=== PATIENT | female | born 1960 | race Two or more races ===

== ENCOUNTER 2023-09-13 10:52 | Outpatient (OUT) | payer MEDICAID, SELFPAY ==
--- NOTE | 2023-09-13 11:06 | FL_ITS ---
The [address] [address] Patient Name: ELIAS CONTEH MRN: [id number] date: 1960 Sex: F Assigned Patient Location: DC Current Patient Location: DC Accession/Order Number: [id number] Exam Date: 09/13/2023 11:05 Report Date: 09/13/2023 12:00 At the request of: JOSÉ YOUNGBLOOD Procedure: FL modified barium swallow EXAMINATION: FL modified barium swallow HISTORY: Dysphasia COMPARISON: No relevant comparison available. TECHNIQUE: A swallowing evaluation was performed with fluoroscopy in the usual manner. Standard level fluoroscopic mode of operation utilized. FINDINGS: ORAL PHASE: Marked delay PHARYNGEAL PHASE: Marked delay . Filling of the vallecula with spillage. ASPIRATION: Small amount of penetration with honey consistency STRUCTURE: Normal. No visible obstruction, stricture, or dilatation. OTHER: Negative. FL/FL modified barium swallow IMPRESSION: Marked delay in swallowing Penetration with honey consistency Electronically authenticated by: KAYY CORTEZ Date: 09/13/2023 12:00
== END 2023-09-13 10:53 | disposition home or self-care (01) ==
LOC: FL 10:57
PROVIDERS: PCP Family Medicine; Visit Provider Family Medicine
DX: R47.02 Dysphasia (principal)
CPT/HCPCS: 74230; 92611

== ENCOUNTER 2023-09-21 12:45 | Emergency (ER) | payer MEDICAID, SELFPAY ==
[2023-09-21 12:51] VITALS: BP 138/86; PULSE 89; RESP 16; TEMP 36.6; O2SAT 94; BMI 17.9
--- NOTE | 2023-09-21 13:40 | XR_ITS ---
The [address] [address] Patient Name: ELIAS CONTEH MRN: [id number] date: 1960 Sex: F Assigned Patient Location: ER Current Patient Location: Accession/Order Number: [id number] Exam Date: 09/21/2023 13:52 Report Date: 09/21/2023 14:09 At the request of: ELENA SCOTT Procedure: XR chest 1V EXAMINATION: XR chest 1V HISTORY: NG placement COMPARISON: No relevant comparison available. TECHNIQUE: AP portable FINDINGS: LUNGS: No significant pulmonary parenchymal abnormalities. VASCULATURE: No increased pulmonary vasculature. PLEURA: No pneumothorax, effusion, or pleural thickening. CARDIAC: No cardiomegaly or cardiac silhouette abnormality. MEDIASTINUM: No visible mass or adenopathy. Aortic atherosclerosis BONES: No fracture or visible bone lesion. Remote bilateral clavicle internal fixation OTHER: Enteric tube tip extends off the field of view. The last side holes in the distal esophagus XR/XR chest 1V IMPRESSION: Last sidehole in the distal esophagus, advancement 5 cm recommended Electronically authenticated by: KAYY CORTEZ Date: 09/21/2023 14:09
--- NOTE | 2023-09-21 13:41 | ED.GENADUL1 ---
HPI - General Adult General Chief complaint: Recheck/Abnormal Lab/Rx Stated complaint: OTHER Time Seen by Provider: 09/21/23 12:57 Mode of arrival: Wheelchair History of Present Illness HPI narrative: 63-year-old female presents to the emergency department for NG tube placement. She had failed a swallow study following a stroke and the plan is to place a feeding tube eventually. She was sent here for the NG tube placement to temporarily provide a means of her receiving medications and nutrition. She does not seem to have any physical complaints at this point and she is accompanied by caregiver. Related Data Allergies Allergy/AdvReac Type Severity Reaction Status Date / Time Sulfa (Sulfonamide Allergy Unknown Verified 09/21/23 13:03 Antibiotics) Review of Systems ROS Narrative A ten point review of systems is negative except as noted above. Exam Narrative Exam Narrative: Nurses note and vital signs reviewed and patient is not hypoxic. General: The patient appears well and in no apparent distress. Patient is resting comfortably on cart. Skin: Warm, dry, no pallor noted. There is no rash noted. Head: Normocephalic, atraumatic Eye: Normal conjunctiva, no drainage Ears, Nose, Mouth, and Throat: oral mucosa is moist. Nares patent. Cardiovascular: Regular Rate and Rhythm Respiratory: Patient is in no distress, no accessory muscle use, lungs are clear to auscultation, no wheezing, rales or rhonchi Back: non-tender GI: Soft and nontender Musculoskeletal: No joint swelling Neurological: A&O, speech is slurred from her stroke Psychiatric: Cooperative Constitutional Vital Signs, click to edit/add: Last Vital Signs Temp 98 F 09/21/23 12:51 Pulse 89 09/21/23 12:51 Resp 16 09/21/23 12:51 BP 138/86 09/21/23 12:51 Pulse Ox 94 L 09/21/23 12:51 O2 Del Method Room Air 09/21/23 12:51 Course Vital Signs Vital signs: Vital Signs Temperature 98 F 09/21/23 12:51 Pulse Rate 89 09/21/23 12:51 Respiratory Rate 16 09/21/23 12:51 Blood Pressure 138/86 09/21/23 12:51 Pulse Oximetry 94 L 09/21/23 12:51 Oxygen Delivery Method Room Air 09/21/23 12:51 Temperature 98 F 09/21/23 12:51 Pulse Rate 89 09/21/23 12:51 Respiratory Rate 16 09/21/23 12:51 Blood Pressure 138/86 09/21/23 12:51 Pulse Oximetry 94 L 09/21/23 12:51 Oxygen Delivery Method Room Air 09/21/23 12:51 Medical Decision Making MDM Narrative Medical decision making narrative: NG tube placed by nursing staff. X-ray on my interpretation shows appropriate placement and the patient is released back to [facility]. Imaging Data Chest x-ray: My impression: Appropriate placement of NG tube Discharge Plan Discharge Stand Alone Forms: Portal Instructions Chief Complaint: Recheck/Abnormal Lab/Rx Clinical Impression: Encounter for nasogastric (NG) tube placement Patient Disposition: Home, Self-Care Time of Disposition Decision: 13:51 Condition: Good Mode of Transportation: Private Vehicle Print Language: Divehi Instructions: Tube Feeding (DC), Nasogastric Tube (DC) Referrals: JOSÉ YOUNGBLOOD [Primary Care Provider] - 1 week
== END 2023-09-21 14:03 | disposition home or self-care (01) ==
PROVIDERS: Emergency Provider Emergency Medicine; PCP Family Medicine
DX: Z46.59 Encounter for fitting and adjustment of other gastrointestinal appliance and device (principal); Z86.73 Personal history of transient ischemic attack (TIA), and cerebral infarction without residual deficits
CPT/HCPCS: 71045; 99284

== ENCOUNTER 2023-09-24 13:02 | Emergency (ER) | payer MEDICAID, SELFPAY ==
[2023-09-24 13:03] VITALS: BP 130/82; PULSE 99; RESP 18; O2SAT 97; BMI 18.0
[2023-09-24 13:17] VITALS: TEMP 36.6
--- OUTSIDE RECORDS SUMMARY | 2023-09-24 13:18 | XMS_ITS | CCD ---
Author Organization [facility] Care Team Providers Care Technical Sales Consultant Name Role Phone Unavailable Primary Care Provider UnavailMARBELLA Méndez Consulting Unavailable ZAC ORTIZ Admitting Unavailable ZAC ORTIZ Attending Unavailable ELLIOT BYRD Consulting Unavailable DIMAS PEACOCK Consulting Unavailable KAY NOVAK Consulting Unavailable STEVE ESTRELLA Consulting Unavailable DI TIPTON Consulting Unavailable IMER BUTTS Consulting Unavailable JUSTIN VIEIRA Consulting Unavailable JOSÉ YOUNGBLOOD Primary Care Unavailable JOSÉ YOUNGBLOOD Primary Care Unavailable GIORGI LAMAR Attending Unavailable Medications Current Medications Medication Drug Class(es) Dates Sig (Normalized) Sig (Original) amLODIPine 10 mg oral tablet (5 sources) Dihydropyridine Calcium Channel Rikki Start: 04-19-2022 Start: 03-19-2022 End: 04-19-2022 ergocalciferol 1.25 mg oral capsule (1 source) Provitamin D2 Compound Start: 03-17-2022 metFORMIN hydrochloride 1000 mg oral tablet (4 sources) Biguanide Start: 04-12-2022 Start: 04-07-2022 End: 04-12-2022 take 500 mg by mouth twice daily at mealtime 500 mg, Oral, 2 TIMES DAILY WITH MEALS, First dose on Tue04/07/22 at 1700, Until Discontinued Start: 04-07-2022 End: 04-12-2022 take 1000 mg by mouth twice daily at mealtime 1,000 mg, Oral, 2 TIMES DAILY WITH MEALS, First dose (after last modification) on Tue04/12/22 at 0800, Until Discontinued sertraline 50 mg oral tablet (3 sources) Serotonin Reuptake Inhibitor Start: 04-21-2022 Start: 04-20-2022 take 1 dose by mouth once 25 m g, Oral, ONCE, 1 dose, On Tue04/20/22 at 1315 divalproex sodium 125 mg delayed release oral capsule (3 sources) Mood Stabilizer, Anti-epileptic Agent Start: 04-07-2022 End: 04-12-2022 Start: 03-30-2022 take 1 dose by mouth three times daily 250 mg, Oral, EVERY 8 HOURS SCHEDULED (3 times per day), First dose on Tue03/30/22 at 2200, Until Discontinued Hold if sedated Completed/Discontinued Medications Medication Drug Class(es) Dates Sig (Normalized) Sig (Original) acetaminophen 500 mg oral tablet (2 sources) Start: 03-28-2022 take 1000 mg by mouth every eight hours as needed 1,000 mg, Oral, EVERY 8 HOURS PRN, Starting on Tue03/28/22 at 0636, Until Discontinued, Pain Moderate (4-6) Start: 03-17-2022 End: 03-24-2022 take 1000 mg by mouth every eight hours 1,000 mg, Oral, Every 8 hours, 21 doses, First dose on Tue03/17/22 at 0315, Last dose on Tue03/23/22 at 1915 Maximum dose of acetaminophen is 4000 mg from all sources in 24 hours. albuterol 0.833 mg/ml / ipratropium bromide 0.167 mg/ml inhalation solution (2 sources) Anticholinergic, beta2-Adrenergic Agonist Start: 04-07-2022 End: 04-12-2022 Start: 03-20-2022 End: 03-22-2022 1 ampule, Inhalation, EVERY 4 HOURS WHILE AWAKE, First dose on Tue03/20/22 at 1200, Until Discontinued Initiate RT Bronchodilator Protocol: No amoxicillin 875 mg / clavulanate 125 mg oral tablet (2 sources) Penicillin-class Antibacterial Start: 03-17-2022 End: 03-24-2022 take 1 tablet by mouth every twelve hours 1 tablet, Oral, EVERY 12 HOURS SCHEDULED (2 times per day), 10 doses, First dose (after last modification) on Tue03/19/22 at 2100, Last dose on Tue03/24/22 at 0900 Antimicrobial Indications: Surgical Site Infection ceFAZolin (ANCEF) 2000 mg in sterile water 20 mL IV syringe (1 source) Start: 03-18-2022 End: 03-18-2022 2,000 mg, IntraVENous, EVERY 8 HOURS, First dose on Anuradha 03/18/22 at 1400, For 2 doses Administer over 5 mins. chlorhexidine gluconate 1.2 mg/ml mouthwash (1 source) Start: 03-16-2022 End: 03-17-2022 take 15 mL by mouth twice daily 15 mL, Mouth/Throat, 2 TIMES DAILY, First dose on Tue03/16/22 at 2300, Until Discontinued For mechanical ventilation care. cloNIDine hydrochloride 0.1 mg oral tablet (4 sources) Central alpha-2 Adrenergic Agonist Start: 04-19-2022 End: 04-21-2022 take 0.1 mg by mouth once daily 0.1 mg, Oral, DAILY, 3 doses, First dose (after last modification) on Tue04/19/22 at 0900, Last dose on Tue04/21/22 at 0900 Start: 04-07-2022 End: 04-19-2022 take 0.1 mg by mouth twice daily 0.1 mg, Oral, 2 TIMES DAILY, First dose (after last modification) on Tue04/07/22 at 2100, Until Discontinued Start: 03-22-2022 End: 04-12-2022 100 ml dexmedetomidine 0.004 mg/ml injection (2 sources) Central alpha-2 Adrenergic Agonist Start: 03-17-2022 End: 03-22-2022 take 1.5-23.2 mL intravenously every hour 0.1-1.5 mcg/kg/hr 61.8 kg (1.545-23.175 mL/hr, rounded to 1.5-23.2 mL/hr), IntraVENous, CONTINUOUS, Starting on 03/20/22 at 1345, Until Tue03/22/22 at 0905 Titrate Infusion? Yes Initial Infusion Dose: 0.2 mcg/kg/hr Goal of Therapy: RASS of -1 to 0 Contact Provider if: New onset HR less than 50 bpm, New onset SBP less than 90 mmHg, Patient is receiving maximum dose and is not achieving the goal of therapy If Titrate Infusion? is No : Disregard instructions below. If Titrate infusion? is Yes : Titrate in increments of 0.2 mcg/kg/hr no more frequently than every 30 minutes to goal of therapy. If after titration rate change patient exhibits adverse hemodynamic response, next titration rate change may be adjusted by one-half of the previous rate change. If patient fails sedation interruption, resume dexmedetomidine infusion at 50% of previous rate. diazePAM 2 mg oral tablet (2 sources) Benzodiazepine Start: 03-22-2022 End: 03-24-2022 2 mg, Oral, EVERY 6 HOURS, 7 doses, First dose (after last modification) on Tue03/22/22 at 1930, Last dose on Tue03/24/22 at 0730 Start: 03-19-2022 End: 03-22-2022 take 5 mg by mouth every six hours 5 mg, Oral, EVERY 6 HOURS, First dose on Tue03/19/22 at 1330, Until Discontinued docusate sodium 50 mg / sennosides, residential 8.6 mg oral tablet (1 source) Start: 04-20-2022 take 2 tablets by mouth once daily 2 tablet, Oral, DAILY, First dose (after last modification) on Tue04/20/22 at 0900, Until Discontinued Drug or medicament (substance) (2 sources) Start: 03-19-2022 End: 03-20-2022 take 0.5-4 mL intravenously every hour 25-200 mcg/hr (0.5-4 mL/hr), IntraVENous, CONTINUOUS, Starting on Tue03/19/22 at 1715, Until 03/20/22 at 0900 Titrate Infusion? Yes Initial Infusion Dose: 50 mcg/hr Goal of Therapy is: RASS of -1 to 1 Contact Provider if: Patient is receiving the maximum dose and is not achieving the goal of therapy If Titrate Infusion? is No : Disregard instructions below. If Titrate infusion? is Yes : Titrate in increments of 25 mcg/hr no more frequently than every 30 minutes to goal of therapy. If after titration dose change patient exhibits adverse hemodynamic response, next titration dose change may be adjusted by one-half of the previous dose change. If patient fails sedation interruption, resume infusion at 50% of previous dose. Start: 03-16-2022 End: 03-18-2022 take 0.5-4 mL intravenously every hour 25-200 mcg/hr (0.5-4 mL/hr), IntraVENous, CONTINUOUS, Starting on Tue03/16/22 at 2300, Until Tue03/18/22 at 1826 Titrate Infusion? Yes Initial Infusion Dose: 50 mcg/hr Goal of Therapy is: RASS of -1 to 1 Contact Provider if: Patient is receiving the maximum dose and is not achieving the goal of therapy If Titrate Infusion? is No : Disregard instructions below. If Titrate infusion? is Yes : Titrate in increments of 25 mcg/hr no more frequently than every 30 minutes to goal of therapy. If after titration dose change patient exhibits adverse hemodynamic response, next titration dose change may be adjusted by one-half of the previous dose change. If patient fails sedation interruption, resume infusion at 50% of previous dose. 0.3 ml enoxaparin sodium 100 mg/ml prefilled syringe (2 sources) Low Molecular Weight Heparin Start: 03-21-2022 End: 04-12-2022 20 ml etomidate 2 mg/ml injection (1 source) General Anesthetic Start: 03-19-2022 End: 03-19-2022 30 mg, IntraVENous, ONCE, 1 dose, On Tue03/19/22 at 1815 Start: 03-19-2022 End: 03-19-2022 30 mg, IntraVENous, ONCE, 1 dose, On Tue03/19/22 at 1815 famotidine 20 mg oral tablet (2 sources) Histamine-2 Receptor Antagonist Start: 03-19-2022 End: 03-22-2022 take 20 mg by mouth twice daily 20 mg, Oral, 2 TIMES DAILY, First dose on Tue03/19/22 at 2100, Until Discontinued Start: 03-17-2022 End: 03-19-2022 take 20 mg by mouth twice daily 20 mg, Oral, 2 TIMES DAILY, First dose on Tue03/17/22 at 2100, Until Discontinued Traumatic SCI on >250mg dose equivalent of hydrocortisone famotidine (PEPCID) 20 mg in sodium chloride (PF) 10 mL injection (1 source) Start: 03-16-2022 End: 03-17-2022 take 20 mg intravenously twice daily 20 mg, IntraVENous, 2 TIMES DAILY, First dose on Tue03/16/22 at 2300, Until Discontinued IV Push over minimum of 2 minutes - Dilute with 10 mL NS 2 ml fentaNYL 0.05 mg/ml injection (6 sources) Opioid Agonist Start: 03-19-2022 End: 03-19-2022 take 1 dose by mouth once 50 mcg, IntraVENous, ONCE, 1 dose, On Tue03/19/22 at 1730 If oral and IV narcotics ordered, use oral first and only use IV if oral is ineffective or cannot take oral. D o Not give oral and IV within 1 hour of each other unless specifically ordered. Start: 03-19-2022 End: 03-19-2022 1 dose, Starting on 03/19 at 1623, Until 03/20/22 at 0429 TURNER GUERIN: cabinet override TURNER GUERIN: eloiseinet override Start: 03-18-2022 End: 03-19-2022 take 1 dose by mouth once 50 mcg, IntraVENous, ONCE, 1 dose, On Tue03/19/22 at 1645 If oral and IV narcotics ordered, use oral first and only use IV if oral is ineffective or cannot take oral. Do Not give oral and IV within 1 hour of each other unless specifically ordered. folic acid 1 mg oral tablet (2 sources) Start: 03-19-2022 End: 04-12-2022 gabapentin 300 mg oral capsule (1 source) Anti-epileptic Agent Start: 03-17-2022 End: 03-24-2022 take 300 mg by mouth every eight hours 300 mg, Oral, Every 8 hours, 21 doses, First dose on Tue03/17/22 at 0315, Last dose on Tue03/23/22 at 1915 250 ml glucose 50 mg/ml / sodium chloride 9 mg/ml injection (1 source) Start: 03-19-2022 End: 03-22-2022 IntraVENous, at 0-90 mL/hr, CONTINUOUS, Starting on Tue03/19/22 at 0745 Cap all fluids at 90cc/hr, including TF 1 ml haloperidol 5 mg/ml injection (12 sources) Typical Antipsychotic Start: 04-03-2022 End: 04-04-2022 inject 5 mg by intramuscular injection every six hours as needed 5 mg, IntraMUSCular, EVERY 6 HOURS PRN, Starting on 04/03/22 at 1745, Until 04/04/22 at 0654, Agitation IM route of administration preferred. Because of the risk of TdP and QT prolongation, ECG monitoring is recommended if haloperidol is given IV. Start: 03-31-2022 End: 04-01-2022 inject 1 dose by intramuscular injection once 5 mg, IntraMUSCular, ONCE, 1 dose, On Anuradha 04/01/22 at 0330 IM route of administration preferred. Because of the risk of TdP and QT prolongation, ECG monitoring is recommended if haloperidol is given IV. Start: 03-24-2022 End: 03-28-2022 inject 1 dose by intramuscular injection once 5 mg, IntraMUSCular, ONCE, 1 dose, On 03/28/22 at 1600 IM route of administration preferred. Because of the risk of TdP and QT prolongation, ECG monitoring is recommended if haloperidol is given IV. Start: 03-17-2022 End: 03-22-2022 take 5 mg intravenously every six hours as needed 5 mg, IntraVENous, EVERY 6 HOURS PRN, Starting on Tue03/17/22 at 1107, Until 03/22/22 at 1323, Agitation IM route of administration preferred. Because of the risk of TdP and QT prolongation, ECG monitoring is recommended if haloperidol is given IV. 1 ml hydrALAZINE hydrochloride 20 mg/ml injection (1 source) Arteriolar Vasodilator Start: 03-29-2022 End: 03-29-2022 10 mg, IntraVENous, EVERY 15 MIN PRN, 2 doses, Starting on 03/29/22 at 1629, Until 03/29/22 at 1745, High Blood Pressure, for SBP greater than 180 mmHg for 2 consecutive measurements taken from different sites Inform provider if SBP is still greater than 180 mmHg 10 minutes after second antihypertensive dose is administered. PACU only ibuprofen 20 mg/ml oral suspension (2 sources) Nonsteroidal Anti-inflammatory Drug Start: 03-19-2022 End: 03-26-2022 400 mg, Oral, EVERY 4 HOURS, 42 doses, First dose on Tue03/19/22 at 1200, Last dose on Tue03/26/22 at 0800 Start: 03-17-2022 End: 03-19-2022 take 400 mg by mouth every four hours 400 mg, Oral, EVERY 4 HOURS, First dose on Tue03/17/22 at 1200, Until Discontinued Do not crush or chew. insulin lispro 100 unt/ml injectable solution (5 sources) Insulin Analog Start: 04-12-2022 End: 04-12-2022 0-16 Units, SubCUTAneous, 4 TIMES DAILY BEFORE MEALS & NIGHTLY, First dose on Tue04/12/22 at 1100, Until Discontinued High Dose Corrective Algorithm Glucose: Dose: 70-179 No Insulin 180-249 4 Units 250-299 8 Units 300-349 12 Units Over 349 16 Units and notify physician Start: 04-07-2022 End: 04-07-2022 Start: 04-07-2022 End: 04-12-2022 0-4 Units, SubCUTAneous, 3 T IMES DAILY WITH MEALS, First dose on Tue04/07/22 at 1245, Until Discontinued Corrective Low Dose Algorithm Glucose: Dose: 70-199 No Insulin 200-249 1 Unit 250-299 2 Units 300-349 3 Units Over 349 4 Units and notify physician Start: 03-22-2022 End: 04-07-2022 0-16 Units, SubCUTAneous, 4 TIMES DAILY BEFORE MEALS & NIGHTLY, First dose (after last modification) on Tue03/22/22 at 1700, Until Discontinued High Dose Corrective Algorithm Glucose: Dose: 70-179 No Insulin 180-249 4 Units 250-299 8 Units 300-349 12 Units Over 349 16 Units and notify physician Start: 03-19-2022 End: 03-22-2022 0-16 Units, SubCUTAneous, EV RAMON 4 HOURS, First dose on Tue03/19/22 at 1445, Until Discontinued High Dose Corrective Algorithm Glucose: Dose: 70-179 No Insulin 180-249 4 Units 250-299 8 Units 300-349 12 Units Over 349 16 Units and notify physician labetalol hydrochloride 5 mg/ml injectable solution (1 source) beta-Adrenergic Rikki Start: 03-17-2022 End: 03-16-2022 10 mg, IntraVENous, ONCE, 1 dose, On Tue03/17/22 at 0000 Start: 03-17-2022 End: 03-16-2022 10 mg, IntraVENous, ONCE, 1 dose, On Tue03/17/22 at 0000 1 ml LORazepam 2 mg/ml injection (2 sources) Benzodiazepine Start: 03-19-2022 End: 03-19-2022 1 mg, IntraVENous, ONCE, 1 dose, On Tue03/19/22 at 0600 Start: 03-18-2022 End: 03-18-2022 1 mg, IntraVENous, ONCE, 1 d ose, On Tue03/18/22 at 2200 50 ml magnesium sulfate 40 mg/ml injection (2 sources) Start: 03-22-2022 End: 03-22-2022 2,000 mg, IntraVENous, at 25 mL/hr, Administer over 2 Hours, ONCE, On Tue03/22/22 at 1400, For 1 dose Recommended infusion rate not to exceed 1,000 mg (milligrams) per hour. Start: 03-19-2022 End: 03-19-2022 2,000 mg, IntraVENous, at 25 mL/hr, Administer over 2 Hours, ONCE, On Tue03/19/22 at 1130, For 1 dose Recommended infusion rate of 1 gram/hour. methocarbamol 750 mg oral tablet (1 source) Muscle Relaxant Start: 03-17-2022 End: 03-19-2022 take 750 mg by mouth every six hours 750 mg, Oral, EVERY 6 HOURS, First dose on Tue03/17/22 at 0315, Until Discontinued 2 ml metoclopramide 5 mg/ml prefilled syringe (1 source) Dopamine-2 Receptor Antagonist Start: 03-19-2022 End: 03-22-2022 10 mg, IntraVENous, EVERY 6 HOURS, 12 doses, First dose on Tue03/19/22 at 1230, Last dose on Tue03/22/22 at 0630 5 ml metoprolol tartrate 1 mg/ml injection (2 sources) beta-Adrenergic Rikki Start: 03-22-2022 End: 03-22-2022 1 dose, Starting on Tue03/22/22 at 1033, Until Tue03/22/22 at 1036 MISA WELCH: gracia dela cruzide MISA WELCH: gracia override Start: 03-22-2022 End: 03-22-2022 5 mg, IntraVENous, EVERY 6 H OURS PRN, Starting on Tue03/22/22 at 1021, Until Tue03/22/22 at 1323, Tachycardia, if pain and agitation controlled give hr >110 OLANZapine 10 mg disintegrating oral tablet (7 sources) Atypical Antipsychotic Start: 04-20-2022 take 10 mg by mouth twice daily 10 mg, Oral, 2 times daily, First dose (after last modification) on Tue04/20/22 at 2100, Until Discontinued Start: 04-07-2022 End: 04-20-2022 take 7.5 mg by mouth twice daily 7.5 mg, Oral, 2 times daily, First dose (after last modification) on Tue04/07/22 at 2100, Until Discontinued Start: 03-28-2022 End: 04-07-2022 take 5 mg by mouth twice daily 5 mg, Oral, 2 times isabella ly, First dose (after last modification) on Tue03/28/22 at 2100, Until Discontinued Start: 03-25-2022 End: 03-28-2022 take 2.5 mg by mouth twice daily 2.5 mg, Oral, 2 times daily, First dose on Tue03/25/22 at 1245, Until Discontinued oxyCODONE hydrochloride 5 mg oral tablet (1 source) Opioid Agonist Start: 03-17-2022 End: 03-25-2022 take 5 mg by mouth every six hours as needed for pain 5 mg, Oral, EVERY 6 HOURS PRN, Starting on Tue03/17/22 at 0258, Until Tue03/25/22 at 0954, Pain Severe (7-10) polyethylene glycol 3350 22980 mg powder for oral solution (2 sources) Osmotic Laxative Start: 03-17-2022 End: 04-22-2022 potassium bicarbonate 20 meq effervescent oral tablet (3 sources) Start: 03-22-2022 End: 03-22-2022 40 mEq, Oral, 2 TIMES DAILY, 2 doses, First dose (after last modification) on Tue03/22/22 at 1000, Last dose on Tue03/22/22 at 2100 Do not chew or crush. Disso lve flavored tablets completely in 3 to 4 ounces of cold water; unflavored tablets may be dissolved in 3 to 4 ounces of cold juice. Patie nt to sip slowly over a 5 to 10 minute period. May further dilute if GI adverse effects occur. Start: 03-19-2022 End: 03-19-2022 40 mEq, Oral, DAILY, First d ose on Tue03/19/22 at 1130, Until Discontinued Do not chew or crush. Dissolve flavored tablets completely in 3 to 4 ounces of cold water; unflavored tablets may be dissolved in 3 to 4 ounces of cold juice. Patient to sip slowly over a 5 to 10 minute period. May further dilute if GI adverse effects occur. Start: 03-19-2022 End: 03-19-2022 40 mEq, Oral, ONCE, 1 dose, On Tue03/19/22 at 0815 Do not chew or crush. Dissolve flavored tablets completely in 3 to 4 ounces of cold water; unflavored tablets may be dissolved in 3 to 4 ounces of cold juice. Patient to sip slowly over a 5 to 10 minute period. May further dilute if GI adverse effects occur. microencapsulated potassium chloride 20 meq extended release oral tablet (2 sources) Start: 04-05-2022 End: 04-05-2022 40 mEq, Oral, ONCE, 1 dose, On Tue04/05/22 at 0715 Do not crush, chew, or suck on tablet. Tablet may also be broken in half and each half swallowed separately. Start: 03-20-2022 End: 03-20-2022 For doses greater than 10 mE q, change frequency to every one hour for x number of doses. 10 mEq, IntraVENous, ONCE, 1 dose, On 03/20/22 at 0930, at 100 mL/hr 100 ml propofol 10 mg/ml injection (2 sources) General Anesthetic Start: 03-19-2022 End: 03-20-2022 5-50 mcg/kg/min 59.4 kg (1.782-17.82 mL/hr, rounded to 1.8-17.8 mL/hr), IntraVENous, CONTINUOUS, Starting on Tue03/19/22 at 2045, Until 03/20/22 at 0900 Titrate Infusion? Yes Initial Infusion Dose: 20 mcg/kg/min Goal of Therapy: RASS of -1 to 0 Contact Provider if: New onset HR less than 50 bpm, New onset SBP less than 90 mmHg, Patient is receiving maximum dose and is not achieving the goal of therapy, Triglycerides greater than 500 mg/dL If Titrate Infusion? is No : Disregard instructions below. If Titrate infusion? is Yes : Titrate in increments of 5 mcg/kg/min no more frequently than every 5 minutes to goal of therapy. If after titration rate change patient exhibits adverse hemodynamic response, next titration rate change may be adjusted by one-half of the previous rate change. If patient fails sedation interruption, resume propofol infusion at 50% of previous rate. Do not administer through the same I.V. catheter with blood or plasma. Tubing and any unused portions of propofol vials should be discarded after 12 hours. Start: 03-16-2022 End: 03-17-2022 5-50 mcg/kg/min 60 kg (1.8-1 8 mL/hr), IntraVENous, CONTINUOUS, Starting on Tue03/16/22 at 2300, Until Tue03/17/22 at 1108 Titrate Infusion? Yes Initial Infusion Dose: 10 mcg/kg/min Goal of Therapy: Other Other Goal: RASS -1 to -2 Contact Provider if: Patient is receiving maximum dose and is not achieving the goal of therapy If RASS 1 point below goal - decrease dose by 5 mcg/kg/min no faster than every 5 min. If RASS 2 points below goal- decrease dose by 10 mcg/kg/min no faster than every 5 min. If RASS at goal, continue current dose . If RASS 1 point above goal - increase dose by 5 mcg/kg/min no faster than every 5 min. If RASS 2 or more points above goal - increase dose by 10 mcg/kg/min no faster than every 5 min. If after titration rate change patient exhibits adverse hemodynamic response, next titration dose change may be adjusted by one-half of the previous dose change. If patient fails sedation interruption, resume propofol titration at 50% of previous dose. Do not administer through the same I.V. catheter with blood or plasma. Tubing and any unused portions of propofol vials should be discarded after 12 hours. QUEtiapine 25 mg oral tablet (3 sources) Atypical Antipsychotic Start: 03-26-2022 End: 03-27-2022 take 1 dose by mouth once 50 mg, Oral, ONCE, 1 dose, On Tue03/26/22 at 2330 Start: 03-25-2022 End: 03-25-2022 take 1 dose by mouth once 50 mg, Oral, ONCE, 1 dose, O n Anuradha 03/25/22 at 0030 Start: 03-19-2022 End: 03-23-2022 50 mg, Oral, 2 TIMES DAILY, 10 doses, First dose on Tue03/19/22 at 1230, Last dose on Tue03/23/22 at 2100 50 ml sodium chloride 9 mg/m l injection (5 sources) Start: 03-19-2022 End: 03-20-2022 1,000 mL (16.8 mL/kg), IntraVENous, at 1,935.5 mL/hr, Administer over 31 Minutes, ONCE, On Tue03/19/22 at 2200, For 1 dose Start: 03-16-2022 End: 03-19-2022 IntraVENous, at 0-100 mL/hr, CONTINUOUS, Starting on Tue03/17/22 at 1115 Titrate to total intake of 100 ml hr Start: 03-16-2022 End: 03-18-2022 take 1 dose intravenously twice daily 5-40 mL, IntraVENous, EVERY 12 HOURS SCHEDULED (2 times per day), First dose on Tue03/16/22 at 2300, Until Discontinued For Line Patency: Peripheral IV = 5 mL; Midline or Central Line = 10 mL/lumen. If following IV push medication, administer flush at same rate as the IV push. Flush volume is determined by type of infusion therapy being given. For non-viscous solutions use: Peripheral IV = 5 mL Midline or Central Line = 10 mL/lumen For viscous solutions (i.e. blood components, parenteral nutrition, contrast media, or after obtaining blood sample) use: Peripheral IV = 10 mL Midline or Central Line = 20 mL/lumen Start: 03-16-2022 take 5-40 mL intrave nously once as needed 5-40 mL, IntraVENous, PRN, Starting on Tue03/16/22 at 2236, Until Discontinued, Line Care, After every IV line use For Line Patency: Peripheral IV = 5 mL; Midline or Central Line = 10 mL/lumen. If following IV push medication, administer flush at same rate as the IV push. Flush volume is determined by type of infusion therapy being given. For non-viscous solutions use: Peripheral IV = 5 mL Midline or Central Line = 10 mL/lumen For viscous solutions (i.e. blood components, parenteral nutrition, contrast media, or after obtaining blood sample) use: Peripheral IV = 10 mL Midline or Central Line = 20 mL/lumen succinylcholine chloride 20 mg/ml injectable solution (1 source) Depolarizing Neuromuscular Rikki Start: 03-19-2022 End: 03-19-2022 150 mg, IntraVENous, ONCE, 1 dose, On Tue03/19/22 at 1630 Start: 03-19-2022 End: 03-19-2022 150 mg, IntraVENous, ONCE, 1 dose, On Tue03/19/22 at 1630 (5 sources) Start: 03-20-2022 End: 03-20-2022 30 mmol, IntraVENous, at 62. 5 mL/hr, Administer over 240 Minutes, ONCE, On 03/20/22 at 0730, For 1 dose Start: 03-19-2022 End: 03-20-2022 0.04 Units/min (12 mL/hr), IntraVENous, CONTINUOUS, Starting on Tue03/19/22 at 2215, Until Tue03/20/22 at 0900 Titrate Infusion? No Infusion Dose: Other Other (units/min): .04 If Titrate Infusion? is No : Disregard instructions below. If Titrate infusion? is Yes : Increase dose by 0.01 units/min no faster than every 10 minutes to goal. Decrease dose by 0.01 units/min no faster than every 30 minutes while maintaining goal parameter. Start: 03-19-2022 End: 03-22-2022 take 500 mg intravenously every eight hours 500 mg, IntraVENous, at 200 mL/hr, Administer over 30 Minutes, Every 8 hours, First dose on Tue03/19/22 at 1330, For 72 hours Protect from light. Start: 03-19-2022 End: 03-19-2022 3,000 mg, IntraVENous, EVERY 6 HOURS, 28 doses, First dose on Tue03/19/22 at 0530, Last dose on Tue03/25/22 at 2330 Antimicrobial Indications: Other Other Abx Indication: sinus precautions, patient NPO Start: 03-17-2022 End: 03-17-2022 3,000 mg, IntraVENous, at 33 .3 mL/hr, Administer over 3 Hours, ONCE, On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 accurate in patients with extremes of muscle mass, extra-renal metabolism of creatine, excessive creatine ingestion, or following therapy that affects renal tubular secretion. Performed By: #### C DP #### [address] [address] Geosciences Associate Professor: Dominik Muñiz MD Glucose [Mass/Vol] 132 mg/dL High 70-99 [facility] Comment on above: Performed By: #### C DP #### [address] [id number] Geosc[employer] Associate Professor: Dominik Muñiz MD Potassium [Moles/Vol] 3.9 mmol/L Normal 3.7-5.3 [facility] Comment on above: Performed By: #### C DP #### [facility] [address] [place], [place] [id number] Geosciences Associate Professor: Dominik Muñiz MD Sodium [Moles/Vol] 138 mmol/L Normal 135-144 [facility] Comment on above: Performed By: #### C DP #### [facility] [address] [place], [place] [id number] Geosciences Associate Professor: Dominik Muñiz MD Urea nitrogen [Mass/Vol] 19 mg/dL Normal 8-23 [facility] Comment on above: Performed By: #### C DP #### [facility] [address] [place] [address] Geosciences Associate Professor: Dominik Muñiz MD POC Glucose Fingerstickon Glucose [Mass/Vol] 158 mg/dL High 65 - 105 mg/dL [facility] Interpretation and review of laboratory results Abnormal [facility] Glucose [Mass/Vol] 153 mg/dL High 65 - 105 mg/dL [facility] Interpretation and review of laboratory results Abnormal [facility] POC Glucose Fingerstickon Glucose [Mass/Vol] 168 mg/dL High 65 - 105 mg/dL [facility] Interpretation and review of laboratory results Abnormal [facility] Glucose [Mass/Vol] 155 mg/dL High 65 - 105 mg/dL [facility] Interpretation and review of laboratory results Abnormal [facility] Glucose [Mass/Vol] 195 mg/dL High 65 - 105 mg/dL [facility] Interpretation and review of laboratory results Abnormal [facility] Glucose [Mass/Vol] 165 mg/dL High 65 - 105 mg/dL [facility] Interpretation and review of laboratory results Abnormal [facility] Glucose Fingerstickon Glucose [Mass/Vol] 218 mg/dL High 65 - 105 mg/dL [facility] Interpretation and review of laboratory results Abnormal [facility] Glucose [Mass/Vol] 188 mg/dL High 65 - 105 mg/dL [facility] Interpretation and review of laboratory results Abnormal [facility] Glucose [Mass/Vol] 267 mg/dL High 65 - 105 mg/dL [facility] Interpretation and review of laboratory results Abnormal [facility] Glucose [Mass/Vol] 135 mg/dL High 65 - 105 mg/dL [facility] Interpretation and review of laboratory results Abnormal [facility] Glucose [Mass/Vol] 151 mg/dL High 65 - 105 mg/dL [facility] Interpretation and review of laboratory results Abnormal [facility] Glucose Fingerstickon Glucose [Mass/Vol] 285 mg/dL High 65 - 105 mg/dL [facility] Interpretation and review of laboratory results Abnormal [facility] Glucose [Mass/Vol] 248 mg/dL High 65 - 105 mg/dL [facility] Interpretation and review of laboratory results Abnormal [facility] Glucose [Mass/Vol] 232 mg/dL High 65 - 105 mg/dL [facility] Interpretation and review of laboratory results Abnormal [facility] Glucose [Mass/Vol] 177 mg/dL High 65 - 105 mg/dL [facility] Interpretation and review of laboratory results Abnormal [facility] Glucose [Mass/Vol] 151 mg/dL High 65 - 105 mg/dL [facility] Interpretation and review of laboratory results Abnormal [facility] Glucose Fingerstickon Glucose [Mass/Vol] 277 mg/dL High 65 - 105 mg/dL [facility] Interpretation and review of laboratory results Abnormal [facility] Glucose [Mass/Vol] 193 mg/dL High 65 - 105 mg/dL [facility] Interpretation and review of laboratory results Abnormal [facility] Glucose [Mass/Vol] 230 mg/dL High 65 - 105 mg/dL [facility] Interpretation and review of laboratory results Abnormal [facility] Glucose [Mass/Vol] 153 mg/dL High 65 - 105 mg/dL [facility] Interpretation and review of laboratory results Abnormal [facility] Basic Metab w/rfx MGon 04-09 Anion gap [Moles/Vol] 12 mmol/L Normal 9-17 [facility] Comment on above: Performed By: #### C DP #### [place] [address] Geosciences Associate Professor: Dominik Muñiz MD Calcium [Mass/Vol] 9.4 mg/dL Normal 8.6-10.4 [facility] Comment on above: Performed By: #### C DP #### [place] [address] Geosciences Associate Professor: Dominik Muñiz MD Chloride [Moles/Vol] 102 mmol/L Normal 98-107 [facility] Comment on above: Performed By: #### C DP #### [address] [id number] Geosciences Associate Professor: Dominik Muñiz MD CO2 [Moles/Vol] 25 mmol/L Normal 20-31 [facility] Comment on above: Performed By: #### C DP #### [place] [address] Geosciences Associate Professor: Dominik Muñiz MD Creatinine [Mass/Vol] 0.51 mg/dL Normal 0.50-0.90 [facility] Comment on above: Performed By: #### C DP #### [facility] [address] [place] [id number] Geosciences Associate Professor: Dominik Muñiz MD GFR/1.73 sq M.predicted among non-blacks MDRD (S/P/Bld) [Vol rate/Area] mL/min/{1.73_m2} Normal >60 [facility] Comment on above: Result Comment: Effective Apr 05, 2022 These results are not intended for use in patients <18 years of age. eGFR results are calculated without a race factor using the 2020 CKD-EPI equation. Careful clinical correlation is recommended, particularly when comparing to results calculated using previous equations. The CKD-EPI equation is less accurate in patients with extremes of muscle mass, extra-renal metabolism of creatine, excessive creatine ingestion, or following therapy that affects renal tubular secretion. Performed By: #### C DP #### [address] [address] Geosciences Associate Professor: Dominik Muñiz MD Glucose [Mass/Vol] 194 mg/dL High 70-99 [facility] Comment on above: Performed By: #### C DP #### [address] [address] [employer]osciences Associate Professor: Dominik Muñiz MD Potassium [Moles/Vol] 4.0 mmol/L Normal 3.7-5.3 [facility] Comment on above: Performed By: #### C DP #### [address] [address] Geosciences Associate Professor: Dominik Muñiz MD Sodium [Moles/Vol] 139 mmol/L Normal 135-144 [facility] Comment on above: Performed By: #### C DP #### [facility] [address] [place] [id number] Geosciences Associate Professor: Dominik Muñiz MD Urea nitrogen [Mass/Vol] 18 mg/dL Normal 8-23 [facility] Comment on above: Performed By: #### C DP #### [address] [address] Geosciences Associate Professor: Dominik Muñiz MD Basic Metabolic Panel w/ Ref jessica to MGon 04-09-2022 Anion gap [Moles/Vol] 12 mmol/L 9 - 17 mmol/L [facility] Calcium [Mass/Vol] 9.4 mg/dL 8.6 - 10. 4 mg/dL [facility] Chloride [Moles/Vol] 102 mmol/L 98 - 10 7 mmol/L [facility] CO2 [Moles/Vol] 25 mmol/L 20 - 31 mmol/L [facility] Creatinine [Mass/Vol] 0.51 mg/dL 0.50 - 0.90 mg/dL [facility] GFR/1.73 sq M.predicted MDRD (S/P/Bld) [Vol rate/Area] - PINF [facility] Glucose [Mass/Vol] 194 mg/dL High 70 - 99 mg/dL [facility] Interpretation and review of laboratory results Abnormal [facility] Potassium [Moles/Vol] 4.0 mmol/L 3.7 - 5.3 mmol/L [facility] Sodium [Moles/Vol] 139 mmol/L 135 - 144 mmol/L [facility] Urea nitrogen (BldV) [Mass/Vol] 18 mg/dL 8 - 23 mg/dL [facility] CBC with Auto Differentialon 04-09-2022 Absolute Eos # 0.07 [facility] Absolute Immature Granulocyte [facility] Absolute Lymph # 2.09 [facility] Absolute [place]k # 0.72 [facility] Basophils (Bld) [#/Vol] 0.03 10*3/uL [facility] Basophils/100 WBC (Bld) 0 % 0 - 2 % [facility] Eosinophils/100 WBC (Bld) 1 % 1 - 4 % [facility] Hematocrit (Bld) [Volume fraction] 38.6 % 36.3 - 47.1 % [facility] Hemoglobin (Bld) [Mass/Vol] 12.9 g/dL 11.9 - 15.1 g/dL [facility] Immature granulocytes/100 WBC (Bld) 0 % 0 [facility] Interpretation and review of laboratory results Abnormal [facility] Lymphocytes/100 WBC (Bld) 24 % 24 - 43 % [facility] MCH (RBC) [Entitic mass] 32.3 pg 25.2 - 33.5 pg [facility] MCHC (RBC) [Mass/Vol] 33.4 g/dL 28.4 - 34.8 g/dL [facility] MCV (RBC) [Entitic vol] 96.7 fL 82.6 - 102.9 fL [facility] Monocytes/100 WBC (Bld) 8 % 3 - 12 % [facility] NRBC Automated 0.0 0.0 per 100 WBC [facility] Platelet distribution width (Bld) [Ratio] 12.1 % 11.8 - 14.4 % [facility] Platelet mean volume (Bld) [Entitic vol] 12.5 fL 8.1 - 13.5 fL [facility] Platelets (Bld) [#/Vol] 160 10*3/uL [facility] RBC (Bld) [#/Vol] 3.99 10*6/uL 3.95 - 5.1 1 m/uL [facility] Seg Neutrophils 67 % High 36 - 65 % [facility] Segs Absolute 5.89 [facility] WBC (Bld) [#/Vol] 8.8 10*3/uL [facility] CBC with Diffon 04-09-2022 Abs. Basophil 0.03 k/uL Normal 0.00-0.20 [facility] Comment on above: Performed By: #### C DP #### [facility] [address] [place] [address] Geosciences Associate Professor: Dominik Muñiz MD Abs.Imm.Granulocyte <0.03 Normal 0.00-0.30 [facility] Comment on above: Performed By: #### C DP #### [facility] [address] [place] [address] Geosciences Associate Professor: Dominik Muñiz MD Abs.Neutrophil (Seg) 5.89 k/uL Normal 1.50-8.10 [facility] Comment on above: Performed By: #### C DP #### [address] [address] Geosciences Associate Professor: Dominik Muñiz MD Basophils/100 WBC (Bld) 0 % Normal 0-2 [facility] Comment on above: Performed By: #### C DP #### [place] [address] Geosciences Associate Professor: Dominik Muñiz MD Eosinophils (Bld) [#/Vol] 0.07 10*3/uL Normal 0.00-0.44 [facility] Comment on above: Performed By: #### C DP #### [place] [address] Geosciences Associate Professor: Dominik Muñiz MD Eosinophils/100 WBC (Bld) 1 % Normal 1-4 [facility] Comment on above: Performed By: #### C DP #### [place] [address] [employer]osciences Associate Professor: Dominik Muñiz MD Erythrocyte distribution width (RBC) [Ratio] 12.1 % Normal 11.8-14.4 [facility] Comment on above: Performed By: #### C DP #### [place] [address] Geosciences Associate Professor: Dominik Muñiz MD Hematocrit (Bld) [Volume fraction] 38.6 % Normal 36.3-47.1 [facility] Comment on above: Performed By: #### C DP #### [place] [address] Geosciences Associate Professor: Dominik Muñiz MD Hemoglobin (Bld) [Mass/Vol] 12.9 g/dL Normal 11.9-15.1 [facility] Comment on above: Performed By: #### C DP #### [address] [address] Geosciences Associate Professor: Dominik Muñiz MD Immature granulocytes/100 WBC (Bld) 0 % Normal 0 [facility] Comment on above: Performed By: #### C DP #### [address] [address] Geosciences Associate Professor: Dominik Muñiz MD Lymphocytes (Bld) [#/Vol] 2.09 10*3/uL Normal 1.10-3.70 [facility] Comment on above: Performed By: #### C DP #### [address] [address] Geosciences Associate Professor: Dominik Muñiz MD Lymphocytes/100 WBC (Bld) 24 % Normal 24-43 [facility] Comment on above: Performed By: #### C DP #### [address] [address] Geosciences Associate Professor: Dominik Muñiz MD MCH (RBC) [Entitic mass] 32.3 pg Normal 25.2-33.5 [facility] Comment on above: Performed By: #### C DP #### [address] [address] Geosciences Associate Professor: Dominik Muñiz MD MCHC (RBC) [Mass/Vol] 33.4 g/dL Normal 28.4-34.8 [facility] Comment on above: Performed By: #### C DP #### [address] [address] Geosciences Associate Professor: Dominik Muñiz MD MCV (RBC) [Entitic vol] 96.7 fL Normal 82.6-102.9 [facility] Comment on above: Performed By: #### C DP #### [address] [address] Geosciences Associate Professor: Dominik Muñiz MD Monocytes (Bld) [#/Vol] 0.72 10*3/uL Normal 0.10-1.20 [facility] Comment on above: Performed By: #### C DP #### [address] [address] Geosciences Associate Professor: Dominik Muñiz MD Monocytes/100 WBC (Bld) 8 % Normal 3-12 [facility] Comment on above: Performed By: #### C DP #### [address] [address] Geosciences Associate Professor: Dominik Muñiz MD Neutrophil (Seg) 67 % High 36-65 [facility] Comment on above: Performed By: #### C DP #### [address] [address] Geosciences Associate Professor: Dominik Muñiz MD NRBC Automated 0.0 per 100 WBC Normal 0.0 [facility] Comment on above: Performed By: #### C DP #### [address] [address] Geosciences Associate Professor: Dominik Muñiz MD Platelet mean volume (Bld) [Entitic vol] 12.5 fL Normal 8.1-13.5 [facility] Comment on above: Performed By: #### C DP #### [address] [address] Geosciences Associate Professor: Dominik Muñiz MD Platelets (Bld) [#/Vol] 160 10*3/uL Normal 138-453 [facility] Comment on above: Performed By: #### C DP #### [address] [address] Geosciences Associate Professor: Dominik Muñiz MD RBC (Bld) [#/Vol] 3.99 10*6/uL Normal 3.95-5.11 [facility] Comment on above: Performed By: #### C DP #### [facility] [address] [place] [address] Geosciences Associate Professor: Dominik Muñiz MD WBC (Bld) [#/Vol] 8.8 10*3/uL Normal 3.5-11.3 [facility] Comment on above: Performed By: #### C DP #### [facility] [address] [place] [address] Geosciences Associate Professor: Dominik Muñiz MD POC Glucose Fingerstickon Glucose [Mass/Vol] 248 mg/dL High 65 - 105 mg/dL [facility] Interpretation and review of laboratory results Abnormal [facility] Glucose [Mass/Vol] 357 mg/dL High 65 - 105 mg/dL [facility] Interpretation and review of laboratory results Abnormal [facility] Glucose [Mass/Vol] 186 mg/dL High 65 - 105 mg/dL [facility] Interpretation and review of laboratory results Abnormal [facility] Glucose [Mass/Vol] 213 mg/dL High 65 - 105 mg/dL [facility] Interpretation and review of laboratory results Abnormal [facility] Hemoglobin A1Con 04-08-2022 Glucose [Mass/Vol] 148 mg/dL Normal [facility] Comment on above: Result Comment: The ADA and AACC recommend providing the estimated average glucose result to permit better patient understanding of their HBA1c result. Performed By: #### M G, LIVP, BMPX, VD25, NAMRATA, IOCAL, CDP #### [facility] [address] [place] [address] Geosciences Associate Professor: Dominik Muñiz MD HbA1c (Bld) [Mass fraction] 6.8 % High 4.0-6.0 [facility] Comment on above: Performed By: #### M G, LIVP, BMPX, VD25, NAMRATA, IOCAL, CDP #### [email or web address] [place] [address] Geosciences Associate Professor: Dominik Muñiz MD Glucose [Mass/Vol] 148 mg/dL [facility] HbA1c (Bld) [Mass fraction] 6.8 % High 4.0 - 6.0 % [facility] Interpretation and review of laboratory results Abnormal [facility] POC Glucose Fingerstickon Glucose [Mass/Vol] 192 mg/dL High 65 - 105 mg/dL [facility] Interpretation and review of laboratory results Abnormal [facility] Glucose [Mass/Vol] 241 mg/dL High 65 - 105 mg/dL [facility] Interpretation and review of laboratory results Abnormal [facility] Glucose [Mass/Vol] 205 mg/dL High 65 - 105 mg/dL [facility] Interpretation and review of laboratory results Abnormal [facility] Glucose [Mass/Vol] 160 mg/dL High 65 - 105 mg/dL [facility] Interpretation and review of laboratory results Abnormal [facility] Glucose [Mass/Vol] 166 mg/dL High 65 - 105 mg/dL [facility] Interpretation and review of laboratory results Abnormal [facility] Basic Metab w/rfx MGon 04-07 Anion gap [Moles/Vol] 9 mmol/L Normal 9-17 [facility] Comment on above: Performed By: #### M G, LIVP, BMPX, VD25, NAMRATA, IOCAL, CDP #### [email or web address] [address] [place] [phone] Geosciences Associate Professor: Dominik uMñiz MD Calcium [Mass/Vol] 8.7 mg/dL Normal 8.6-10.4 [facility] Comment on above: Performed By: #### M G, LIVP, BMPX, VD25, NAMRATA, IOCAL, CDP #### [facility] [address] [place] [id number] Geosciences Associate Professor: Dominik Muñiz MD Chloride [Moles/Vol] 102 mmol/L Normal 98-107 [facility] Comment on above: Performed By: #### M G, LIVP, BMPX, VD25, NAMRATA, IOCAL, CDP #### [address] [phone] Geosciences Associate Professor: Dominik Muñiz MD CO2 [Moles/Vol] 27 mmol/L Normal 20-31 [facility] Comment on above: Performed By: #### M G, LIVP, BMPX, VD25, NAMRATA, IOCAL, CDP #### [address] [address] Geosciences Associate Professor: Dominik Muñiz MD Creatinine [Mass/Vol] 0.49 mg/dL Low 0.50-0.90 [facility] Comment on above: Performed By: #### M G, LIVP, BMPX, VD25, NAMRATA, IOCAL, CDP #### [place] [address] Geosciences Associate Professor: Dominik Muñiz MD GFR/1.73 sq M.predicted among non-blacks MDRD (S/P/Bld) [Vol rate/Area] mL/min/{1.73_m2} Normal >60 [facility] Comment on above: Result Comment: Effective Apr 05, 2022 These results are not intended for use in patients <18 years of age. eGFR results are calculated without a race factor using the 2020 CKD-EPI equation. Careful clinical correlation is recommended, particularly when comparing to results calculated using previous equations. The CKD-EPI equation is less accurate in patients with extremes of muscle mass, extra-renal metabolism of creatine, excessive creatine ingestion, or following therapy that affects renal tubular secretion. Performed By: #### M G, LIVP, BMPX, VD25, NAMRATA, IOCAL, CDP #### [address] [id number] Geosciences Associate Professor: Dominik Muñiz MD Glucose [Mass/Vol] 166 mg/dL High 70-99 [facility] Comment on above: Performed By: #### M G, LIVP, BMPX, VD25, NAMRATA, IOCAL, CDP #### [facility] [address] [place], [place] [phone] Geosciences Associate Professor: Dominik Muñiz MD Potassium [Moles/Vol] 4.1 mmol/L Normal 3.7-5.3 [facility] Comment on above: Performed By: #### M G, LIVP, BMPX, VD25, NAMRATA, IOCAL, CDP #### [facility] [address] [place], [place] [id number] Geosciences Associate Professor: Dominik Muñiz MD Sodium [Moles/Vol] 138 mmol/L Normal 135-144 [facility] Comment on above: Performed By: #### M G, LIVP, BMPX, VD25, NAMRATA, IOCAL, CDP #### [email or web address] [address] [place] [phone] Geosciences Associate Professor: Dominik Muñiz MD Urea nitrogen [Mass/Vol] 17 mg/dL Normal 8-23 [facility] Comment on above: Performed By: #### M G, LIVP, BMPX, VD25, NAMRATA, IOCAL, CDP #### [email or web address] [address] [place] [id number] Geosciences Associate Professor: Dominik Muñiz MD Basic Metabolic Panel w/ Ref jessica to MGon 04-07-2022 Anion gap [Moles/Vol] 9 mmol/L 9 - 17 mmol/L [facility] Calcium [Mass/Vol] 8.7 mg/dL 8.6 - 10. 4 mg/dL [facility] Chloride [Moles/Vol] 102 mmol/L 98 - 10 7 mmol/L [employer] [facility] CO2 [Moles/Vol] 27 mmol/L 20 - 31 mmol/L [facility] Creatinine [Mass/Vol] 0.49 mg/dL Low 0.50 - 0.90 mg/dL [employer] [facility] GFR/1.73 sq M.predicted MDRD (S/P/Bld) [Vol rate/Area] - PINF [facility] Glucose [Mass/Vol] 166 mg/dL High 70 - 99 mg/dL [facility] Interpretation and review of laboratory results Abnormal [facility] Potassium [Moles/Vol] 4.1 mmol/L 3.7 - 5.3 mmol/L [facility] Sodium [Moles/Vol] 138 mmol/L 135 - 144 mmol/L [facility] Urea nitrogen (BldV) [Mass/Vol] 17 mg/dL 8 - 23 mg/dL [facility] CBC with Auto Differentialon 04-07-2022 Absolute Eos # 0.05 [facility] [facility] Absolute Immature Granulocyte [facility] Absolute Lymph # 2.01 [facility] SECO URS [facility] Absolute Polk # 0.52 [facility] Basophils (Bld) [#/Vol] 0.03 10*3/uL [facility] Basophils/100 WBC (Bld) 0 % 0 - 2 % [facility] Eosinophils/100 WBC (Bld) 1 % 1 - 4 % [facility] Hematocrit (Bld) [Volume fraction] 32.2 % Low 36.3 - 47.1 % [facility] Hemoglobin (Bld) [Mass/Vol] 10.9 g/dL Low 11.9 - 15.1 g/dL [facility] Immature granulocytes/100 WBC (Bld) 0 % 0 [facility] Interpretation and review of laboratory results Abnormal [facility] Lymphocytes/100 WBC (Bld) 28 % 24 - 43 % [facility] MCH (RBC) [Entitic mass] 32.6 pg 25.2 - 33.5 pg [facility] MCHC (RBC) [Mass/Vol] 33.9 g/dL 28.4 - 34.8 g/dL [facility] MCV (RBC) [Entitic vol] 96.4 fL 82.6 - 102.9 fL [facility] Monocytes/100 WBC (Bld) 7 % 3 - 12 % [facility] NRBC Automated 0.0 0.0 per 100 WBC [facility] Platelet distribution width (Bld) [Ratio] 12.3 % 11.8 - 14.4 % [facility] Platelet mean volume (Bld) [Entitic vol] 12.8 fL 8.1 - 13.5 fL [facility] Platelets (Bld) [#/Vol] 187 10*3/uL [facility] RBC (Bld) [#/Vol] 3.34 10*6/uL Low 3.95 - 5.1 1 m/uL [facility] Seg Neutrophils 64 % 36 - 65 % [facility] SECOU RS [facility] Segs Absolute 4.66 [facility] WBC (Bld) [#/Vol] 7.3 10*3/uL [facility] CBC with Diffon 04-07-2022 Abs. Basophil 0.03 k/uL Normal 0.00-0.20 [facility] Comment on above: Performed By: #### M G, LIVP, BMPX, VD25, NAMRATA, IOCAL, CDP #### [facility] [address] [place] [address] [employer] Associate Professor: Dominik Muñiz MD Abs.Imm.Granulocyte <0.03 Normal 0.00-0.30 [facility] Comment on above: Performed By: #### M G, LIVP, BMPX, VD25, NAMRATA, IOCAL, CDP #### [facility] [address] [place] [address] Geosc[employer] Associate Professor: Dominik Muñiz MD Abs.Neutrophil (Seg) 4.66 k/uL Normal 1.50-8.10 [facility] Comment on above: Performed By: #### M G, LIVP, BMPX, VD25, NAMRATA, IOCAL, CDP #### [facility] [address] [place] [address] [employer] Associate Professor: Dominik Muñiz MD Basophils/100 WBC (Bld) 0 % Normal 0-2 [facility] Comment on above: Performed By: #### M G, LIVP, BMPX, VD25, NAMRATA, IOCAL, CDP #### [facility] [address] [employer] Associate Professor: Dominik Muñiz MD Eosinophils (Bld) [#/Vol] 0.05 10*3/uL Normal 0.00-0.44 [facility] Comment on above: Performed By: #### M G, LIVP, BMPX, VD25, NAMRATA, IOCAL, CDP #### [address] [address] [employer] Associate Professor: Dominik Muñiz MD Eosinophils/100 WBC (Bld) 1 % Normal 1-4 [facility] Comment on above: Performed By: #### M G, LIVP, BMPX, VD25, NAMRATA, IOCAL, CDP #### [place] [address] [employer]osc[employer] Associate Professor: Dominik Muñiz MD Erythrocyte distribution width (RBC) [Ratio] 12.3 % Normal 11.8-14.4 [facility] Comment on above: Performed By: #### M G, LIVP, BMPX, VD25, NAMRATA, IOCAL, CDP #### [address] [address] [employer] Associate Professor: Dominik Muñiz MD Hematocrit (Bld) [Volume fraction] 32.2 % Low 36.3-47.1 [facility] Comment on above: Performed By: #### M G, LIVP, BMPX, VD25, NAMRATA, IOCAL, CDP #### [address] [address] [employer]osc[employer] Associate Professor: Dominik Muñiz MD Hemoglobin (Bld) [Mass/Vol] 10.9 g/dL Low 11.9-15.1 [facility] Comment on above: Performed By: #### M G, LIVP, BMPX, VD25, NAMRATA, IOCAL, CDP #### [address] [address] [employer] Associate Professor: Dominik Muñiz MD Immature granulocytes/100 WBC (Bld) 0 % Normal 0 [facility] Comment on above: Performed By: #### M G, LIVP, BMPX, VD25, NAMRATA, IOCAL, CDP #### [address] [address] [employer] Associate Professor: Dominik Muñiz MD Lymphocytes (Bld) [#/Vol] 2.01 10*3/uL Normal 1.10-3.70 [facility] Comment on above: Performed By: #### M G, LIVP, BMPX, VD25, NAMRATA, IOCAL, CDP #### [address] [address] [employer]osc[employer] Associate Professor: Dominik Muñiz MD Lymphocytes/100 WBC (Bld) 28 % Normal 24-43 [facility] Comment on above: Performed By: #### M G, LIVP, BMPX, VD25, NAMRATA, IOCAL, CDP #### [place] [address] [employer]osc[employer] Associate Professor: Dominik Muñiz MD MCH (RBC) [Entitic mass] 32.6 pg Normal 25.2-33.5 [facility] Comment on above: Performed By: #### M G, LIVP, BMPX, VD25, NAMRATA, IOCAL, CDP #### [address] [address] [employer]osc[employer] Associate Professor: Dominik Muñiz MD MCHC (RBC) [Mass/Vol] 33.9 g/dL Normal 28.4-34.8 [facility] Comment on above: Performed By: #### M G, LIVP, BMPX, VD25, NAMRATA, IOCAL, CDP #### [facility] [address] [place] [address] [employer]osc[employer] Associate Professor: Dominik Muñiz MD MCV (RBC) [Entitic vol] 96.4 fL Normal 82.6-102.9 [facility] Comment on above: Performed By: #### M G, LIVP, BMPX, VD25, NAMRATA, IOCAL, CDP #### [address] [address] [employer] Associate Professor: Dominik Muñiz MD Monocytes (Bld) [#/Vol] 0.52 10*3/uL Normal 0.10-1.20 [facility] Comment on above: Performed By: #### M G, LIVP, BMPX, VD25, NAMRATA, IOCAL, CDP #### [address] [address] [employer]osc[employer] Associate Professor: Dominik Muñiz MD Monocytes/100 WBC (Bld) 7 % Normal 3-12 [facility] Comment on above: Performed By: #### M G, LIVP, BMPX, VD25, NAMRATA, IOCAL, CDP #### [address] [address] [employer]osc[employer] Associate Professor: Dominik Muñiz MD Neutrophil (Seg) 64 % Normal 36-65 [facility] Comment on above: Performed By: #### M G, LIVP, BMPX, VD25, NAMRATA, IOCAL, CDP #### [address] [address] [employer]osc[employer] Associate Professor: Dominik Muñiz MD NRBC Automated 0.0 per 100 WBC Normal 0.0 [facility] Comment on above: Performed By: #### M G, LIVP, BMPX, VD25, NAMRATA, IOCAL, CDP #### [address] [address] [employer]osc[employer] Associate Professor: Dominik Muñiz MD Platelet mean volume (Bld) [Entitic vol] 12.8 fL Normal 8.1-13.5 [facility] Comment on above: Performed By: #### M G, LIVP, BMPX, VD25, NAMRATA, IOCAL, CDP #### [address] [address] [employer]osc[employer] Associate Professor: Dominik Muñiz MD Platelets (Bld) [#/Vol] 187 10*3/uL Normal 138-453 [facility] Comment on above: Performed By: #### M G, LIVP, BMPX, VD25, NAMRATA, IOCAL, CDP #### [facility] [address] [place], [place] [id number] Geosciences Associate Professor: Dominik Muñiz MD RBC (Bld) [#/Vol] 3.34 10*6/uL Low 3.95-5.11 [facility] Comment on above: Performed By: #### M G, LIVP, BMPX, VD25, NAMRATA, IOCAL, CDP #### [facility] [address] [place], [place] [id number] Geosciences Associate Professor: Dominik Muñiz MD WBC (Bld) [#/Vol] 7.3 10*3/uL Normal 3.5-11.3 [facility] Comment on above: Performed By: #### M G, LIVP, BMPX, VD25, NAMRATA, IOCAL, CDP #### [facility] [address] [place], [place] [id number] [employer] Associate Professor: Dominik Muñiz MD POC Glucose Fingerstickon Glucose [Mass/Vol] 256 mg/dL High 65 - 105 mg/dL [facility] Interpretation and review of laboratory results Abnormal [facility] Glucose [Mass/Vol] 204 mg/dL High 65 - 105 mg/dL [facility] Interpretation and review of laboratory results Abnormal [facility] Glucose [Mass/Vol] 175 mg/dL High 65 - 105 mg/dL [facility] Interpretation and review of laboratory results Abnormal [facility] Glucose [Mass/Vol] 160 mg/dL High 65 - 105 mg/dL [facility] Interpretation and review of laboratory results Abnormal [facility] Glucose [Mass/Vol] 167 mg/dL High 65 - 105 mg/dL [facility] Interpretation and review of laboratory results Abnormal [facility] Glucose [Mass/Vol] 141 mg/dL High 65 - 105 mg/dL [facility] Interpretation and review of laboratory results Abnormal [facility] Glucose [Mass/Vol] 190 mg/dL High 65 - 105 mg/dL [facility] Interpretation and review of laboratory results Abnormal [facility] Glucose [Mass/Vol] 69 mg/dL 65 - 105 mg/dL [facility] Glucose Fingerstickon Glucose [Mass/Vol] 311 mg/dL High 65 - 105 mg/dL [facility] Interpretation and review of laboratory results Abnormal [facility] Glucose [Mass/Vol] 135 mg/dL High 65 - 105 mg/dL [facility] Interpretation and review of laboratory results Abnormal [facility] Glucose [Mass/Vol] 201 mg/dL High 65 - 105 mg/dL [facility] Interpretation and review of laboratory results Abnormal [facility] Glucose [Mass/Vol] 177 mg/dL High 65 - 105 mg/dL [facility] Interpretation and review of laboratory results Abnormal [facility] Basic Metab w/rfx MGon 04-05 (cont.) Normal [facility] Comment on above: Result Comment: Aver age GFR for 60-69 years old: 85 mL/min/1.73sq m Chronic Kidney Disease: <60 mL/min/1.73sq m Kidney failure: <15 mL/min/1.73sq m eGFR calculated using average adult body mass. Additional eGFR calculator available at: http://[email or web address].ModCloth/multiple_crcl_2012.htm Performed By: #### M G, LIVP, BMPX, VD25, NAMRATA, IOCAL, CDP #### [facility] [address] [place] [address] Geosciences Associate Professor: Dominik Muñiz MD Anion gap [Moles/Vol] 12 mmol/L Normal 9-17 [facility] Comment on above: Performed By: #### M G, LIVP, BMPX, VD25, NAMRATA, IOCAL, CDP #### [facility] [address] [place] [address] [employer]osc[employer] Associate Professor: Dominik Muñiz MD Calcium [Mass/Vol] 8.5 mg/dL Low 8.6-10.4 [facility] Comment on above: Performed By: #### M G, LIVP, BMPX, VD25, NAMRATA, IOCAL, CDP #### [facility] [address] [place] [address] [employer]osc[employer] Associate Professor: Dominik Muñiz MD Chloride [Moles/Vol] 104 mmol/L Normal 98-107 [facility] Comment on above: Performed By: #### M G, LIVP, BMPX, VD25, NAMRATA, IOCAL, CDP #### [facility] [address] [place] [address] Geosc[employer] Associate Professor: Dominik Muñiz MD CO2 [Moles/Vol] 25 mmol/L Normal 20-31 [facility] Comment on above: Performed By: #### M G, LIVP, BMPX, VD25, NAMRATA, IOCAL, CDP #### [facility] [address] [place] [address] [employer]osc[employer] Associate Professor: Dominik Muñiz MD Creatinine [Mass/Vol] 0.45 mg/dL Low 0.50-0.90 [facility] Comment on above: Performed By: #### M G, LIVP, BMPX, VD25, NAMRATA, IOCAL, CDP #### [facility] [address] [place] [address] [employer]osc[employer] Associate Professor: Dominik Muñiz MD GFR, Amer >60 Normal >60 [facility] Comment on above: Performed By: #### M G, LIVP, BMPX, VD25, NAMRATA, IOCAL, CDP #### [address] [address] [employer]osc[employer] Associate Professor: Dominik Muñiz MD GFR,non Amer >60 Normal >60 [facility] Comment on above: Performed By: #### M G, LIVP, BMPX, VD25, NAMRATA, IOCAL, CDP #### [address] [address] [employer]osc[employer] Associate Professor: Dominik Muñiz MD Glucose [Mass/Vol] 93 mg/dL Normal 70-99 [facility] Comment on above: Performed By: #### M G, LIVP, BMPX, VD25, NAMRATA, IOCAL, CDP #### [address] [address] [employer] Associate Professor: Dominik Muñiz MD Potassium [Moles/Vol] 3.6 mmol/L Low 3.7-5.3 [facility] Comment on above: Performed By: #### M G, LIVP, BMPX, VD25, NAMRATA, IOCAL, CDP #### [address] [address] [employer] Associate Professor: Dominik Muñiz MD Sodium [Moles/Vol] 141 mmol/L Normal 135-144 [facility] Comment on above: Performed By: #### M G, LIVP, BMPX, VD25, NAMRATA, IOCAL, CDP #### [address] [address] [employer]osc[employer] Associate Professor: Dominik Muñiz MD Urea nitrogen [Mass/Vol] 16 mg/dL Normal 8-23 [facility] Comment on above: Performed By: #### M G, LIVP, BMPX, VD25, NAMRATA, IOCAL, CDP #### [address] [address] [employer]osc[employer] Associate Professor: Dominik Muñiz MD Basic Metabolic Panel w/ Ref jessica to MGon 04-05-2022 Anion gap [Moles/Vol] 12 mmol/L 9 - 17 mmol/L [facility] Calcium [Mass/Vol] 8.5 mg/dL Low 8.6 - 10. 4 mg/dL [facility] Chloride [Moles/Vol] 104 mmol/L 98 - 10 7 mmol/L [facility] CO2 [Moles/Vol] 25 mmol/L 20 - 31 mmol/L [facility] Creatinine [Mass/Vol] 0.45 mg/dL Low 0.50 - 0.90 mg/dL [facility] GFR >60 60 - PI NF mL/min [facility] GFR Non- >60 60 - PINF mL/min [facility] GFR/1.73 sq M.predicted MDRD (S/P/Bld) [Vol rate/Area] [facility] Glucose [Mass/Vol] 93 mg/dL 70 - 99 mg/dL [facility] Interpretation and review of laboratory results Abnormal [facility] Potassium [Moles/Vol] 3.6 mmol/L Low 3.7 - 5.3 mmol/L [facility] Sodium [Moles/Vol] 141 mmol/L 135 - 144 mmol/L [facility] Urea nitrogen (BldV) [Mass/Vol] 16 mg/dL 8 - 23 mg/dL [facility] CBC with Auto Differentialon 04-05-2022 Absolute Eos # 0.05 [facility] Absolute Immature Granulocyte 0.03 [facility] Absolute Lymph # 2.33 [facility] SECO URS [facility] Absolute Polk # 0.52 [facility] Basophils Absolute [facility] Interpretation and review of laboratory results Abnormal [facility] NRBC Automated 0.0 0.0 per 100 WBC [facility] Platelet distribution width (Bld) [Ratio] 12.3 % 11.8 - 14.4 % [facility] Seg Neutrophils 62 % 36 - 65 % [facility] Segs Absolute 4.80 [facility] CBC with Diffon 04-05-2022 Abs. Basophil <0.03 Normal 0.00-0.20 [facility] Comment on above: Performed By: #### M G, LIVP, BMPX, VD25, NAMRATA, IOCAL, CDP #### [address] [address] Geosc[employer] Associate Professor: Dominik Muñiz MD Abs.Imm.Granulocyte 0.03 k/uL Normal 0.00-0.30 [facility] Comment on above: Performed By: #### M G, LIVP, BMPX, VD25, NAMRATA, IOCAL, CDP #### [address] [address] [employer]osc[employer] Associate Professor: Dominik Muñiz MD Abs.Neutrophil (Seg) 4.80 k/uL Normal 1.50-8.10 [facility] Comment on above: Performed By: #### M G, LIVP, BMPX, VD25, NAMRATA, IOCAL, CDP #### [place] [address] Geosciences Associate Professor: Dominik Muñiz MD Eosinophils (Bld) [#/Vol] 0.05 10*3/uL Normal 0.00-0.44 [facility] Comment on above: Performed By: #### M G, LIVP, BMPX, VD25, NAMRATA, IOCAL, CDP #### [address] [address] Geosc[employer] Associate Professor: Dominik Muñiz MD Erythrocyte distribution width (RBC) [Ratio] 12.3 % Normal 11.8-14.4 [facility] Comment on above: Performed By: #### M G, LIVP, BMPX, VD25, NAMRATA, IOCAL, CDP #### [facility] [address] [place] [address] Geosciences Associate Professor: Dominik Muñiz MD Lymphocytes (Bld) [#/Vol] 2.33 10*3/uL Normal 1.10-3.70 [facility] Comment on above: Performed By: #### M G, LIVP, BMPX, VD25, NAMRATA, IOCAL, CDP #### [facility] [address] [place] [address] Geosc[employer] Associate Professor: Dominik Muñiz MD Monocytes (Bld) [#/Vol] 0.52 10*3/uL Normal 0.10-1.20 [facility] Comment on above: Performed By: #### M G, LIVP, BMPX, VD25, NAMRATA, IOCAL, CDP #### [facility] [address] [place] [address] Geosciences Associate Professor: Dominik Muñiz MD Neutrophil (Seg) 62 % Normal 36-65 [facility] Comment on above: Performed By: #### M G, LIVP, BMPX, VD25, NAMRATA, IOCAL, CDP #### [facility] [address] [place] [address] Geosc[employer] Associate Professor: Dominik Muñiz MD NRBC Automated 0.0 per 100 WBC Normal 0.0 [facility] Comment on above: Performed By: #### M G, LIVP, BMPX, VD25, NAMRATA, IOCAL, CDP #### [facility] [address] [place] [address] Geosc[employer] Associate Professor: Dominik Muñiz MD Basophils/100 WBC (Bld) 0 % Normal 0-2 [facility] Comment on above: Performed By: #### M G, LIVP, BMPX, VD25, NAMRATA, IOCAL, CDP #### [facility] [address] [place] [address] Geosc[employer] Associate Professor: Dominik Muñiz MD Eosinophils/100 WBC (Bld) 1 % Normal 1-4 [facility] Comment on above: Performed By: #### M G, LIVP, BMPX, VD25, NAMRATA, IOCAL, CDP #### [facility] [address] [place] [address] Geosc[employer] Associate Professor: Dominik Muñiz MD Hematocrit (Bld) [Volume fraction] 31.9 % Low 36.3-47.1 [facility] Comment on above: Performed By: #### M G, LIVP, BMPX, VD25, NAMRATA, IOCAL, CDP #### [facility] [address] [place] [address] Geosc[employer] Associate Professor: Dominik Muñiz MD Hemoglobin (Bld) [Mass/Vol] 10.8 g/dL Low 11.9-15.1 [facility] Comment on above: Performed By: #### M G, LIVP, BMPX, VD25, NAMRATA, IOCAL, CDP #### [facility] [address] [place] [address] Geosc[employer] Associate Professor: Dominik Muñiz MD Immature granulocytes/100 WBC (Bld) 0 % Normal 0 [facility] Comment on above: Performed By: #### M G, LIVP, BMPX, VD25, NAMRATA, IOCAL, CDP #### [facility] [address] [place] [address] Geosciences Associate Professor: Dominik Muñiz MD Lymphocytes/100 WBC (Bld) 30 % Normal 24-43 [facility] Comment on above: Performed By: #### M G, LIVP, BMPX, VD25, NAMRATA, IOCAL, CDP #### [facility] [address] [place] [address] Geosc[employer] Associate Professor: Dominik Muñiz MD MCH (RBC) [Entitic mass] 32.1 pg Normal 25.2-33.5 [facility] Comment on above: Performed By: #### M G, LIVP, BMPX, VD25, NAMRATA, IOCAL, CDP #### [facility] [address] [place] [address] Geosc[employer] Associate Professor: Dominik Muñiz MD MCHC (RBC) [Mass/Vol] 33.9 g/dL Normal 28.4-34.8 [facility] Comment on above: Performed By: #### M G, LIVP, BMPX, VD25, NAMRATA, IOCAL, CDP #### [facility] [address] [place] [address] Geosc[employer] Associate Professor: Dominik Muñiz MD MCV (RBC) [Entitic vol] 94.9 fL Normal 82.6-102.9 [facility] Comment on above: Performed By: #### M G, LIVP, BMPX, VD25, NAMRATA, IOCAL, CDP #### [facility] [address] [place] [address] Geosc[employer] Associate Professor: Dominik Muñiz MD Monocytes/100 WBC (Bld) 7 % Normal 3-12 [facility] Comment on above: Performed By: #### M G, LIVP, BMPX, VD25, NAMRATA, IOCAL, CDP #### [facility] [address] [place] [address] Geosciences Associate Professor: Dominik Muñiz MD Platelet mean volume (Bld) [Entitic vol] 11.5 fL Normal 8.1-13.5 [facility] Comment on above: Performed By: #### M G, LIVP, BMPX, VD25, NAMRATA, IOCAL, CDP #### [facility] [address] [place] [address] Geosciences Associate Professor: Dominik Muñiz MD Platelets (Bld) [#/Vol] 220 10*3/uL Normal 138-453 [facility] Comment on above: Performed By: #### M G, LIVP, BMPX, VD25, NAMRATA, IOCAL, CDP #### [facility] [address] [place] [address] Geosciences Associate Professor: Dominik Muñiz MD RBC (Bld) [#/Vol] 3.36 10*6/uL Low 3.95-5.11 [facility] Comment on above: Performed By: #### M G, LIVP, BMPX, VD25, NAMRATA, IOCAL, CDP #### [facility] [address] [place] [address] Geosciences Associate Professor: Dominik Muñiz MD WBC (Bld) [#/Vol] 7.8 10*3/uL Normal 3.5-11.3 [facility] [employer] Comment on above: Performed By: #### M G, LIVP, BMPX, VD25, NAMRATA, IOCAL, CDP #### [email or web address] [address] [place] [address] Geosciences Associate Professor: Dominik Muñiz MD EKG 12 LeadOrdered By: Oziel Nunze on 04-05-2022 Atrial Rate 100 BPM [facility] [employer] Work Phone: P [place] 69 degrees [facility] Work Phone: P-R Interval 122 ms [facility] [employer] Work Phone: Q-T Interval 354 ms [employer] [facility] Work Phone: QRS Duration 86 ms [facility] Work Phone: QTc Calculation (Bazett) 456 ms [employer] Work Phone: R [place] 59 degrees [facility] Work Phone: T [place] 78 degrees [employer] Work Phone: Ventricular Rate 100 BPM [facility] [employer] Work Phone: [employer] [facility] Work Phone: EKG 12 Leadon 04-05-[address] M[address] [facility] Work Phone: POC Glucose Fingerstickon Glucose [Mass/Vol] 315 mg/dL High 65 - 105 mg/dL [facility] Interpretation and review of laboratory results Abnormal [facility] Glucose [Mass/Vol] 123 mg/dL High 65 - 105 mg/dL [facility] Interpretation and review of laboratory results Abnormal [facility] [employer] Glucose [Mass/Vol] 149 mg/dL High 65 - 105 mg/dL [facility] Interpretation and review of laboratory results Abnormal [facility] [employer] Glucose [Mass/Vol] 339 mg/dL High 65 - 105 mg/dL [facility] Interpretation and review of laboratory results Abnormal [facility] Glucose Fingerstickon Glucose [Mass/Vol] 271 mg/dL High 65 - 105 mg/dL [facility] Interpretation and review of laboratory results Abnormal [facility] Glucose [Mass/Vol] 149 mg/dL High 65 - 105 mg/dL [facility] Interpretation and review of laboratory results Abnormal [facility] Glucose [Mass/Vol] 136 mg/dL High 65 - 105 mg/dL [facility] Interpretation and review of laboratory results Abnormal [facility] Glucose [Mass/Vol] 193 mg/dL High 65 - 105 mg/dL [facility] Interpretation and review of laboratory results Abnormal [facility] Glucose Fingerstickon Glucose [Mass/Vol] 247 mg/dL High 65 - 105 mg/dL [facility] Interpretation and review of laboratory results Abnormal [facility] Glucose [Mass/Vol] 167 mg/dL High 65 - 105 mg/dL [facility] Interpretation and review of laboratory results Abnormal [facility] Glucose [Mass/Vol] 134 mg/dL High 65 - 105 mg/dL [facility] Interpretation and review of laboratory results Abnormal [facility] Glucose [Mass/Vol] 180 mg/dL High 65 - 105 mg/dL [facility] Interpretation and review of laboratory results Abnormal [facility] Glucose [Mass/Vol] 117 mg/dL High 65 - 105 mg/dL [facility] Interpretation and review of laboratory results Abnormal [facility] Glucose [Mass/Vol] 131 mg/dL High 65 - 105 mg/dL [facility] Interpretation and review of laboratory results Abnormal [facility] POC Glucose Fingerstickon Glucose [Mass/Vol] 129 mg/dL High 65 - 105 mg/dL [facility] Interpretation and review of laboratory results Abnormal [facility] Glucose [Mass/Vol] 177 mg/dL High 65 - 105 mg/dL [facility] Interpretation and review of laboratory results Abnormal [facility] Glucose [Mass/Vol] 171 mg/dL High 65 - 105 mg/dL [facility] Interpretation and review of laboratory results Abnormal [facility] Glucose [Mass/Vol] 127 mg/dL High 65 - 105 mg/dL [facility] Interpretation and review of laboratory results Abnormal [facility] XR SHOULDER LEFT (MIN 2 VIEW S)on 04-02-2022 XR SHOULDER LEFT (MIN 2 VIEWS) EXAMINATION: 3 XRAY VIEWS OF THE LEFT SHOULDER 04/02/2022 7:30 am COMPARISON: Left clavicle radiographs 04/01/2022, left shoulder radiographs 03/17/2022; chest/abdomen/pelvis CT 03/16/2022 HISTORY: ORDERING SYSTEM PROVIDED HISTORY: Fracture TECHNOLOGIST PROVIDED HISTORY: Fracture FINDINGS: Bones: Longitudinally-oriente d thin lucency extending through the humeral head and proximal metaphysis. No periostitis or osseous destruction identified. Plate and screw fixation of the mid clavicle with intact hardware in appropriate alignment but without clear visualization of the known fracture. Joints: Glenohumeral and acromioclavicular joint spaces maintained. No glenohumeral dislocation. Subacromial interval maintained.. Soft tissues: Clear visualized left lung.. IMPRESSION: 1. Longitudinally oriented lucency extending through the proximal humerus which is not as conspicuous as the previous shoulder radiographs and may represent a nondisplaced fracture. There appears to be a corresponding lucency in a similar region on prior chest CT. 2. Intact hardware traversing a minimally to nondisplaced left midclavicular fracture. Interpreted by: Raimundo Blake MD Signed by: Raimundo Blake MD 04/02/22 Final result Normal [facility] MHPN RIS CONSOLIDATED MHPN RIS CONSOLIDATED [facility] Work Phone: Radiology Study observation (narrative) [facility] Work Phone: XR SHOULDER LEFT (MIN 2 VIEW S)Ordered By: Raimundo Blake on 04-02-2022 [facility] 2d2c Work Phone: CBCon 04-01-2022 Erythrocyte distribution width (RBC) [Ratio] 12.1 % Normal 11.8-14.4 [facility] Comment on above: Performed By: #### C BC #### [address] [address] [employer]osc[employer] Associate Professor: Dominik Muñiz MD Hematocrit (Bld) [Volume fraction] 36.0 % Low 36.3-47.1 [facility] Comment on above: Performed By: #### C BC #### [address] [address] [employer]osc[employer] Associate Professor: Dominik Muñiz MD Hemoglobin (Bld) [Mass/Vol] 12.5 g/dL Normal 11.9-15.1 [facility] Comment on above: Performed By: #### C BC #### [address] [address] [employer]osc[employer] Associate Professor: Dominik Muñiz MD MCH (RBC) [Entitic mass] 33.2 pg Normal 25.2-33.5 [facility] Comment on above: Performed By: #### C BC #### [address] [address] [employer]osc[employer] Associate Professor: Dominik Muñiz MD MCHC (RBC) [Mass/Vol] 34.7 g/dL Normal 28.4-34.8 [facility] Comment on above: Performed By: #### C BC #### [address] [address] [employer]osc[employer] Associate Professor: Dominik Muñiz MD MCV (RBC) [Entitic vol] 95.7 fL Normal 82.6-102.9 [facility] Comment on above: Performed By: #### C BC #### [address] [address] [employer]osc[employer] Associate Professor: Dominik Muñiz MD NRBC Automated 0.0 per 100 WBC Normal 0.0 [facility] Comment on above: Performed By: #### C BC #### [address] [address] [employer]osc[employer] Associate Professor: Dominik Muñiz MD Platelet mean volume (Bld) [Entitic vol] 11.5 fL Normal 8.1-13.5 [facility] Comment on above: Performed By: #### C BC #### [address] [address] [employer]osc[employer] Associate Professor: Dominik Muñiz MD Platelets (Bld) [#/Vol] 288 10*3/uL Normal 138-453 [facility] Comment on above: Performed By: #### C BC #### [address] [address] [employer]osc[employer] Associate Professor: Dominik Muñiz MD RBC (Bld) [#/Vol] 3.76 10*6/uL Low 3.95-5.11 [facility] Comment on above: Performed By: #### C BC #### [address] [address] [employer]osc[employer] Associate Professor: Dominik Muñiz MD WBC (Bld) [#/Vol] 9.7 10*3/uL Normal 3.5-11.3 [facility] Comment on above: Performed By: #### C BC #### [address] [address] [employer]osc[employer] Associate Professor: Dominik Muñiz MD Hematocrit (Bld) [Volume fraction] 36.0 % Low 36.3 - 47.1 % [facility] Hemoglobin (Bld) [Mass/Vol] 12.5 g/dL 11.9 - 15.1 g/dL [facility] Interpretation and review of laboratory results Abnormal [facility] MCH (RBC) [Entitic mass] 33.2 pg 25.2 - 33.5 pg [facility] MCHC (RBC) [Mass/Vol] 34.7 g/dL 28.4 - 34.8 g/dL [facility] MCV (RBC) [Entitic vol] 95.7 fL 82.6 - 102.9 fL [facility] 2d2c NRBC Automated 0.0 0.0 per 100 WBC [facility] Platelet distribution width (Bld) [Ratio] 12.1 % 11.8 - 14.4 % [facility] Platelet mean volume (Bld) [Entitic vol] 11.5 fL 8.1 - 13.5 fL [facility] Platelets (Bld) [#/Vol] 288 10*3/uL [facility] RBC (Bld) [#/Vol] 3.76 10*6/uL Low 3.95 - 5.1 1 m/uL [facility] WBC (Bld) [#/Vol] 9.7 10*3/uL [facility] 2d2c [facility] 2d2c No Panel Informationon 04-01 MHPN RIS CONSOLIDATED PN RIS CONSOLIDATED [facility] 2d2c Work Phone: Radiology Study observation (narrative) [facility] 2d2c Work Phone: No Panel InformationOrdered By: Raimundo Norwood on 04-01-2022 [facility] 2d2c Work Phone: POC Glucose Fingerstickon Glucose [Mass/Vol] 192 mg/dL High 65 - 105 mg/dL [facility] Interpretation and review of laboratory results Abnormal [facility] Glucose [Mass/Vol] 125 mg/dL High 65 - 105 mg/dL [facility] Interpretation and review of laboratory results Abnormal [facility] Glucose [Mass/Vol] 141 mg/dL High 65 - 105 mg/dL [facility] Interpretation and review of laboratory results Abnormal [facility] Glucose [Mass/Vol] 148 mg/dL High 65 - 105 mg/dL [facility] Interpretation and review of laboratory results Abnormal [facility] Glucose [Mass/Vol] 132 mg/dL High 65 - 105 mg/dL [facility] Interpretation and review of laboratory results Abnormal [facility] Glucose [Mass/Vol] 121 mg/dL High 65 - 105 mg/dL [facility] Interpretation and review of laboratory results Abnormal [facility] XR CLAVICLE LEFTon XR CLAVICLE LEFT EXAMINATION: TWO XRAY VIEWS OF THE LEFT CLAVICLE; TWO XRAY VIEWS OF THE RIGHT CLAVICLE 04/01/2022 7:16 pm COMPARISON: Right clavicle radiograph 03/18/2022, left clavicle radiograph 03/18/2022 HISTORY: ORDERING SYSTEM PROVIDED HISTORY: post-op TECHNOLOGIST PROVIDED HISTORY: post-op FINDINGS: RIGHT CLAVICLE: Unchanged findings of internal fixation of the clavicle with no evident complication. No acute fracture. Joints maintain anatomic alignment. No obvious acute soft tissue abnormality. LEFT CLAVICLE: Unchanged findings of internal fixation of the clavicle with no evident complication. No acute fracture. Joints maintain anatomic alignment. IMPRESSION: Unchanged findings related to internal fixation of the bilateral clavicles with no evident complication. Interpreted by: Raimundo Norwood MD Signed by: Raimundo Norwood MD 04/01/22 Final result Normal [facility] XR CLAVICLE RIGHTon 04-01-20 22 XR CLAVICLE RIGHT EXAMINATION: TWO XRAY VIEWS OF THE LEFT CLAVICLE; TWO XRAY VIEWS OF THE RIGHT CLAVICLE 04/01/2022 7:16 pm COMPARISON: Right clavicle radiograph 03/18/2022, left clavicle radiograph 03/18/2022 HISTORY: ORDERING SYSTEM PROVIDED HISTORY: post-op TECHNOLOGIST PROVIDED HISTORY: post-op FINDINGS: RIGHT CLAVICLE: Unchanged findings of internal fixation of the clavicle with no evident complication. No acute fracture. Joints maintain anatomic alignment. No obvious acute soft tissue abnormality. LEFT CLAVICLE: Unchanged findings of internal fixation of the clavicle with no evident complication. No acute fracture. Joints maintain anatomic alignment. IMPRESSION: Unchanged findings related to internal fixation of the bilateral clavicles with no evident complication. Interpreted by: Raimundo Norwood MD Signed by: Raimundo Norwood MD 04/01/22 Final result Normal [facility] POC Glucose Fingerstickon Glucose [Mass/Vol] 143 mg/dL High 65 - 105 mg/dL [facility] Interpretation and review of laboratory results Abnormal [facility] Glucose [Mass/Vol] 136 mg/dL High 65 - 105 mg/dL [facility] Interpretation and review of laboratory results Abnormal [facility] Glucose [Mass/Vol] 129 mg/dL High 65 - 105 mg/dL [facility] Interpretation and review of laboratory results Abnormal [facility] Glucose [Mass/Vol] 129 mg/dL High 65 - 105 mg/dL [facility] Interpretation and review of laboratory results Abnormal [facility] CBC with Auto Differentialon 03-30-2022 Absolute [facility] Absolute Immature Granulocyte 0.07 [facility] Absolute Lymph # 2.15 [facility] Absolute [place] # 1.26 High [facility] Basophils (Bld) [#/Vol] 0.05 10*3/uL [facility] Basophils/100 WBC (Bld) 0 % 0 - 2 % [facility] Eosinophils/100 WBC (Bld) 0 % Low 1 - 4 % [facility] Hematocrit (Bld) [Volume fraction] 36.5 % 36.3 - 47.1 % [facility] Hemoglobin (Bld) [Mass/Vol] 12.4 g/dL 11.9 - 15.1 g/dL [facility] Immature granulocytes/100 WBC (Bld) 0 % 0 [facility] Interpretation and review of laboratory results Abnormal [facility] Lymphocytes/100 WBC (Bld) 12 % Low 24 - 43 % [facility] MCH (RBC) [Entitic mass] 32.3 pg 25.2 - 33.5 pg [facility] MCHC (RBC) [Mass/Vol] 34.0 g/dL 28.4 - 34.8 g/dL [facility] MCV (RBC) [Entitic vol] 95.1 fL 82.6 - 102.9 fL [facility] Monocytes/100 WBC (Bld) 7 % 3 - 12 % [facility] NRBC Automated 0.0 0.0 per 100 WBC [facility] Platelet distribution width (Bld) [Ratio] 12.6 % 11.8 - 14.4 % [facility] Platelet mean volume (Bld) [Entitic vol] 11.1 fL 8.1 - 13.5 fL [facility] Platelets (Bld) [#/Vol] 338 10*3/uL [facility] RBC (Bld) [#/Vol] 3.84 10*6/uL Low 3.95 - 5.1 1 m/uL [facility] Seg Neutrophils 81 % High 36 - 65 % [facility] Segs Absolute 13.84 High [facility] WBC (Bld) [#/Vol] 17.4 10*3/uL High [facility] CBC with Diffon 03-30-2022 Abs. Basophil 0.05 k/uL Normal 0.00-0.20 [facility] Comment on above: Performed By: #### C DP #### [facility] [address] [place] [address] Geosciences Associate Professor: Dominik Muñiz MD Abs. Eosinophil <0.03 Normal 0.00-0.44 [facility] Comment on above: Performed By: #### C DP #### [facility] [address] [place], [place] [id number] Geosciences Associate Professor: Dominik Muñiz MD Abs.Imm.Granulocyte 0.07 k/uL Normal 0.00-0.30 [facility] Comment on above: Performed By: #### C DP #### [facility] [address] [place] [address] Geosciences Associate Professor: Dominik Muñiz MD Abs.Neutrophil (Seg) 13.84 k/uL High 1.50-8.10 [facility] Comment on above: Performed By: #### C DP #### [address] [address] [employer]osciences Associate Professor: Dominik Muñiz MD Basophils/100 WBC (Bld) 0 % Normal 0-2 [facility] Comment on above: Performed By: #### C DP #### [address] [address] [employer]osc[employer] Associate Professor: Dominik Muñiz MD Eosinophils/100 WBC (Bld) 0 % Low 1-4 [facility] Comment on above: Performed By: #### C DP #### [address] [address] [employer]osc[employer] Associate Professor: Dominik Muñiz MD Erythrocyte distribution width (RBC) [Ratio] 12.6 % Normal 11.8-14.4 [facility] Comment on above: Performed By: #### C DP #### [address] [address] [employer]osciences Associate Professor: Dominik Muñiz MD Hematocrit (Bld) [Volume fraction] 36.5 % Normal 36.3-47.1 [facility] Comment on above: Performed By: #### C DP #### [address] [address] Geosciences Associate Professor: Dominik Muñiz MD Hemoglobin (Bld) [Mass/Vol] 12.4 g/dL Normal 11.9-15.1 [facility] Comment on above: Performed By: #### C DP #### [address] [address] [employer]osc[employer] Associate Professor: Dominik Muñiz MD Immature granulocytes/100 WBC (Bld) 0 % Normal 0 [facility] Comment on above: Performed By: #### C DP #### [address] [address] Geosciences Associate Professor: Dominik Muñiz MD Lymphocytes (Bld) [#/Vol] 2.15 10*3/uL Normal 1.10-3.70 [facility] Comment on above: Performed By: #### C DP #### [place] [address] Geosciences Associate Professor: Dominik Muñiz MD Lymphocytes/100 WBC (Bld) 12 % Low 24-43 [facility] Comment on above: Performed By: #### C DP #### [place] [address] Geosciences Associate Professor: Dominik Muñiz MD MCH (RBC) [Entitic mass] 32.3 pg Normal 25.2-33.5 [facility] Comment on above: Performed By: #### C DP #### [place] [address] Geosciences Associate Professor: Dominik Muñiz MD MCHC (RBC) [Mass/Vol] 34.0 g/dL Normal 28.4-34.8 [facility] Comment on above: Performed By: #### C DP #### [place] [address] Geosciences Associate Professor: Dominik Muñiz MD MCV (RBC) [Entitic vol] 95.1 fL Normal 82.6-102.9 [facility] Comment on above: Performed By: #### C DP #### [place] [address] Geosciences Associate Professor: Dominik Muñiz MD Monocytes (Bld) [#/Vol] 1.26 10*3/uL High 0.10-1.20 [facility] Comment on above: Performed By: #### C DP #### [place] [address] Geosciences Associate Professor: Dominik Muñiz MD Monocytes/100 WBC (Bld) 7 % Normal 3-12 [facility] Comment on above: Performed By: #### C DP #### [address] [address] Geosciences Associate Professor: Dominik Muñiz MD Neutrophil (Seg) 81 % High 36-65 [facility] Comment on above: Performed By: #### C DP #### [address] [address] Geosciences Associate Professor: Dominik Muñiz MD NRBC Automated 0.0 per 100 WBC Normal 0.0 [facility] Comment on above: Performed By: #### C DP #### [address] [address] Geosciences Associate Professor: Dominik Muñiz MD Platelet mean volume (Bld) [Entitic vol] 11.1 fL Normal 8.1-13.5 [facility] Comment on above: Performed By: #### C DP #### [address] [address] [employer]osc[employer] Associate Professor: Domiink Muñiz MD Platelets (Bld) [#/Vol] 338 10*3/uL Normal 138-453 [facility] Comment on above: Performed By: #### C DP #### [address] [address] Geosciences Associate Professor: Dominik Muñiz MD RBC (Bld) [#/Vol] 3.84 10*6/uL Low 3.95-5.11 [facility] Comment on above: Performed By: #### C DP #### [address] [address] Geosciences Associate Professor: Dominik Muñiz MD WBC (Bld) [#/Vol] 17.4 10*3/uL High 3.5-11.3 [facility] Comment on above: Performed By: #### C DP #### [address] [address] Geosciences Associate Professor: Dominik Muñiz MD OPERATIVE REPORTon 2 OPERATIVE REPORT [place] [id number] [place] [address] OPERATIVE REPORT PATIENT NAME: ANNE BULLOCK : 1960 MED REC NO: [id number] ROOM: [id number] ACCOUNT NO: [id number] ADMIT DATE: 03/16/2022 PROVIDER: Kay Novak DATE OF PROCEDURE: 03/29/2022 PREOPERATIVE DIAGNOSIS: Left malar complex fracture. POSTOPERATIVE DIAGNOSIS: Left malar complex fracture. PROCEDURE PERFORMED: ORIF of left malar complex fracture. ATTENDING PROVIDER: Dr. Gonzalez SURGEON: Kay Novak MD ANESTHESIA: General. INDICATIONS: The patient is a 62-year-old female who fell onto her face, causing fractures as well as other injuries. She presents at this time for ORIF of the left malar complex fracture. The procedure, risks, and benefits were discussed with her daughter and consent was given from her daughter by phone. NARRATIVE SUMMARY: The patient was brought to the operating suite, placed under general anesthetic in the supine position. She was prepped and draped in usual sterile fashion. Initially, using a marker, outline was made for the incisions of the brow and the lower lid. Local anesthetic 1% Xylocaine with epinephrine was infiltrated in both areas as well as the left upper buccal sulcus. At this point, exposures were done. First, incision in the brow with scalpel and then deepened with sharp and blunt scissors dissection down through the muscularis to the periosteum, which was incised over the fracture with scalpel and the periosteum stripped back to expose the bone. In similar fashion, incision was made in the lower lid, taken down through the muscle and then down to the infraorbital rim leaving the septum orbitale intact. The periosteum was incised over the rim and the fracture was exposed with Paolo elevator. There was a medial fracture as well as a lateral fracture near the malar prominence. Finally, attention was taken transorally and using Bovie cutting cautery, the upper buccal sulcus incision was carried out. This again was deepened with sharp and blunt scissors dissection and using a Sharmin elevator, the anterior maxilla was stripped in the subperiosteal plane identifying and preserving the infraorbital nerve. Through this opening, a Boies elevator was placed up into the maxillary sinus through the fracture and the malar complex was disimpacted and mobilized until it was back to anatomic. Attention was now taken to the fixation. First, starting at the brow, a 4-hole plate was contoured. It was anchored with two screws either side of the fracture line. Then, going to the infraorbital rim, there were two fractures. A five hole plate was used for each and an open hole was made and placed over the fracture line and two screws were placed either side of the fractures. This solidifying the orbit. Finally, attention was taken transorally and an L-plate of the 2.0 system was used to anchor the zygomaticomaxillary buttress to the maxilla with two screws either side of the fracture line. Note that the 1.5-mm system was used periorbitally. At this point, closures were carried out, first 4-0 chromic mattress sutures for the intraoral. The lid and brow were closed with interrupted 4-0 Vicryl in the periosteum, interrupted 4-0 Vicryl on the muscularis and running intracuticular 4-0 Prolene in the skin. Steri-Strips for dressing. The patient tolerated the procedure well. Blood loss minimal. Specimens none. Complications none. The patient was transferred to Recovery in stable condition. KAY NOVAK [id number] Doc#: [id number] CC: Normal [facility] POC Glucose Fingerstickon Glucose [Mass/Vol] 176 mg/dL High 65 - 105 mg/dL [facility] Interpretation and review of laboratory results Abnormal [facility] Glucose [Mass/Vol] 149 mg/dL High 65 - 105 mg/dL [facility] Interpretation and review of laboratory results Abnormal [facility] Glucose [Mass/Vol] 163 mg/dL High 65 - 105 mg/dL [facility] Interpretation and review of laboratory results Abnormal [facility] Glucose [Mass/Vol] 139 mg/dL High 65 - 105 mg/dL [facility] Interpretation and review of laboratory results Abnormal [facility] Basic Metabolic Panelon - Anion gap [Moles/Vol] 12 mmol/L 9 - 17 mmol/L [facility] Calcium [Mass/Vol] 9.2 mg/dL 8.6 - 10. 4 mg/dL [facility] Chloride [Moles/Vol] 101 mmol/L 98 - 10 7 mmol/L [facility] CO2 [Moles/Vol] 25 mmol/L 20 - 31 mmol/L [facility] Creatinine [Mass/Vol] 0.81 mg/dL 0.50 - 0.90 mg/dL [facility] GFR >60 60 - PI NF mL/min [facility] GFR Non- >60 60 - PINF mL/min [facility] GFR/1.73 sq M.predicted MDRD (S/P/Bld) [Vol rate/Area] [facility] Glucose [Mass/Vol] 226 mg/dL High 70 - 99 mg/dL [facility] Interpretation and review of laboratory results Abnormal [facility] Potassium [Moles/Vol] 4.5 mmol/L 3.7 - 5.3 mmol/L [facility] Sodium [Moles/Vol] 138 mmol/L 135 - 144 mmol/L [facility] Urea nitrogen (BldV) [Mass/Vol] 22 mg/dL 8 - 23 mg/dL [facility] Basic Metabolic Profon 03-29 (cont.) Normal [facility] Comment on above: Result Comment: Aver age GFR for 60-69 years old: 85 mL/min/1.73sq m Chronic Kidney Disease: <60 mL/min/1.73sq m Kidney failure: <15 mL/min/1.73sq m eGFR calculated using average adult body mass. Additional eGFR calculator available at: http://www.[employer]/multiple_crcl_2012.htm Performed By: #### M G, LIVP, BMPX, VD25, NAMRATA, IOCAL, CDP #### [facility] [address] [place] [address] Geosciences Associate Professor: Dominik Muñiz MD Anion gap [Moles/Vol] 12 mmol/L Normal 9-17 [facility] Comment on above: Performed By: #### M G, LIVP, BMPX, VD25, NAMRATA, IOCAL, CDP #### [address] [address] [employer]osc[employer] Associate Professor: Dominik Muñiz MD Calcium [Mass/Vol] 9.2 mg/dL Normal 8.6-10.4 [facility] Comment on above: Performed By: #### M G, LIVP, BMPX, VD25, NAMRATA, IOCAL, CDP #### [address] [address] [employer]osc[employer] Associate Professor: Dominik Muñiz MD Chloride [Moles/Vol] 101 mmol/L Normal 98-107 [facility] Comment on above: Performed By: #### M G, LIVP, BMPX, VD25, NAMRATA, IOCAL, CDP #### [address] [address] [employer]osciences Associate Professor: Dominik Muñiz MD CO2 [Moles/Vol] 25 mmol/L Normal 20-31 [facility] Comment on above: Performed By: #### M G, LIVP, BMPX, VD25, NAMRATA, IOCAL, CDP #### [facility] [address] [place] [address] Geosciences Associate Professor: Dominik Muñiz MD Creatinine [Mass/Vol] 0.81 mg/dL Normal 0.50-0.90 [facility] Comment on above: Performed By: #### M G, LIVP, BMPX, VD25, NAMRATA, IOCAL, CDP #### [address] [address] [employer]osciences Associate Professor: Dominik Muñiz MD GFR, Amer >60 Normal >60 [facility] Comment on above: Performed By: #### M G, LIVP, BMPX, VD25, NAMRATA, IOCAL, CDP #### [facility] [address] [place] [phone] Geosciences Associate Professor: Dominik Muñiz MD GFR,non Amer >60 Normal >60 [facility] Comment on above: Performed By: #### M G, LIVP, BMPX, VD25, NAMRATA, IOCAL, CDP #### [facility] [address] [place] [phone] Geosciences Associate Professor: Dominik Muñiz MD Glucose [Mass/Vol] 226 mg/dL High 70-99 [facility] Comment on above: Performed By: #### M G, LIVP, BMPX, VD25, NAMRATA, IOCAL, CDP #### [facility] [address] [place] [phone] Geosciences Associate Professor: Dominik Muñiz MD Potassium [Moles/Vol] 4.5 mmol/L Normal 3.7-5.3 [facility] Comment on above: Performed By: #### M G, LIVP, BMPX, VD25, NAMRATA, IOCAL, CDP #### [facility] [address] [place] [phone] Geosciences Associate Professor: Dominik Muñiz MD Sodium [Moles/Vol] 138 mmol/L Normal 135-144 [facility] Comment on above: Performed By: #### M G, LIVP, BMPX, VD25, NAMRATA, IOCAL, CDP #### [facility] [address] [place] [address] Geosciences Associate Professor: Dominik Muñiz MD Urea nitrogen [Mass/Vol] 22 mg/dL Normal 8-23 [facility] Comment on above: Performed By: #### M G, LIVP, BMPX, VD25, NAMRATA, IOCAL, CDP #### [facility] [address] [place] [phone] Geosciences Associate Professor: Dominik Muñiz MD CBCon 03-29-2022 Erythrocyte distribution width (RBC) [Ratio] 12.3 % Normal 11.8-14.4 [facility] Comment on above: Performed By: #### M G, LIVP, BMPX, VD25, NAMRATA, IOCAL, CDP #### [address] [address] Geosciences Associate Professor: Dominik Muñiz MD Hematocrit (Bld) [Volume fraction] 35.9 % Low 36.3-47.1 [facility] Comment on above: Performed By: #### M G, LIVP, BMPX, VD25, NAMRATA, IOCAL, CDP #### [address] [address] Geosciences Associate Professor: Dominik Muñiz MD Hemoglobin (Bld) [Mass/Vol] 12.7 g/dL Normal 11.9-15.1 [facility] Comment on above: Performed By: #### M G, LIVP, BMPX, VD25, NAMRATA, IOCAL, CDP #### [facility] [address] [place] [phone] Geosciences Associate Professor: Dominik Muñiz MD MCH (RBC) [Entitic mass] 33.2 pg Normal 25.2-33.5 [facility] Comment on above: Performed By: #### M G, LIVP, BMPX, VD25, NAMRATA, IOCAL, CDP #### [address] [address] Geosciences Associate Professor: Dominik Muñiz MD MCHC (RBC) [Mass/Vol] 35.4 g/dL High 28.4-34.8 [facility] Comment on above: Performed By: #### M G, LIVP, BMPX, VD25, NAMRATA, IOCAL, CDP #### [address] [address] Geosciences Associate Professor: Dominik Muñiz MD MCV (RBC) [Entitic vol] 93.7 fL Normal 82.6-102.9 [facility] Comment on above: Performed By: #### M G, LIVP, BMPX, VD25, NAMRATA, IOCAL, CDP #### [address] [address] Geosciences Associate Professor: Dominik Muñiz MD NRBC Automated 0.0 per 100 WBC Normal 0.0 [facility] Comment on above: Performed By: #### M G, LIVP, BMPX, VD25, NAMRATA, IOCAL, CDP #### [address] [address] Geosciences Associate Professor: Dominik Muñiz MD Platelet mean volume (Bld) [Entitic vol] 11.0 fL Normal 8.1-13.5 [facility] Comment on above: Performed By: #### M G, LIVP, BMPX, VD25, NAMRATA, IOCAL, CDP #### [place] [address] Geosciences Associate Professor: Dominik Muñiz MD Platelets (Bld) [#/Vol] 371 10*3/uL Normal 138-453 [facility] Comment on above: Performed By: #### M G, LIVP, BMPX, VD25, NAMRATA, IOCAL, CDP #### [address] [address] Geosciences Associate Professor: Dominik Muñiz MD RBC (Bld) [#/Vol] 3.83 10*6/uL Low 3.95-5.11 [facility] Comment on above: Performed By: #### M G, LIVP, BMPX, VD25, NAMRATA, IOCAL, CDP #### [address] [address] Geosciences Associate Professor: Dominik Muñiz MD WBC (Bld) [#/Vol] 23.9 10*3/uL High 3.5-11.3 [facility] Comment on above: Performed By: #### M G, LIVP, BMPX, VD25, NAMRATA, IOCAL, CDP #### [facility] [address] [place], [place] [phone] Geosciences Associate Professor: Dominik Muñiz MD Hematocrit (Bld) [Volume fraction] 35.9 % Low 36.3 - 47.1 % [facility] Hemoglobin (Bld) [Mass/Vol] 12.7 g/dL 11.9 - 15.1 g/dL [facility] Interpretation and review of laboratory results Abnormal [facility] MCH (RBC) [Entitic mass] 33.2 pg 25.2 - 33.5 pg [facility] MCHC (RBC) [Mass/Vol] 35.4 g/dL High 28.4 - 34.8 g/dL [facility] MCV (RBC) [Entitic vol] 93.7 fL 82.6 - 102.9 fL [facility] NRBC Automated 0.0 0.0 per 100 WBC [facility] Platelet distribution width (Bld) [Ratio] 12.3 % 11.8 - 14.4 % [facility] Platelet mean volume (Bld) [Entitic vol] 11.0 fL 8.1 - 13.5 fL [facility] Platelets (Bld) [#/Vol] 371 10*3/uL [facility] RBC (Bld) [#/Vol] 3.83 10*6/uL Low 3.95 - 5.1 1 m/uL [facility] WBC (Bld) [#/Vol] 23.9 10*3/uL High [facility] Magnesiumon 03-29-2022 Magnesium [Mass/Vol] 1.9 mg/dL Normal 1.6-2.6 [facility] Comment on above: Performed By: #### M G, LIVP, BMPX, VD25, NAMRATA, IOCAL, CDP #### [facility] [address] [place] [address] Geosciences Associate Professor: Dominik Muñiz MD Magnesium [Mass/Vol] 1.9 mg/dL 1.6 - 2 .6 mg/dL [facility] No Panel Informationon 03-29 [facility] POC Glucose Fingerstickon Glucose [Mass/Vol] 210 mg/dL High 65 - 105 mg/dL [facility] Interpretation and review of laboratory results Abnormal [facility] Glucose [Mass/Vol] 191 mg/dL High 65 - 105 mg/dL [facility] Interpretation and review of laboratory results Abnormal [facility] Glucose [Mass/Vol] 143 mg/dL High 65 - 105 mg/dL [facility] Interpretation and review of laboratory results Abnormal [facility] Glucose [Mass/Vol] 282 mg/dL High 65 - 105 mg/dL [facility] Interpretation and review of laboratory results Abnormal [facility] Glucose [Mass/Vol] 155 mg/dL High 65 - 105 mg/dL [facility] Interpretation and review of laboratory results Abnormal [facility] POC Glucose Fingerstickon Glucose [Mass/Vol] 141 mg/dL High 65 - 105 mg/dL [facility] Interpretation and review of laboratory results Abnormal [facility] Glucose [Mass/Vol] 151 mg/dL High 65 - 105 mg/dL [facility] Interpretation and review of laboratory results Abnormal [facility] Glucose [Mass/Vol] 153 mg/dL High 65 - 105 mg/dL [facility] Interpretation and review of laboratory results Abnormal [facility] COVID-19, Rapidon 03-27-2022 SARS-CoV-2 (COVID-19) RNA ANA MARÍA+probe Ql (Unsp spec) Not detected Not Detected [facility] Specimen Description .NASOPHARYNGEAL SWAB [facility] POC Glucose Fingerstickon Glucose [Mass/Vol] 251 mg/dL High 65 - 105 mg/dL [facility] Interpretation and review of laboratory results Abnormal [facility] Glucose [Mass/Vol] 164 mg/dL High 65 - 105 mg/dL [facility] Interpretation and review of laboratory results Abnormal [facility] Glucose [Mass/Vol] 151 mg/dL High 65 - 105 mg/dL [facility] Interpretation and review of laboratory results Abnormal [facility] [id number] 03-27-2022 SARS-CoV-2 (COVID-19) RNA ANA MARÍA+probe Ql (Unsp spec) Not detected Normal [facility] Comment on above: Result Comment: Rapid NAAT: The specimen is NEGATIVE for SARS-CoV-2, the novel coronavirus associated with COVID-19. The ID NOW COVID-19 assay is designed to detect the virus that causes COVID-19 in patients with signs and symptoms of infection who are suspected of COVID-19. An individual without symptoms of COVID-19 and who is not shedding SARS-CoV-2 virus would expect to have a negative (not detected) result in this assay. Negative results should be treated as presumptive and, if inconsistent with clinical signs and symptoms or necessary for patient management, should be tested with an alternative molecular assay. Negative results do not preclude SARS-CoV-2 infection and should not be used as the sole basis for patient management decisions. Fact sheet for Healthcare Providers: https://www.fda.gov/media/927660/download Fact sheet for Patients: https://www.fda.gov/media/013930/download Methodology: Isothermal Nucleic Acid Amplification Performed By: #### C #### [facility] [address] [place] [address] [phone] Geosciences Associate Professor: Dominik Muñiz MD POC Glucose Fingerstickon Glucose [Mass/Vol] 230 mg/dL High 65 - 105 mg/dL [facility] Interpretation and review of laboratory results Abnormal [facility] Glucose [Mass/Vol] 126 mg/dL High 65 - 105 mg/dL [facility] Interpretation and review of laboratory results Abnormal [facility] Glucose [Mass/Vol] 229 mg/dL High 65 - 105 mg/dL [facility] Interpretation and review of laboratory results Abnormal [facility] Glucose [Mass/Vol] 129 mg/dL High 65 - 105 mg/dL [facility] Interpretation and review of laboratory results Abnormal [facility] POC Glucose Fingerstickon Glucose [Mass/Vol] 242 mg/dL High 65 - 105 mg/dL [facility] Interpretation and review of laboratory results Abnormal [facility] Glucose [Mass/Vol] 119 mg/dL High 65 - 105 mg/dL [facility] Interpretation and review of laboratory results Abnormal [facility] Glucose [Mass/Vol] 219 mg/dL High 65 - 105 mg/dL [facility] Interpretation and review of laboratory results Abnormal [facility] Glucose [Mass/Vol] 155 mg/dL High 65 - 105 mg/dL [facility] Interpretation and review of laboratory results Abnormal [facility] POC Glucose Fingerstickon Glucose [Mass/Vol] 204 mg/dL High 65 - 105 mg/dL [facility] Interpretation and review of laboratory results Abnormal [facility] Glucose [Mass/Vol] 160 mg/dL High 65 - 105 mg/dL [facility] Interpretation and review of laboratory results Abnormal [facility] Glucose [Mass/Vol] 160 mg/dL High 65 - 105 mg/dL [facility] Interpretation and review of laboratory results Abnormal [facility] Glucose [Mass/Vol] 162 mg/dL High 65 - 105 mg/dL [facility] Interpretation and review of laboratory results Abnormal [facility] No Panel Informationon 03-23 Interpretation and review of laboratory results Abnormal [facility] POC Glucose Fingerstickon Glucose [Mass/Vol] 134 mg/dL High 65 - 105 mg/dL [facility] Interpretation and review of laboratory results Abnormal [facility] Glucose [Mass/Vol] 160 mg/dL High 65 - 105 mg/dL [facility] Interpretation and review of laboratory results Abnormal [facility] Glucose [Mass/Vol] 264 mg/dL High 65 - 105 mg/dL [facility] Interpretation and review of laboratory results Abnormal [facility] Glucose [Mass/Vol] 204 mg/dL High 65 - 105 mg/dL [facility] Glucose [Mass/Vol] 185 mg/dL High 65 - 105 mg/dL [facility] Glucose [Mass/Vol] 174 mg/dL High 65 - 105 mg/dL [facility] Basic Metabolic Panelon 03-04 Anion gap [Moles/Vol] 10 mmol/L 9 - 17 mmol/L [facility] Calcium [Mass/Vol] 8.8 mg/dL 8.6 - 10. 4 mg/dL [facility] Chloride [Moles/Vol] 107 mmol/L 98 - 10 7 mmol/L [facility] CO2 [Moles/Vol] 24 mmol/L 20 - 31 mmol/L [facility] Creatinine [Mass/Vol] 0.55 mg/dL 0.50 - 0.90 mg/dL [facility] GFR >60 60 - PI NF mL/min [facility] GFR Non- >60 60 - PINF mL/min [facility] GFR/1.73 sq M.predicted MDRD (S/P/Bld) [Vol rate/Area] [facility] Glucose [Mass/Vol] 188 mg/dL High 70 - 99 mg/dL [facility] Interpretation and review of laboratory results Abnormal [facility] Potassium [Moles/Vol] 3.4 mmol/L Low 3.7 - 5.3 mmol/L [facility] Sodium [Moles/Vol] 141 mmol/L 135 - 144 mmol/L [facility] Urea nitrogen (BldV) [Mass/Vol] 11 mg/dL 8 - 23 mg/dL [facility] Basic Metabolic Profon 03-22 (cont.) Normal [facility] Comment on above: Result Comment: Aver age GFR for 60-69 years old: 85 mL/min/1.73sq m Chronic Kidney Disease: <60 mL/min/1.73sq m Kidney failure: <15 mL/min/1.73sq m eGFR calculated using average adult body mass. Additional eGFR calculator available at: http://www.[employer].ModCloth/multiple_crcl_2012.htm Performed By: #### C DP #### [address] [id number] Geosciences Associate Professor: Dominik Muñiz MD Anion gap [Moles/Vol] 10 mmol/L Normal 9-17 [facility] Comment on above: Performed By: #### C DP #### [address] [address] Geosciences Associate Professor: Dominik Muñiz MD Calcium [Mass/Vol] 8.8 mg/dL Normal 8.6-10.4 [facility] Comment on above: Performed By: #### C DP #### [address] [address] Geosciences Associate Professor: Dominik Muñiz MD Chloride [Moles/Vol] 107 mmol/L Normal 98-107 [facility] Comment on above: Performed By: #### C DP #### [facility] [address] [place] [phone] Geosciences Associate Professor: Dominik Muñiz MD CO2 [Moles/Vol] 24 mmol/L Normal 20-31 [facility] Comment on above: Performed By: #### C DP #### [address] [address] Geosciences Associate Professor: Dominik Muñiz MD Creatinine [Mass/Vol] 0.55 mg/dL Normal 0.50-0.90 [facility] Comment on above: Performed By: #### C DP #### [address] [address] Geosciences Associate Professor: Dominik Muñiz MD GFR, Amer >60 Normal >60 [facility] Comment on above: Performed By: #### C DP #### [address] [address] Geosciences Associate Professor: Dominik Muñiz MD GFR,non Amer >60 Normal >60 [facility] Comment on above: Performed By: #### C DP #### [address] [address] Geosciences Associate Professor: Dominik Muñiz MD Glucose [Mass/Vol] 188 mg/dL High 70-99 [facility] Comment on above: Performed By: #### C DP #### [address] [address] Geosciences Associate Professor: Dominik Muñiz MD Potassium [Moles/Vol] 3.4 mmol/L Low 3.7-5.3 [facility] Comment on above: Performed By: #### C DP #### [address] [address] Geosciences Associate Professor: Dominik Muñiz MD Sodium [Moles/Vol] 141 mmol/L Normal 135-144 [facility] Comment on above: Performed By: #### C DP #### [address] [address] Geosciences Associate Professor: Dominik Muñiz MD Urea nitrogen [Mass/Vol] 11 mg/dL Normal 8-23 [facility] Comment on above: Performed By: #### C DP #### [address] [address] Geosciences Associate Professor: Dominik Muñiz MD CBCon 03-22-2022 Erythrocyte distribution width (RBC) [Ratio] 12.3 % Normal 11.8-14.4 [facility] Comment on above: Performed By: #### C DP #### [address] [address] Geosciences Associate Professor: Dominik Muñiz MD Hematocrit (Bld) [Volume fraction] 30.6 % Low 36.3-47.1 [facility] Comment on above: Performed By: #### C DP #### [address] [address] Geosciences Associate Professor: Dominik Muñiz MD Hemoglobin (Bld) [Mass/Vol] 10.0 g/dL Low 11.9-15.1 [facility] Comment on above: Performed By: #### C DP #### [address] [address] Geosciences Associate Professor: Dominik Muñiz MD MCH (RBC) [Entitic mass] 31.5 pg Normal 25.2-33.5 [facility] Comment on above: Performed By: #### C DP #### [address] [address] Geosciences Associate Professor: Dominik Muñiz MD MCHC (RBC) [Mass/Vol] 32.7 g/dL Normal 28.4-34.8 [facility] Comment on above: Performed By: #### C DP #### [address] [address] Geosciences Associate Professor: Dominik Muñiz MD MCV (RBC) [Entitic vol] 96.5 fL Normal 82.6-102.9 [facility] Comment on above: Performed By: #### C DP #### [address] [address] Geosciences Associate Professor: Dominik Muñiz MD NRBC Automated 0.0 per 100 WBC Normal 0.0 [facility] Comment on above: Performed By: #### C DP #### [address] [address] Geosciences Associate Professor: Dominik Mñuiz MD Platelet mean volume (Bld) [Entitic vol] 11.5 fL Normal 8.1-13.5 [facility] Comment on above: Performed By: #### C DP #### [id number] [place] [address] Geosciences Associate Professor: Dominik Muñiz MD Platelets (Bld) [#/Vol] 164 10*3/uL Normal 138-453 [facility] Comment on above: Performed By: #### C DP #### [id number] [place] [address] Geosciences Associate Professor: Dominik Muñiz MD RBC (Bld) [#/Vol] 3.17 10*6/uL Low 3.95-5.11 [facility] Comment on above: Performed By: #### C DP #### [place] [address] Geosciences Associate Professor: Dominik Muñiz MD WBC (Bld) [#/Vol] 9.0 10*3/uL Normal 3.5-11.3 [facility] Comment on above: Performed By: #### C DP #### [address] [address] Geosciences Associate Professor: Dominik Muñiz MD Hematocrit (Bld) [Volume fraction] 30.6 % Low 36.3 - 47.1 % [facility] Hemoglobin (Bld) [Mass/Vol] 10.0 g/dL Low 11.9 - 15.1 g/dL [facility] Interpretation and review of laboratory results Abnormal [facility] MCH (RBC) [Entitic mass] 31.5 pg 25.2 - 33.5 pg [facility] MCHC (RBC) [Mass/Vol] 32.7 g/dL 28.4 - 34.8 g/dL [facility] MCV (RBC) [Entitic vol] 96.5 fL 82.6 - 102.9 fL [facility] 2d2c NRBC Automated 0.0 0.0 per 100 WBC [facility] Platelet distribution width (Bld) [Ratio] 12.3 % 11.8 - 14.4 % [facility] Platelet mean volume (Bld) [Entitic vol] 11.5 fL 8.1 - 13.5 fL [facility] Platelets (Bld) [#/Vol] 164 10*3/uL [facility] RBC (Bld) [#/Vol] 3.17 10*6/uL Low 3.95 - 5.1 1 m/uL [facility] WBC (Bld) [#/Vol] 9.0 10*3/uL [facility] CT HEAD WO CONTRASTon 2021 CT HEAD WO CONTRAST EXAMINATION: CT OF THE HEAD WITHOUT CONTRAST 03/22/2022 8:25 pm TECHNIQUE: CT of the head was performed without the administration of intravenous contrast. Automated exposure control, iterative reconstruction, and/or weight based adjustment of the mA/kV was utilized to reduce the radiation dose to as low as reasonably achievable. COMPARISON: 03/20/2022 HISTORY: ORDERING SYSTEM PROVIDED HISTORY: f/u known IPH TECHNOLOGIST PROVIDED HISTORY: f/u known IPH FINDINGS: BRAIN/VENTRICLES: Scattered foci of intraparenchymal hemorrhage involving the left frontal lobe right frontal lobe, and right parieto-occipital lobe are similar in appearance to prior examination. There is stable associated edema and sulcal effacement. There is no significant midline shift. Hypoattenuating right frontal subdural collection is similar prior examination. Scattered foci of subarachnoid hemorrhage seen previously are less conspicuous on this examination. ORBITS: The visualized portion of the orbits demonstrate no acute abnormality. SINUSES: Opacification the left maxillary sinus with multiple sinus wall fractures is again noted. SOFT TISSUES/SKULL: No acute abnormality of the visualized skull or soft tissues. IMPRESSION: 1. No significant change in size of the bilateral intraparenchymal hemorrhages. 2. Subarachnoid hemorrhage is less conspicuous on this examination. Interpreted by: Lauren Arzola MD Signed by: Lauren Arzola MD 03/22/22 Final [facility] PN RIS CONSOLIDATED [facility] Work Phone: Radiology Study observation (narrative) [facility] Work Phone: CT HEAD WO CONTRASTOrdered B y: Lauren Arzola on 03-22-2022 [facility] [employer] 2d2c Work Phone: Calcium, [employer] 03-22-2022 Calcium [Moles/Vol] 1.22 mmol/L Normal 1.13-1.33 [facility] Comment on above: Performed By: #### C DP #### [facility] [address] [place] [phone] Geosciences Associate Professor: Dominik Muñiz MD Calcium, Ionizedon Calcium, Ionized 1.22 mmol/L 1.13 - 1.33 mmol/L [facility] 2d[employer] Hemoglobin A1Con 03-22-2022 Glucose [Mass/Vol] 146 mg/dL Normal [facility] Comment on above: Result Comment: The ADA and AACC recommend providing the estimated average glucose result to permit better patient understanding of their HBA1c result. Performed By: #### T YS #### [facility] [address] [place] [id number] Geosciences Associate Professor: Dominik Muñiz MD HbA1c (Bld) [Mass fraction] 6.7 % High 4.0-6.0 [facility] Comment on above: Performed By: #### T YS #### [facility] [address] [place] [phone] Geosciences Associate Professor: Dominik Muñiz MD Glucose [Mass/Vol] 146 mg/dL [facility] HbA1c (Bld) [Mass fraction] 6.7 % High 4.0 - 6.0 % [facility] 2d2c Interpretation and review of laboratory results Abnormal [facility] 2d[employer]c Magnesiumon 03-22-2022 Magnesium [Mass/Vol] 1.9 mg/dL Normal 1.6-2.6 [facility] Comment on above: Performed By: #### T YS #### [facility] [address] [place] [id number] Geosciences Associate Professor: Dominik Muñiz MD Magnesium [Mass/Vol] 1.9 mg/dL 1.6 - 2 .6 mg/dL [facility] No Panel Informationon 03-22 [facility] POC Glucose Fingerstickon Glucose [Mass/Vol] 160 mg/dL High 65 - 105 mg/dL [facility] Interpretation and review of laboratory results Abnormal [facility] Glucose [Mass/Vol] 183 mg/dL High 65 - 105 mg/dL [facility] Interpretation and review of laboratory results Abnormal [facility] Phosphoruson 03-22-2022 Phosphate [Mass/Vol] 4.1 mg/dL 2.6 - 4 .5 mg/dL [facility] Phosphorus, Inorg.on 022 Phosphorus, Inorg. 4.1 mg/dL Normal 2.6-4.5 [facility] Comment on above: Performed By: #### T YS #### [facility] [address] [place] [address] Geosciences Associate Professor: Dominik Muñiz MD Arterial Blood Gas, POCon FIO2 30.0 [facility] HCO3 (Bld) [Moles/Vol] 26.0 mmol/L 21.0 - 28.0 mmol/L [facility] O2 Device/Flow/% Adult Ventilator [facility] Oxygen saturation in Blood 98 % 94.0 - 98.0 % [facility] POC pCO2 40.7 [facility] POC pH 7.413 7.350 - 7.450 [facility] POC PO2 102.2 [facility] Positive Base Excess, Art 1 0.0 - 3.0 [facility] Sample Site Arterial Line [facility] Basic Metabolic Panelon 03-04 Anion gap [Moles/Vol] 8 mmol/L Low 9 - 17 mmol/L [facility] Calcium [Mass/Vol] 8.0 mg/dL Low 8.6 - 10. 4 mg/dL [facility] [facility] Chloride [Moles/Vol] 111 mmol/L High 98 - 10 7 mmol/L [facility] CO2 [Moles/Vol] 26 mmol/L 20 - 31 mmol/L [facility] Creatinine [Mass/Vol] 0.53 mg/dL 0.50 - 0.90 mg/dL [facility] GFR >60 60 - PI NF mL/min [facility] GFR Non- >60 60 - PINF mL/min [facility] GFR/1.73 sq M.predicted MDRD (S/P/Bld) [Vol rate/Area] [facility] Glucose [Mass/Vol] 143 mg/dL High 70 - 99 mg/dL [facility] Interpretation and review of laboratory results Abnormal [facility] Potassium [Moles/Vol] 3.9 mmol/L 3.7 - 5.3 mmol/L [facility] Sodium [Moles/Vol] 145 mmol/L High 135 - 144 mmol/L [facility] Urea nitrogen (BldV) [Mass/Vol] 12 mg/dL 8 - 23 mg/dL [facility] Basic Metabolic Profon 03-21 (cont.) Normal [facility] Comment on above: Result Comment: Aver age GFR for 60-69 years old: 85 mL/min/1.73sq m Chronic Kidney Disease: <60 mL/min/1.73sq m Kidney failure: <15 mL/min/1.73sq m eGFR calculated using average adult body mass. Additional eGFR calculator available at: http://www.[employer].ModCloth/multiple_crcl_2011.htm Performed By: #### T YS #### [facility] [address] [place] [address] Geosciences Associate Professor: Dominik Muñiz MD Anion gap [Moles/Vol] 8 mmol/L Low 9-17 [facility] Comment on above: Performed By: #### T YS #### [facility] [address] [place], [place] [id number] Geosciences Associate Professor: Dominik Muñiz MD Calcium [Mass/Vol] 8.0 mg/dL Low 8.6-10.4 [facility] Comment on above: Performed By: #### T YS #### [address] [address] Geosciences Associate Professor: Dominik Muñiz MD Chloride [Moles/Vol] 111 mmol/L High 98-107 [facility] Comment on above: Performed By: #### T YS #### [address] [address] Geosciences Associate Professor: Dominik Muñiz MD CO2 [Moles/Vol] 26 mmol/L Normal 20-31 [facility] Comment on above: Performed By: #### T YS #### [address] [address] Geosciences Associate Professor: Dominik Muñiz MD Creatinine [Mass/Vol] 0.53 mg/dL Normal 0.50-0.90 [facility] Comment on above: Performed By: #### T YS #### [address] [address] Geosciences Associate Professor: Dominik Muñiz MD GFR, Amer >60 Normal >60 [facility] Comment on above: Performed By: #### T YS #### [address] [address] Geosciences Associate Professor: Dominik Muñiz MD GFR,non Amer >60 Normal >60 [facility] Comment on above: Performed By: #### T YS #### [address] [address] Geosciences Associate Professor: Dominik Muñiz MD Glucose [Mass/Vol] 143 mg/dL High 70-99 [facility] Comment on above: Performed By: #### T YS #### [address] [address] Geosciences Associate Professor: Dominik Muñiz MD Potassium [Moles/Vol] 3.9 mmol/L Normal 3.7-5.3 [facility] Comment on above: Performed By: #### T YS #### [address] [address] Geosciences Associate Professor: Dominik Muñiz MD Sodium [Moles/Vol] 145 mmol/L High 135-144 [facility] Comment on above: Performed By: #### T YS #### [address] [address] Geosciences Associate Professor: Dominik Muñiz MD Urea nitrogen [Mass/Vol] 12 mg/dL Normal 8-23 [facility] Comment on above: Performed By: #### T YS #### [address] [address] Geosciences Associate Professor: Dominik Muñiz MD CBCon 03-21-2022 Erythrocyte distribution width (RBC) [Ratio] 12.2 % Normal 11.8-14.4 [facility] Comment on above: Performed By: #### T YS #### [address] [address] Geosciences Associate Professor: Dominik Muñiz MD Hematocrit (Bld) [Volume fraction] 25.2 % Low 36.3-47.1 [facility] Comment on above: Performed By: #### T YS #### [address] [address] Geosciences Associate Professor: Dominik Muñiz MD Hemoglobin (Bld) [Mass/Vol] 8.5 g/dL Low 11.9-15.1 [facility] Comment on above: Performed By: #### T YS #### [address] [address] Geosciences Associate Professor: Dominik Muñiz MD MCH (RBC) [Entitic mass] 33.2 pg Normal 25.2-33.5 [facility] Comment on above: Performed By: #### T YS #### [address] [address] Geosciences Associate Professor: Dominik Muñiz MD MCHC (RBC) [Mass/Vol] 33.7 g/dL Normal 28.4-34.8 [facility] Comment on above: Performed By: #### T YS #### [address] [address] Geosciences Associate Professor: Dominik Muñiz MD MCV (RBC) [Entitic vol] 98.4 fL Normal 82.6-102.9 [facility] Comment on above: Performed By: #### T YS #### [address] [address] Geosciences Associate Professor: Dominik Muñiz MD NRBC Automated 0.0 per 100 WBC Normal 0.0 [facility] Comment on above: Performed By: #### T YS #### [address] [address] Geosciences Associate Professor: Dominik Muñiz MD Platelet mean volume (Bld) [Entitic vol] 12.4 fL Normal 8.1-13.5 [facility] Comment on above: Performed By: #### T YS #### [address] [address] Geosciences Associate Professor: Dominik Muñiz MD Platelets (Bld) [#/Vol] 90 10*3/uL Low 138-453 [facility] Comment on above: Performed By: #### T YS #### [address] [address] Geosciences Associate Professor: Dominik Muñiz MD RBC (Bld) [#/Vol] 2.56 10*6/uL Low 3.95-5.11 [facility] Comment on above: Performed By: #### T YS #### [address] [address] Geosciences Associate Professor: Dominik Muñiz MD WBC (Bld) [#/Vol] 5.7 10*3/uL Normal 3.5-11.3 [facility] Comment on above: Performed By: #### T YS #### [facility] [address] [place], [place] [id number] Geosciences Associate Professor: Dominik Muñiz MD Hematocrit (Bld) [Volume fraction] 25.2 % Low 36.3 - 47.1 % [facility] Hemoglobin (Bld) [Mass/Vol] 8.5 g/dL Low 11.9 - 15.1 g/dL [facility] Interpretation and review of laboratory results Abnormal [facility] MCH (RBC) [Entitic mass] 33.2 pg 25.2 - 33.5 pg [facility] MCHC (RBC) [Mass/Vol] 33.7 g/dL 28.4 - 34.8 g/dL [facility] MCV (RBC) [Entitic vol] 98.4 fL 82.6 - 102.9 fL [facility] NRBC Automated 0.0 0.0 per 100 WBC [facility] Platelet distribution width (Bld) [Ratio] 12.2 % 11.8 - 14.4 % [facility] Platelet mean volume (Bld) [Entitic vol] 12.4 fL 8.1 - 13.5 fL [facility] Platelets (Bld) [#/Vol] 90 10*3/uL Low [facility] RBC (Bld) [#/Vol] 2.56 10*6/uL Low 3.95 - 5.1 1 m/uL [facility] WBC (Bld) [#/Vol] 5.7 10*3/uL [facility] Calcium, Ionicon 03-21-2022 Calcium [Moles/Vol] 1.10 mmol/L Low 1.13-1.33 [facility] Comment on above: Performed By: #### T YS #### [facility] [address] [place], [place] [id number] Geosciences Associate Professor: Dominik Muñiz MD Calcium, Ionizedon 2 Calcium, Ionized 1.1 mmol/L Low 1.13 - 1.33 mmol/L [facility] Interpretation and review of laboratory results Abnormal [facility] Lactic Acid, POCon 2 POC Lactic Acid 0.99 mmol/L 0.56 - 1.39 mmol/L [facility] Magnesiumon 03-21-2022 Magnesium [Mass/Vol] 1.9 mg/dL Normal 1.6-2.6 [facility] Comment on above: Performed By: #### T YS #### [facility] [address] [id number] Geosciences Associate Professor: Dominik Muñiz MD Magnesium [Mass/Vol] 1.9 mg/dL 1.6 - 2 .6 mg/dL [facility] No Panel Informationon 03-21 [facility] POC Glucose Fingerstickon Glucose [Mass/Vol] 246 mg/dL High 65 - 105 mg/dL [facility] Interpretation and review of laboratory results Abnormal [facility] Glucose [Mass/Vol] 160 mg/dL High 65 - 105 mg/dL [facility] Interpretation and review of laboratory results Abnormal [facility] Glucose [Mass/Vol] 209 mg/dL High 65 - 105 mg/dL [facility] Interpretation and review of laboratory results Abnormal [facility] Glucose [Mass/Vol] 225 mg/dL High 65 - 105 mg/dL [facility] Interpretation and review of laboratory results Abnormal [facility] Phosphoruson 03-21-2022 Phosphate [Mass/Vol] 4.3 mg/dL 2.6 - 4 .5 mg/dL [facility] Phosphorus, Inorg.on 022 Phosphorus, Inorg. 4.3 mg/dL Normal 2.6-4.5 [facility] Comment on above: Performed By: #### T YS #### [facility] [address] [place] [address] Geosciences Associate Professor: Dominik Muñiz MD XR CHEST PORTABLEon 03-21-20 XR CHEST PORTABLE EXAMINATION: ONE XRAY VIEW OF THE CHEST 03/21/2022 10:06 am COMPARISON: 03/19/2022 HISTORY: ORDERING SYSTEM PROVIDED HISTORY: intubated TECHNOLOGIST PROVIDED HISTORY: intubated FINDINGS: Stable ET tube and enteric tube. Lungs are clear without focal consolidation or pulmonary edema. No evidence of pleural effusion or pneumothorax. Remote ORIF of the bilateral clavicles. Cardiomediastinal silhouette and bony thorax are unchanged. IMPRESSION: Stable exam. Interpreted by: Pascual Howard MD Signed by: Pascual Howard MD 03/21/22 Final result Normal [facility] MHPN RIS CONSOLIDATED MHPN RIS CONSOLIDATED [facility] [employer] Work Phone: Radiology Study observation (narrative) [facility] Work Phone: XR CHEST PORTABLEOrdered By: Pascual Howard on 03-21-2022 [facility] Work Phone: Arterial Blood Gas, POCon Aidan Test NOT APPLICABLE [employer] FIO2 30.0 [facility] [employer] HCO3 (Bld) [Moles/Vol] 24.8 mmol/L 21.0 - 28.0 mmol/L [facility] [employer] Interpretation and review of laboratory results Abnormal [facility] O2 Device/Flow/% Adult Ventilator DOMENIC [facility] [employer] Oxygen saturation in Blood 99 % High 94.0 - 98.0 % [facility] POC pCO2 41.6 [facility] [employer] POC pH 7.383 7.350 - 7.450 [facility] POC PO2 121.9 High [facility] [employer] Positive Base Excess, Art 0 0.0 - 3.0 [facility] [employer] Sample Site Arterial Line [email or web address] Basic Metabolic Panelon 03-04 Anion gap [Moles/Vol] 10 mmol/L 9 - 17 mmol/L [facility] Calcium [Mass/Vol] 8.0 mg/dL Low 8.6 - 10. 4 mg/dL [facility] Chloride [Moles/Vol] 107 mmol/L 98 - 10 7 mmol/L [facility] CO2 [Moles/Vol] 24 mmol/L 20 - 31 mmol/L [facility] Creatinine [Mass/Vol] 0.61 mg/dL 0.50 - 0.90 mg/dL [facility] [employer] GFR >60 60 - PI NF mL/min [facility] [employer] GFR Non- >60 60 - PINF mL/min [facility] [employer] GFR/1.73 sq M.predicted MDRD (S/P/Bld) [Vol rate/Area] [facility] [employer] Glucose [Mass/Vol] 211 mg/dL High 70 - 99 mg/dL [facility] Interpretation and review of laboratory results Abnormal [facility] [employer] Potassium [Moles/Vol] 4.9 mmol/L 3.7 - 5.3 mmol/L [facility] Sodium [Moles/Vol] 141 mmol/L 135 - 144 mmol/L [facility] Urea nitrogen (BldV) [Mass/Vol] 10 mg/dL 8 - 23 mg/dL [facility] Anion gap [Moles/Vol] 8 mmol/L Low 9 - 17 mmol/L [facility] Calcium [Mass/Vol] 8.0 mg/dL Low 8.6 - 10. 4 mg/dL [facility] Chloride [Moles/Vol] 109 mmol/L High 98 - 10 7 mmol/L [facility] CO2 [Moles/Vol] 23 mmol/L 20 - 31 mmol/L [facility] Creatinine [Mass/Vol] 0.74 mg/dL 0.50 - 0.90 mg/dL [facility] [employer] GFR >60 60 - PI NF mL/min [facility] [employer] GFR Non- >60 60 - PINF mL/min [facility] [employer] GFR/1.73 sq M.predicted MDRD (S/P/Bld) [Vol rate/Area] [facility] [employer] Glucose [Mass/Vol] 98 mg/dL 70 - 99 mg/dL [facility] Interpretation and review of laboratory results Abnormal [facility] Potassium [Moles/Vol] 2.9 mmol/L Critically low 3.7 - 5.3 mmol/L [facility] Sodium [Moles/Vol] 140 mmol/L 135 - 144 mmol/L [facility] Urea nitrogen (BldV) [Mass/Vol] 11 mg/dL 8 - 23 mg/dL [facility] Basic Metabolic Profon 03-20 (cont.) Normal [facility] Comment on above: Result Comment: Aver age GFR for 60-69 years old: 85 mL/min/1.73sq m Chronic Kidney Disease: <60 mL/min/1.73sq m Kidney failure: <15 mL/min/1.73sq m eGFR calculated using average adult body mass. Additional eGFR calculator available at: http://www.[employer]/multiple_crcl_2011.htm Performed By: #### M G, LIVP, BMPX, VD25, NAMRATA, IOCAL, CDP #### [facility] [address] [place] [phone] Geosciences Associate Professor: Dominik Muñiz MD Anion gap [Moles/Vol] 10 mmol/L Normal -17 [facility] Comment on above: Performed By: #### M G, LIVP, BMPX, VD25, NAMRATA, IOCAL, CDP #### [facility] [address] [place] [phone] Geosciences Associate Professor: Dominik Muñiz MD Calcium [Mass/Vol] 8.0 mg/dL Low 8.6-10.4 [facility] Comment on above: Performed By: #### M G, LIVP, BMPX, VD25, NAMRATA, IOCAL, CDP #### [facility] [address] [place] [phone] Geosciences Associate Professor: Dominik Muñiz MD Chloride [Moles/Vol] 107 mmol/L Normal 98-107 [facility] Comment on above: Performed By: #### M G, LIVP, BMPX, VD25, NAMRATA, IOCAL, CDP #### [address] [address] Geosciences Associate Professor: Dominik Muñiz MD CO2 [Moles/Vol] 24 mmol/L Normal 20-31 [facility] Comment on above: Performed By: #### M G, LIVP, BMPX, VD25, NAMRATA, IOCAL, CDP #### [address] [address] Geosciences Associate Professor: Dominik Muñiz MD Creatinine [Mass/Vol] 0.61 mg/dL Normal 0.50-0.90 [facility] Comment on above: Performed By: #### M G, LIVP, BMPX, VD25, NAMRATA, IOCAL, CDP #### [address] [address] Geosciences Associate Professor: Dominik Muñiz MD GFR, Amer >60 Normal >60 [facility] Comment on above: Performed By: #### M G, LIVP, BMPX, VD25, NAMRATA, IOCAL, CDP #### [address] [address] Geosciences Associate Professor: Dominik Muñiz MD GFR,non Amer >60 Normal >60 [facility] Comment on above: Performed By: #### M G, LIVP, BMPX, VD25, NAMRATA, IOCAL, CDP #### [address] [address] Geosciences Associate Professor: Dominik Muñiz MD Glucose [Mass/Vol] 211 mg/dL High 70-99 [facility] Comment on above: Performed By: #### M G, LIVP, BMPX, VD25, NAMRATA, IOCAL, CDP #### [address] [address] Geosciences Associate Professor: Dominik Muñiz MD Potassium [Moles/Vol] 4.9 mmol/L Normal 3.7-5.3 [facility] Comment on above: Performed By: #### M G, LIVP, BMPX, VD25, NAMRATA, IOCAL, CDP #### [facility] [address] [place] [address] Geosciences Associate Professor: Dominik Muñiz MD Sodium [Moles/Vol] 141 mmol/L Normal 135-144 [facility] Comment on above: Performed By: #### M G, LIVP, BMPX, VD25, NAMRATA, IOCAL, CDP #### [facility] [address] [place] [phone] Geosciences Associate Professor: Dominik Muñiz MD Urea nitrogen [Mass/Vol] 10 mg/dL Normal 8-23 [facility] Comment on above: Performed By: #### M G, LIVP, BMPX, VD25, NAMRATA, IOCAL, CDP #### [facility] [address] [place] [phone] Geosciences Associate Professor: Dominik Muñiz MD (cont.) [facility] Comment on above: Result Comment: Aver age GFR for 60-69 years old: 85 mL/min/1.73sq m Chronic Kidney Disease: <60 mL/min/1.73sq m Kidney failure: <15 mL/min/1.73sq m eGFR calculated using average adult body mass. Additional eGFR calculator available at: http://www.[employer].com/multiple_crcl_2012.htm Performed By: #### M G, LIVP, BMPX, VD25, NAMRATA, IOCAL, CDP #### [facility] [address] [place] [phone] Geosciences Associate Professor: Dominik Muñiz MD Anion gap [Moles/Vol] 8 mmol/L Low 9-17 [facility] Comment on above: Performed By: #### M G, LIVP, BMPX, VD25, NAMRATA, IOCAL, CDP #### [facility] [address] [place] [phone] Geosciences Associate Professor: Dominik Muñiz MD Calcium [Mass/Vol] 8.0 mg/dL Low 8.6-10.4 [facility] Comment on above: Performed By: #### M G, LIVP, BMPX, VD25, NAMRATA, IOCAL, CDP #### [address] [address] Geosciences Associate Professor: Dominik Muñiz MD Chloride [Moles/Vol] 109 mmol/L High 98-107 [facility] Comment on above: Performed By: #### M G, LIVP, BMPX, VD25, NAMRATA, IOCAL, CDP #### [address] [address] Geosciences Associate Professor: Dominik Muñiz MD CO2 [Moles/Vol] 23 mmol/L Normal 20-31 [facility] Comment on above: Performed By: #### M G, LIVP, BMPX, VD25, NAMRATA, IOCAL, CDP #### [address] [address] Geosciences Associate Professor: Dominik Muñiz MD Creatinine [Mass/Vol] 0.74 mg/dL Normal 0.50-0.90 [facility] Comment on above: Performed By: #### M G, LIVP, BMPX, VD25, NAMRATA, IOCAL, CDP #### [address] [address] Geosciences Associate Professor: Dominik Muñiz MD GFR, Amer >60 Normal >60 [facility] Comment on above: Performed By: #### M G, LIVP, BMPX, VD25, NAMRATA, IOCAL, CDP #### [address] [address] Geosciences Associate Professor: Dominik Muñiz MD GFR,non Amer >60 Normal >60 [facility] Comment on above: Performed By: #### M G, LIVP, BMPX, VD25, NAMRATA, IOCAL, CDP #### [facility] [address] [place] [phone] Geosciences Associate Professor: Dominik Muñiz MD Glucose [Mass/Vol] 98 mg/dL Normal 70-99 [facility] Comment on above: Performed By: #### M G, LIVP, BMPX, VD25, NAMRATA, IOCAL, CDP #### [facility] [address] [place] [phone] Geosciences Associate Professor: Dominik Muñiz MD Potassium [Moles/Vol] 2.9 mmol/L Critically low 3.7-5.3 [facility] Comment on above: Performed By: #### M G, LIVP, BMPX, VD25, NAMRATA, IOCAL, CDP #### [facility] [address] [place] [phone] Geosciences Associate Professor: Dominik Muñiz MD Sodium [Moles/Vol] 140 mmol/L Normal 135-144 [facility] Comment on above: Performed By: #### M G, LIVP, BMPX, VD25, NAMRATA, IOCAL, CDP #### [facility] [address] [place] [phone] Geosciences Associate Professor: Dominik Muñiz MD Urea nitrogen [Mass/Vol] 11 mg/dL Normal 8-23 [facility] Comment on above: Performed By: #### M G, LIVP, BMPX, VD25, NAMRATA, IOCAL, CDP #### [facility] [address] [place] [phone] Geosciences Associate Professor: Dominik Muñiz MD CBCon 03-20-2022 Erythrocyte distribution width (RBC) [Ratio] 11.9 % Normal 11.8-14.4 [facility] Comment on above: Performed By: #### M G, LIVP, BMPX, VD25, NAMRATA, IOCAL, CDP #### [facility] [address] [place] [phone] Geosciences Associate Professor: Dominik Muñiz MD Hematocrit (Bld) [Volume fraction] 29.3 % Low 36.3-47.1 [facility] Comment on above: Performed By: #### M G, LIVP, BMPX, VD25, NAMRATA, IOCAL, CDP #### [address] [address] Geosciences Associate Professor: Dominik Muñiz MD Hemoglobin (Bld) [Mass/Vol] 10.2 g/dL Low 11.9-15.1 [facility] Comment on above: Performed By: #### M G, LIVP, BMPX, VD25, NAMRATA, IOCAL, CDP #### [address] [address] Geosciences Associate Professor: Dominik Muñiz MD MCH (RBC) [Entitic mass] 32.3 pg Normal 25.2-33.5 [facility] Comment on above: Performed By: #### M G, LIVP, BMPX, VD25, NAMRATA, IOCAL, CDP #### [place] [address] Geosciences Associate Professor: Dominik Muñiz MD MCHC (RBC) [Mass/Vol] 34.8 g/dL Normal 28.4-34.8 [facility] Comment on above: Performed By: #### M G, LIVP, BMPX, VD25, NAMRATA, IOCAL, CDP #### [place] [address] Geosciences Associate Professor: Dominik Muñiz MD MCV (RBC) [Entitic vol] 92.7 fL Normal 82.6-102.9 [facility] Comment on above: Performed By: #### M G, LIVP, BMPX, VD25, NAMRATA, IOCAL, CDP #### [address] [address] Geosciences Associate Professor: Dominik Muñiz MD NRBC Automated 0.0 per 100 WBC Normal 0.0 [facility] Comment on above: Performed By: #### M G, LIVP, BMPX, VD25, NAMRATA, IOCAL, CDP #### [facility] [place] [address] Geosciences Associate Professor: Dominik Muñiz MD Platelet Count See Reflexed IPF Result Normal 138-453 [facility] Comment on above: Performed By: #### M G, LIVP, BMPX, VD25, NAMRATA, IOCAL, CDP #### [facility] [place], [place] [id number] Geosciences Associate Professor: Dominik Muñiz MD RBC (Bld) [#/Vol] 3.16 10*6/uL Low 3.95-5.11 [facility] Comment on above: Performed By: #### M G, LIVP, BMPX, VD25, NAMRATA, IOCAL, CDP #### [facility] [address] [place] [phone] Geosciences Associate Professor: Dominik Muñiz MD WBC (Bld) [#/Vol] 8.4 10*3/uL Normal 3.5-11.3 [facility] Comment on above: Performed By: #### M G, LIVP, BMPX, VD25, NAMRATA, IOCAL, CDP #### [facility] [place] [address] Geosciences Associate Professor: Dominik Muñiz MD Hematocrit (Bld) [Volume fraction] 29.3 % Low 36.3 - 47.1 % [facility] Hemoglobin (Bld) [Mass/Vol] 10.2 g/dL Low 11.9 - 15.1 g/dL [facility] Interpretation and review of laboratory results Abnormal [facility] MCH (RBC) [Entitic mass] 32.3 pg 25.2 - 33.5 pg [facility] MCHC (RBC) [Mass/Vol] 34.8 g/dL 28.4 - 34.8 g/dL [facility] MCV (RBC) [Entitic vol] 92.7 fL 82.6 - 102.9 fL [facility] NRBC Automated 0.0 0.0 per 100 WBC [facility] Platelet distribution width (Bld) [Ratio] 11.9 % 11.8 - 14.4 % [facility] Platelets (Bld) [#/Vol] See Reflexed IPF Result [facility] RBC (Bld) [#/Vol] 3.16 10*6/uL Low 3.95 - 5.1 1 m/uL [facility] WBC (Bld) [#/Vol] 8.4 10*3/uL [facility] CT HEAD WO CONTRASTon 2021 CT HEAD WO CONTRAST EXAMINATION: CT OF THE HEAD WITHOUT CONTRAST, 03/20/2022 6:21 am TECHNIQUE: CT of the head was performed without the administration of intravenous contrast. Automated exposure control, iterative reconstruction, and/or weight based adjustment of the mA/kV was utilized to reduce the radiation dose to as low as reasonably achievable. 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 Largest hemorrhages in the left frontal lobe 20 x 9.8 mm prior 20 x 13 mm. No interval developing new areas of hemorrhage are noted. Right frontal subdural collection 4.2 mm is noted without significant interval change. No significant midline shift. No tentorial herniation. No ventriculomegaly. Scattered white matter hypodensity remains consistent with chronic microvascular change. ORBITS: Air-fluid level in the left maxillary sinus with fractures of the left anterior and lateral maxillary sinus judd noted as well as fracture of the inferior wall of the left orbit. Fracture of the left zygoma is noted, unchanged, comminuted. Fracture alignment is stable. SINUSES: Air-fluid level in the left paranasal sinuses relatively unchanged. There is opacity in some of the ethmoid air cell similar to prior examination. Mastoid air cells are appropriately aerated. SOFT TISSUES/SKULL: No acute abnormality of the visualized skull or soft tissues. Endotracheal and intestinal tubes are visualized. IMPRESSION: 1. Mild interval reduction in intraparenchymal hemorrhage density with minimal reduction in size of some of the foci. No new hemorrhagic foci. Subdural fluid on the right. Underlying microvascular change. 2. No change in facial bone fractures left side with air-fluid levels in the left maxillary and ethmoid air cells. Some mucoperiosteal thickening inferior left frontal sinus is noted, stable. Interpreted by: Lauren Edouard MD Signed by: Lauren Edouard MD 03/20/22 Final result Normal [facility] RIS CON[facility]IDATED [facility] Work Phone: Radiology Study observation (narrative) [facility] [employer] Work Phone: CT HEAD WO CONTRASTOrdered B y: Lauren Edouard on 03-20-2022 [facility] Work Phone: Calcium, Ionicon 03-20-2022 Calcium [Moles/Vol] 1.12 mmol/L Low 1.13-1.33 [facility] Comment on above: Performed By: #### M G, LIVP, BMPX, VD25, NAMRATA, IOCAL, CDP #### [facility] [address] [place] [address] Geosciences Associate Professor: Dominik Muñiz MD Calcium, Ionizedon 2 Calcium, Ionized 1.12 mmol/L Low 1.13 - 1.33 mmol/L [facility] Interpretation and review of laboratory results Abnormal [facility] Immature Platelet Fractionon 03-20-2022 Interpretation and review of laboratory results Abnormal [facility] Platelet, Fluorescence 137 Low [facility] Platelet, Immature Fraction 6.8 % 1.1 - 10.3 % [facility] Lactic Acidon 03-20-2022 Lactic Acid,Whole Bl 1.2 mmol/L Normal 0.7-2.1 [facility] Comment on above: Performed By: #### T YS #### [facility] [address] [place] [address] Geosciences Associate Professor: Dominik Muñiz MD Lactic Acid, Whole Blood 1.2 mmol/L 0.7 - 2.1 mmol/L [facility] Lactic Acid, POCon POC Lactic Acid 1.25 mmol/L 0.56 - 1.39 mmol/L [facility] POC Lactic Acid 1.22 mmol/L 0.56 - 1.39 mmol/L [facility] Magnesiumon 03-20-2022 Magnesium [Mass/Vol] 2.2 mg/dL Normal 1.6-2.6 [facility] Comment on above: Performed By: #### M G, LIVP, BMPX, VD25, NAMRATA, IOCAL, CDP #### [facility] [address] [place], [place] [id number] Geosciences Associate Professor: Dominik Muñiz MD Magnesium [Mass/Vol] 2.2 mg/dL 1.6 - 2 .6 mg/dL [facility] No Panel Informationon 03-20 Interpretation and review of laboratory results Abnormal [facility] Interpretation and review of laboratory results Abnormal [facility] PLT, Immature Fract.on 03-20 Platelet, Fluoresc. 137 k/uL Low 138-453 [facility] Comment on above: Performed By: #### M G, LIVP, BMPX, VD25, NAMRATA, IOCAL, CDP #### [facility] [address] [place], [place] [id number] Geosciences Associate Professor: Dominik Muñiz MD PLT, Immature Fract. 6.8 % Normal 1.1-10.3 [facility] Comment on above: Performed By: #### M G, LIVP, BMPX, VD25, NAMRATA, IOCAL, CDP #### [facility] [address] [place], [place] [id number] Geosciences Associate Professor: Dominik Muñiz MD POC Glucose Fingerstickon Glucose [Mass/Vol] 199 mg/dL High 65 - 105 mg/dL [facility] Interpretation and review of laboratory results Abnormal [facility] Glucose [Mass/Vol] 142 mg/dL High 65 - 105 mg/dL [facility] Interpretation and review of laboratory results Abnormal [facility] Glucose [Mass/Vol] 185 mg/dL High 65 - 105 mg/dL [facility] Interpretation and review of laboratory results Abnormal [facility] Glucose [Mass/Vol] 189 mg/dL High 65 - 105 mg/dL [facility] Glucose [Mass/Vol] 160 mg/dL High 65 - 105 mg/dL [facility] Glucose [Mass/Vol] 110 mg/dL High 65 - 105 mg/dL [facility] Interpretation and review of laboratory results Abnormal [facility] POCT Glucoseon 03-20-2022 Glucose [Mass/Vol] 100 mg/dL 74 - 100 mg/dL [facility] Glucose [Mass/Vol] 284 mg/dL High 74 - 100 mg/dL [facility] Phosphoruson 03-20-2022 Interpretation and review of laboratory results Abnormal [facility] Phosphate [Mass/Vol] 2.3 mg/dL Low 2.6 - 4 .5 mg/dL [facility] Phosphorus, Inorg.on 022 Phosphorus, Inorg. 2.3 mg/dL Low 2.6-4.5 [facility] Comment on above: Performed By: #### M G, LIVP, BMPX, VD25, NAMRATA, IOCAL, CDP #### [facility] [address] [place] [address] Geosciences Associate Professor: Dominik Muñiz MD Venous Blood Gas, POCon 03-04 Aidan Test NOT APPLICABLE [facility] FIO2 30.0 [facility] HCO3 (Bld) [Moles/Vol] 23.3 mmol/L 22.0 - 29.0 mmol/L [facility] Negative Base Excess, Chavo 1 0.0 - 2.0 [facility] O2 Device/Flow/% Adult Ventilator [facility] Oxygen saturation in Blood 99 % High 60.0 - 85.0 % [facility] pCO2, Chavo 37.1 Low [facility] pH, Chavo 7.406 7.320 - 7.430 [facility] pO2, Chavo 118.9 High [facility] Sample Site Arterial Line NAHUM [facility] Basic Metab w/rfx MGon 03-19 (cont.) Normal [facility] Comment on above: Result Comment: Aver age GFR for 60-69 years old: 85 mL/min/1.73sq m Chronic Kidney Disease: <60 mL/min/1.73sq m Kidney failure: <15 mL/min/1.73sq m eGFR calculated using average adult body mass. Additional eGFR calculator available at: http://www.[employer]/multiple_crcl_2012.htm Performed By: #### M G, LIVP, BMPX, VD25, NAMRATA, IOCAL, CDP #### [facility] [address] [place] [address] Geosciences Associate Professor: Dominik Muñiz MD Anion gap [Moles/Vol] 13 mmol/L Normal 9-17 [facility] Comment on above: Performed By: #### M G, LIVP, BMPX, VD25, NAMRATA, IOCAL, CDP #### [facility] [address] [place] [id number] Geosciences Associate Professor: Dominik Muñiz MD Calcium [Mass/Vol] 7.8 mg/dL Low 8.6-10.4 [facility] Comment on above: Performed By: #### M G, LIVP, BMPX, VD25, NAMRATA, IOCAL, CDP #### [facility] [address] [place] [address] Geosciences Associate Professor: Dominik Muñiz MD Chloride [Moles/Vol] 105 mmol/L Normal 98-107 [facility] Comment on above: Performed By: #### M G, LIVP, BMPX, VD25, NAMRATA, IOCAL, CDP #### [facility] [address] [place] [address] Geosciences Associate Professor: Dominik Muñiz MD CO2 [Moles/Vol] 24 mmol/L Normal 20-31 [facility] Comment on above: Performed By: #### M G, LIVP, BMPX, VD25, NAMRATA, IOCAL, CDP #### [address] [address] Geosciences Associate Professor: Dominik Muñiz MD Creatinine [Mass/Vol] 0.57 mg/dL Normal 0.50-0.90 [facility] Comment on above: Performed By: #### M G, LIVP, BMPX, VD25, NAMRATA, IOCAL, CDP #### [facility] [address] [place] [address] Geosciences Associate Professor: Dominik Muñiz MD GFR, Amer >60 Normal >60 [facility] Comment on above: Performed By: #### M G, LIVP, BMPX, VD25, NAMRATA, IOCAL, CDP #### [facility] [address] [place] [address] Geosciences Associate Professor: Dominik Muñiz MD GFR,non Amer >60 Normal >60 [facility] Comment on above: Performed By: #### M G, LIVP, BMPX, VD25, NAMRATA, IOCAL, CDP #### [facility] [address] [place] [address] Geosciences Associate Professor: Dominik Muñiz MD Glucose [Mass/Vol] 151 mg/dL High 70-99 [facility] Comment on above: Performed By: #### M G, LIVP, BMPX, VD25, NAMRATA, IOCAL, CDP #### [facility] [address] [place] [address] Geosciences Associate Professor: Dominik Muñiz MD Potassium [Moles/Vol] 3.2 mmol/L Low 3.7-5.3 [facility] Comment on above: Performed By: #### M G, LIVP, BMPX, VD25, NAMRATA, IOCAL, CDP #### [facility] [address] [place], [place] [id number] Geosciences Associate Professor: Dominik Muñiz MD Sodium [Moles/Vol] 142 mmol/L Normal 135-144 [facility] Comment on above: Performed By: #### M G, LIVP, BMPX, VD25, NAMRATA, IOCAL, CDP #### [facility] [address] [place], [place] [id number] Geosciences Associate Professor: Dominik Muñiz MD Urea nitrogen [Mass/Vol] 6 mg/dL Low 8-23 [facility] Comment on above: Performed By: #### M G, LIVP, BMPX, VD25, NAMRATA, IOCAL, CDP #### [facility] [address] [place], [place] [id number] Geosciences Associate Professor: Dominik Muñiz MD Basic Metabolic Panel w/ Ref jessica to MGon 03-19-2022 Anion gap [Moles/Vol] 13 mmol/L 9 - 17 mmol/L [facility] Calcium [Mass/Vol] 7.8 mg/dL Low 8.6 - 10. 4 mg/dL [facility] Chloride [Moles/Vol] 105 mmol/L 98 - 10 7 mmol/L [employer] [facility] CO2 [Moles/Vol] 24 mmol/L 20 - 31 mmol/L [employer] [facility] Creatinine [Mass/Vol] 0.57 mg/dL 0.50 - 0.90 mg/dL [facility] GFR >60 60 - PI NF mL/min [facility] GFR Non- >60 60 - PINF mL/min [employer] [facility] GFR/1.73 sq M.predicted MDRD (S/P/Bld) [Vol rate/Area] [facility] Glucose [Mass/Vol] 151 mg/dL High 70 - 99 mg/dL [facility] Interpretation and review of laboratory results Abnormal [facility] [employer] Potassium [Moles/Vol] 3.2 mmol/L Low 3.7 - 5.3 mmol/L [facility] Sodium [Moles/Vol] 142 mmol/L 135 - 144 mmol/L [facility] Urea nitrogen (BldV) [Mass/Vol] 6 mg/dL Low 8 - 23 mg/dL [facility] CALCIUM, IONIC (POC)on 03-19 POC Ionized Calcium 1.12 mmol/L Low 1.15 - 1 .33 mmol/L [facility] CBC with Auto Differentialon 03-19-2022 Absolute Eos # [facility] Absolute Immature Granulocyte 0.05 [facility] Absolute Lymph # 1.04 Low [facility] Absolute Polk # 0.76 [facility] RS [facility] Basophils (Bld) [#/Vol] 0.03 10*3/uL [facility] Basophils/100 WBC (Bld) 0 % 0 - 2 % [facility] Eosinophils/100 WBC (Bld) 0 % Low 1 - 4 % [facility] Hematocrit (Bld) [Volume fraction] 30.4 % Low 36.3 - 47.1 % [facility] Hemoglobin (Bld) [Mass/Vol] 10.2 g/dL Low 11.9 - 15.1 g/dL [facility] Immature granulocytes/100 WBC (Bld) 0 % 0 [facility] Interpretation and review of laboratory results Abnormal [facility] Lymphocytes/100 WBC (Bld) 9 % Low 24 - 43 % [facility] MCH (RBC) [Entitic mass] 31.9 pg 25.2 - 33.5 pg [facility] MCHC (RBC) [Mass/Vol] 33.6 g/dL 28.4 - 34.8 g/dL [facility] MCV (RBC) [Entitic vol] 95.0 fL 82.6 - 102.9 fL [facility] Monocytes/100 WBC (Bld) 7 % 3 - 12 % [facility] NRBC Automated 0.0 0.0 per 100 WBC [facility] Platelet distribution width (Bld) [Ratio] 11.8 % 11.8 - 14.4 % [facility] Platelet mean volume (Bld) [Entitic vol] 12.3 fL 8.1 - 13.5 fL [facility] Platelets (Bld) [#/Vol] 116 10*3/uL Low [facility] RBC (Bld) [#/Vol] 3.20 10*6/uL Low 3.95 - 5.1 1 m/uL [facility] Seg Neutrophils 84 % High 36 - 65 % [facility] Segs Absolute 9.55 High [facility] WBC (Bld) [#/Vol] 11.4 10*3/uL High [facility] CBC with Diffon 03-19-2022 Abs. Basophil 0.03 k/uL Normal 0.00-0.20 [facility] Comment on above: Performed By: #### M G, LIVP, BMPX, VD25, NAMRATA, IOCAL, CDP #### [facility] [address] [place] [address] Geosciences Associate Professor: Dominik Muñiz MD Abs. Eosinophil <0.03 Normal 0.00-0.44 [facility] Comment on above: Performed By: #### M G, LIVP, BMPX, VD25, NAMRATA, IOCAL, CDP #### [facility] [address] [place] [address] Geosciences Associate Professor: Dominik Muñiz MD Abs.Imm.Granulocyte 0.05 k/uL Normal 0.00-0.30 [facility] Comment on above: Performed By: #### M G, LIVP, BMPX, VD25, NAMRATA, IOCAL, CDP #### [facility] [address] [place] [address] Geosciences Associate Professor: Dominik Muñiz MD Abs.Neutrophil (Seg) 9.55 k/uL High 1.50-8.10 [facility] Comment on above: Performed By: #### M G, LIVP, BMPX, VD25, NAMRATA, IOCAL, CDP #### [address] [address] Geosciences Associate Professor: Dominik Muñiz MD Basophils/100 WBC (Bld) 0 % Normal 0-2 [facility] Comment on above: Performed By: #### M G, LIVP, BMPX, VD25, NAMRATA, IOCAL, CDP #### [address] [address] Geosciences Associate Professor: Dominik Muñiz MD Eosinophils/100 WBC (Bld) 0 % Low 1-4 [facility] Comment on above: Performed By: #### M G, LIVP, BMPX, VD25, NAMRATA, IOCAL, CDP #### [address] [address] Geosciences Associate Professor: Dominik Muñiz MD Erythrocyte distribution width (RBC) [Ratio] 11.8 % Normal 11.8-14.4 [facility] Comment on above: Performed By: #### M G, LIVP, BMPX, VD25, NAMRATA, IOCAL, CDP #### [facility] [address] [place] [address] Geosciences Associate Professor: Dominik Muñiz MD Hematocrit (Bld) [Volume fraction] 30.4 % Low 36.3-47.1 [facility] Comment on above: Performed By: #### M G, LIVP, BMPX, VD25, NAMRATA, IOCAL, CDP #### [address] [address] Geosciences Associate Professor: Dominik Muñiz MD Hemoglobin (Bld) [Mass/Vol] 10.2 g/dL Low 11.9-15.1 [facility] Comment on above: Performed By: #### M G, LIVP, BMPX, VD25, NAMRATA, IOCAL, CDP #### [facility] [address] [place] [address] Geosciences Associate Professor: Dominik Muñiz MD Immature granulocytes/100 WBC (Bld) 0 % Normal 0 [facility] Comment on above: Performed By: #### M G, LIVP, BMPX, VD25, NAMRATA, IOCAL, CDP #### [facility] [address] [place] [address] Geosciences Associate Professor: Dominik Muñiz MD Lymphocytes (Bld) [#/Vol] 1.04 10*3/uL Low 1.10-3.70 [facility] Comment on above: Performed By: #### M G, LIVP, BMPX, VD25, NAMRATA, IOCAL, CDP #### [facility] [address] [place] [address] Geosciences Associate Professor: Dominik Muñiz MD Lymphocytes/100 WBC (Bld) 9 % Low 24-43 [facility] Comment on above: Performed By: #### M G, LIVP, BMPX, VD25, NAMRATA, IOCAL, CDP #### [facility] [address] [place] [address] Geosciences Associate Professor: Dominik Muñiz MD MCH (RBC) [Entitic mass] 31.9 pg Normal 25.2-33.5 [facility] Comment on above: Performed By: #### M G, LIVP, BMPX, VD25, NAMRATA, IOCAL, CDP #### [facility] [address] [place] [address] Geosciences Associate Professor: Dominik Muñiz MD MCHC (RBC) [Mass/Vol] 33.6 g/dL Normal 28.4-34.8 [facility] Comment on above: Performed By: #### M G, LIVP, BMPX, VD25, NAMRATA, IOCAL, CDP #### [facility] [address] [place] [address] Geosciences Associate Professor: Dominik Muñiz MD MCV (RBC) [Entitic vol] 95.0 fL Normal 82.6-102.9 [facility] Comment on above: Performed By: #### M G, LIVP, BMPX, VD25, NAMRATA, IOCAL, CDP #### [address] [address] Geosciences Associate Professor: Dominik Muñiz MD Monocytes (Bld) [#/Vol] 0.76 10*3/uL Normal 0.10-1.20 [facility] Comment on above: Performed By: #### M G, LIVP, BMPX, VD25, NAMRATA, IOCAL, CDP #### [address] [address] Geosciences Associate Professor: Dominik Muñiz MD Monocytes/100 WBC (Bld) 7 % Normal 3-12 [facility] Comment on above: Performed By: #### M G, LIVP, BMPX, VD25, NAMRATA, IOCAL, CDP #### [address] [address] Geosciences Associate Professor: Dominik Muñiz MD Neutrophil (Seg) 84 % High 36-65 [facility] Comment on above: Performed By: #### M G, LIVP, BMPX, VD25, NAMRATA, IOCAL, CDP #### [address] [address] Geosciences Associate Professor: Dominik Muñiz MD NRBC Automated 0.0 per 100 WBC Normal 0.0 [facility] Comment on above: Performed By: #### M G, LIVP, BMPX, VD25, NAMRATA, IOCAL, CDP #### [address] [address] Geosciences Associate Professor: Dominik Muñiz MD Platelet mean volume (Bld) [Entitic vol] 12.3 fL Normal 8.1-13.5 [facility] Comment on above: Performed By: #### M G, LIVP, BMPX, VD25, NAMRATA, IOCAL, CDP #### [address] [address] Geosciences Associate Professor: Dominik Muñiz MD Platelets (Bld) [#/Vol] 116 10*3/uL Low 138-453 [facility] Comment on above: Performed By: #### M G, LIVP, BMPX, VD25, NAMRATA, IOCAL, CDP #### [facility] [address] [place], [place] [id number] Geosciences Associate Professor: Dominik Muñiz MD RBC (Bld) [#/Vol] 3.20 10*6/uL Low 3.95-5.11 [facility] Comment on above: Performed By: #### M G, LIVP, BMPX, VD25, NAMRATA, IOCAL, CDP #### [facility] [address] [place], [place] [id number] Geosciences Associate Professor: Dominik Muñiz MD WBC (Bld) [#/Vol] 11.4 10*3/uL High 3.5-11.3 [facility] Comment on above: Performed By: #### M G, LIVP, BMPX, VD25, NAMRATA, IOCAL, CDP #### [facility] [address] [place] [address] Geosciences Associate Professor: Dominik Muñiz MD Creatinine W/GFR Point of Ca reon 03-19-2022 Creatinine [Mass/Vol] 0.73 mg/dL 0.51 - 1.19 mg/dL [facility] GFR Non- >60 60 - PINF mL/min [facility] GFR/1.73 sq M.predicted MDRD (S/P/Bld) [Vol rate/Area] mL/min 60 - PINF mL/min [facility] GFR/1.73 sq M.predicted MDRD (S/P/Bld) [Vol rate/Area] [facility] ELECTROLYTES PLUSon 03-19-20 22 Anion gap [Moles/Vol] 8 mmol/L 7 - 16 mmol/L [facility] Chloride [Moles/Vol] 106 mmol/L 98 - 10 7 mmol/L [facility] CO2 [Moles/Vol] 28 mmol/L 22 - 30 mmol/L [facility] Potassium [Moles/Vol] 4.8 mmol/L High 3.5 - 4.5 mmol/L [facility] Sodium [Moles/Vol] 141 mmol/L 138 - 146 mmol/L [facility] Hemoglobin and hematocrit, b loodon 03-19-2022 Hematocrit (Bld) [Volume fraction] 34 % Low 36 - 46 % [facility] Hemoglobin (Bld) [Mass/Vol] 11.6 g/dL Low 12.0 - 16.0 g/dL [facility] Lactic Acid, POCon POC Lactic Acid 0.80 mmol/L 0.56 - 1.39 mmol/L [facility] POC Lactic Acid 0.98 mmol/L 0.56 - 1.39 mmol/L [facility] Magnesiumon 03-19-2022 Magnesium [Mass/Vol] 1.6 mg/dL Normal 1.6-2.6 [facility] Comment on above: Performed By: #### M G, LIVP, BMPX, VD25, NAMRATA, IOCAL, CDP #### [facility] [address] [place] [id number] Geosciences Associate Professor: Dominik Muñiz MD Magnesium [Mass/Vol] 1.6 mg/dL 1.6 - 2 .6 mg/dL [facility] No Panel Informationon 03-19 [facility] Interpretation and review of laboratory results Abnormal [facility] Interpretation and review of laboratory results Abnormal [facility] POC Glucose Fingerstickon Glucose [Mass/Vol] 139 mg/dL High 65 - 105 mg/dL [facility] Glucose [Mass/Vol] 157 mg/dL High 65 - 105 mg/dL [facility] POCT Glucoseon 03-19-2022 Glucose [Mass/Vol] 173 mg/dL High 74 - 100 mg/dL [facility] POCT urea (BUN)on 03-19-2022 Urea nitrogen [Mass/Vol] 7 mg/dL Low 8 - 26 mg/dL [facility] Venous Blood Gas, POCon 03-04 Aidan Test NOT APPLICABLE [facility] FIO2 50.0 [facility] HCO3 (Bld) [Moles/Vol] 27.3 mmol/L 22.0 - 29.0 mmol/L [facility] Interpretation and review of laboratory results Abnormal [facility] Mode PRVC [facility] O2 Device/Flow/% Adult Ventilator [facility]ENIC N [facility] Oxygen saturation in Blood 100 % High 60.0 - 85.0 % [facility] pCO2, Chavo 38.2 Low [facility] pH, Chavo 7.462 High 7.320 - 7.430 [facility] pO2, Chavo 224.4 High [facility] Positive Base Excess, Chavo 3 0.0 - 3.0 [facility] Sample Site Arterial Line [facility] HCO3 (Bld) [Moles/Vol] 28.1 mmol/L 22.0 - 29.0 mmol/L [facility] Oxygen saturation in Blood 39 % Low 60.0 - 85.0 % [facility] pCO2, Chavo 43.3 [facility] pH, Chavo 7.420 7.320 - 7.430 [facility] pO2, Chavo 22.2 Low [facility] Positive Base Excess, Chavo 3 0.0 - 3.0 [facility] XR ABDOMEN FOR NG/OG/NE TUBE PLACEMENTon 03-19-2022 XR ABDOMEN FOR NG/OG/NE TUBE PLACEMENT EXAMINATION: ONE SUPINE XRAY VIEW(S) OF THE ABDOMEN 03/19/2022 7:39 am COMPARISON: None. HISTORY: ORDERING SYSTEM PROVIDED HISTORY: Confirmation of course of NG/OG/NE tube and location of tip of tube TECHNOLOGIST PROVIDED HISTORY: Confirmation of course of NG/OG/NE tube and location of tip of tube Portable?->Yes FINDINGS: Nasogastric tube tip overlies the gastric body. Nonobstructive bowel gas pattern. The lung bases appear unremarkable. IMPRESSION: Nasogastric tube tip overlies the gastric body. Interpreted by: Williams Lozano MD Signed by: Williams Lozano MD 03/19/22 Final result Normal [facility] [employer] Phone: Radiology Study observation (narrative) [facility] [employer] Phone: XR ABDOMEN FOR NG/OG/NE TUBE PLACEMENTOrdered By: Williams Lozano on 03-19-2022 [facility] [employer] Phone: XR CHEST PORTABLEon 03-19-20 XR CHEST PORTABLE EXAMINATION: ONE XRAY VIEW OF THE CHEST 03/19/2022 5:11 pm COMPARISON: 03/18/2022 HISTORY: ORDERING SYSTEM PROVIDED HISTORY: intubation TECHNOLOGIST PROVIDED HISTORY: intubation Reason for Exam: intubation port at 5pm FINDINGS: Cardiomediastinal silhouette is stable. Endotracheal tube tip projects at the mid intrathoracic trachea. Enteric tube courses below the diaphragm. The lungs are clear. No pleural effusion or pneumothorax. No gross bony abnormality. IMPRESSION: No acute process. Devices in place as above. Interpreted by: Chaz Lopez MD Signed by: Chaz Lopez MD 03/19/22 Final result Normal [facility] Phone: [facility] [employer] Phone: Radiology Study observation (narrative) [facility]: Basic Metab w/rfx MGon 03-18 Anion gap [Moles/Vol] 10 mmol/L Normal 9-17 [facility] Comment on above: Performed By: #### C DP #### [facility] [address] [place], [place] [id number] Geosciences Associate Professor: Dominik Muñiz MD Sodium [Moles/Vol] 137 mmol/L Normal 135-144 [facility] Comment on above: Performed By: #### C DP #### [facility] [address] [place] [address] Geosciences Associate Professor: Dominik Muñiz MD (cont.) Normal [facility] Comment on above: Result Comment: Aver age GFR for 60-69 years old: 85 mL/min/1.73sq m Chronic Kidney Disease: <60 mL/min/1.73sq m Kidney failure: <15 mL/min/1.73sq m eGFR calculated using average adult body mass. Additional eGFR calculator available at: http://www.[employer]/multiple_crcl_2012.htm Performed By: #### C DP #### [address] [address] [employer]osciences Associate Professor: Dominik Muñiz MD Calcium [Mass/Vol] 7.8 mg/dL Low 8.6-10.4 [facility] Comment on above: Performed By: #### C DP #### [address] [id number] [employer] Associate Professor: Dominik Muñiz MD Chloride [Moles/Vol] 108 mmol/L High 98-107 [facility] Comment on above: Performed By: #### C DP #### [address] [address] [employer] Associate Professor: Dominik Muñiz MD CO2 [Moles/Vol] 19 mmol/L Low 20-31 [facility] Comment on above: Performed By: #### C DP #### [address] [address] [employer] Associate Professor: Dominik Muñiz MD Creatinine [Mass/Vol] 0.56 mg/dL Normal 0.50-0.90 [facility] Comment on above: Performed By: #### C DP #### [address] [address] [employer] Associate Professor: Dominik Muñiz MD GFR, Amer >60 Normal >60 [facility] Comment on above: Performed By: #### C DP #### [address] [address] [employer]osciences Associate Professor: Dominik Muñiz MD GFR,non Amer >60 Normal >60 [facility] Comment on above: Performed By: #### C DP #### [address] [address] [employer]osciences Associate Professor: Dominik Muñiz MD Glucose [Mass/Vol] 164 mg/dL High 70-99 [facility] Comment on above: Performed By: #### C DP #### [address] [address] [employer]osciences Associate Professor: Dominik Muñiz MD Potassium [Moles/Vol] 4.2 mmol/L Normal 3.7-5.3 [facility] Comment on above: Performed By: #### C DP #### [address] [address] [employer]osc[employer] Associate Professor: Dominik Muñiz MD Urea nitrogen [Mass/Vol] 15 mg/dL Normal 8-23 [facility] Comment on above: Performed By: #### C DP #### [address] [address] Geosciences Associate Professor: Dominik Muñiz MD CBCon 03-18-2022 Erythrocyte distribution width (RBC) [Ratio] 12.2 % Normal 11.8-14.4 [facility] Comment on above: Performed By: #### M G, LIVP, BMPX, VD25, NAMRATA, IOCAL, CDP #### [address] [address] [employer]osc[employer] Associate Professor: Dominik Muñiz MD Hematocrit (Bld) [Volume fraction] 39.8 % Normal 36.3-47.1 [facility] Comment on above: Performed By: #### M G, LIVP, BMPX, VD25, NAMRATA, IOCAL, CDP #### [address] [address] [employer]osc[employer] Associate Professor: Dominik Muñiz MD Hemoglobin (Bld) [Mass/Vol] 12.7 g/dL Normal 11.9-15.1 [facility] Comment on above: Performed By: #### M G, LIVP, BMPX, VD25, NAMRATA, IOCAL, CDP #### [address] [id number] [employer]osc[employer] Associate Professor: Dominik Muñiz MD MCH (RBC) [Entitic mass] 31.4 pg Normal 25.2-33.5 [facility] Comment on above: Performed By: #### M G, LIVP, BMPX, VD25, NAMRATA, IOCAL, CDP #### [address] [address] [employer]osc[employer] Associate Professor: Dominik Muñiz MD MCHC (RBC) [Mass/Vol] 31.9 g/dL Normal 28.4-34.8 [facility] Comment on above: Performed By: #### M G, LIVP, BMPX, VD25, NAMRATA, IOCAL, CDP #### [address] [address] Geosciences Associate Professor: Dominik Muñiz MD MCV (RBC) [Entitic vol] 98.3 fL Normal 82.6-102.9 [facility] Comment on above: Performed By: #### M G, LIVP, BMPX, VD25, NAMRATA, IOCAL, CDP #### [address] [address] [employer]osc[employer] Associate Professor: Dominik Muñiz MD NRBC Automated 0.0 per 100 WBC Normal 0.0 [facility] Comment on above: Performed By: #### M G, LIVP, BMPX, VD25, NAMRATA, IOCAL, CDP #### [address] [address] [employer]osciences Associate Professor: Dominik Muñiz MD Platelet mean volume (Bld) [Entitic vol] 12.1 fL Normal 8.1-13.5 [facility] Comment on above: Performed By: #### M G, LIVP, BMPX, VD25, NAMRATA, IOCAL, CDP #### [facility] [place] [address] Geosciences Associate Professor: Dominik Muñiz MD Platelets (Bld) [#/Vol] 119 10*3/uL Low 138-453 [facility] Comment on above: Performed By: #### M G, LIVP, BMPX, VD25, NAMRATA, IOCAL, CDP #### [facility] [place], [place] [id number] Geosciences Associate Professor: Dominik Muñiz MD RBC (Bld) [#/Vol] 4.05 10*6/uL Normal 3.95-5.11 [facility] Comment on above: Performed By: #### M G, LIVP, BMPX, VD25, NAMRATA, IOCAL, CDP #### [facility] [address] [place] [id number] Geosciences Associate Professor: Dominik Muñiz MD WBC (Bld) [#/Vol] 12.5 10*3/uL High 3.5-11.3 [facility] Comment on above: Performed By: #### M G, LIVP, BMPX, VD25, NAMRATA, IOCAL, CDP #### [facility] [place] [address] Geosciences Associate Professor: Dominik Muñiz MD Hematocrit (Bld) [Volume fraction] 39.8 % 36.3 - 47.1 % [facility] Hemoglobin (Bld) [Mass/Vol] 12.7 g/dL 11.9 - 15.1 g/dL [facility] Interpretation and review of laboratory results Abnormal [facility] MCH (RBC) [Entitic mass] 31.4 pg 25.2 - 33.5 pg [facility] MCHC (RBC) [Mass/Vol] 31.9 g/dL 28.4 - 34.8 g/dL [facility] MCV (RBC) [Entitic vol] 98.3 fL 82.6 - 102.9 fL [facility] NRBC Automated 0.0 0.0 per 100 WBC [facility] Platelet distribution width (Bld) [Ratio] 12.2 % 11.8 - 14.4 % [facility] Platelet mean volume (Bld) [Entitic vol] 12.1 fL 8.1 - 13.5 fL [facility] Platelets (Bld) [#/Vol] 119 10*3/uL Low [facility] RBC (Bld) [#/Vol] 4.05 10*6/uL 3.95 - 5.1 1 m/uL [facility] WBC (Bld) [#/Vol] 12.5 10*3/uL High [facility] CBC with Diffon 03-18-2022 Abs. Basophil 0.05 k/uL Normal 0.00-0.20 [facility] Comment on above: Performed By: #### C DP #### [place] [address] Geosciences Associate Professor: Dominik Muñiz MD Abs. Eosinophil <0.03 Normal 0.00-0.44 [facility] Comment on above: Performed By: #### C DP #### [facility] [address] [place] [address] Geosciences Associate Professor: Dominik Muñiz MD Abs.Imm.Granulocyte <0.03 Normal 0.00-0.30 [facility] Comment on above: Performed By: #### C DP #### [facility] [address] [place] [address] Geosciences Associate Professor: Dominik Muñiz MD Abs.Neutrophil (Seg) 5.31 k/uL Normal 1.50-8.10 [facility] Comment on above: Performed By: #### C DP #### [facility] [address] [place] [address] Geosciences Associate Professor: Dominik Muñiz MD Basophils/100 WBC (Bld) 1 % Normal 0-2 [facility] Comment on above: Performed By: #### C DP #### [address] [address] Geosciences Associate Professor: Dominik Muñiz MD Eosinophils/100 WBC (Bld) 0 % Low 1-4 [facility] Comment on above: Performed By: #### C DP #### [address] [address] Geosciences Associate Professor: Dominik Muñiz MD Erythrocyte distribution width (RBC) [Ratio] 12.2 % Normal 11.8-14.4 [facility] Comment on above: Performed By: #### C DP #### [address] [address] Geosciences Associate Professor: Dominik Muñiz MD Hematocrit (Bld) [Volume fraction] 30.0 % Low 36.3-47.1 [facility] Comment on above: Performed By: #### C DP #### [address] [address] Geosciences Associate Professor: Dominik Muñiz MD Hemoglobin (Bld) [Mass/Vol] 10.3 g/dL Low 11.9-15.1 [facility] Comment on above: Performed By: #### C DP #### [address] [address] Geosciences Associate Professor: Dominik Muñiz MD Immature granulocytes/100 WBC (Bld) 0 % Normal 0 [facility] Comment on above: Performed By: #### C DP #### [address] [address] Geosciences Associate Professor: Dominik Muñiz MD Lymphocytes (Bld) [#/Vol] 1.59 10*3/uL Normal 1.10-3.70 [facility] Comment on above: Performed By: #### C DP #### [address] [address] Geosciences Associate Professor: Dominik Muñiz MD Lymphocytes/100 WBC (Bld) 21 % Low 24-43 [facility] Comment on above: Performed By: #### C DP #### [address] [address] Geosciences Associate Professor: Dominik Muñiz MD MCH (RBC) [Entitic mass] 32.5 pg Normal 25.2-33.5 [facility] Comment on above: Performed By: #### C DP #### [place] [address] Geosciences Associate Professor: Dominik Muñiz MD MCHC (RBC) [Mass/Vol] 34.3 g/dL Normal 28.4-34.8 [facility] Comment on above: Performed By: #### C DP #### [place] [address] Geosciences Associate Professor: Dominik Muñiz MD MCV (RBC) [Entitic vol] 94.6 fL Normal 82.6-102.9 [facility] Comment on above: Performed By: #### C DP #### [address] [address] Geosciences Associate Professor: Dominik Muñiz MD Monocytes (Bld) [#/Vol] 0.59 10*3/uL Normal 0.10-1.20 [facility] Comment on above: Performed By: #### C DP #### [place] [address] Geosciences Associate Professor: Dominik Muñiz MD Monocytes/100 WBC (Bld) 8 % Normal 3-12 [facility] Comment on above: Performed By: #### C DP #### [address] [address] Geosciences Associate Professor: Dominik Muñiz MD Neutrophil (Seg) 70 % High 36-65 [facility] Comment on above: Performed By: #### C DP #### [address] [place] [address] Geosciences Associate Professor: Dominik Muñiz MD NRBC Automated 0.0 per 100 WBC Normal 0.0 [facility] Comment on above: Performed By: #### C DP #### [address] [address] Geosciences Associate Professor: Dominik Muñiz MD Platelet mean volume (Bld) [Entitic vol] 12.1 fL Normal 8.1-13.5 [facility] Comment on above: Performed By: #### C DP #### [address] [address] Geosciences Associate Professor: Dominik Muñiz MD Platelets (Bld) [#/Vol] 100 10*3/uL Low 138-453 [facility] Comment on above: Performed By: #### C DP #### [address] [address] Geosciences Associate Professor: Dominik Muñiz MD RBC (Bld) [#/Vol] 3.17 10*6/uL Low 3.95-5.11 [facility] Comment on above: Performed By: #### C DP #### [address] [address] Geosciences Associate Professor: Dominik Muñiz MD WBC (Bld) [#/Vol] 7.6 10*3/uL Normal 3.5-11.3 [facility] Comment on above: Performed By: #### C DP #### [address] [address] Geosciences Associate Professor: Dominik Muñiz MD Comp Metabolic Profon 2021 (cont.) Normal [facility] Comment on above: Result Comment: Aver age GFR for 60-69 years old: 85 mL/min/1.73sq m Chronic Kidney Disease: <60 mL/min/1.73sq m Kidney failure: <15 mL/min/1.73sq m eGFR calculated using average adult body mass. Additional eGFR calculator available at: http://www.[employer].com/multiple_crcl_2012.htm Performed By: #### M G, LIVP, BMPX, VD25, NAMRATA, IOCAL, CDP #### [facility] [address] [place] [address] Geosciences Associate Professor: Dominik Muñiz MD Albumin [Mass/Vol] 3.6 g/dL Normal 3.5-5.2 [facility] Comment on above: Performed By: #### M G, LIVP, BMPX, VD25, NAMRATA, IOCAL, CDP #### [address] [address] Geosciences Associate Professor: Dominik Muñiz MD Albumin/Glob Ratio 1.5 Normal 1.0-2.5 [facility] Comment on above: Performed By: #### M G, LIVP, BMPX, VD25, NAMRATA, IOCAL, CDP #### [facility] [address] [place] [address] Geosciences Associate Professor: Dominik Muñiz MD Alkaline Phos 71 U/L Normal 35-104 [facility] Comment on above: Performed By: #### M G, LIVP, BMPX, VD25, NAMRATA, IOCAL, CDP #### [address] [address] Geosciences Associate Professor: Dominik Muñiz MD ALT [Catalytic activity/Vol] 32 U/L Normal 5-33 [facility] Comment on above: Performed By: #### M G, LIVP, BMPX, VD25, NAMRATA, IOCAL, CDP #### [address] [address] Geosciences Associate Professor: Dominik Muñiz MD Anion gap [Moles/Vol] 12 mmol/L Normal 9-17 [facility] Comment on above: Performed By: #### M G, LIVP, BMPX, VD25, NAMRATA, IOCAL, CDP #### [address] [address] Geosciences Associate Professor: Dominik Muñiz MD AST [Catalytic activity/Vol] 25 U/L Normal <32 [facility] Comment on above: Performed By: #### M G, LIVP, BMPX, VD25, NAMRATA, IOCAL, CDP #### [address] [address] Geosciences Associate Professor: Dominik Muñiz MD Bilirubin [Mass/Vol] 0.6 mg/dL Normal 0.3-1.2 [facility] Comment on above: Performed By: #### M G, LIVP, BMPX, VD25, NAMRATA, IOCAL, CDP #### [address] [address] Geosciences Associate Professor: Dominik Muñiz MD Calcium [Mass/Vol] 8.3 mg/dL Low 8.6-10.4 [facility] Comment on above: Performed By: #### M G, LIVP, BMPX, VD25, NAMRATA, IOCAL, CDP #### [address] [address] Geosciences Associate Professor: Dominik Muñiz MD Chloride [Moles/Vol] 108 mmol/L High 98-107 [facility] Comment on above: Performed By: #### M G, LIVP, BMPX, VD25, NAMRATA, IOCAL, CDP #### [address] [address] Geosciences Associate Professor: Dominik Muñiz MD CO2 [Moles/Vol] 22 mmol/L Normal 20-31 [facility] Comment on above: Performed By: #### M G, LIVP, BMPX, VD25, NAMRATA, IOCAL, CDP #### [facility] [address] [place] [address] Geosciences Associate Professor: Dominik Muñiz MD Creatinine [Mass/Vol] 0.72 mg/dL Normal 0.50-0.90 [facility] Comment on above: Performed By: #### M G, LIVP, BMPX, VD25, NAMRATA, IOCAL, CDP #### [facility] [address] [place] [address] Geosciences Associate Professor: Dominik Muñiz MD GFR, Amer >60 Normal >60 [facility] Comment on above: Performed By: #### M G, LIVP, BMPX, VD25, NAMRATA, IOCAL, CDP #### [facility] [address] [place] [address] Geosciences Associate Professor: Dominik Muñiz MD GFR,non Amer >60 Normal >60 [facility] Comment on above: Performed By: #### M G, LIVP, BMPX, VD25, NAMRATA, IOCAL, CDP #### [facility] [address] [place] [address] Geosciences Associate Professor: Dominik Muñiz MD Glucose [Mass/Vol] 158 mg/dL High 70-99 [facility] Comment on above: Performed By: #### M G, LIVP, BMPX, VD25, NAMRATA, IOCAL, CDP #### [facility] [address] [place] [address] Geosciences Associate Professor: Dominik Muñiz MD Potassium [Moles/Vol] 4.3 mmol/L Normal 3.7-5.3 [facility] Comment on above: Performed By: #### M G, LIVP, BMPX, VD25, NAMRATA, IOCAL, CDP #### [facility] [address] [place] [address] Geosciences Associate Professor: Dominik Muñiz MD Protein [Mass/Vol] 6.0 g/dL Low 6.4-8.3 [facility] Comment on above: Performed By: #### M G, LIVP, BMPX, VD25, NAMRATA, IOCAL, CDP #### [facility] [address] [place] [id number] Geosciences Associate Professor: Dominik Muñiz MD Sodium [Moles/Vol] 142 mmol/L Normal 135-144 [facility] Comment on above: Performed By: #### M G, LIVP, BMPX, VD25, NAMRATA, IOCAL, CDP #### [facility] [address] [place], [place] [id number] Geosciences Associate Professor: Dominik Muñiz MD Urea nitrogen [Mass/Vol] 14 mg/dL Normal 8-23 [facility] Comment on above: Performed By: #### M G, LIVP, BMPX, VD25, NAMRATA, IOCAL, CDP #### [facility] [address] [place], [place] [id number] Geosciences Associate Professor: Dominik Muñiz MD Comprehensive Metabolic Pane [facility] 03-18-2022 Albumin [Mass/Vol] 3.6 g/dL 3.5 - 5.2 g/dL [facility] Albumin/Globulin [Mass ratio] 1.5 {ratio} 1.0 - 2.5 [facility] ALP (Bld) [Catalytic activity/Vol] 71 U/L 35 - 104 U/L [facility] ALT [Catalytic activity/Vol] 32 U/L 5 - 33 U/L [facility] Anion gap [Moles/Vol] 12 mmol/L 9 - 17 mmol/L [facility] AST [Catalytic activity/Vol] 25 U/L NINF - 32 U/L [facility] Bilirubin [Mass/Vol] 0.6 mg/dL 0.3 - 1 .2 mg/dL [facility] Calcium [Mass/Vol] 8.3 mg/dL Low 8.6 - 10. 4 mg/dL [facility] Chloride [Moles/Vol] 108 mmol/L High 98 - 10 7 mmol/L [facility] CO2 [Moles/Vol] 22 mmol/L 20 - 31 mmol/L [facility] Creatinine [Mass/Vol] 0.72 mg/dL 0.50 - 0.90 mg/dL [facility] GFR >60 60 - PI NF mL/min [facility] GFR Non- >60 60 - PINF mL/min [facility] GFR/1.73 sq M.predicted MDRD (S/P/Bld) [Vol rate/Area] [facility] Glucose [Mass/Vol] 158 mg/dL High 70 - 99 mg/dL [facility] Interpretation and review of laboratory results Abnormal [facility] [employer] Potassium [Moles/Vol] 4.3 mmol/L 3.7 - 5.3 mmol/L [employer] [facility] Protein [Mass/Vol] 6.0 g/dL Low 6.4 - 8.3 g/dL [employer] [facility] Sodium [Moles/Vol] 142 mmol/L 135 - 144 mmol/L [facility] [employer] Urea nitrogen (BldV) [Mass/Vol] 14 mg/dL 8 - 23 mg/dL [facility] Creatinine W/GFR Point of Ca reon 03-18-2022 Creatinine [Mass/Vol] 0.71 mg/dL 0.51 - 1.19 mg/dL [facility] EKG 12 LeadOrdered By: Peter Dickson on 03-18-2022 Atrial Rate 64 BPM [facility] Work Phone: P [place] 78 degrees [facility] Work Phone: P-R Interval 130 ms [facility] Work Phone: Q-T Interval 436 ms [facility] Work Phone: QRS Duration 88 ms [facility] Work Phone: QTc Calculation (Bazett) 449 ms [facility] Work Phone: R [place] 70 degrees [facility] Work Phone: T [place] 67 degrees [facility] Work Phone: Ventricular Rate 64 BPM [facility] [employer] Work Phone: [facility] Work Phone: EKG 12 Leadon 09-15-2022 [facility] ST[address] MUSE [facility] 2d2c Work Phone: ELECTROLYTES PLUSon 03-18-20 Anion gap [Moles/Vol] 12 mmol/L 7 - 16 mmol/L [facility] Chloride [Moles/Vol] 109 mmol/L High 98 - 10 7 mmol/L [facility] CO2 [Moles/Vol] 22 mmol/L 22 - 30 mmol/L [facility] FLUORO FOR SURGICAL PROCEDUR ESon 03-18-2022 FLUORO FOR SURGICAL PROCEDURES Radiology exam is complete. No Radiologist dictation. Please follow up with ordering provider. Final result Normal [facility] Lactic Acidon 03-18-2022 Lactic Acid,Whole Bl 2.6 mmol/L High 0.7-2.1 [facility] Comment on above: Performed By: #### M G, LIVP, BMPX, VD25, NAMRATA, IOCAL, CDP #### [facility] [address] [place], [place] [id number] Geosciences Associate Professor: Dominik Muñiz MD Interpretation and review of laboratory results Abnormal [facility] Lactic Acid, Whole Blood 2.6 mmol/L High 0.7 - 2.1 mmol/L [facility] Magnesiumon 03-18-2022 Magnesium [Mass/Vol] 2.2 mg/dL Normal 1.6-2.6 [facility] Comment on above: Performed By: #### M G, LIVP, BMPX, VD25, NAMRATA, IOCAL, CDP #### [facility] [address] [place] [address] Geosciences Associate Professor: Dominik Muñiz MD Magnesium [Mass/Vol] 2.2 mg/dL 1.6 - 2 .6 mg/dL [facility] 2d2c No Panel Informationon 03-18 [facility] RIS CONSOLIDATED [facility] RIS CONSOLIDATED [facility] 2d2c Work Phone: [facility] 2d2c No Panel InformationOrdered By: Chaz Lopez on 03-18-2022 [facility] 2d2c Work Phone: OPERATIVE REPORTon 2 OPERATIVE REPORT [address] [id number] OPERATIVE REPORT PATIENT NAME: ANNE BULLOCK : 1960 MED REC NO: [id number] ROOM: [facility] ACCOUNT NO: [id number] ADMIT DATE: 03/16/2022 PROVIDER: Elpidio Jim DATE OF PROCEDURE: 03/18/2022 PREOPERATIVE DIAGNOSES: 1. Left clavicle fracture. 2. Right clavicle fracture. 3. Left proximal humerus fracture. PROCEDURES: 1. Open reduction internal fixation of left clavicle fracture. 2. Open reduction internal fixation of right clavicle fracture. 3. Closed treatment of left proximal humerus fracture. SURGEON: Elpidio Jim DO ASSISTANTS: Catherine Piper DO, PGY-3, Timi Thibodeaux DO, PGY-5. ANESTHESIA: General. ESTIMATED BLOOD LOSS: 75 mL. COMPLICATIONS: None. SPECIMENS: None. IMPLANTS: Synthes anterior-inferior clavicle plate x2 and a 2.0 mm plate. FINDINGS: Segmental and slightly comminuted right clavicle fracture, left middle third clavicle fracture, proximal humerus fracture. INDICATIONS: This is a 62-year-old female presented to [facility] intubated and sedated after reportedly she had fallen 10 feet and sustained the injuries listed above. Given the fact that these were displaced, and bilateral injuries, to facilitate early range of motion and I gave her use of her upper extremities sooner, we had a discussion with the patient's family about surgical and nonsurgical intervention, the patient's family has elected to allow the patient undergo open reduction internal fixation of bilateral clavicles. Consent was obtained and placed in chart. All questions were answered appropriately. Surgical risks included, but not limited to bleeding, blood clots, infection, damage to nearby tissues, vessels and nerves, wound healing complications, failed procedure, stiffness, loss of motion, hardware failure, hardware irritation, anesthesia risk, loss of limb and loss of life were all discussed with the patient's family. Knowing these risks, the patient's family wished to proceed with surgery as indicated. OPERATIVE PROCEDURE: The patient was taken to the operative suite. She was already intubated, sedated from her initial presentation secondary to her brain injuries as they left her intubated. A 2 gm of Ancef was given prior to the procedure. At this time, all team members paused to identify proper patient name, indication, site and allergies. All team members were in agreeance. The bilateral upper extremities were then prepped and draped in normal sterile fashion. Using a marking pen, we mapped our incision on the right side to perform a direct approach to the right clavicle. The skin was incised, dissection was carried down through the skin and subcutaneous tissues. The fracture of the right clavicle was identified, fracture ends were clearly defined, and hematoma was evacuated. Using point of reduction clamps, we were able to reduce the intercalary fragment, which was more central within the clavicle to the more lateral intact piece and being satisfied with this position, we drilled, measured, placed one 2.4 mm lag-by technique screw holding the fragment to the more lateral fragment. We then used point of reduction clamps medially, and reduced the intercalary fragment to the intact medial piece, and then drilled, measured, placed a 2.4-mm lag-by technique screw as well. Being satisfied with our fixation to reinforce the intercalary fragment, we sized a S[employer]s 2.0 mm LCP plate and placed appropriately in the bone superiorly. We then drilled, measured, and placed 2.4 mm bicortical screws and unicortical screws within the plate, securing our reduction. We then sized our Synthes anterior-inferior clavicle plate and after positioning and probing of the bone, and contouring it to fit appropriately on the clavicle, we drilled, measured, placed a bicortical screw medially and a bicortical screw laterally and then confirmed our placement with intraoperative fluoroscopy. Being satisfied, we drilled, measured, placed locking screws laterally and an additional bicortical screw laterally as well as bicortical screws medially. Being satisfied with our fixation, final fluoroscopic images were taken in the right clavicle. We then thoroughly irrigated all wounds with normal saline. Antibiotic powder was applied. We closed the fascial layer using 0 PDS, the deep dermal layer using 2-0 Monocryl, the skin using 4-0 Monocryl in a running subcutaneous tissue fashion. Dermabond glue was applied. An Optifoam dressing was then placed. We then turned our attention to the left clavicle. Skin was incised over the clavicle, dissection was carried down through the skin and subcutaneous tissues. This was a more oblique fracture pattern of the left clavicle, and after fracture ends were cleaned and hematoma was evacuated. We did point of reduction clamps (more content not included)... Normal [facility] POC Glucose Fingerstickon Glucose [Mass/Vol] 166 mg/dL High 65 - 105 mg/dL [facility] Interpretation and review of laboratory results Abnormal [facility] Phosphoruson 03-18-2022 Phosphate [Mass/Vol] 4.0 mg/dL 2.6 - 4 .5 mg/dL [facility] Phosphorus, Inorg.on 022 Phosphorus, Inorg. 4.0 mg/dL Normal 2.6-4.5 [facility] Comment on above: Performed By: #### M G, LIVP, BMPX, VD25, NAMRATA, IOCAL, CDP #### [facility] [address] [place], [place] [id number] Geosciences Associate Professor: Dominik Muñiz MD Troponinon 03-18-2022 Troponin, High Sens 9 ng/L Normal 0-14 [facility] Comment on above: Result Comment: High Sensitivity Troponin values cannot be compared with other Troponin methodologies. Patients with high levels of Biotin oral intake (i.e >5mg/day) may have falsely decreased Troponin levels. Samples collected within 8 hours of biotin intake may require additional information for diagnosis. Performed By: #### T YS #### [facility] [address] [place], [place] [id number] Geosciences Associate Professor: Dominik Muñiz MD XR CHEST PORTABLEon 03-18-20 XR CHEST PORTABLE EXAMINATION: ONE XRAY VIEW OF THE CHEST 03/18/2022 11:41 am COMPARISON: 03/16/2022 HISTORY: ORDERING SYSTEM PROVIDED HISTORY: postop, intubated TECHNOLOGIST PROVIDED HISTORY: postop, intubated Reason for Exam: post op intubation port supine at noon FINDINGS: Cardiomediastinal silhouette is stable endotracheal tube tip projects at the thoracic inlet. Enteric tube tip and side hole course below the diaphragm. Postsurgical change of the clavicles. The lungs are clear. No pleural effusion or pneumothorax. IMPRESSION: 1. Postsurgical changes of clavicles. 2. Devices in place as above. Interpreted by: Chaz Lopez MD Signed by: Chaz Lopez MD 03/18/22 Final result [facility] RIS CONSOLIDATED [facility] RIS CONSOLIDATED [facility] Work Phone: [facility] Work Phone: XR CLAVICLE LEFTon XR CLAVICLE LEFT EXAMINATION: TWO XRAY VIEWS OF THE RIGHT CLAVICLE; TWO XRAY VIEWS OF THE LEFT CLAVICLE 03/18/2022 11:41 am COMPARISON: 03/17/2022, 03/16/2022. HISTORY: ORDERING SYSTEM PROVIDED HISTORY: post op pacu TECHNOLOGIST PROVIDED HISTORY: post op pacu Reason for Exam: post op port at noon FINDINGS: Status post ORIF of the clavicles in anatomic alignment. The hardware is intact. The AC joints are appropriately located. No new fracture or dislocation. Visualized thorax is clear. IMPRESSION: Status post ORIF of the clavicles without evidence of complication. Interpreted by: Chaz Lopez MD Signed by: Chaz Loepz MD 03/18/22 Final result [facility] XR CLAVICLE RIGHTon 03-18-20 XR CLAVICLE RIGHT EXAMINATION: TWO XRAY VIEWS OF THE RIGHT CLAVICLE; TWO XRAY VIEWS OF THE LEFT CLAVICLE 03/18/2022 11:41 am COMPARISON: 03/17/2022, 03/16/2022. HISTORY: ORDERING SYSTEM PROVIDED HISTORY: post op pacu TECHNOLOGIST PROVIDED HISTORY: post op pacu Reason for Exam: post op port at noon FINDINGS: Status post ORIF of the clavicles in anatomic alignment. The hardware is intact. The AC joints are appropriately located. No new fracture or dislocation. Visualized thorax is clear. IMPRESSION: Status post ORIF of the clavicles without evidence of complication. Interpreted by: Chaz Lopez MD Signed by: Chaz Lopez MD 03/18/22 Final result [facility] Ammoniaon 03-17-2022 Ammonia (P) [Moles/Vol] 22 umol/L Normal 11-51 [facility] Comment on above: Performed By: #### M G, LIVP, BMPX, VD25, NAMRATA, IOCAL, CDP #### [facility] [address] [place] [address] [phone] Geosciences Associate Professor: Dominik Muñiz MD Basic Metab w/rfx MGon 03-17 (cont.) Normal [facility] Comment on above: Result Comment: Aver age GFR for 60-69 years old: 85 mL/min/1.73sq m Chronic Kidney Disease: <60 mL/min/1.73sq m Kidney failure: <15 mL/min/1.73sq m eGFR calculated using average adult body mass. Additional eGFR calculator available at: http://www.[employer]/multiple_crcl_2012.htm Performed By: #### M G, LIVP, BMPX, VD25, NAMRATA, IOCAL, CDP #### [facility] [address] [place] [address] [phone] Geosciences Associate Professor: Dominik Muñiz MD Anion gap [Moles/Vol] 11 mmol/L Normal 9-17 [facility] Comment on above: Performed By: #### M G, LIVP, BMPX, VD25, NAMRATA, IOCAL, CDP #### [email or web address] [address] [place] [address] [phone] Geosciences Associate Professor: Dominik Muñiz MD Calcium [Mass/Vol] 7.9 mg/dL Low 8.6-10.4 [facility] Comment on above: Performed By: #### M G, LIVP, BMPX, VD25, NAMRATA, IOCAL, CDP #### [facility] [address] [place] [id number] Geosciences Associate Professor: Dominik Muñiz MD Chloride [Moles/Vol] 108 mmol/L High 98-107 [facility] Comment on above: Performed By: #### M G, LIVP, BMPX, VD25, NAMRATA, IOCAL, CDP #### [email or web address] [address] [place] [phone] Geosciences Associate Professor: Dominik Muñiz MD CO2 [Moles/Vol] 18 mmol/L Low 20-31 [facility] Comment on above: Performed By: #### M G, LIVP, BMPX, VD25, NAMRATA, IOCAL, CDP #### [address] [phone] Geosciences Associate Professor: Dominik Muñiz MD Creatinine [Mass/Vol] 0.67 mg/dL Normal 0.50-0.90 [facility] Comment on above: Performed By: #### M G, LIVP, BMPX, VD25, NAMRATA, IOCAL, CDP #### [address] [phone] Geosciences Associate Professor: Dominik Muñiz MD GFR, Amer >60 Normal >60 [facility] Comment on above: Performed By: #### M G, LIVP, BMPX, VD25, NAMRATA, IOCAL, CDP #### [address] [id number] Geosciences Associate Professor: Dominik Muñiz MD GFR,non Amer >60 Normal >60 [facility] Comment on above: Performed By: #### M G, LIVP, BMPX, VD25, NAMRATA, IOCAL, CDP #### [address] [phone] Geosciences Associate Professor: Dominik Muñiz MD Glucose [Mass/Vol] 179 mg/dL High 70-99 [facility] Comment on above: Performed By: #### M G, LIVP, BMPX, VD25, NAMRATA, IOCAL, CDP #### [address] [phone] Geosciences Associate Professor: Dominik Muñiz MD Potassium [Moles/Vol] 3.9 mmol/L Normal 3.7-5.3 [facility] Comment on above: Performed By: #### M G, LIVP, BMPX, VD25, NAMRATA, IOCAL, CDP #### [facility] [address] [place] [phone] Geosciences Associate Professor: Dominik Muñiz MD Sodium [Moles/Vol] 137 mmol/L Normal 135-144 [facility] Comment on above: Performed By: #### M G, LIVP, BMPX, VD25, NAMRATA, IOCAL, CDP #### [facility] [address] [place] [phone] Geosciences Associate Professor: Dominik Muñiz MD Urea nitrogen [Mass/Vol] 13 mg/dL Normal 8-23 [facility] Comment on above: Performed By: #### M G, LIVP, BMPX, VD25, NAMRATA, IOCAL, CDP #### [facility] [address] [place] [phone] Geosciences Associate Professor: Dominik Muñiz MD CBC with Diffon 03-17-2022 Abs. Basophil 0.17 k/uL Normal 0.0-0.2 [facility] Comment on above: Performed By: #### M G, LIVP, BMPX, VD25, NAMRATA, IOCAL, CDP #### [facility] [address] [place] [phone] Geosciences Associate Professor: Dominik Muñiz MD Abs.Imm.Granulocyte 0.17 k/uL Normal 0.00-0.30 [facility] Comment on above: Performed By: #### M G, LIVP, BMPX, VD25, NAMRATA, IOCAL, CDP #### [facility] [address] [place] [phone] Geosciences Associate Professor: Dominik Muñiz MD Abs.Neutrophil (Seg) 14.02 k/uL High 1.8-7.7 [facility] Comment on above: Performed By: #### M G, LIVP, BMPX, VD25, NAMRATA, IOCAL, CDP #### [facility] [address] [place] [phone] Geosciences Associate Professor: Dominik Muñiz MD Basophils/100 WBC (Bld) 1 % Normal 0-2 [facility] Comment on above: Performed By: #### M G, LIVP, BMPX, VD25, NAMRATA, IOCAL, CDP #### [address] [phone] Geosciences Associate Professor: Dominik Muñiz MD Eosinophils (Bld) [#/Vol] 0.00 10*3/uL Normal 0.0-0.4 [facility] Comment on above: Performed By: #### M G, LIVP, BMPX, VD25, NAMRATA, IOCAL, CDP #### [address] [phone] Geosciences Associate Professor: Dominik Muñiz MD Eosinophils/100 WBC (Bld) 0 % Low 1-4 [facility] Comment on above: Performed By: #### M G, LIVP, BMPX, VD25, NAMRATA, IOCAL, CDP #### [address] [address] Geosciences Associate Professor: Dominik Muñiz MD Immature granulocytes/100 WBC (Bld) 1 % High 0 [facility] Comment on above: Performed By: #### M G, LIVP, BMPX, VD25, NAMRATA, IOCAL, CDP #### [address] [phone] Geosciences Associate Professor: Dominik Muñiz MD Lymphocytes (Bld) [#/Vol] 2.57 10*3/uL Normal 1.0-4.8 [facility] Comment on above: Performed By: #### M G, LIVP, BMPX, VD25, NAMRATA, IOCAL, CDP #### [address] [address] Geosciences Associate Professor: Dominik Muñiz MD Lymphocytes/100 WBC (Bld) 15 % Low 24-44 [facility] Comment on above: Performed By: #### M G, LIVP, BMPX, VD25, NAMRATA, IOCAL, CDP #### [address] [phone] Geosciences Associate Professor: Dominik Muñiz MD Monocytes (Bld) [#/Vol] 0.17 10*3/uL Normal 0.1-0.8 [facility] Comment on above: Performed By: #### M G, LIVP, BMPX, VD25, NAMRATA, IOCAL, CDP #### [facility] [address] [place] [phone] Geosciences Associate Professor: Dominik Muñiz MD Monocytes/100 WBC (Bld) 1 % Normal 1-7 [facility] Comment on above: Performed By: #### M G, LIVP, BMPX, VD25, NAMRATA, IOCAL, CDP #### [address] [address] Geosciences Associate Professor: Dominik Muñiz MD Morphology Delroy (Bld) [Interp] Normal Normal [facility] Comment on above: Performed By: #### M G, LIVP, BMPX, VD25, NAMRATA, IOCAL, CDP #### [address] [address] Geosciences Associate Professor: Dominik Muñiz MD Neutrophil (Seg) 82 % High 36-66 [facility] Comment on above: Performed By: #### M G, LIVP, BMPX, VD25, NAMRATA, IOCAL, CDP #### [facility] [address] [place] [phone] Geosciences Associate Professor: Dominik Muñiz MD Erythrocyte distribution width (RBC) [Ratio] 12.2 % Normal 11.8-14.4 [facility] Comment on above: Performed By: #### M G, LIVP, BMPX, VD25, NAMRATA, IOCAL, CDP #### [facility] [address] [place] [phone] Geosciences Associate Professor: Dominik Muñiz MD Hematocrit (Bld) [Volume fraction] 34.4 % Low 36.3-47.1 [facility] Comment on above: Performed By: #### M G, LIVP, BMPX, VD25, NAMRATA, IOCAL, CDP #### [address] [address] Geosciences Associate Professor: Dominik Muñiz MD Hemoglobin (Bld) [Mass/Vol] 11.8 g/dL Low 11.9-15.1 [facility] Comment on above: Performed By: #### M G, LIVP, BMPX, VD25, NAMRATA, IOCAL, CDP #### [address] [address] Geosciences Associate Professor: Dominik Mñuiz MD MCH (RBC) [Entitic mass] 32.7 pg Normal 25.2-33.5 [facility] Comment on above: Performed By: #### M G, LIVP, BMPX, VD25, NAMRATA, IOCAL, CDP #### [place] [address] Geosciences Associate Professor: Dominik Muñiz MD MCHC (RBC) [Mass/Vol] 34.3 g/dL Normal 28.4-34.8 [facility] Comment on above: Performed By: #### M G, LIVP, BMPX, VD25, NAMRATA, IOCAL, CDP #### [address] [address] Geosciences Associate Professor: Dominik Muñiz MD MCV (RBC) [Entitic vol] 95.3 fL Normal 82.6-102.9 [facility] Comment on above: Performed By: #### M G, LIVP, BMPX, VD25, NAMRATA, IOCAL, CDP #### [address] [address] Geosciences Associate Professor: Dominik Muñiz MD NRBC Automated 0.0 per 100 WBC Normal 0.0 [facility] Comment on above: Performed By: #### M G, LIVP, BMPX, VD25, NAMRATA, IOCAL, CDP #### [facility] [address] [place] [phone] Geosciences Associate Professor: Dominik Muñiz MD Platelet mean volume (Bld) [Entitic vol] 12.0 fL Normal 8.1-13.5 [facility] Comment on above: Performed By: #### M G, LIVP, BMPX, VD25, NAMRATA, IOCAL, CDP #### [email or web address] [address] [place] [phone] Geosciences Associate Professor: Dominik Muñiz MD Platelets (Bld) [#/Vol] 126 10*3/uL Low 138-453 [facility] Comment on above: Performed By: #### M G, LIVP, BMPX, VD25, NAMRATA, IOCAL, CDP #### [facility] [address] [place] [phone] Geosciences Associate Professor: Dominik Muñiz MD RBC (Bld) [#/Vol] 3.61 10*6/uL Low 3.95-5.11 [facility] Comment on above: Performed By: #### M G, LIVP, BMPX, VD25, NAMRATA, IOCAL, CDP #### [facility] [address] [place] [phone] Geosciences Associate Professor: Dominik Muñiz MD WBC (Bld) [#/Vol] 17.1 10*3/uL High 3.5-11.3 [facility] Comment on above: Performed By: #### M G, LIVP, BMPX, VD25, NAMRATA, IOCAL, CDP #### [facility] [address] [place] [phone] Geosciences Associate Professor: Dominik Muñiz MD CT CERVICAL SPINE WO CONTRAS Ton 03-17-2022 CT CERVICAL SPINE WO CONTRAST EXAMINATION: CT OF THE HEAD WITHOUT CONTRAST; CT OF THE FACE WITHOUT CONTRAST; CTA OF THE HEAD AND NECK WITH CONTRAST; CT OF THE CERVICAL SPINE WITHOUT CONTRAST 03/16/2022 9:39 pm; 03/16/2022 9:55 pm; 03/16/2022 9:54 pm: TECHNIQUE: CT of the head was performed without the administration of intravenous contrast. Automated exposure control, iterative reconstruction, and/or weight based adjustment of the mA/kV was utilized to reduce the radiation dose to as low as reasonably achievable.; CT of the face was performed without the administration of intravenous contrast. Multiplanar reformatted images are provided for review. Automated exposure control, iterative reconstruction, and/or weight based adjustment of the mA/kV was utilized to reduce the radiation dose to as low as reasonably achievable.; CTA of the head and neck was performed with the administration of intravenous contrast. Multiplanar reformatted images are provided for review. MIP images are provided for review. Stenosis of the internal carotid arteries measured using NASCET criteria. Automated exposure control, iterative reconstruction, and/or weight based adjustment of the mA/kV was utilized to reduce the radiation dose to as low as reasonably achievable.; CT of the cervical spine was performed without the administration of intravenous contrast. Multiplanar reformatted images are provided for review. Automated exposure control, iterative reconstruction, and/or weight based adjustment of the mA/kV was utilized to reduce the radiation dose to as low as reasonably achievable. Noncontrast CT of the head with reconstructed 2-D images are also provided for review. COMPARISON: None. HISTORY: ORDERING SYSTEM PROVIDED HISTORY: trauma TECHNOLOGIST PROVIDED HISTORY: trauma Decision Support Exception - unselect if not a suspected or confirmed emergency medical condition->Emergency Medical Condition (MA); ORDERING SYSTEM PROVIDED HISTORY: trauma TECHNOLOGIST PROVIDED HISTORY: trauma Decision Support Exception - unselect if not a suspected or confirmed emergency medical condition->Emergency Medical Condition (MA); ORDERING SYSTEM PROVIDED HISTORY: trauma TECHNOLOGIST PROVIDED HISTORY: trauma Decision Support Exception - unselect if not a suspected or confirmed emergency medical condition->Emergency Medical Condition ([place]) FINDINGS: Head CT: There are foci of intraparenchymal hemorrhage consistent with hemorrhagic contusion within left superior frontal gyrus, anterior aspect bilateral frontal lobes, bilateral anterior temporal poles and the right occipital lobe. The lesions are associated with surrounding vasogenic edema. The largest focus of intraparenchymal hemorrhage within left superior frontal gyrus measures 2.8 x 1.8 cm. There are also scattered areas of subarachnoid hemorrhage within the bilateral occipital lobes. Moderate chronic microangiopathic ischemic disease. Mild generalized volume loss. Multiple chronic lacunar infarction involving left davis radiata right davis radiata and bilateral lentiform nucleus and right thalamus. . The brain parenchyma is normal. The cerebellar tonsils are in normal position. The ventricles, sulci, and cisterns are within normal limits in size and configuration. The globes and orbits are within normal limits. The visualized extracranial structures including paranasal sinuses and mastoid air cells are unremarkable. No fracture is identified. CTA NECK: AORTIC ARCH/ARCH VESSELS: No dissection or arterial injury. Mild stenosis at the origin left subclavian artery. No significant stenosis of the brachiocephalic or subclavian arteries. CAROTID ARTERIES: No dissection, arterial injury. There is moderate atherosclerotic calcification of bilateral carotid bulbs extending into the origin of internal carotid arteries resulting in moderate 60% stenosis at the origin of right cervical ICA. VERTEBRAL ARTERIES: No dissection, arterial injury, or significant stenosis. SOFT TISSUES: The lung apices are clear. No cervical or superior mediastinal lymphadenopathy. The larynx and pharynx are unremarkable. No acute abnormality of the salivary and thyroid glands. BONES: No acute osseous abnormality. CTA HEAD: ANTERIOR CIRCULATION: No significant stenosis of the intracranial internal carotid, anterior cerebral, or middle cerebral arteries. No aneurysm. POSTERIOR CIRCULATION: No significant stenosis of the vertebral, basilar, or posterior cerebral arteries. No aneurysm. OTHER: No dural venous sinus thrombosis on this non-dedicated study. CT face: Nasal bones and nasal cavity: The nasal bone are intact. Paranasal sinuses: There are comminuted and displaced fractures involving the anterior, inferior and posterolateral wall of the left maxillary sinus which demonstrate complete opacification. There is associated collapse of anterior and posterolateral wall of left maxillary sinus.. (more content not included)... Normal [facility] CT CHEST ABDOMEN PELVIS W CO NTRASTon 03-17-2022 CT CHEST ABDOMEN PELVIS W CONTRAST EXAMINATION: CT OF THE CHEST, ABDOMEN, AND PELVIS WITH CONTRAST 03/16/2022 9:40 pm TECHNIQUE: CT of the chest, abdomen and pelvis was performed with the administration of intravenous contrast. Multiplanar reformatted images are provided for review. Automated exposure control, iterative reconstruction, and/or weight based adjustment of the mA/kV was utilized to reduce the radiation dose to as low as reasonably achievable. COMPARISON: Chest x-ray 03/16/2022 HISTORY: ORDERING SYSTEM PROVIDED HISTORY: trauma TECHNOLOGIST PROVIDED HISTORY: trauma Decision Support Exception - unselect if not a suspected or confirmed emergency medical condition->Emergency Medical Condition ([place]) FINDINGS: Chest: Mediastinum: Coronary disease. Heart is unremarkable size. Trace pericardial effusion. Lungs/pleura: Hypoventilatory changes. Lingular atelectasis versus scarring and likely areas of bronchiectasis noted. Right middle lobe atelectasis or scarring identified as well to lesser extent. No effusion or pneumothorax. Soft Tissues/Bones: No displaced rib fracture. Bilateral clavicle fracture Abdomen/Pelvis: Organs: Mild intrahepatic and extrahepatic biliary duct dilatation. Common bile duct is prominent measuring 8 mm. This may related to physiologic ectasia related previous cholecystectomy. Questionable filling defect within the distal common bile duct noted could represent small distal calculus or be artifact. Please correlate with LFTs. Otherwise no traumatic injury involving liver, spleen, adrenal glands, kidneys, or pancreas. Subcentimeter splenic hilar aneurysm noted. GI/Bowel: Mild retained stool. No bowel obstruction. Colonic diverticulosis. Pelvis: Bladder is collapse. No traumatic bladder injury. Aguirre catheter balloon within the bladder. No suspicious adnexal mass Peritoneum/Retroperito neum: No free air or free fluid. Aorta is unremarkable caliber with diffuse atheromatous disease.. Bones/Soft Tissues: No displaced hip or pelvic fracture. IMPRESSION: Bilateral clavicle fractures. No additional posttraumatic process involving chest/abdomen/pelvis. Mild prominence of intrahepatic extrahepatic ducts likely related to physiologic ectasia related previous cholecystectomy. Please correlate with LFTs. Questionable distal choledocholithiasis versus artifact noted.. If LFTs are elevated, ERCP or MRCP may be beneficial when clinically feasible. Interpreted by: Tobin Cisneros MD Signed by: Tobin Cisneros MD 03/17/22 Final result Normal [facility] CT FACIAL BONES WO CONTRASTo n 03-17-2022 CT FACIAL BONES WO CONTRAST EXAMINATION: CT OF THE HEAD WITHOUT CONTRAST; CT OF THE FACE WITHOUT CONTRAST; CTA OF THE HEAD AND NECK WITH CONTRAST; CT OF THE CERVICAL SPINE WITHOUT CONTRAST 03/16/2022 9:39 pm; 03/16/2022 9:55 pm; 03/16/2022 9:54 pm: TECHNIQUE: CT of the head was performed without the administration of intravenous contrast. Automated exposure control, iterative reconstruction, and/or weight based adjustment of the mA/kV was utilized to reduce the radiation dose to as low as reasonably achievable.; CT of the face was performed without the administration of intravenous contrast. Multiplanar reformatted images are provided for review. Automated exposure control, iterative reconstruction, and/or weight based adjustment of the mA/kV was utilized to reduce the radiation dose to as low as reasonably achievable.; CTA of the head and neck was performed with the administration of intravenous contrast. Multiplanar reformatted images are provided for review. MIP images are provided for review. Stenosis of the internal carotid arteries measured using NASCET criteria. Automated exposure control, iterative reconstruction, and/or weight based adjustment of the mA/kV was utilized to reduce the radiation dose to as low as reasonably achievable.; CT of the cervical spine was performed without the administration of intravenous contrast. Multiplanar reformatted images are provided for review. Automated exposure control, iterative reconstruction, and/or weight based adjustment of the mA/kV was utilized to reduce the radiation dose to as low as reasonably achievable. Noncontrast CT of the head with reconstructed 2-D images are also provided for review. COMPARISON: None. HISTORY: ORDERING SYSTEM PROVIDED HISTORY: trauma TECHNOLOGIST PROVIDED HISTORY: trauma Decision Support Exception - unselect if not a suspected or confirmed emergency medical condition->Emergency Medical Condition (MA); ORDERING SYSTEM PROVIDED HISTORY: trauma TECHNOLOGIST PROVIDED HISTORY: trauma Decision Support Exception - unselect if not a suspected or confirmed emergency medical condition->Emergency Medical Condition (MA); ORDERING SYSTEM PROVIDED HISTORY: trauma TECHNOLOGIST PROVIDED HISTORY: trauma Decision Support Exception - unselect if not a suspected or confirmed emergency medical condition->Emergency Medical Condition ([place]) FINDINGS: Head CT: There are foci of intraparenchymal hemorrhage consistent with hemorrhagic contusion within left superior frontal gyrus, anterior aspect bilateral frontal lobes, bilateral anterior temporal poles and the right occipital lobe. The lesions are associated with surrounding vasogenic edema. The largest focus of intraparenchymal hemorrhage within left superior frontal gyrus measures 2.8 x 1.8 cm. There are also scattered areas of subarachnoid hemorrhage within the bilateral occipital lobes. Moderate chronic microangiopathic ischemic disease. Mild generalized volume loss. Multiple chronic lacunar infarction involving left davis radiata right davis radiata and bilateral lentiform nucleus and right thalamus. . The brain parenchyma is normal. The cerebellar tonsils are in normal position. The ventricles, sulci, and cisterns are within normal limits in size and configuration. The globes and orbits are within normal limits. The visualized extracranial structures including paranasal sinuses and mastoid air cells are unremarkable. No fracture is identified. CTA NECK: AORTIC ARCH/ARCH VESSELS: No dissection or arterial injury. Mild stenosis at the origin left subclavian artery. No significant stenosis of the brachiocephalic or subclavian arteries. CAROTID ARTERIES: No dissection, arterial injury. There is moderate atherosclerotic calcification of bilateral carotid bulbs extending into the origin of internal carotid arteries resulting in moderate 60% stenosis at the origin of right cervical ICA. VERTEBRAL ARTERIES: No dissection, arterial injury, or significant stenosis. SOFT TISSUES: The lung apices are clear. No cervical or superior mediastinal lymphadenopathy. The larynx and pharynx are unremarkable. No acute abnormality of the salivary and thyroid glands. BONES: No acute osseous abnormality. CTA HEAD: ANTERIOR CIRCULATION: No significant stenosis of the intracranial internal carotid, anterior cerebral, or middle cerebral arteries. No aneurysm. POSTERIOR CIRCULATION: No significant stenosis of the vertebral, basilar, or posterior cerebral arteries. No aneurysm. OTHER: No dural venous sinus thrombosis on this non-dedicated study. CT face: Nasal bones and nasal cavity: The nasal bone are intact. Paranasal sinuses: There are comminuted and displaced fractures involving the anterior, inferior and posterolateral wall of the left maxillary sinus which demonstrate complete opacification. There is associated collapse of anterior and posterolateral wall of left maxillary sinus.. (more content not included)... Normal [facility] CT HEAD WO CONTRASTon 2021 CT HEAD WO CONTRAST EXAMINATION: CT OF THE HEAD WITHOUT CONTRAST 03/17/2022 8:12 am TECHNIQUE: CT of the head was performed without the administration of intravenous contrast. Automated exposure control, iterative reconstruction, and/or weight based adjustment of the mA/kV was utilized to reduce the radiation dose to as low as reasonably achievable. COMPARISON: CT brain performed 03/16/2022. HISTORY: ORDERING SYSTEM PROVIDED HISTORY: traumatic IPH TECHNOLOGIST PROVIDED HISTORY: traumatic IPH FINDINGS: BRAIN/VENTRICLES: There is redemonstration hemorrhagic contusion in the left frontal lobe that is similar to mildly decreased in size compared to prior examination. There is mild adjacent edema. There are small foci of hemorrhagic contusion in the frontal lobes inferiorly as well as in the right frontal lobe laterally that are similar. There is a focus of hemorrhagic contusion in the right occipital region that is similar to slightly smaller. There are scattered areas of subarachnoid hemorrhage throughout the cerebral hemispheres bilaterally. There is underlying chronic microvascular disease. The ventricular structures are unremarkable. The infratentorial structures are unremarkable. ORBITS: The visualized portion of the orbits demonstrate no acute abnormality. SINUSES: The visualized paranasal sinuses and mastoid air cells demonstrate no acute abnormality. SOFT TISSUES/SKULL: There is redemonstration facial fractures that are similar compared to prior. The mastoid air cells are normally aerated. IMPRESSION: Hemorrhagic contusion in the frontal lobes and right occipital lobe that are similar to mildly smaller compared to prior exam. Scattered foci of subarachnoid hemorrhage throughout the cerebral hemispheres bilaterally. Similar facial fractures. Interpreted by: Giorgi Holt MD Signed by: Giorgi Holt MD 03/17/22 Final result Normal [facility] CT HEAD WO CONTRAST EXAMINATION: CT OF THE HEAD WITHOUT CONTRAST; CT OF THE FACE WITHOUT CONTRAST; CTA OF THE HEAD AND NECK WITH CONTRAST; CT OF THE CERVICAL SPINE WITHOUT CONTRAST 03/16/2022 9:39 pm; 03/16/2022 9:55 pm; 03/16/2022 9:54 pm: TECHNIQUE: CT of the head was performed without the administration of intravenous contrast. Automated exposure control, iterative reconstruction, and/or weight based adjustment of the mA/kV was utilized to reduce the radiation dose to as low as reasonably achievable.; CT of the face was performed without the administration of intravenous contrast. Multiplanar reformatted images are provided for review. Automated exposure control, iterative reconstruction, and/or weight based adjustment of the mA/kV was utilized to reduce the radiation dose to as low as reasonably achievable.; CTA of the head and neck was performed with the administration of intravenous contrast. Multiplanar reformatted images are provided for review. MIP images are provided for review. Stenosis of the internal carotid arteries measured using NASCET criteria. Automated exposure control, iterative reconstruction, and/or weight based adjustment of the mA/kV was utilized to reduce the radiation dose to as low as reasonably achievable.; CT of the cervical spine was performed without the administration of intravenous contrast. Multiplanar reformatted images are provided for review. Automated exposure control, iterative reconstruction, and/or weight based adjustment of the mA/kV was utilized to reduce the radiation dose to as low as reasonably achievable. Noncontrast CT of the head with reconstructed 2-D images are also provided for review. COMPARISON: None. HISTORY: ORDERING SYSTEM PROVIDED HISTORY: trauma TECHNOLOGIST PROVIDED HISTORY: trauma Decision Support Exception - unselect if not a suspected or confirmed emergency medical condition->Emergency Medical Condition ([place]); ORDERING SYSTEM PROVIDED HISTORY: trauma TECHNOLOGIST PROVIDED HISTORY: trauma Decision Support Exception - unselect if not a suspected or confirmed emergency medical condition->Emergency Medical Condition ([place]); ORDERING SYSTEM PROVIDED HISTORY: trauma TECHNOLOGIST PROVIDED HISTORY: trauma Decision Support Exception - unselect if not a suspected or confirmed emergency medical condition->Emergency Medical Condition ([place]) FINDINGS: Head CT: There are foci of intraparenchymal hemorrhage consistent with hemorrhagic contusion within left superior frontal gyrus, anterior aspect bilateral frontal lobes, bilateral anterior temporal poles and the right occipital lobe. The lesions are associated with surrounding vasogenic edema. The largest focus of intraparenchymal hemorrhage within left superior frontal gyrus measures 2.8 x 1.8 cm. There are also scattered areas of subarachnoid hemorrhage within the bilateral occipital lobes. Moderate chronic microangiopathic ischemic disease. Mild generalized volume loss. Multiple chronic lacunar infarction involving left davis radiata right davis radiata and bilateral lentiform nucleus and right thalamus. . The brain parenchyma is normal. The cerebellar tonsils are in normal position. The ventricles, sulci, and cisterns are within normal limits in size and configuration. The globes and orbits are within normal limits. The visualized extracranial structures including paranasal sinuses and mastoid air cells are unremarkable. No fracture is identified. CTA NECK: AORTIC ARCH/ARCH VESSELS: No dissection or arterial injury. Mild stenosis at the origin left subclavian artery. No significant stenosis of the brachiocephalic or subclavian arteries. CAROTID ARTERIES: No dissection, arterial injury. There is moderate atherosclerotic calcification of bilateral carotid bulbs extending into the origin of internal carotid arteries resulting in moderate 60% stenosis at the origin of right cervical ICA. VERTEBRAL ARTERIES: No dissection, arterial injury, or significant stenosis. SOFT TISSUES: The lung apices are clear. No cervical or superior mediastinal lymphadenopathy. The larynx and pharynx are unremarkable. No acute abnormality of the salivary and thyroid glands. BONES: No acute osseous abnormality. CTA HEAD: ANTERIOR CIRCULATION: No significant stenosis of the intracranial internal carotid, anterior cerebral, or middle cerebral arteries. No aneurysm. POSTERIOR CIRCULATION: No significant stenosis of the vertebral, basilar, or posterior cerebral arteries. No aneurysm. OTHER: No dural venous sinus thrombosis on this non-dedicated study. CT face: Nasal bones and nasal cavity: The nasal bone are intact. Paranasal sinuses: There are comminuted and displaced fractures involving the anterior, inferior and posterolateral wall of the left maxillary sinus which demonstrate complete opacification. There is associated collapse of anterior and posterolateral wall of left maxillary sinus.. (more content not included)... Normal [facility] CT LUMBAR SPINE TRAUMA RECON STRUCTIONon 03-17-2022 CT LUMBAR SPINE TRAUMA RECONSTRUCTION EXAMINATION: CT OF THE THORACIC SPINE WITHOUT CONTRAST; CT OF THE LUMBAR SPINE WITHOUT CONTRAST 03/16/2022 9:40 pm: TECHNIQUE: CT of the thoracic spine was reconstructed from CT chest without the administration of intravenous contrast. Multiplanar reformatted images are provided for review. Automated exposure control, iterative reconstruction, and/or weight based adjustment of the mA/kV was utilized to reduce the radiation dose to as low as reasonably achievable.; CT of the lumbar spine was reconstructed from CT abdomen pelvis without the administration of intravenous contrast. Multiplanar reformatted images are provided for review. Adjustment of mA and/or kV according to patient size was utilized. Automated exposure control, iterative reconstruction, and/or weight based adjustment of the mA/kV was utilized to reduce the radiation dose to as low as reasonably achievable. COMPARISON: None HISTORY: ORDERING SYSTEM PROVIDED HISTORY: trauma TECHNOLOGIST PROVIDED HISTORY: trauma FINDINGS: BONES/ALIGNMENT: There is normal alignment of the spine. The vertebral body heights are maintained. No osseous destructive lesion is seen. Mild levocurvature of the lumbar spine. Minor levocurvature of the upper thoracic spine as well. DEGENERATIVE CHANGES: No gross spinal canal stenosis or bony neural foraminal narrowing of the thoracic spine. There multilevel degenerate changes the lumbar spine. Anterolisthesis L4 on L5 measuring 5 mm. This is likely related to the advanced facet arthropathy this level. Otherwise disc space disease most pronounced L4-5 and L5-S1. SOFT TISSUES: No paraspinal mass is seen. IMPRESSION: No evidence acute fracture traumatic malalignment of the thoracic or the lumbar spine. Degenerate change notably from L4 through S1. Interpreted by: Tobin Cisneros MD Signed by: Tobin Cisneros MD 03/17/22 Final result Normal [facility] CT THORACIC SPINE TRAUMA REC ONSTRUCTIONon 03-17-2022 CT THORACIC SPINE TRAUMA RECONSTRUCTION EXAMINATION: CT OF THE THORACIC SPINE WITHOUT CONTRAST; CT OF THE LUMBAR SPINE WITHOUT CONTRAST 03/16/2022 9:40 pm: TECHNIQUE: CT of the thoracic spine was reconstructed from CT chest without the administration of intravenous contrast. Multiplanar reformatted images are provided for review. Automated exposure control, iterative reconstruction, and/or weight based adjustment of the mA/kV was utilized to reduce the radiation dose to as low as reasonably achievable.; CT of the lumbar spine was reconstructed from CT abdomen pelvis without the administration of intravenous contrast. Multiplanar reformatted images are provided for review. Adjustment of mA and/or kV according to patient size was utilized. Automated exposure control, iterative reconstruction, and/or weight based adjustment of the mA/kV was utilized to reduce the radiation dose to as low as reasonably achievable. COMPARISON: None HISTORY: ORDERING SYSTEM PROVIDED HISTORY: trauma TECHNOLOGIST PROVIDED HISTORY: trauma FINDINGS: BONES/ALIGNMENT: There is normal alignment of the spine. The vertebral body heights are maintained. No osseous destructive lesion is seen. Mild levocurvature of the lumbar spine. Minor levocurvature of the upper thoracic spine as well. DEGENERATIVE CHANGES: No gross spinal canal stenosis or bony neural foraminal narrowing of the thoracic spine. There multilevel degenerate changes the lumbar spine. Anterolisthesis L4 on L5 measuring 5 mm. This is likely related to the advanced facet arthropathy this level. Otherwise disc space disease most pronounced L4-5 and L5-S1. SOFT TISSUES: No paraspinal mass is seen. IMPRESSION: No evidence acute fracture traumatic malalignment of the thoracic or the lumbar spine. Degenerate change notably from L4 through S1. Interpreted by: Tobin Cisneros MD Signed by: Tobin Cisneros MD 03/17/22 Final result [facility] CTA HEAD NECK W CONTRASTon 0 03-17-2022 CTA HEAD NECK W CONTRAST EXAMINATION: CT OF THE HEAD WITHOUT CONTRAST; CT OF THE FACE WITHOUT CONTRAST; CTA OF THE HEAD AND NECK WITH CONTRAST; CT OF THE CERVICAL SPINE WITHOUT CONTRAST 03/16/2022 9:39 pm; 03/16/2022 9:55 pm; 03/16/2022 9:54 pm: TECHNIQUE: CT of the head was performed without the administration of intravenous contrast. Automated exposure control, iterative reconstruction, and/or weight based adjustment of the mA/kV was utilized to reduce the radiation dose to as low as reasonably achievable.; CT of the face was performed without the administration of intravenous contrast. Multiplanar reformatted images are provided for review. Automated exposure control, iterative reconstruction, and/or weight based adjustment of the mA/kV was utilized to reduce the radiation dose to as low as reasonably achievable.; CTA of the head and neck was performed with the administration of intravenous contrast. Multiplanar reformatted images are provided for review. MIP images are provided for review. Stenosis of the internal carotid arteries measured using NASCET criteria. Automated exposure control, iterative reconstruction, and/or weight based adjustment of the mA/kV was utilized to reduce the radiation dose to as low as reasonably achievable.; CT of the cervical spine was performed without the administration of intravenous contrast. Multiplanar reformatted images are provided for review. Automated exposure control, iterative reconstruction, and/or weight based adjustment of the mA/kV was utilized to reduce the radiation dose to as low as reasonably achievable. Noncontrast CT of the head with reconstructed 2-D images are also provided for review. COMPARISON: None. HISTORY: ORDERING SYSTEM PROVIDED HISTORY: trauma TECHNOLOGIST PROVIDED HISTORY: trauma Decision Support Exception - unselect if not a suspected or confirmed emergency medical condition->Emergency Medical Condition ([place]); ORDERING SYSTEM PROVIDED HISTORY: trauma TECHNOLOGIST PROVIDED HISTORY: trauma Decision Support Exception - unselect if not a suspected or confirmed emergency medical condition->Emergency Medical Condition ([place]); ORDERING SYSTEM PROVIDED HISTORY: trauma TECHNOLOGIST PROVIDED HISTORY: trauma Decision Support Exception - unselect if not a suspected or confirmed emergency medical condition->Emergency Medical Condition ([place]) FINDINGS: Head CT: There are foci of intraparenchymal hemorrhage consistent with hemorrhagic contusion within left superior frontal gyrus, anterior aspect bilateral frontal lobes, bilateral anterior temporal poles and the right occipital lobe. The lesions are associated with surrounding vasogenic edema. The largest focus of intraparenchymal hemorrhage within left superior frontal gyrus measures 2.8 x 1.8 cm. There are also scattered areas of subarachnoid hemorrhage within the bilateral occipital lobes. Moderate chronic microangiopathic ischemic disease. Mild generalized volume loss. Multiple chronic lacunar infarction involving left davis radiata right davis radiata and bilateral lentiform nucleus and right thalamus. . The brain parenchyma is normal. The cerebellar tonsils are in normal position. The ventricles, sulci, and cisterns are within normal limits in size and configuration. The globes and orbits are within normal limits. The visualized extracranial structures including paranasal sinuses and mastoid air cells are unremarkable. No fracture is identified. CTA NECK: AORTIC ARCH/ARCH VESSELS: No dissection or arterial injury. Mild stenosis at the origin left subclavian artery. No significant stenosis of the brachiocephalic or subclavian arteries. CAROTID ARTERIES: No dissection, arterial injury. There is moderate atherosclerotic calcification of bilateral carotid bulbs extending into the origin of internal carotid arteries resulting in moderate 60% stenosis at the origin of right cervical ICA. VERTEBRAL ARTERIES: No dissection, arterial injury, or significant stenosis. SOFT TISSUES: The lung apices are clear. No cervical or superior mediastinal lymphadenopathy. The larynx and pharynx are unremarkable. No acute abnormality of the salivary and thyroid glands. BONES: No acute osseous abnormality. CTA HEAD: ANTERIOR CIRCULATION: No significant stenosis of the intracranial internal carotid, anterior cerebral, or middle cerebral arteries. No aneurysm. POSTERIOR CIRCULATION: No significant stenosis of the vertebral, basilar, or posterior cerebral arteries. No aneurysm. OTHER: No dural venous sinus thrombosis on this non-dedicated study. CT face: Nasal bones and nasal cavity: The nasal bone are intact. Paranasal sinuses: There are comminuted and displaced fractures involving the anterior, inferior and posterolateral wall of the left maxillary sinus which demonstrate complete opacification. There is associated collapse of anterior and posterolateral wall of left maxillary sinus.. (more content not included)... [facility] Calcium, [employer]icon 03-17-2022 Calcium [Moles/Vol] 1.20 mmol/L Normal 1.13-1.33 [facility] Comment on above: Performed By: #### M G, LIVP, BMPX, VD25, NAMRATA, IOCAL, CDP #### [facility] [address] [place], [place] [id number] Geosciences Associate Professor: Dominik Muñiz MD Liver Profileon 03-17-2022 Albumin [Mass/Vol] 3.8 g/dL Normal 3.5-5.2 [facility] Comment on above: Performed By: #### M G, LIVP, BMPX, VD25, NAMRATA, IOCAL, CDP #### [address] [id number] Geosciences Associate Professor: Dominik Muñiz MD Albumin/Glob Ratio 1.8 Normal 1.0-2.5 [facility] Comment on above: Performed By: #### M G, LIVP, BMPX, VD25, NAMRATA, IOCAL, CDP #### [address] [id number] Geosciences Associate Professor: Dominik Muñiz MD Alkaline Phos 74 U/L Normal 35-104 [facility] Comment on above: Performed By: #### M G, LIVP, BMPX, VD25, NAMRATA, IOCAL, CDP #### [address] [id number] Geosciences Associate Professor: Dominik Muñiz MD ALT [Catalytic activity/Vol] 35 U/L High 5-33 [facility] Comment on above: Performed By: #### M G, LIVP, BMPX, VD25, NAMRATA, IOCAL, CDP #### [address] [id number] Geosciences Associate Professor: Dominik Muñiz MD AST [Catalytic activity/Vol] 35 U/L High <32 [facility] Comment on above: Performed By: #### M G, LIVP, BMPX, VD25, NAMRATA, IOCAL, CDP #### [address] [id number] Geosciences Associate Professor: Dominik Muñiz MD Bilirubin [Mass/Vol] 0.7 mg/dL Normal 0.3-1.2 [facility] Comment on above: Performed By: #### M G, LIVP, BMPX, VD25, NAMRATA, IOCAL, CDP #### [facility] [address] [place] [phone] Geosciences Associate Professor: Dominik Muñiz MD Bilirubin, Indirect 0.5 mg/dL Normal 0.00-1.00 [facility] Comment on above: Performed By: #### M G, LIVP, BMPX, VD25, NAMRATA, IOCAL, CDP #### [facility] [address] [place] [id number] Geosciences Associate Professor: Dominik Muñiz MD Bilirubin.indirect [Mass/Vol] 0.2 mg/dL Normal <0.31 [facility] Comment on above: Performed By: #### M G, LIVP, BMPX, VD25, NAMRATA, IOCAL, CDP #### [facility] [address] [place] [id number] Geosciences Associate Professor: Dominik Muñiz MD Protein [Mass/Vol] 5.9 g/dL Low 6.4-8.3 [facility] Comment on above: Performed By: #### M G, LIVP, BMPX, VD25, NAMRATA, IOCAL, CDP #### [email or web address] [address] [place] [id number] Geosciences Associate Professor: Dominik Muñiz MD Albumin [Mass/Vol] 3.3 g/dL Low 3.5-5.2 [facility] Comment on above: Performed By: #### M G, LIVP, BMPX, VD25, NAMRATA, IOCAL, CDP #### [email or web address] [address] [place] [phone] Geosciences Associate Professor: Dominik Muñiz MD Albumin/Glob Ratio 1.7 Normal 1.0-2.5 [facility] Comment on above: Performed By: #### M G, LIVP, BMPX, VD25, NAMRATA, IOCAL, CDP #### [email or web address] [address] [place] [id number] Geosciences Associate Professor: Domiink Muñiz MD Alkaline Phos 71 U/L Normal 35-104 [facility] Comment on above: Performed By: #### M G, LIVP, BMPX, VD25, NAMRATA, IOCAL, CDP #### [facility] [address] [place] [id number] Geosciences Associate Professor: Dominik Muñiz MD ALT [Catalytic activity/Vol] 35 U/L High 5-33 [facility] Comment on above: Performed By: #### M G, LIVP, BMPX, VD25, NAMRATA, IOCAL, CDP #### [address] [id number] Geosciences Associate Professor: Dominik Muñiz MD AST [Catalytic activity/Vol] 40 U/L High <32 [facility] Comment on above: Performed By: #### M G, LIVP, BMPX, VD25, NAMRATA, IOCAL, CDP #### [facility] [address] [place] [id number] Geosciences Associate Professor: Dominik Muñiz MD Bilirubin [Mass/Vol] 0.4 mg/dL Normal 0.3-1.2 [facility] Comment on above: Performed By: #### M G, LIVP, BMPX, VD25, NAMRATA, IOCAL, CDP #### [facility] [address] [place] [phone] Geosciences Associate Professor: Dominik Muñiz MD Bilirubin, Indirect 0.3 mg/dL Normal 0.00-1.00 [facility] Comment on above: Performed By: #### M G, LIVP, BMPX, VD25, NAMRATA, IOCAL, CDP #### [facility] [address] [place] [phone] Geosciences Associate Professor: Dominik Muñiz MD Bilirubin.indirect [Mass/Vol] 0.1 mg/dL Normal <0.31 [facility] Comment on above: Performed By: #### M G, LIVP, BMPX, VD25, NAMRATA, IOCAL, CDP #### [facility] [address] [place] [phone] Geosciences Associate Professor: Dominik Muñiz MD Protein [Mass/Vol] 5.2 g/dL Low 6.4-8.3 [facility] Comment on above: Performed By: #### M G, LIVP, BMPX, VD25, NAMRATA, IOCAL, CDP #### [facility] [address] [place] [phone] Geosciences Associate Professor: Dominik Muñiz MD MRSA, DNA, Nasalon MRSA, DNA, Nasal Negative Normal NEG [facility] Comment on above: Result Comment: NEGA TIVE: MRSA DNA not detected by nucleic acid amplification. Results should be used as an adjunct to nosocomial control efforts to identify patients needing enhanced precautions. The test is not intended to identify patients with staphylococcal infections. Results should not be used to guide or monitor treatment for MRSA infections. Performed By: #### M RSANO #### [facility] [address] [place] [phone] Geosciences Associate Professor: Dominik Muñiz MD Specimen Description .NASAL SWAB Normal [facility] Comment on above: Performed By: #### M RSANO #### [facility] [address] [place] [phone] Geosciences Associate Professor: Dominik Muñiz MD Magnesiumon 03-17-2022 Magnesium [Mass/Vol] 1.9 mg/dL Normal 1.6-2.6 [facility] Comment on above: Performed By: #### M G, LIVP, BMPX, VD25, NAMRATA, IOCAL, CDP #### [email or web address] [address] [place] [id number] Geosciences Associate Professor: Dominik Muñiz MD Phosphorus, Inorg.on 022 Phosphorus, Inorg. 4.2 mg/dL Normal 2.6-4.5 [facility] Comment on above: Performed By: #### M G, LIVP, BMPX, VD25, NAMRATA, IOCAL, CDP #### [facility] [address] [place] [phone] Geosciences Associate Professor: Dominik Muñiz MD Procalcitoninon 03-17-2022 Procalcitonin 0.35 ng/mL High <0.09 [facility] Comment on above: Result Comment: Suspected Sepsis: <0.50 ng/mL Low likelihood of sepsis. 0.50-2.00 ng/mL Increased likelihood of sepsis. Antibiotics encouraged. >2.00 ng/mL High risk of sepsis/shock. Antibiotics strongly encouraged. Suspected Lower Resp Tract Infections: <0.24 ng/mL Low likelihood of bacterial infection. >0.24 ng/mL Increased likelihood of bacterial infection. Antibiotics encouraged. With successful antibiotic therapy, PCT levels should decrease rapidly. (Half-life of 24 to 36 hours.) Procalcitonin values from samples collected within the first 6 hours of systemic infection may still be low. Retesting may be indicated. Values from day 1 and day 4 can be entered into the Change in Procalcitonin Calculator (www.cglguj-xel-cnmyubfkuq.[employer]) to determine the patient's Mortality Risk Prognosis In healthy neonates, plasma Procalcitonin (PCT) concentrations increase gradually after , reaching peak values at about 24 hours of age then decrease to normal values below 0.5 ng/mL by 48-72 hours of age. Performed By: #### M G, LIVP, BMPX, VD25, NAMRATA, IOCAL, CDP #### [email or web address] [address] [place] [address] Geosciences Associate Professor: Dominik Muñiz MD Trauma Profileon 03-17-2022 Anion gap [Moles/Vol] 10 mmol/L Normal 9-17 [facility] Comment on above: Performed By: #### C BC #### [facility] [address] [place] [address] Geosciences Associate Professor: Dominik Muñiz MD Chloride [Moles/Vol] 105 mmol/L Normal 98-107 [facility] Comment on above: Performed By: #### C BC #### [email or web address] [address] [place] [address] Geosciences Associate Professor: Dominik Muñiz MD CO2 [Moles/Vol] 25 mmol/L Normal 20-31 [facility] Comment on above: Performed By: #### C BC #### [facility] [address] [place] [id number] Geosciences Associate Professor: Dominik Muñiz MD Creatinine [Mass/Vol] 0.69 mg/dL Normal 0.50-0.90 [facility] Comment on above: Performed By: #### C BC #### [address] [id number] Geosciences Associate Professor: Dominik Muñiz MD Ethanol [Mass/Vol] mg/dL Normal <10 [facility] Comment on above: Performed By: #### C BC #### [address] [address] Geosciences Associate Professor: Dominik Muñiz MD Ethanol percent <0.010 Normal <0.010 [facility] Comment on above: Performed By: #### C BC #### [address] [address] Geosciences Associate Professor: Dominik Muñiz MD Glucose [Mass/Vol] 253 mg/dL High 70-99 [facility] Comment on above: Performed By: #### C BC #### [address] [address] Geosciences Associate Professor: Dominik Muñiz MD Potassium [Moles/Vol] 4.1 mmol/L Normal 3.7-5.3 [facility] Comment on above: Performed By: #### C BC #### [address] [address] Geosciences Associate Professor: Dominik Muñiz MD Sodium [Moles/Vol] 140 mmol/L Normal 135-144 [facility] Comment on above: Performed By: #### C BC #### [address] [address] Geosciences Associate Professor: Dominik Muñiz MD Urea nitrogen [Mass/Vol] 14 mg/dL Normal 8-23 [facility] Comment on above: Performed By: #### C BC #### [address] [address] Geosciences Associate Professor: Dominik Muñiz MD aPTT Coag (Bld) [Time] 21.9 s Normal 20.5-30.5 [facility] Comment on above: Result Comment: IV Heparin Therapy Range: 48.6-77.8 Performed By: #### C BC #### [address] [address] Geosciences Associate Professor: Dominik Muñiz MD INR Coag (PPP) [Relative time] 1.0 {INR} Normal [facility] Comment on above: Result Comment: Therapeutic Range: Moderate Anticoagulant Intensity: INR = 2.0-3.0 High Anticoagulant Intensity: INR = 2.5-3.5 Performed By: #### C BC #### [address] [address] Geosciences Associate Professor: Dominik Muñiz MD PT Coag (PPP) [Time] 10.4 s Normal 9.1-12.3 [facility] Comment on above: Performed By: #### C BC #### [address] [address] Geosciences Associate Professor: Dominik Muñiz MD HCG Screen, Blood Negative Normal NEG [facility] Comment on above: Result Comment: Spec imens with hCG levels near the threshold of the test (25 mIU/mL) may give a negative or indeterminate result. In such cases, another test should be performed with a new specimen in 48-72 hours. If early is suspected clinically in this setting, correlation with quantitative serum b-hCG level is suggested. [facility] has confirmed the use of plasma for this test. This has not been cleared or approved by the U.S. Food and Drug Administration. The FDA has determined that such clearance is not necessary. Performed By: #### C BC #### [address] [address] Geosciences Associate Professor: Dominik Muñiz MD Type + Screenon 03-17-2022 Type + Screen Sample Expiration 03/19/2022,2359 Arm Band Number [id number] ABO/Rh(D) A POSITIVE Antibody Screen NEGATIVE Unit Number [id number] Blood Component Type Leukocyte Reduced Red Cell Unit Division 00 Status of Unit REL FROM ALLOC Transfusion Status OK TO TRANSFUSE Crossmatch Result COMPATIBLE Normal [facility] Comment on above: Performed By: #### T YS #### [address] [address] Geosciences Associate Professor: Dominik Muñiz MD Urinalysis, Routineon 2021 Bilirubin, SemiQt,Ur Negative Normal NEG [facility] Comment on above: Performed By: #### C BC #### [address] [address] Geosciences Associate Professor: Dominik Muñiz MD Blood, Urine Negative Normal NEG [facility] Comment on above: Performed By: #### C BC #### [address] [address] Geosciences Associate Professor: Dominik Muñiz MD Clarity (U) Clear Normal CLEAR [facility] Comment on above: Performed By: #### C BC #### [address] [address] Geosciences Associate Professor: Dominik Muñiz MD Color (U) Yellow Normal YEL [facility] Comment on above: Performed By: #### C BC #### [address] [address] Geosciences Associate Professor: Dominik Muñiz MD Comment Microscopic exam not performed based on chemical results unless requested in Normal [facility] Comment on above: Result Comment: orig inal order.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 zygoma is noted, unchanged, comminuted. Fracture alignment is stable. SINUSES: Air-fluid level in the left paranasal sinuses relatively unchanged. There is opacity in some of the ethmoid air cell similar to prior examination. Mastoid air cells are appropriately aerated. SOFT TISSUES/SKULL: No acute abnormality of the visualized skull or soft tissues. Endotracheal and intestinal tubes are visualized. 1. Mild interval reduction in intraparenchymal hemorrhage density with minimal reduction in size of some of the foci. No new hemorrhagic foci. Subdural fluid on the right. Underlying microvascular change. 2. No change in facial bone fractures left side with air-fluid levels in the left maxillary and ethmoid air cells. Some mucoperiosteal thickening inferior left frontal sinus is noted, stable. CT HEAD WO CONTRAST Result Date: 03/17/2022 EXAMINATION: CT OF THE HEAD WITHOUT CONTRAST 03/17/2022 8:12 am TECHNIQUE: CT of the head was performed without the administration of intravenous contrast. Automated exposure control, iterative reconstruction, and/or weight based adjustment of the mA/kV was utilized to reduce the radiation dose to as low as reasonably achievable. COMPARISON: CT brain performed 03/16/2022. HISTORY: ORDERING SYSTEM PROVIDED HISTORY: traumatic IPH TECHNOLOGIST PROVIDED HISTORY: traumatic IPH FINDINGS: BRAIN/VENTRICLES: There is redemonstration hemorrhagic contusion in the left frontal lobe that is similar to mildly decreased in size compared to prior examination. There is mild adjacent edema. There are small foci of hemorrhagic contusion in the frontal lobes inferiorly as well as in the right frontal lobe laterally that are similar. There is a focus of hemorrhagic contusion in the right occipital region that is similar to slightly smaller. There are scattered areas of subarachnoid hemorrhage throughout the cerebral hemispheres bilaterally. There is underlying chronic microvascular disease. The ventricular structures are unremarkable. The infratentorial structures are unremarkable. ORBITS: The visualized portion of the orbits demonstrate no acute abnormality. SINUSES: The visualized paranasal sinuses and mastoid air cells demonstrate no acute abnormality. SOFT TISSUES/SKULL: There is redemonstration facial fractures that are similar compared to prior. The mastoid air cells are normally aerated. Hemorrhagic contusion in the frontal lobes and right occipital lobe that are similar to mildly smaller compared to prior exam. Scattered foci of subarachnoid hemorrhage throughout the cerebral hemispheres bilaterally. Similar facial fractures. CT HEAD WO CONTRAST Result Date: 03/16/2022 EXAMINATION: CT OF THE HEAD WITHOUT CONTRAST; CT OF THE FACE WITHOUT CONTRAST; CTA OF THE HEAD AND NECK WITH CONTRAST; CT OF THE CERVICAL SPINE WITHOUT CONTRAST 03/16/2022 9:39 pm; 03/16/2022 9:55 pm; 03/16/2022 9:54 pm: TECHNIQUE: CT of the head was performed without the administration of intravenous contrast. Automated exposure control, iterative reconstruction, and/or weight based adjustment of the mA/kV was utilized to reduce the radiation dose to as low as reasonably achievable.; CT of the face was performed without the administration of intravenous contrast. Multiplanar reformatted images are provided for review. Automated exposure control, iterative reconstruction, and/or weight based adjustment of the mA/kV was utilized to reduce the radiation dose to as low as reasonably achievable.; CTA of the head and neck was performed with the administration of intravenous contrast. Multiplanar reformatted images are provided for review. MIP images are provided for review. Stenosis of the internal carotid arteries measured using NASCET criteria. Automated exposure control, iterative reconstruction, and/or weight based adjustment of the mA/kV was utilized to reduce the radiation dose to as low as reasonably achievable.; CT of the cervical spine was performed without the administration of intravenous contrast. Multiplanar reformatted images are provided for review. Automated exposure control, iterative reconstruction, and/or weight based adjustment of the mA/kV was utilized to reduce the radiation dose to as low as reasonably achievable. Noncontrast CT of the head with reconstructed 2-D images are also provided for review. COMPARISON: None. HISTORY: ORDERING SYSTEM PROVIDED HISTORY: trauma TECHNOLOGIST PROVIDED HISTORY: trauma Decision Support Exception - unselect if not a suspected or confirmed emergency medical condition->Emergency Medical Condition (MA); ORDERING SYSTEM PROVIDED HISTORY: trauma TECHNOLOGIST PROVIDED HISTORY: trauma Decision Support Exception - unselect if not a suspected or confirmed emergency medical condition->Emergency Medical Condition (MA); ORDERING SYSTEM PROVIDED HISTORY: trauma TECHNOLOGIST PROVIDED HISTORY: trauma Decision Support Exception - unselect if not a suspected or confirmed emergency medical condition->Emergency Medical Condition ([place]) FINDINGS: Head CT: There are foci of intraparenchymal hemorrhage consistent with hemorrhagic contusion within left superior frontal gyrus, anterior aspect bilateral frontal lobes, bilateral anterior temporal poles and the right occipital lobe. The lesions are associated with surrounding vasogenic edema. The largest focus of intraparenchymal hemorrhage within left superior frontal gyrus measures 2.8 x 1.8 cm. There are also scattered areas of subarachnoid hemorrhage within the bilateral occipital lobes. Moderate chronic microangiopathic ischemic disease. Mild generalized volume loss. Multiple chronic lacunar infarction involving left davis radiata right davis radiata and bilateral lentiform nucleus and right thalamus. . The brain parenchyma is normal. The cerebellar tonsils are in normal position. The ventricles, sulci, and cisterns are within normal limits in size and configuration. The globes and orbits are within normal limits. The visualized extracranial structures including paranasal sinuses and mastoid air cells are unremarkable. No fracture is identified. CTA NECK: AORTIC ARCH/ARCH VESSELS: No dissection or arterial injury. Mild stenosis at the origin left subclavian artery. No significant stenosis of the brachiocephalic or subclavian arteries. CAROTID ARTERIES: No dissection, arterial injury. There is moderate atherosclerotic calcification of bilateral carotid bulbs extending into the origin of internal carotid arteries resulting in moderate 60% stenosis at the origin of right cervical ICA. VERTEBRAL ARTERIES: No dissection, arterial injury, or significant stenosis. SOFT TISSUES: The lung apices are clear. No cervical or superior mediastinal lymphadenopathy. The larynx and pharynx are unremarkable. No acute abnormality of the salivary and thyroid glands. BONES: No acute osseous abnormality. CTA HEAD: ANTERIOR CIRCULATION: No significant stenosis of the intracranial internal carotid, anterior cerebral, or middle cerebral arteries. No aneurysm. POSTERIOR CIRCULATION: No significant stenosis of the vertebral, basilar, or posterior cerebral arteries. No aneurysm. OTHER: No dural venous sinus thrombosis on this non-dedicated study. CT face: Nasal bones and nasal cavity: The nasal bone are intact. Paranasal sinuses: There are comminuted and displaced fractures involving the anterior, inferior and posterolateral wall of the left maxillary sinus which demonstrate complete opacification. There is associated collapse of anterior and posterolateral wall of left maxillary sinus.. Orbits: Comminuted fracture involving the lateral wall of left maxillary sinus with significant displacement comminuted fracture of inferior wall of left orbit with 5 mm depression into the maxillary sinus wall. The fracture fragments impinge on left inferior and left lateral rectus muscle. The lamina papyracea are intact bilaterally. The perpendicular plate of the ethmoid bone demonstrates normal central positioning and no evidence of fracture. Mandible: No concerning lytic or sclerotic lesion is noted. No periapical hypodensity is noted surrounding the mandibular teeth. Temporomandibular joints appear unremarkable. Temporal bones: Mastoid air cells appear normally-developed and clear of fluid. The temporal bones appear intact. The middle ear cavities are clear with appropriate positioning of the ossicles. The remainder of the osseous structures of the face: Mildly displaced fracture the left zygomatic arch. Nondisplaced fracture left pterygoid plate. The pterygoid process and plates of the sphenoid bone appear intact without displaced fracture. The superior alveolar process of the maxilla is normal. Extensive amount of soft tissue swelling in the left malar and left preseptal region. Cervical: BONES/ALIGNMENT: Acute nondisplaced fracture of left transverse process C7 vertebral body. [place] images made.. DEGENERATIVE CHANGES: Mild multilevel disc and facet degenerative disease most pronounced at C4-C5. Grade 1 retrolisthesis at C4-C5. SOFT TISSUES: There is no prevertebral soft tissue swelling. Head CT: There are foci of intraparenchymal hemorrhage consistent with hemorrhagic contusion within left superior frontal gyrus, anterior aspect bilateral frontal lobes, bilateral anterior temporal poles and the right occipital lobe. The lesions are associated with surrounding vasogenic edema. The largest focus of intraparenchymal hemorrhage within left superior frontal gyrus measures 2.8 x 1.8 cm. There are also scattered areas of subarachnoid hemorrhage within the bilateral occipital lobes. Send strain changes in the brain and multiple foci of chronic lacunar infarctions as described. CTA head and neck: No intimal injury. No dissection. Moderate 65% stenosis at the origin of right cervical ICA. Mild stenosis at the origin of left subclavian artery. CT face: There are comminuted and displaced fractures involving the anterior, inferior and posterolateral wall of the left maxillary sinus which demonstrate complete opacification. There is associated collapse of anterior and posterolateral wall of left maxillary sinus.. Comminuted fracture involving the lateral wall of left maxillary sinus with significant displacement comminuted fracture of inferior wall of left orbit with 5 mm depression into the maxillary sinus wall. The fracture fragments impinge on left inferior and left lateral rectus muscle. Mildly displaced fracture of left zygomatic arch. Nondisplaced fracture left pterygoid plate. Extensive amount of soft tissue swelling in the left malar and left preseptal region. Cervical CT: Subtle nondisplaced fracture involving the left transverse process of C7 vertebral body.. Critical results were called by Dr. Lakisha Venegas MD to on 03/16/2022 at 22:35. CAROTID STENOSIS REFERENCE: The [place] Symptomatic Carotid Endarterectomy Trial (NASCET) is a method of quantifying internal carotid artery stenosis. Distal internal carotid artery diameter as the denominator for stenosis measurement: MILD = <50% stenosis. MODERATE = 50-69% stenosis. SEVERE = 70-89% stenosis. HAIRLINE/CRITICAL = 90-99% stenosis. OCCLUDED = 100% stenosis. RECOMMENDATIONS: Unavailable CT FACIAL BONES WO CONTRAST Result Date: 03/16/2022 EXAMINATION: CT OF THE HEAD WITHOUT CONTRAST; CT OF THE FACE WITHOUT CONTRAST; CTA OF THE HEAD AND NECK WITH CONTRAST; CT OF THE CERVICAL SPINE WITHOUT CONTRAST 03/16/2022 9:39 pm; 03/16/2022 9:55 pm; 03/16/2022 9:54 pm: TECHNIQUE: CT of the head was performed without the administration of intravenous contrast. Automated exposure control, iterative reconstruction, and/or weight based adjustment of the mA/kV was utilized to reduce the radiation dose to as low as reasonably achievable.; CT of the face was performed without the administration of intravenous contrast. Multiplanar reformatted images are provided for review. Automated exposure control, iterative reconstruction, and/or weight based adjustment of the mA/kV was utilized to reduce the radiation dose to as low as reasonably achievable.; CTA of the head and neck was performed with the administration of intravenous contrast. Multiplanar reformatted images are provided for review. MIP images are provided for review. Stenosis of the internal carotid arteries measured using NASCET criteria. Automated exposure control, iterative reconstruction, and/or weight based adjustment of the mA/kV was utilized to reduce the radiation dose to as low as reasonably achievable.; CT of the cervical spine was performed without the administration of intravenous contrast. Multiplanar reformatted images are provided for review. Automated exposure control, iterative reconstruction, and/or weight based adjustment of the mA/kV was utilized to reduce the radiation dose to as low as reasonably achievable. Noncontrast CT of the head with reconstructed 2-D images are also provided for review. COMPARISON: None. HISTORY: ORDERING SYSTEM PROVIDED HISTORY: trauma TECHNOLOGIST PROVIDED HISTORY: trauma Decision Support Exception - unselect if not a suspected or confirmed emergency medical condition->Emergency Medical Condition (MA); ORDERING SYSTEM PROVIDED HISTORY: trauma TECHNOLOGIST PROVIDED HISTORY: trauma Decision Support Exception - unselect if not a suspected or confirmed emergency medical condition->Emergency Medical Condition (MA); ORDERING SYSTEM PROVIDED HISTORY: trauma TECHNOLOGIST PROVIDED HISTORY: trauma Decision Support Exception - unselect if not a suspected or confirmed emergency medical condition->Emergency Medical Condition ([place]) FINDINGS: Head CT: There are foci of intraparenchymal hemorrhage consistent with hemorrhagic contusion within left superior frontal gyrus, anterior aspect bilateral frontal lobes, bilateral anterior temporal poles and the right occipital lobe. The lesions are associated with surrounding vasogenic edema. The largest focus of intraparenchymal hemorrhage within left superior frontal gyrus measures 2.8 x 1.8 cm. There are also scattered areas of subarachnoid hemorrhage within the bilateral occipital lobes. Moderate chronic microangiopathic ischemic disease. Mild generalized volume loss. Multiple chronic lacunar infarction involving left davis radiata right davis radiata and bilateral lentiform nucleus and right thalamus. . The brain parenchyma is normal. The cerebellar tonsils are in normal position. The ventricles, sulci, and cisterns are within normal limits in size and configuration. The globes and orbits are within normal limits. The visualized extracranial structures including paranasal sinuses and mastoid air cells are unremarkable. No fracture is identified. CTA NECK: AORTIC ARCH/ARCH VESSELS: No dissection or arterial injury. Mild stenosis at the origin left subclavian artery. No significant stenosis of the brachiocephalic or subclavian arteries. CAROTID ARTERIES: No dissection, arterial injury. There is moderate atherosclerotic calcification of bilateral carotid bulbs extending into the origin of internal carotid arteries resulting in moderate 60% stenosis at the origin of right cervical ICA. VERTEBRAL ARTERIES: No dissection, arterial injury, or significant stenosis. SOFT TISSUES: The lung apices are clear. No cervical or superior mediastinal lymphadenopathy. The larynx and pharynx are unremarkable. No acute abnormality of the salivary and thyroid glands. BONES: No acute osseous abnormality. CTA HEAD: ANTERIOR CIRCULATION: No significant stenosis of the intracranial internal carotid, anterior cerebral, or middle cerebral arteries. No aneurysm. POSTERIOR CIRCULATION: No significant stenosis of the vertebral, basilar, or posterior cerebral arteries. No aneurysm. OTHER: No dural venous sinus thrombosis on this non-dedicated study. CT face: Nasal bones and nasal cavity: The nasal bone are intact. Paranasal sinuses: There are comminuted and displaced fractures involving the anterior, inferior and posterolateral wall of the left maxillary sinus which demonstrate complete opacification. There is associated collapse of anterior and posterolateral wall of left maxillary sinus.. Orbits: Comminuted fracture involving the lateral wall of left maxillary sinus with significant displacement comminuted fracture of inferior wall of left orbit with 5 mm depression into the maxillary sinus wall. The fracture fragments impinge on left inferior and left lateral rectus muscle. The lamina papyracea are intact bilaterally. The perpendicular plate of the ethmoid bone demonstrates normal central positioning and no evidence of fracture. Mandible: No concerning lytic or sclerotic lesion is noted. No periapical hypodensity is noted surrounding the mandibular teeth. Temporomandibular joints appear unremarkable. Temporal bones: Mastoid air cells appear normally-developed and clear of fluid. The temporal bones appear intact. The middle ear cavities are clear with appropriate positioning of the ossicles. The remainder of the osseous structures of the face: Mildly displaced fracture the left zygomatic arch. Nondisplaced fracture left pterygoid plate. The pterygoid process and plates of the sphenoid bone appear intact without displaced fracture. The superior alveolar process of the maxilla is normal. Extensive amount of soft tissue swelling in the left malar and left preseptal region. Cervical: BONES/ALIGNMENT: Acute nondisplaced fracture of left transverse process C7 vertebral body. Ventura images made.. DEGENERATIVE CHANGES: Mild multilevel disc and facet degenerative disease most pronounced at C4-C5. Grade 1 retrolisthesis at C4-C5. SOFT TISSUES: There is no prevertebral soft tissue swelling. Head CT: There are foci of intraparenchymal hemorrhage consistent with hemorrhagic contusion within left superior frontal gyrus, anterior aspect bilateral frontal lobes, bilateral anterior temporal poles and the right occipital lobe. The lesions are associated with surrounding vasogenic edema. The largest focus of intraparenchymal hemorrhage within left superior frontal gyrus measures 2.8 x 1.8 cm. There are also scattered areas of subarachnoid hemorrhage within the bilateral occipital lobes. Send strain changes in the brain and multiple foci of chronic lacunar infarctions as described. CTA head and neck: No intimal injury. No dissection. Moderate 65% stenosis at the origin of right cervical ICA. Mild stenosis at the origin of left subclavian artery. CT face: There are comminuted and displaced fractures involving the anterior, inferior and posterolateral wall of the left maxillary sinus which demonstrate complete opacification. There is associated collapse of anterior and posterolateral wall of left maxillary sinus.. Comminuted fracture involving the lateral wall of left maxillary sinus with significant displacement comminuted fracture of inferior wall of left orbit with 5 mm depression into the maxillary sinus wall. The fracture fragments impinge on left inferior and left lateral rectus muscle. Mildly displaced fracture of left zygomatic arch. Nondisplaced fracture left pterygoid plate. Extensive amount of soft tissue swelling in the left malar and left preseptal region. Cervical CT: Subtle nondisplaced fracture involving the left transverse process of C7 vertebral body.. Critical results were called by Dr. Lakisha Venegas MD to on 03/16/2022 at 22:35. CAROTID STENOSIS REFERENCE: The [place] Symptomatic Carotid Endarterectomy Trial (NASCET) is a method of quantifying internal carotid artery stenosis. Distal internal carotid artery diameter as the denominator for stenosis measurement: MILD = <50% stenosis. MODERATE = 50-69% stenosis. SEVERE = 70-89% stenosis. HAIRLINE/CRITICAL = 90-99% stenosis. OCCLUDED = 100% stenosis. RECOMMENDATIONS: Unavailable CT CERVICAL SPINE WO CONTRAST Result Date: 03/16/2022 EXAMINATION: CT OF THE HEAD WITHOUT CONTRAST; CT OF THE FACE WITHOUT CONTRAST; CTA OF THE HEAD AND NECK WITH CONTRAST; CT OF THE CERVICAL SPINE WITHOUT CONTRAST 03/16/2022 9:39 pm; 03/16/2022 9:55 pm; 03/16/2022 9:54 pm: TECHNIQUE: CT of the head was performed without the administration of intravenous contrast. Automated exposure control, iterative reconstruction, and/or weight based adjustment of the mA/kV was utilized to reduce the radiation dose to as low as reasonably achievable.; CT of the face was performed without the administration of intravenous contrast. Multiplanar reformatted images are provided for review. Automated exposure control, iterative reconstruction, and/or weight based adjustment of the mA/kV was utilized to reduce the radiation dose to as low as reasonably achievable.; CTA of the head and neck was performed with the administration of intravenous contrast. Multiplanar reformatted images are provided for review. MIP images are provided for review. Stenosis of the internal carotid arteries measured using NASCET criteria. Automated exposure control, iterative reconstruction, and/or weight based adjustment of the mA/kV was utilized to reduce the radiation dose to as low as reasonably achievable.; CT of the cervical spine was performed without the administration of intravenous contrast. Multiplanar reformatted images are provided for review. Automated exposure control, iterative reconstruction, and/or weight based adjustment of the mA/kV was utilized to reduce the radiation dose to as low as reasonably achievable. Noncontrast CT of the head with reconstructed 2-D images are also provided for review. COMPARISON: None. HISTORY: ORDERING SYSTEM PROVIDED HISTORY: trauma TECHNOLOGIST PROVIDED HISTORY: trauma Decision Support Exception - unselect if not a suspected or confirmed emergency medical condition->Emergency Medical Condition ([place]); ORDERING SYSTEM PROVIDED HISTORY: trauma TECHNOLOGIST PROVIDED HISTORY: trauma Decision Support Exception - unselect if not a suspected or confirmed emergency medical condition->Emergency Medical Condition ([place]); ORDERING SYSTEM PROVIDED HISTORY: trauma TECHNOLOGIST PROVIDED HISTORY: trauma Decision Support Exception - unselect if not a suspected or confirmed emergency medical condition->Emergency Medical Condition ([place]) FINDINGS: Head CT: There are foci of intraparenchymal hemorrhage consistent with hemorrhagic contusion within left superior frontal gyrus, anterior aspect bilateral frontal lobes, bilateral anterior temporal poles and the right occipital lobe. The lesions are associated with surrounding vasogenic edema. The largest focus of intraparenchymal hemorrhage within left superior frontal gyrus measures 2.8 x 1.8 cm. There are also scattered areas of subarachnoid hemorrhage within the bilateral occipital lobes. Moderate chronic microangiopathic ischemic disease. Mild generalized volume loss. Multiple chronic lacunar infarction involving left davis radiata right davis radiata and bilateral lentiform nucleus and right thalamus. . The brain parenchyma is normal. The cerebellar tonsils are in normal position. The ventricles, sulci, and cisterns are within normal limits in size and configuration. The globes and orbits are within normal limits. The visualized extracranial structures including paranasal sinuses and mastoid air cells are unremarkable. No fracture is identified. CTA NECK: AORTIC ARCH/ARCH VESSELS: No dissection or arterial injury. Mild stenosis at the origin left subclavian artery. No significant stenosis of the brachiocephalic or subclavian arteries. CAROTID ARTERIES: No dissection, arterial injury. There is moderate atherosclerotic calcification of bilateral carotid bulbs extending into the origin of internal carotid arteries resulting in moderate 60% stenosis at the origin of right cervical ICA. VERTEBRAL ARTERIES: No dissection, arterial injury, or significant stenosis. SOFT TISSUES: The lung apices are clear. No cervical or superior mediastinal lymphadenopathy. The larynx and pharynx are unremarkable. No acute abnormality of the salivary and thyroid glands. BONES: No acute osseous abnormality. CTA HEAD: ANTERIOR CIRCULATION: No significant stenosis of the intracranial internal carotid, anterior cerebral, or middle cerebral arteries. No aneurysm. POSTERIOR CIRCULATION: No significant stenosis of the vertebral, basilar, or posterior cerebral arteries. No aneurysm. OTHER: No dural venous sinus thrombosis on this non-dedicated study. CT face: Nasal bones and nasal cavity: The nasal bone are intact. Paranasal sinuses: There are comminuted and displaced fractures involving the anterior, inferior and posterolateral wall of the left maxillary sinus which demonstrate complete opacification. There is associated collapse of anterior and posterolateral wall of left maxillary sinus.. Orbits: Comminuted fracture involving the lateral wall of left maxillary sinus with significant displacement comminuted fracture of inferior wall of left orbit with 5 mm depression into the maxillary sinus wall. The fracture fragments impinge on left inferior and left lateral rectus muscle. The lamina papyracea are intact bilaterally. The perpendicular plate of the ethmoid bone demonstrates normal central positioning and no evidence of fracture. Mandible: No concerning lytic or sclerotic lesion is noted. No periapical hypodensity is noted surrounding the mandibular teeth. Temporomandibular joints appear unremarkable. Temporal bones: Mastoid air cells appear normally-developed and clear of fluid. The temporal bones appear intact. The middle ear cavities are clear with appropriate positioning of the ossicles. The remainder of the osseous structures of the face: Mildly displaced fracture the left zygomatic arch. Nondisplaced fracture left pterygoid plate. The pterygoid process and plates of the sphenoid bone appear intact without displaced fracture. The superior alveolar process of the maxilla is normal. Extensive amount of soft tissue swelling in the left malar and left preseptal region. Cervical: BONES/ALIGNMENT: Acute nondisplaced fracture of left transverse process C7 vertebral body. [place] images made.. DEGENERATIVE CHANGES: Mild multilevel disc and facet degenerative disease most pronounced at C4-C5. Grade 1 retrolisthesis at C4-C5. SOFT TISSUES: There is no prevertebral soft tissue swelling. Head CT: There are foci of intraparenchymal hemorrhage consistent with hemorrhagic contusion within left superior frontal gyrus, anterior aspect bilateral frontal lobes, bilateral anterior temporal poles and the right occipital lobe. The lesions are associated with surrounding vasogenic edema. The largest focus of intraparenchymal hemorrhage within left superior frontal gyrus measures 2.8 x 1.8 cm. There are also scattered areas of subarachnoid hemorrhage within the bilateral occipital lobes. Send strain changes in the brain and multiple foci of chronic lacunar infarctions as described. CTA head and neck: No intimal injury. No dissection. Moderate 65% stenosis at the origin of right cervical ICA. Mild stenosis at the origin of left subclavian artery. CT face: There are comminuted and displaced fractures involving the anterior, inferior and posterolateral wall of the left maxillary sinus which demonstrate complete opacification. There is associated collapse of anterior and posterolateral wall of left maxillary sinus.. Comminuted fracture involving the lateral wall of left maxillary sinus with significant displacement comminuted fracture of inferior wall of left orbit with 5 mm depression into the maxillary sinus wall. The fracture fragments impinge on left inferior and left lateral rectus muscle. Mildly displaced fracture of left zygomatic arch. Nondisplaced fracture left pterygoid plate. Extensive amount of soft tissue swelling in the left malar and left preseptal region. Cervical CT: Subtle nondisplaced fracture involving the left transverse process of C7 vertebral body.. Critical results were called by Dr. Lakisha Venegas MD to on 03/16/2022 at 22:35. CAROTID STENOSIS REFERENCE: The [place] Symptomatic Carotid Endarterectomy Trial (NASCET) is a method of quantifying internal carotid artery stenosis. Distal internal carotid artery diameter as the denominator for stenosis measurement: MILD = <50% stenosis. MODERATE = 50-69% stenosis. SEVERE = 70-89% stenosis. HAIRLINE/CRITICAL = 90-99% stenosis. OCCLUDED = 100% stenosis. RECOMMENDATIONS: Unavailable XR SHOULDER LEFT (MIN 2 VIEWS) Result Date: 03/17/2022 EXAMINATION: 3 XRAY VIEWS OF THE LEFT SHOULDER; THREE XRAY VIEWS OF THE RIGHT SHOULDER 03/17/2022 6:17 am COMPARISON: None. HISTORY: ORDERING SYSTEM PROVIDED HISTORY: trauma TECHNOLOGIST PROVIDED HISTORY: Ap, Scapular Y, Axillary. Thank you. trauma 62-year-old female with acute bilateral shoulder pain after trauma FINDINGS: Right shoulder: Right AC and glenohumeral joints grossly unremarkable. Acute displaced fracture of the mid right clavicle. Visualized ribs appear intact. Atherosclerotic calcification of the aortic knob. nuclear monitoring technician leads overlie the chest. Left shoulder: Left AC and glenohumeral joints grossly unremarkable. Visualized left-sided ribs appear intact. Atherosclerotic calcification of the aortic knob. Endotracheal and enteric tubes are visualized. nuclear monitoring technician leads overlie the chest. Vertically oriented linear lucency in the proximal humeral metaphysis could represent a nondisplaced fracture. Right shoulder: Acute displaced mid right clavicular fracture. Left shoulder: Equivocal vertically oriented nondisplaced fracture through the proximal humeral metaphysis. This can be further evaluated with CT. XR CHEST PORTABLE Result Date: 03/21/2022 EXAMINATION: ONE XRAY VIEW OF THE CHEST 03/21/2022 10:06 am COMPARISON: 03/19/2022 HISTORY: ORDERING SYSTEM PROVIDED HISTORY: intubated TECHNOLOGIST PROVIDED HISTORY: intubated FINDINGS: Stable ET tube and enteric tube. Lungs are clear without focal consolidation or pulmonary edema. No evidence of pleural effusion or pneumothorax. Remote ORIF of the bilateral clavicles. Cardiomediastinal silhouette and bony thorax are unchanged. Stable exam. XR CHEST PORTABLE Result Date: 03/19/2022 EXAMINATION: ONE XRAY VIEW OF THE CHEST 03/19/2022 5:11 pm COMPARISON: 03/18/2022 HISTORY: ORDERING SYSTEM PROVIDED HISTORY: intubation TECHNOLOGIST PROVIDED HISTORY: intubation Reason for Exam: intubation port at 5pm FINDINGS: Cardiomediastinal silhouette is stable. Endotracheal tube tip projects at the mid intrathoracic trachea. Enteric tube courses below the diaphragm. The lungs are clear. No pleural effusion or pneumothorax. No gross bony abnormality. No acute process. Devices in place as above. XR CHEST PORTABLE Result Date: 03/18/2022 EXAMINATION: ONE XRAY VIEW OF THE CHEST 03/18/2022 11:41 am COMPARISON: 03/16/2022 HISTORY: ORDERING SYSTEM PROVIDED HISTORY: postop, intubated TECHNOLOGIST PROVIDED HISTORY: postop, intubated Reason for Exam: post op intubation port supine at noon FINDINGS: Cardiomediastinal silhouette is stable endotracheal tube tip projects at the thoracic inlet. Enteric tube tip and side hole course below the diaphragm. Postsurgical change of the clavicles. The lungs are clear. No pleural effusion or pneumothorax. 1. Postsurgical changes of clavicles. 2. Devices in [address] as above. XR CHEST PORTABLE Result Date: 03/16/2022 EXAMINATION: ONE XRAY VIEW OF THE CHEST 03/16/2022 9:44 pm COMPARISON: None. HISTORY: ORDERING SYSTEM PROVIDED HISTORY: trauma TECHNOLOGIST PROVIDED HISTORY: trauma Reason for Exam: fall supine port FINDINGS: The endotracheal tube terminates at the level of the clavicular heads, 4 cm above the gaye. No focal airspace disease, pneumothorax or effusion. The cardiac mediastinal contours appear within normal limits. Deformity in the mid right clavicle noted. Abnormal appearance of the mid right and mid left clavicle noted.. 1. Endotracheal tube terminates in acceptable position above the gaye. 2. No focal airspace disease identified. 3. Abnormal appearance of the mid right and mid left clavicle which may in part be due to overlapping artifact versus is mildly displaced fractures. XR ABDOMEN FOR NG/OG/NE TUBE PLACEMENT Result Date: 03/19/2022 EXAMINATION: ONE SUPINE XRAY VIEW(S) OF THE ABDOMEN 03/19/2022 7:39 am COMPARISON: None. HISTORY: ORDERING SYSTEM PROVIDED HISTORY: Confirmation of course of NG/OG/NE tube and location of tip of tube TECHNOLOGIST PROVIDED HISTORY: Confirmation of course of NG/OG/NE tube and location of tip of tube Portable?->Yes FINDINGS: Nasogastric tube tip overlies the gastric body. Nonobstructive bowel gas pattern. The lung bases appear unremarkable. Nasogastric tube tip overlies the gastric body. XR ABDOMEN FOR NG/OG/NE TUBE PLACEMENT Result Date: 03/17/2022 EXAMINATION: ONE SUPINE XRAY VIEW(S) OF THE ABDOMEN 03/17/2022 6:17 am COMPARISON: CT abdomen dated 03/16/2022. HISTORY: ORDERING SYSTEM PROVIDED HISTORY: Confirmation of course of NG/OG/NE tube and location of tip of tube TECHNOLOGIST PROVIDED HISTORY: Confirmation of course of NG/OG/NE tube and location of tip of tube Portable?->Yes FINDINGS: Enteric tube is in place with distal tip in the distal stomach/proximal duodenum. Side hole is in the mid stomach. There are multiple cardiac monitoring leads overlying the lower chest and upper abdomen. There is a nonspecific, nonobstructed bowel gas pattern. Enteric tube in place with distal tip overlying distal stomach/proximal duodenum. No evidence of bowel obstruction. FLUORO FOR SURGICAL PROCEDURES Result Date: 03/18/2022 Radiology exam is complete. No Radiologist dictation. Please follow up with ordering provider. FLUORO FOR SURGICAL PROCEDURES Result Date: 03/18/2022 Radiology exam is complete. No Radiologist dictation. Please follow up with ordering provider. CTA HEAD NECK W CONTRAST Result Date: 03/16/2022 EXAMINATION: CT OF THE HEAD WITHOUT CONTRAST; CT OF THE FACE WITHOUT CONTRAST; CTA OF THE HEAD AND NECK WITH CONTRAST; CT OF THE CERVICAL SPINE WITHOUT CONTRAST 03/16/2022 9:39 pm; 03/16/2022 9:55 pm; 03/16/2022 9:54 pm: TECHNIQUE: CT of the head was performed without the administration of intravenous contrast. Automated exposure control, iterative reconstruction, and/or weight based adjustment of the mA/kV was utilized to reduce the radiation dose to as low as reasonably achievable.; CT of the face was performed without the administration of intravenous contrast. Multiplanar reformatted images are provided for review. Automated exposure control, iterative reconstruction, and/or weight based adjustment of the mA/kV was utilized to reduce the radiation dose to as low as reasonably achievable.; CTA of the head and neck was performed with the administration of intravenous contrast. Multiplanar reformatted images are provided for review. MIP images are provided for review. Stenosis of the internal carotid arteries measured using NASCET criteria. Automated exposure control, iterative reconstruction, and/or weight based adjustment of the mA/kV was utilized to reduce the radiation dose to as low as reasonably achievable.; CT of the cervical spine was performed without the administration of intravenous contrast. Multiplanar reformatted images are provided for review. Automated exposure control, iterative reconstruction, and/or weight based adjustment of the mA/kV was utilized to reduce the radiation dose to as low as reasonably achievable. Noncontrast CT of the head with reconstructed 2-D images are also provided for review. COMPARISON: None. HISTORY: ORDERING SYSTEM PROVIDED HISTORY: trauma TECHNOLOGIST PROVIDED HISTORY: trauma Decision Support Exception - unselect if not a suspected or confirmed emergency medical condition->Emergency Medical Condition ([place]); ORDERING SYSTEM PROVIDED HISTORY: trauma TECHNOLOGIST PROVIDED HISTORY: trauma Decision Support Exception - unselect if not a suspected or confirmed emergency medical condition->Emergency Medical Condition ([place]); ORDERING SYSTEM PROVIDED HISTORY: trauma TECHNOLOGIST PROVIDED HISTORY: trauma Decision Support Exception - unselect if not a suspected or confirmed emergency medical condition->Emergency Medical Condition ([place]) FINDINGS: Head CT: There are foci of intraparenchymal hemorrhage consistent with hemorrhagic contusion within left superior frontal gyrus, anterior aspect bilateral frontal lobes, bilateral anterior temporal poles and the right occipital lobe. The lesions are associated with surrounding vasogenic edema. The largest focus of intraparenchymal hemorrhage within left superior frontal gyrus measures 2.8 x 1.8 cm. There are also scattered areas of subarachnoid hemorrhage within the bilateral occipital lobes. Moderate chronic microangiopathic ischemic disease. Mild generalized volume loss. Multiple chronic lacunar infarction involving left davis radiata right davis radiata and bilateral lentiform nucleus and right thalamus. . The brain parenchyma is normal. The cerebellar tonsils are in normal position. The ventricles, sulci, and cisterns are within normal limits in size and configuration. The globes and orbits are within normal limits. The visualized extracranial structures including paranasal sinuses and mastoid air cells are unremarkable. No fracture is identified. CTA NECK: AORTIC ARCH/ARCH VESSELS: No dissection or arterial injury. Mild stenosis at the origin left subclavian artery. No significant stenosis of the brachiocephalic or subclavian arteries. CAROTID ARTERIES: No dissection, arterial injury. There is moderate atherosclerotic calcification of bilateral carotid bulbs extending into the origin of internal carotid arteries resulting in moderate 60% stenosis at the origin of right cervical ICA. VERTEBRAL ARTERIES: No dissection, arterial injury, or significant stenosis. SOFT TISSUES: The lung apices are clear. No cervical or superior mediastinal lymphadenopathy. The larynx and pharynx are unremarkable. No acute abnormality of the salivary and thyroid glands. BONES: No acute osseous abnormality. CTA HEAD: ANTERIOR CIRCULATION: No significant stenosis of the intracranial internal carotid, anterior cerebral, or middle cerebral arteries. No aneurysm. POSTERIOR CIRCULATION: No significant stenosis of the vertebral, basilar, or posterior cerebral arteries. No aneurysm. OTHER: No dural venous sinus thrombosis on this non-dedicated study. CT face: Nasal bones and nasal cavity: The nasal bone are intact. Paranasal sinuses: There are comminuted and displaced fractures involving the anterior, inferior and posterolateral wall of the left maxillary sinus which demonstrate complete opacification. There is associated collapse of anterior and posterolateral wall of left maxillary sinus.. Orbits: Comminuted fracture involving the lateral wall of left maxillary sinus with significant displacement comminuted fracture of inferior wall of left orbit with 5 mm depression into the maxillary sinus wall. The fracture fragments impinge on left inferior and left lateral rectus muscle. The lamina papyracea are intact bilaterally. The perpendicular plate of the ethmoid bone demonstrates normal central positioning and no evidence of fracture. Mandible: No concerning lytic or sclerotic lesion is noted. No periapical hypodensity is noted surrounding the mandibular teeth. Temporomandibular joints appear unremarkable. Temporal bones: Mastoid air cells appear normally-developed and clear of fluid. The temporal bones appear intact. The middle ear cavities are clear with appropriate positioning of the ossicles. The remainder of the osseous structures of the face: Mildly displaced fracture the left zygomatic arch. Nondisplaced fracture left pterygoid plate. The pterygoid process and plates of the sphenoid bone appear intact without displaced fracture. The superior alveolar process of the maxilla is normal. Extensive amount of soft tissue swelling in the left malar and left preseptal region. Cervical: BONES/ALIGNMENT: Acute nondisplaced fracture of left transverse process C7 vertebral body. [place] images made.. DEGENERATIVE CHANGES: Mild multilevel disc and facet degenerative disease most pronounced at C4-C5. Grade 1 retrolisthesis at C4-C5. SOFT TISSUES: There is no prevertebral soft tissue swelling. Head CT: There are foci of intraparenchymal hemorrhage consistent with hemorrhagic contusion within left superior frontal gyrus, anterior aspect bilateral frontal lobes, bilateral anterior temporal poles and the right occipital lobe. The lesions are associated with surrounding vasogenic edema. The largest focus of intraparenchymal hemorrhage within left superior frontal gyrus measures 2.8 x 1.8 cm. There are also scattered areas of subarachnoid hemorrhage within the bilateral occipital lobes. Send strain changes in the brain and multiple foci of chronic lacunar infarctions as described. CTA head and neck: No intimal injury. No dissection. Moderate 65% stenosis at the origin of right cervical ICA. Mild stenosis at the origin of left subclavian artery. CT face: There are comminuted and displaced fractures involving the anterior, inferior and posterolateral wall of the left maxillary sinus which demonstrate complete opacification. There is associated collapse of anterior and posterolateral wall of left maxillary sinus.. Comminuted fracture involving the lateral wall of left maxillary sinus with significant displacement comminuted fracture of inferior wall of left orbit with 5 mm depression into the maxillary sinus wall. The fracture fragments impinge on left inferior and left lateral rectus muscle. Mildly displaced fracture of left zygomatic arch. Nondisplaced fracture left pterygoid plate. Extensive amount of soft tissue swelling in the left malar and left preseptal region. Cervical CT: Subtle nondisplaced fracture involving the left transverse process of C7 vertebral body.. Critical results were called by Dr. Lakisha Venegas MD to on 03/16/2022 at 22:35. CAROTID STENOSIS REFERENCE: The [place] Symptomatic Carotid Endarterectomy Trial (NASCET) is a method of quantifying internal carotid artery stenosis. Distal internal carotid artery diameter as the denominator for stenosis measurement: MILD = <50% stenosis. MODERATE = 50-69% stenosis. SEVERE = 70-89% stenosis. HAIRLINE/CRITICAL = 90-99% stenosis. OCCLUDED = 100% stenosis. RECOMMENDATIONS: Unavailable EKG: QTC within normal limits DIAGNOSIS: Intraparenchymal hemorrhage of the brain Delirium due to medical condition RISK ASSESSMENT: Moderate risk of agitation, moderate risk of accidental self-harm RECOMMENDATIONS Disposition: No indication for admission to psychiatry, she may benefit from acute rehab or long term placement Risk Management: No special precautions needed Medications: Noted that patient is currently on Zydis 7.5 mg twice daily. Her Zydis is increased to 10 mg twice daily starting today. Zoloft 25 mg daily for single dose followed by Zoloft 50 mg daily from tomorrow. she is also taking Depakote 250 mg 3 times daily. Discussed with the treating physician/ team about the patient and treatment plan Reviewed the chart Discussed with the patient risk, benefit, alternative and common side effects for the proposed medication treatment. Patient is consenting to the treatment. Thanks for the consult. Please call me if needed. Anne Bullock is a 62 y.o. female being evaluated by a Virtual Visit (video visit) encounter to address concerns as mentioned above. A caregiver was present in the room along with the patient. Pursuant to the emergency declaration under the Yang Act and the National Emergencies Act, 1135 waiver authority and the Coronavirus Preparedness and Response Supplemental Appropriations Act, this Virtual Visit was conducted with patient's (and/or legal guardian's) consent, to reduce the patient's risk of exposure to COVID-19 and provide necessary medical care. Services were provided through a video synchronous discussion virtually to substitute for in-person visit by provider. Patient is present at [facility] and I am physically present at my office in [place], [place] --STEVE ESTRELLA MD on 04/20/2022 at 1:00 PM An electronic signature was used to authenticate this note. This report has been created using voice recognition software. It may contain minor errors which are inherent in voice recognition technology. Images from the original note were not included. PROGRESS NOTE PATIENT NAME: Anne Bullock DATE: 04/20/2022 PRIMARY CARE PHYSICIAN: No primary care provider on file. HD: # 35 ASSESSMENT Patient Active Problem List Diagnosis Intraparenchymal hemorrhage of brain (HCC) Cortex (cerebral) contusion, with loss of consciousness (HCC) Cerebral edema (HCC) Fall Closed displaced fracture of shaft of left clavicle Closed displaced fracture of shaft of right clavicle Closed fracture of left proximal humerus Closed fracture of left zygomaticomaxillary complex (HCC) Acute delirium Closed fracture of left malar bone (HCC) ETOH abuse Polysubstance abuse (HCC) Moderate episode of recurrent major depressive disorder (HCC) Moderate protein-calorie malnutrition (HCC) MEDICAL DECISION MAKING AND PLAN IPH C7 tp fracture NS consulted-signed off Maxillary sinus fracture L orbit fracture L zygomatic arch fracture L pterygoid plate fracture Augmentin completed Plastics ORIF Thursday 03/29 Stitches removed Clavicle fractures Ortho consulted [facility]ings for comfort Hypertension Continue Norvasc and clonidine GI Continue diet with supplements Hyperglycemia Appreciate medicine assitance DVT proph Continue Lovenox PT/OT, OOB, ambulating Respiratory Encourage IS Psych: Zyprexa 7.5mg BID Depakote 250 mg TID Re consult psych to see if needs medication adjustment -Discontinue bedside sitter and telemetry sitter 04/10/2022. DISPO: -Medically stable for discharge. SUBJECTIVE Anne Bullock was seen evaluated bedside. No acute events overnight. Patient is tolerating diet. Voiding and having bowel function. Awaiting placement. She has been screaming out from her room more over the past day, when you go and talk with her in her room she is fine but will call out things like help OBJECTIVE VITALS: Temp: Temp: 98.1 F (36.7 C)Temp Av.2 F (36.8 C) Min: 98.1 F (36.7 C) Max: 98.3 F (36.8 C) BP Systolic (24hrs), Av , Min:108 , Max:135 Diastolic (24hrs), Av, Min:59, Max:89 Pulse Pulse Av Min: 102 Max: 106 Resp Resp Av.5 Min: 16 Max: 19 Pulse ox SpO2 Av % Min: 95 % Max: 97 % GENERAL: awake, alert, lying in bed HEENT: Left periorbital ecchymosis improving, EMOI LUNGS: normal respiratory effort HEART: normal rate and regular rhythm; surgical scars are present bilateral upper chest. ABDOMEN: Soft, nontender, nondistended EXTREMITY: no cyanosis, clubbing or edema Associated attestation - Niranjan Pelayo MD - 04/22/2022 3:47 PM EDT I personally evaluated the patient and directed the medical decision making with Resident/NAYLA after the physical/radiologic exam and laboratory values were reviewed and confirmed. ANM Physical Therapy Facility/Department: [address] ONC/MED SURG Daily Treatment Note NAME: Anne Bullock : 1960 Date of Service: 04/20/2022 Discharge Recommendations: Patient would benefit from continued therapy after discharge PT Equipment Recommendations Equipment Needed: No (defer equipment recommedations to rehab facility) Patient Diagnosis(es): The primary encounter diagnosis was Fall, initial encounter. Diagnoses of Facial laceration, initial encounter, Endotracheally intubated, Periorbital ecchymosis of left eye, initial encounter, Intraparenchymal hematoma of brain due to trauma with loss of consciousness, unspecified laterality, initial encounter ([facility]), and Hyperglycemia were also pertinent to this visit. Assessment Pt cooperative, pleasantly confused; required assistance to get OOB, transfer and ambulate; increased assistance needed when ambulating without an assistive device. Activity Tolerance: Patient tolerated treatment well Equipment Needed: No (defer equipment recommedations to rehab facility) Plan Physcial Therapy Plan General Plan: (5-6 visits weekly) Current Treatment Recommendations: Strengthening;ROM;Balance training;Functional mobility training;Transfer training;Endurance training;Gait training;Stair training;Neuromuscular re-education;Cognitive reorientation;Safety education & training;Positioning;Therapeutic activities;Patient/Caregiver education & training;Equipment evaluation, education, & procurement PT Plan of Care: Daily Restrictions Restrictions/Precautions Restrictions/Precautions: Weight Bearing, Fall Risk, General Precautions, Up as Tolerated Required Braces or Orthoses?: No Upper Extremity Weight Bearing Restrictions Right Upper Extremity Weight Bearing: Platform Left Upper Extremity Weight Bearing: Platform Other: 5 lb lifting, pushing, pulling restriction to B UE, okay to weight bear through elbows with platform walker Position Activity Restriction Other position/activity restrictions: B clavicle fx, hx stroke 3 months ago with L side deficits per chart Subjective Subjective Pain: no c/o pain Orientation Overall Orientation Status: Impaired Orientation Level: Oriented to person;Disoriented to place;Disoriented to time;Disoriented to situation (knew she was in a hospital, unable to name; thought it was Aug; knew she fell) Cognition Overall Cognitive Status: Exceptions Arousal/Alertness: Delayed responses to stimuli Following Commands: Follows multistep commands with repitition;Follows multistep commands with increased time (needs occasional tactile cues) Attention Span: Attends with cues to redirect Safety Judgement: Decreased awareness of need for assistance;Decreased awareness of need for safety Insights: Decreased awareness of deficits Initiation: Requires cues for some Sequencing: Requires cues for some Cognition Comment: tearful x 1 when talking about her injuries Objective O2 Device: None (Room air) Bed Mobility Training Bed Mobility Training: Yes Overall Level of Assistance: Moderate assistance Interventions: Safety awareness training;Verbal cues;Visual cues Rolling: Minimum assistance Supine to Sit: Moderate assistance Scooting: Maximum assistance (use of hercules bed lift; pt attempted to push herself up in bed with her feet, unable) Balance Sitting: Without support (kyphotic posture) Standing: With support (kyphotic posture) Transfer Training Transfer Training: Yes Overall Level of Assistance: Minimum assistance;Additional time Interventions: Safety awareness training;Verbal cues;Visual cues;Tactile cues Sit to Stand: Minimum assistance Stand to Sit: Minimum assistance Stand Pivot Transfers: Minimum assistance Bed to Chair: Minimum assistance Gait Training Gait Training: Yes Gait Overall Level of Assistance: Minimum assistance Interventions: Safety awareness training;Tactile cues;Verbal cues Base of Support: Narrowed Speed/Vivek: Slow;Shuffled Distance (ft): 80 Feet Assistive Device: Walker, rolling;Other (comment) (BUE platforms s/p B clavicle fractures) 2nd walk pt went 50' w/o device, mod A+1; flexed posture, narrow AVE, frequent LOB. PT Exercises Exercise Treatment: AROM in bed x 10 reps: ankle pumps, heel slides, SAQs; frequent cues for pt to complete 10 reps A/AROM Exercises: seate UE ex: hand grasp/release, elbow flexion/extension seated x 10 reps Static Sitting Balance Exercises: 5 minutes EOB with SBA, kyphotic posture; occasional drooling Static Standing Balance Exercises: worked on upright standing posture, shoulders/head back with constant cues Safety Devices Type of Devices: Call light within reach;Chair alarm in place;Gait belt;Patient at risk for falls;Left in chair;Nurse notified Restraints Restraints Initially in Place: No Goals Short Term Goals Time Frame for Short Term Goals: 20 visits Short Term Goal 1: bed mobility with CG+1 Short Term Goal 2: transfers with CG+1 Short Term Goal 3: gait with appropriate device x 50' with min A+1 Short Term Goal 4: stair ambulation x 4 steps with BHRs and min A+1 Patient Goals Patient Goals : pt didn't verbalize any goals Education Patient Education Education Given To: Patient Education Provided: Role of Therapy;Plan of Care;Transfer Training;Fall Prevention Strategies;Home Exercise Program Education Provided Comments: verbal and tactile cues given for proper WB precautions Education Method: Verbal Barriers to Learning: Cognition Education Outcome: Continued education needed Therapy Time Individual Concurrent Group Co-treatment Time In 954 Time Out 1035 Minutes 40 Timed Code Treatment Minutes: 40 Minutes Wing [facility] PT Images from the original note were not included. PROGRESS NOTE PATIENT NAME: Anne Bullock DATE: 04/19/2022 PRIMARY CARE PHYSICIAN: No primary care provider on file. HD: # 34 ASSESSMENT Patient Active Problem List Diagnosis Intraparenchymal hemorrhage of brain (HCC) Cortex (cerebral) contusion, with loss of consciousness (HCC) Cerebral edema (HCC) Fall Closed displaced fracture of shaft of left clavicle Closed displaced fracture of shaft of right clavicle Closed fracture of left proximal humerus Closed fracture of left zygomaticomaxillary complex (HCC) Acute delirium Closed fracture of left malar bone (HCC) ETOH abuse Polysubstance abuse (HCC) Moderate episode of recurrent major depressive disorder (HCC) Moderate protein-calorie malnutrition (HCC) MEDICAL DECISION MAKING AND PLAN IPH C7 tp fracture NS consulted-signed off Maxillary sinus fracture L orbit fracture L zygomatic arch fracture L pterygoid plate fracture Augmentin completed Plastics ORIF Thursday 03/29 Stitches removed Clavicle fractures Ortho consulted [facility] for comfort Hypertension Continue Norvasc and clonidine GI Continue diet with supplements Hyperglycemia Appreciate medicine assitance DVT proph Continue Lovenox PT/OT, OOB, ambulating Respiratory Encourage IS Psych: Zyprexa 5mg Depakote 250 mg TID -Discontinue bedside sitter and telemetry sitter 04/10/2022. DISPO: -Medically stable for discharge. SUBJECTIVE Anne Bullock was seen evaluated bedside. No acute events overnight. Patient is tolerating diet. Voiding and having bowel function. Awaiting placement. OBJECTIVE VITALS: Temp: Temp: 98.2 F (36.8 C)Temp Av.7 F (36.5 C) Min: 97.2 F (36.2 C) Max: 98.2 F (36.8 C) BP Systolic (24hrs), Av , Min:111 , Max:138 Diastolic (24hrs), Av, Min:60, Max:84 Pulse Pulse Av.5 Min: 91 Max: 96 Resp Resp Av Min: 16 Max: 16 Pulse ox SpO2 Av.5 % Min: 95 % Max: 96 % GENERAL: awake, alert, lying in bed HEENT: Left periorbital ecchymosis improving, EMOI LUNGS: normal respiratory effort HEART: normal rate and regular rhythm; surgical scars are present bilateral upper chest. ABDOMEN: Soft, nontender, nondistended EXTREMITY: no cyanosis, clubbing or edema Trauma Attending Attestation I have reviewed the above GCS note(s) and confirmed the ventura elements of the medical history and physical exam. I have seen and examined the pt. I have discussed the findings, established the care plan and recommendations with Resident. Daniel Ulloa DO 04/20/2022 4:52 PM Occupational Therapy Facility/Department: [address] ONC/MED SURG Occupational Therapy Daily Treatment Note Name: Anne Bullock : 1960 Date of Service: 04/18/2022 Discharge Recommendations: Patient would benefit from continued therapy after discharge in order to increase pt balance, strength and independence Assessment Performance deficits / Impairments: Decreased functional mobility ;Decreased safe awareness;Decreased balance;Decreased cognition;Decreased ADL status;Decreased endurance;Decreased high-level IADLs;Decreased strength Prognosis: Fair REQUIRES OT FOLLOW-UP: Yes Activity Tolerance Activity Tolerance: Patient Tolerated treatment well;Treatment limited secondary to decreased cognition;Patient limited by fatigue Plan Occupational Therapy Plan Times Per Week: 3-4x/wk Restrictions Restrictions/Precautions Restrictions/Precautions: Weight Bearing, Fall Risk, General Precautions, Up as Tolerated Required Braces or Orthoses?: No Upper Extremity Weight Bearing Restrictions Right Upper Extremity Weight Bearing: Platform Left Upper Extremity Weight Bearing: Platform Other: 5 lb lifting, pushing, pulling restriction to B UE, okay to weight bear through elbows with platform walker Position Activity Restriction Other position/activity restrictions: B clavicle fx, hx stroke 3 months ago with L side deficits per chart Subjective General Chart Reviewed: Yes Family / Caregiver Present: No General Comment Comments: Pt and RN agreeable to therapy this day. Pt supine in bed at start of session and retired to seated in chair at session end with call light in reach, BLE elevated, chair alarm on and all needs met. Pt denied pain throughout session. Pleasant and cooperative Objective Safety Devices Type of Devices: Gait belt;Left in chair;Chair alarm in place;Call light within reach;Patient at risk for falls;Nurse notified Restraints Restraints Initially in Place: No Balance Sitting: Without support (Pt tolerated approx 20 min seated unsupported at SBA and approx 15 min seated supported at SUP) Standing: With support (Pt tolerated approx 2 min static standing at EOB and chair with B platform walker CGA) Gait Overall Level of Assistance: Minimum assistance (EOB>chair utilizing B platform walker req min A for walker management) ADL Grooming: Modified independent ;Setup Grooming Skilled Clinical Factors: Mod I for face washing seated supported in chair UE Bathing: Stand by assistance;Setup;Verbal cueing;Increased time to complete UE Bathing Skilled Clinical Factors: UB bathing facilitated seated in chair req min verbal cues for sequencing and initiation LE Bathing: Stand by assistance;Setup;Verbal cueing;Increased time to complete LE Bathing Skilled Clinical Factors: To wash BLE seated in chair, dayna/post not attempted. SBA to wash BLE utilizing trunk and hip flexion pt req increased time with min-mod verbal cues on sequencing and initiation UE Dressing: Moderate assistance;Setup;Verbal cueing;Increased time to complete UE Dressing Skilled Clinical Factors: To doff/don gown seated in chair req mod A for threading d/t increased confusion/fatigue LE Dressing: Moderate assistance;Setup;Verbal cueing;Increased time to complete LE Dressing Skilled Clinical Factors: To doff/don B socks seated in chair pt able to doff req assist to don d/t fatigue and decreased ROM. Education/demonstration provided on figure 4 technique pt demo F carry over with increased difficulty noted with LUE Additional Comments: Throughout session pt limited per fatigue and decreased cognition. Demo P-F WB adherence throughout. Bed mobility Supine to Sit: Moderate assistance (req assist with trunk and BLE) Scooting: Maximal assistance Bed Mobility Comments: HOB elevated req increased assist to maintain NWB Transfers Sit to stand: Minimal assistance Stand to sit: Minimal assistance Transfer Comments: utilizing B platform walkers req mod verbal/tactile cues for WB adherence Cognition Overall Cognitive Status: Exceptions Arousal/Alertness: Delayed responses to stimuli Following Commands: Follows multistep commands with repitition;Follows multistep commands with increased time Attention Span: Attends with cues to redirect Safety Judgement: Decreased awareness of need for assistance;Decreased awareness of need for safety Problem Solving: Assistance required to identify errors made;Assistance required to correct errors made;Decreased awareness of errors Insights: Decreased awareness of deficits Initiation: Requires cues for some Sequencing: Requires cues for some Cognition Comment: mumbles to self throughout tasks Orientation Overall Orientation Status: Impaired Orientation Level: Oriented to person;Oriented to place;Disoriented to time;Disoriented to situation Education Given To: Patient Education Provided: Role of Therapy;Transfer Training;ADL Adaptive Strategies;Precautions Education Provided Comments: proper hand and foot placement; walker management; balance maintaince; WB precautions- P/F carry over Education Method: Demonstration;Verbal Education Outcome: Continued education needed AM-PAC Score [facility] Inpatient Daily Activity Raw Score: 17 (04/18/221251) [facility] Inpatient ADL T-Scale Score : 37.26 (04/18/221251) ADL Inpatient CMS 0-100% Score: 50.11 (04/18/221251) ADL Inpatient [facility] G-Code Modifier : CK (04/18/221251) Goals Short Term Goals Time Frame for Short Term Goals: pt will, by discharge Short Term Goal 1: complete LB ADLs with mod A, set up and AE, as needed Short Term Goal 2: complete UB ADLs with Modified independence (Goal updated by Neelima Frederick OTCelestina/L on 04/16/2022) Short Term Goal 3: maintain UE restrictions during functional tasks Short Term Goal 4: dem min A during bed mobility in order to increase independence Short Term Goal 5: dem 15 minutes dynamic sitting balance with SUP in order to complete functional tasks (Goal updated by Neelima HOUSER/L on 04/16/2022) Short Term Goal 6: follow 90% of simple commands with 2-3 verbal cue s for initiation, sequencing and redirection Short Term Goal 7: demo functional transfers at Min A to engage in ADL tasks (updated by Silvia HOUSER/Blake on 03/31/22) Therapy Time Individual Concurrent Group Co-treatment Time In 1040 Time Out 1124 Minutes 44 Timed Code Treatment Minutes: 44 Minutes KELI Reilly Images from the original note were not included. PROGRESS NOTE PATIENT NAME: Anne Bullock DATE: 04/18/2022 PRIMARY CARE PHYSICIAN: No primary care provider on file. HD: # 33 ASSESSMENT Patient Active Problem List Diagnosis Intraparenchymal hemorrhage of brain (HCC) Cortex (cerebral) contusion, with loss of consciousness (HCC) Cerebral edema (HCC) Fall Closed displaced fracture of shaft of left clavicle Closed displaced fracture of shaft of right clavicle Closed fracture of left proximal humerus Closed fracture of left zygomaticomaxillary complex (HCC) Acute delirium Closed fracture of left malar bone (HCC) ETOH abuse Polysubstance abuse (HCC) Moderate episode of recurrent major depressive disorder (HCC) Moderate protein-calorie malnutrition (HCC) MEDICAL DECISION MAKING AND PLAN IPH C7 tp fracture NS consulted-signed off Maxillary sinus fracture L orbit fracture L zygomatic arch fracture L pterygoid plate fracture Augmentin completed Plastics ORIF Thursday 03/29 Stitches removed Clavicle fractures Ortho consulted [facility] for comfort Hypertension Continue Norvasc and clonidine GI Continue diet with supplements Hyperglycemia Appreciate medicine assitance DVT proph Continue Lovenox PT/OT, OOB, ambulating Respiratory Encourage IS Psych: Zyprexa 5mg Depakote 250 mg TID -Discontinue bedside sitter and telemetry sitter 04/10/2022. DISPO: -Medically stable for discharge. SUBJECTIVE Anne Bullock was seen evaluated bedside. No acute events overnight. Patient is tolerating diet. Having bowel function and voiding. OBJECTIVE VITALS: Temp: Temp: 98.1 F (36.7 C)Temp Av.7 F (37.1 C) Min: 98.1 F (36.7 C) Max: 99.2 F (37.3 C) BP Systolic (24hrs), Av , Min:111 , Max:144 Diastolic (24hrs), Av, Min:71, Max:90 Pulse Pulse Av Min: 98 Max: 102 Resp Resp Av.5 Min: 16 Max: 17 Pulse ox SpO2 Av.5 % Min: 95 % Max: 96 % GENERAL: awake, alert, lying in bed HEENT: Left periorbital ecchymosis improving, EMOI LUNGS: normal respiratory effort HEART: normal rate and regular rhythm; surgical scars are present bilateral upper chest. ABDOMEN: Soft, nontender, nondistended EXTREMITY: no cyanosis, clubbing or edema Attending Note I have reviewed the above TECSS note(s) and I either performed the ventura elements of the medical history and physical exam or was present with the resident when the ventura elements of the medical history and physical exam were performed. I have discussed the findings, established the care plan and recommendations with Resident. Alexa Buchanan MD 04/18/2022 11:32 AM Images from the original note were not included. Physical Therapy Physical Therapy Cancel Note DATE: 04/17/2022 NAME: Anne Bullock : 1960 Patient not seen this date for Physical Therapy due to: Other: RN and witting spent increase time to arouse patient to participate with therapy to no avail. Will check back tomorrow Images from the original note were not included. PROGRESS NOTE PATIENT NAME: nAne Bullock DATE: 04/17/2022 PRIMARY CARE PHYSICIAN: No primary care provider on file. HD: # 32 ASSESSMENT Patient Active Problem List Diagnosis Intraparenchymal hemorrhage of brain (HCC) Cortex (cerebral) contusion, with loss of consciousness (HCC) Cerebral edema (HCC) Fall Closed displaced fracture of shaft of left clavicle Closed displaced fracture of shaft of right clavicle Closed fracture of left proximal humerus Closed fracture of left zygomaticomaxillary complex (HCC) Acute delirium Closed fracture of left malar bone (HCC) ETOH abuse Polysubstance abuse (HCC) Moderate episode of recurrent major depressive disorder (HCC) Moderate protein-calorie malnutrition (HCC) MEDICAL DECISION MAKING AND PLAN IPH C7 tp fracture NS consulted-signed off Maxillary sinus fracture L orbit fracture L zygomatic arch fracture L pterygoid plate fracture Augmentin completed Plastics ORIF Thursday 03/29 Stitches removed Clavicle fractures Ortho consulted [facility] for comfort Hypertension Continue Norvasc and clonidine GI Continue diet with supplements Hyperglycemia Appreciate medicine assitance DVT proph Continue Lovenox PT/OT, OOB, ambulating Respiratory Encourage IS Psych: Zyprexa 5mg Depakote 250 mg TID -Discontinue bedside sitter and telemetry sitter 04/10/2022. DISPO: -Medically stable for discharge. SUBJECTIVE Anne Bullock was seen evaluated bedside. No acute events overnight. Patient is tolerating diet. She is voiding spontaneously. Bowel movement yesterday. OBJECTIVE VITALS: Temp: Temp: 98.1 F (36.7 C)Temp Av.5 F (36.9 C) Min: 98.1 F (36.7 C) Max: 99.1 F (37.3 C) BP Systolic (24hrs), Av , Min:115 , Max:125 Diastolic (24hrs), Av, Min:60, Max:74 Pulse Pulse Av.7 Min: 75 Max: 93 Resp Resp Av.7 Min: 17 Max: 18 Pulse ox SpO2 Av.7 % Min: 95 % Max: 96 % GENERAL: awake, alert, lying in bed HEENT: Left periorbital ecchymosis improving, EMOI LUNGS: normal respiratory effort HEART: normal rate and regular rhythm; surgical scars are present bilateral upper chest. ABDOMEN: Soft, nontender, nondistended EXTREMITY: no cyanosis, clubbing or edema Attending Note Application has been made to Medicaid on her behalf I have reviewed the above TECSS note(s) and I either performed the ventura elements of the medical history and physical exam or was present with the resident when the ventura elements of the medical history and physical exam were performed. I have discussed the findings, established the care plan and recommendations with Resident, TOM RN. Alexa Buchanan MD 04/17/2022 12:24 PM Physical Therapy Facility/Department: [address] ONC/MED SURG Physical Therapy Daily Treatment Note Name: Anne Bullock : 1960 Date of Service: 04/16/2022 Discharge Recommendations: Patient would benefit from continued therapy after discharge PT Equipment Recommendations Equipment Needed: No Patient Diagnosis(es): The primary encounter diagnosis was Fall, initial encounter. Diagnoses of Facial laceration, initial encounter, Endotracheally intubated, Periorbital ecchymosis of left eye, initial encounter, Intraparenchymal hematoma of brain due to trauma with loss of consciousness, unspecified laterality, initial encounter (HCC), and Hyperglycemia were also pertinent to this visit. Past Medical History: has a past medical history of Depression. Past Surgical History: has a past surgical history that includes Clavicle surgery (Bilateral, 03/18/2022); Open reduction malar fracture (Left, 03/29/2022); and Facial Fracture Surgery (Left, 03/29/2022). Assessment Body Structures, Functions, Activity Limitations Requiring Skilled Therapeutic Intervention: Decreased functional mobility ;Decreased safe awareness;Decreased cognition;Decreased endurance;Decreased balance;Decreased posture Assessment: Pt ambulated 50ft x2 with B platform walker and Adelfo, assistance required for safe RW management. Pt limited by decreased strength and endurance, recommending continued PT to address deficits and maximize safety and independence with mobility. Therapy Prognosis: Good Requires PT Follow-Up: Yes Activity Tolerance Activity Tolerance: Patient tolerated treatment well;Patient limited by endurance;Patient limited by fatigue Plan Physcial Therapy Plan General Plan: (5-6x/week) Specific Instructions for Next Treatment: balance and activity tolerance with ambulation /seated balance and transfers Current Treatment Recommendations: Strengthening, ROM, Balance training, Functional mobility training, Transfer training, Endurance training, Gait training, Stair training, Neuromuscular re-education, Cognitive reorientation, Safety education & training, Positioning, Therapeutic activities, Patient/Caregiver education & training, Equipment evaluation, education, & procurement Safety Devices Type of Devices: Gait belt, Left in chair, Chair alarm in place, Call light within reach, Patient at risk for falls, Nurse notified Restraints Restraints Initially in Place: No Restraints: . Restrictions Restrictions/Precautions Restrictions/Precautions: Weight Bearing, Fall Risk, General Precautions, Up as Tolerated Required Braces or Orthoses?: No Upper Extremity Weight Bearing Restrictions Right Upper Extremity Weight Bearing: Platform Left Upper Extremity Weight Bearing: Platform Other: 5 lb lifting, pushing, pulling restriction to B UE, okay to weight bear through elbows with platform walker Position Activity Restriction Other position/activity restrictions: B clavicle fx, hx stroke 3 months ago with L side deficits per chart Subjective General Chart Reviewed: Yes Patient assessed for rehabilitation services?: Yes Response To Previous Treatment: Patient with no complaints from previous session. Family / Caregiver Present: No Follows Commands: Within Functional Limits General Comment Comments: Pt returned to seated in chair at end of session with call light in reach. Subjective Subjective: Pt and RN agreeable to PT this afternoon. Pt seated in chair upon arrival with no c/o pain. Pt cooperative throughout session. Cognition Orientation Overall Orientation Status: Impaired Orientation Level: Oriented to person;Disoriented to situation;Disoriented to time;Oriented to place Cognition Overall Cognitive Status: Exceptions Arousal/Alertness: Inconsistent responses to stimuli;Delayed responses to stimuli Following Commands: Follows multistep commands with repitition;Follows multistep commands with increased time;Inconsistently follows commands Attention Span: Attends with cues to redirect Memory: Decreased recall of precautions Safety Judgement: Decreased awareness of need for assistance;Decreased awareness of need for safety Problem Solving: Decreased awareness of errors;Assistance required to identify errors made;Assistance required to correct errors made Insights: Decreased awareness of deficits Initiation: Requires cues for some Sequencing: Requires cues for some Cognition Comment: mumbles to self throughout tasks; Shouts at therapist on several occasions towards the end of session, becoming increasingly agitated. Objective Bed mobility Supine to Sit: Unable to assess Sit to Supine: Unable to assess Scooting: Unable to assess Bed Mobility Comments: pt seated in chair at start/end of session Transfers Sit to Stand: Maximum Assistance Stand to Sit: Maximum Assistance Comment: B platform walker used, cues provided to maintain WB precautions throughout. Ambulation WB Status: PWB BUE's okay to bear weight through B elbows for use of platform walker. Ambulation Surface: Level tile Device: Platform Walker right;Platform Walker left Assistance: Minimal assistance Quality of Gait: narrow AVE Gait Deviations: Slow Vivek;Decreased step length;Decreased step height Distance: 50ft x2 Comments: Pt required assistance with safe RW progression especially when turning. More Ambulation?: No Stairs/Curb Stairs?: No Balance Posture: Fair Sitting - Static: Good Sitting - Dynamic: Good;- Standing - Static: Fair Standing - Dynamic: Fair Comments: standing balance assessed with bilateral UE platform walker AM-PAC Score AM-PAC Inpatient Mobility Raw Score : 16 (04/16/221553) AM-PAC Inpatient T-Scale Score : 40.78 (04/16/221553) Mobility Inpatient CMS 0-100% Score: 54.16 (04/16/221553) Mobility Inpatient CMS G-Code Modifier : CK (04/16/221553) Goals Short Term Goals Time Frame for Short Term Goals: 20 visits Short Term Goal 1: bed mobility with CG+1 Short Term Goal 2: transfers with CG+1 Short Term Goal 3: gait with appropriate device x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 Subjective Subjective: Pt seated in recliner chair upon arrival, agreeable to PT. Pt pleasant and cooperative t/o. Cognition Orientation Overall Orientation Status: Impaired Orientation Level: Oriented to person;Disoriented to situation;Disoriented to time;Oriented to place Cognition Overall Cognitive Status: Exceptions Arousal/Alertness: Appropriate responses to stimuli Following Commands: Follows one step commands with increased time Attention Span: Attends with cues to redirect Memory: Decreased recall of biographical Information;Decreased recall of precautions;Decreased recall of recent events Safety Judgement: Decreased awareness of need for assistance;Decreased awareness of need for safety Problem Solving: Decreased awareness of errors;Assistance required to identify errors made;Assistance required to correct errors made Insights: Decreased awareness of deficits Initiation: Requires cues for some Sequencing: Requires cues for some Cognition Comment: soft spoken Objective Bed mobility Bed Mobility Comments: ANTONIO: pt in recliner t/o Transfers Sit to Stand: Moderate Assistance Stand to Sit: Moderate Assistance Comment: Assessed to platform RW; max verbal cues during transition about WB precautions Ambulation WB Status: PWB BUEs Ambulation Surface: Level tile Device: Platform Walker right;Platform Walker left Assistance: Minimal assistance Quality of Gait: narrow AVE Gait Deviations: Slow Vivek;Decreased step length;Decreased step height Distance: 40 ft, seated rest period, 40 ft Comments: maxA for RW mvmt especially during turns to maintain B UE WB status Balance Posture: Fair Sitting - Static: Good Sitting - Dynamic: Good;- Standing - Static: Fair Standing - Dynamic: Fair Comments: standing balance assessed with bilateral UE platform walker Exercise Treatment: Seated LE exercise program: Long Arc Quads, hip abduction/adduction, heel/toe raises, and marches. Reps: 10 with tactile and verbal cues for proper technique Outcome Scores AM-PAC Score AM-[facility] Inpatient Mobility Raw Score : 15 (04/13/22 1455) AM-PAC Inpatient T-Scale Score : 39.45 (04/13/221454) Mobility Inpatient CMS 0-100% Score: 57.7 (04/13/221454) Mobility Inpatient CMS G-Code Modifier : CK (04/13/221454) Goals Short Term Goals Time Frame for Short Term Goals: 20 visits Short Term Goal 1: bed mobility with CG+1 Short Term Goal 2: transfers with CG+1 Short Term Goal 3: gait with appropriate device x 50' with min A+1 Short Term Goal 4: stair ambulation x 4 steps with BHRs and min A+1 Patient Goals Patient Goals : pt didn't verbalize any goals Education Patient Education Education Given To: Patient Education Provided: Role of Therapy;Plan of Care;Transfer Training;Fall Prevention Strategies;Home Exercise Program Education Provided Comments: verbal and tactile cues given for proper WB precautions Education Method: Verbal Barriers to Learning: Cognition Education Outcome: Continued education needed Therapy Time Individual Concurrent Group Co-treatment Time In 1428 Time Out 1451 Minutes 23 Timed Code Treatment Minutes: 23 Minutes RONAN HEAD PTA Speech Language Pathology Speech Language Pathology [facility] Cognitive and Language Treatment Note Date: 04/13/2022 Patient s Name: Anne Bullock Diagnosis: Patient Active Problem List Diagnosis Code Intraparenchymal hemorrhage of brain (HCC) I61.9 Cortex (cerebral) contusion, with loss of consciousness (HCC) S06.2X9A Cerebral edema (HCC) G93.6 Fall W19.XXXA Closed displaced fracture of shaft of left clavicle S42.022A Closed displaced fracture of shaft of right clavicle S42.021A Closed fracture of left proximal humerus S42.202A Closed fracture of left zygomaticomaxillary complex (HCC) S02.40FA, S02.32XA, S02.40DA, S02.82XA Acute delirium R41.0 Closed fracture of left malar bone (HCC) S02.40BA ETOH abuse F10.10 Polysubstance abuse (HCC) F19.10 Moderate episode of recurrent major depressive disorder (HCC) F33.1 Moderate protein-calorie malnutrition (HCC) E44.0 Pain: 0/10 Cognitive Treatment Treatment time: 6406-3561 Subjective: [x] Alert [x] Cooperative [] Confused [] Agitated [] Lethargic Objective/Assessment: Orientation: Pt oriented to self and month independently. Oriented to year and location with mod-max verbal cues and choices Recall: Delayed recall of 2 functional units: 2/2 independently, 0/2 increased to 2/2 with mod verbal cues Memory and mental manipulation- size: 3 units: 6/10 increased to 10/10 with mod-max verbal cues and repetitions. Organization: Generative naming concrete: +1 increased to 2 with mod-max verbal cues, +2 increased to 4 with mod-max verbal cues Problem Solving/Reasoning: Functional problem solving questions: 2/6 increased to 6/6 with min-mod verbal cues Note pt requires min-mod verbal and visual cues to attend to left side of paper (pt coloring prior to ST's arrival). Pt able to read words with approx 75% accuracy on left side of page with min verbal and visual cues to attend to left. Dysphagia: Pt observed with advanced trials soft and bite size, note prolonged/nonfunctional mastication and pocketing on left side. Pt with decreased bolus awareness. Pt expectorates soft solid bolus with mod verbal cues. Pt tolerates x4 trials thin liquid by straw with no overt s/s of aspiration. Recommend pt continue current diet of Dysphagia Minced and Moist (Dysphagia II) diet with thin liquids. Pt expectorated soft solid bolus with cues. Recommend assist feed, check for pocketing on left, small sips and bites, only feed when alert and awake and upright at 90 degrees for all PO intake. Recommend pt complete modified barium swallow study if s/s of aspiration occur. Speech: Pt. Seen for O/M treatment program for dysarthria. Pt. Completed O/M exercises X 3-5 X 1 sets with mod-max verbal and visual cues. Education provided re: compensatory strategies to increase speech intelligibility/clarity. Note improved volume this date Pt. Verbalized understanding. Exercise program left at bedside. Other: Note cognitive fatigue as tasks continued, pt verbalized frustration and benefited from occasional breaks. Plan: [x] Continue ST services [] Discharge from ST: Discharge recommendations: [] Further therapy recommended at discharge.The patient should be able to tolerate at least 3 hours of therapy per day over 5 days or 15 hours over 7 days. [x] Further therapy recommended at discharge. [] No therapy recommended at discharge. Treatment completed by: ZULEMA Morales, M.S. [facility] Images from the original note were not included. PROGRESS NOTE PATIENT NAME: Anne Bullock DATE: 04/13/2022 PRIMARY CARE PHYSICIAN: No primary care provider on file. HD: # 28 ASSESSMENT Patient Active Problem List Diagnosis Intraparenchymal hemorrhage of brain (HCC) Cortex (cerebral) contusion, with loss of consciousness (HCC) Cerebral edema (HCC) Fall Closed displaced fracture of shaft of left clavicle Closed displaced fracture of shaft of right clavicle Closed fracture of left proximal humerus Closed fracture of left zygomaticomaxillary complex (HCC) Acute delirium Closed fracture of left malar bone (HCC) ETOH abuse Polysubstance abuse (HCC) Moderate episode of recurrent major depressive disorder (HCC) Moderate protein-calorie malnutrition (HCC) MEDICAL DECISION MAKING AND PLAN IPH C7 tp fracture NS consulted-signed off Maxillary sinus fracture L orbit fracture L zygomatic arch fracture L pterygoid plate fracture Augmentin completed Plastics ORIF Thursday 03/29 Stitches removed Clavicle fractures Ortho consulted [facility] for comfort Hypertension Continue Norvasc and clonidine GI Continue diet with supplements Hyperglycemia Appreciate medicine assitance DVT proph Continue Lovenox PT/OT, OOB, ambulating Psych: Zyprexa 5mg Depakote 250 mg TID -Discontinue bedside sitter and telemetry sitter 04/10/2022. DISPO: -Medically stable for discharge. SUBJECTIVE The patient was seen and evaluated at bedside. No acute events overnight. Sleeping this morning, tolerating diet, no nausea or emesis. Bowel function and voiding. OBJECTIVE VITALS: Temp: Temp: 98 F (36.7 C)Temp Av.5 F (36.9 C) Min: 98 F (36.7 C) Max: 98.6 F (37 C) BP Systolic (24hrs), Av , Min:121 , Max:140 Diastolic (24hrs), Av, Min:71, Max:85 Pulse Pulse Av.3 Min: 91 Max: 116 Resp Resp Av.3 Min: 16 Max: 18 Pulse ox SpO2 Av.2 % Min: 96 % Max: 98 % GENERAL: awake, alert, no distress resting in the chair HEENT: Left periorbital ecchymosis improving LUNGS: Equal rise and fall of chest, no distress HEART: normal rate and regular rhythm; surgical scars are present bilateral upper chest. ABDOMEN: soft, non-tender, non-distended no rebound tenderness EXTREMITY: no cyanosis, clubbing or edema Associated attestation - Taqueria Coates MD - 04/14/2022 1:17 AM EDT I personally evaluated the patient and directed the medical decision making with Resident/NAYLA after the physical/radiologic exam and laboratory values were reviewed and confirmed. Doing well. Sitting in chair. Pending SNF. S. Zac Coates MD Pt. Does not require O2 at this time. SpO2 on room air is 98% Images from the original note were not included. PROGRESS NOTE PATIENT NAME: Anne HicksRory DATE: 04/12/2022 PRIMARY CARE PHYSICIAN: No primary care provider on file. HD: # 27 ASSESSMENT Patient Active Problem List Diagnosis Intraparenchymal hemorrhage of brain (HCC) Cortex (cerebral) contusion, with loss of consciousness (HCC) Cerebral edema (HCC) Fall Closed displaced fracture of shaft of left clavicle Closed displaced fracture of shaft of right clavicle Closed fracture of left proximal humerus Closed fracture of left zygomaticomaxillary complex (HCC) Acute delirium Closed fracture of left malar bone (HCC) ETOH abuse Polysubstance abuse (HCC) Moderate episode of recurrent major depressive disorder (HCC) Moderate protein-calorie malnutrition (HCC) MEDICAL DECISION MAKING AND PLAN IPH C7 tp fracture NS consulted-signed off Maxillary sinus fracture L orbit fracture L zygomatic arch fracture L pterygoid plate fracture Augmentin completed Plastics ORIF Thursday 03/29 Stitches removed Clavicle fractures Ortho consulted [facility] for comfort Hypertension Continue Norvasc and clonidine GI Continue diet with supplements Hyperglycemia Appreciate medicine assitance DVT proph Continue Lovenox PT/OT, OOB, ambulating Psych: Zyprexa 5mg Depakote 250 mg TID -Discontinue bedside sitter and telemetry sitter 04/10/2022. DISPO: -Medically stable for discharge. SUBJECTIVE The patient was seen and evaluated at bedside. No acute events overnight, tolerating diet, no nausea or emesis, not complaining of any pain, having bowel function, voiding. OBJECTIVE VITALS: Temp: Temp: 98.6 F (37 C)Temp Av.1 F (36.7 C) Min: 97.4 F (36.3 C) Max: 98.6 F (37 C) BP Systolic (24hrs), Av , Min:111 , Max:141 Diastolic (24hrs), Av, Min:71, Max:83 Pulse Pulse Av.6 Min: 93 Max: 116 Resp Resp Av Min: 16 Max: 18 Pulse ox SpO2 Av.5 % Min: 96 % Max: 99 % GENERAL: awake, alert, no distress resting in the chair HEENT: Left periorbital ecchymosis improving LUNGS: Equal rise and fall of chest, no distress HEART: normal rate and regular rhythm; surgical scars are present bilateral upper chest. ABDOMEN: soft, non-tender, non-distended no rebound tenderness EXTREMITY: no cyanosis, clubbing or edema Associated attestation - Niranjan Pelayo MD - 04/15/2022 10:42 AM EDT I personally evaluated the patient and directed the medical decision making with Resident/NAYLA after the physical/radiologic exam and laboratory values were reviewed and confirmed. ANM Images from the original note were not included. PROGRESS NOTE PATIENT NAME: Anne Bullock DATE: 04/11/2022 PRIMARY CARE PHYSICIAN: No primary care provider on file. HD: # 26 ASSESSMENT Patient Active Problem List Diagnosis Intraparenchymal hemorrhage of brain (HCC) Cortex (cerebral) contusion, with loss of consciousness (HCC) Cerebral edema (HCC) Fall Closed displaced fracture of shaft of left clavicle Closed displaced fracture of shaft of right clavicle Closed fracture of left proximal humerus Closed fracture of left zygomaticomaxillary complex (HCC) Acute delirium Closed fracture of left malar bone (HCC) ETOH abuse Polysubstance abuse (HCC) Moderate episode of recurrent major depressive disorder (HCC) Moderate protein-calorie malnutrition (HCC) MEDICAL DECISION MAKING AND PLAN IPH C7 tp fracture NS consulted-signed off Maxillary sinus fracture L orbit fracture L zygomatic arch fracture L pterygoid plate fracture Augmentin completed Plastics ORIF Thursday 03/29 Stitches removed Clavicle fractures Ortho consulted [facility] for comfort Hypertension Continue Norvasc and clonidine GI Continue diet with supplements Hyperglycemia Appreciate medicine assitance DVT proph Continue Lovenox PT/OT, OOB, ambulating Psych: Zyprexa 5mg Depakote 250 mg TID -Discontinue bedside sitter and telemetry sitter 04/10/2022. DISPO: -Medically stable for discharge. SUBJECTIVE The patient was seen and evaluated at bedside. No acute vents overnight. Tolerating diet, no nausea or emesis, having bowel function, voiding OBJECTIVE VITALS: Temp: Temp: 98.2 F (36.8 C)Temp Av.2 F (36.8 C) Min: 98.2 F (36.8 C) Max: 98.3 F (36.8 C) BP Systolic (24hrs), Av , Min:102 , Max:130 Diastolic (24hrs), Av, Min:73, Max:85 Pulse Pulse Av.3 Min: 85 Max: 108 Resp Resp Av Min: 16 Max: 16 Pulse ox SpO2 Av.3 % Min: 96 % Max: 98 % GENERAL: awake, alert, no distress resting in the chair HEENT: Left periorbital ecchymosis improving LUNGS: Equal rise and fall of chest, no distress HEART: normal rate and regular rhythm; surgical scars are present bilateral upper chest. ABDOMEN: soft, non-tender, non-distended no rebound tenderness EXTREMITY: no cyanosis, clubbing or edema Associated attestation - Bob Modi MD - 04/12/2022 11:41 AM EDT I personally evaluated the patient and directed the medical decision making with Resident/NAYLA after the physical/radiologic exam and laboratory values were reviewed and confirmed. Bob Modi MD Images from the original note were not included. PROGRESS NOTE PATIENT NAME: Anne Bullock DATE: 04/10/2022 PRIMARY CARE PHYSICIAN: No primary care provider on file. HD: # 25 ASSESSMENT Patient Active Problem List Diagnosis Intraparenchymal hemorrhage of brain (HCC) Cortex (cerebral) contusion, with loss of consciousness (HCC) Cerebral edema (HCC) Fall Closed displaced fracture of shaft of left clavicle Closed displaced fracture of shaft of right clavicle Closed fracture of left proximal humerus Closed fracture of left zygomaticomaxillary complex (HCC) Acute delirium Closed fracture of left malar bone (HCC) ETOH abuse Polysubstance abuse (HCC) Moderate episode of recurrent major depressive disorder (HCC) Moderate protein-calorie malnutrition (HCC) MEDICAL DECISION MAKING AND PLAN IPH C7 tp fracture NS consulted-signed off Maxillary sinus fracture L orbit fracture L zygomatic arch fracture L pterygoid plate fracture Augmentin completed Plastics ORIF Thursday 03/29 Stitches removed Clavicle fractures Ortho consulted [facility] for comfort Hypertension Continue Norvasc and clonidine GI Continue diet with supplements Hyperglycemia Appreciate medicine assitance DVT proph Continue Lovenox PT/OT, OOB, ambulating Psych: Zyprexa 5mg Depakote 250 mg TID -Discontinue bedside sitter and telemetry sitter 04/10/2022. DISPO: -Medically stable for discharge. SUBJECTIVE The patient was seen and evaluated at bedside. No acute vents overnight. Awaiting placement. OBJECTIVE VITALS: Temp: Temp: 98.4 F (36.9 C)Temp Av.4 F (36.9 C) Min: 98.3 F (36.8 C) Max: 98.4 F (36.9 C) BP Systolic (24hrs), Av , Min:116 , Max:135 Diastolic (24hrs), Av, Min:77, Max:82 Pulse Pulse Av.3 Min: 95 Max: 124 Resp Resp Av.7 Min: 16 Max: 18 Pulse ox SpO2 Av.7 % Min: 96 % Max: 97 % GENERAL: awake, alert, no distress resting in the chair HEENT: Left periorbital ecchymosis improving LUNGS: Equal rise and fall of chest, no distress HEART: normal rate and regular rhythm; surgical scars are present bilateral upper chest. ABDOMEN: soft, non-tender, non-distended no rebound tenderness EXTREMITY: no cyanosis, clubbing or edema Associated attestation - Bob Modi MD - 04/10/2022 7:12 PM EDT I personally evaluated the patient and directed the medical decision making with Resident/NAYLA after the physical/radiologic exam and laboratory values were reviewed and confirmed. Bob Modi MD Orders received to discontinue the telesitter. Pt has been sitting in the chair most of the day; does get antsy and impulsive but redirects without difficulty. Chair alarm on while up to chair. Bed alarm on while in bed. Call light in reach. Will continue to monitor pt and implement safety measures. Images from the original note were not included. PROGRESS NOTE PATIENT NAME: Anne [facility] DATE: 04/09/2022 PRIMARY CARE PHYSICIAN: No primary care provider on file. HD: # 24 ASSESSMENT Patient Active Problem List Diagnosis Intraparenchymal hemorrhage of brain (HCC) Cortex (cerebral) contusion, with loss of consciousness (HCC) Cerebral edema (HCC) Fall Closed displaced fracture of shaft of left clavicle Closed displaced fracture of shaft of right clavicle Closed fracture of left proximal humerus Closed fracture of left zygomaticomaxillary complex (HCC) Acute delirium Closed fracture of left malar bone (HCC) ETOH abuse Polysubstance abuse (HCC) Moderate episode of recurrent major depressive disorder (HCC) Moderate protein-calorie malnutrition (HCC) MEDICAL DECISION MAKING AND PLAN IPH C7 tp fracture NS consulted-signed off Maxillary sinus fracture L orbit fracture L zygomatic arch fracture L pterygoid plate fracture Augmentin completed Plastics ORIF Thursday 03/29 Stitches removed Clavicle fractures Ortho consulted [facility] for comfort Hypertension Continue Norvasc and clonidine GI Continue diet with supplements Hyperglycemia Appreciate medicine assitance DVT proph Continue Lovenox PT/OT, OOB, ambulating Psych: Zyprexa 5mg Depakote 250 mg TID DISPO: -continue to monitor glucose -anticipate discharge in next 24 hours. SUBJECTIVE Patient was seen evaluated at bedside. No acute events overnight. Patient was hyperglycemic. Tolerating a diet OBJECTIVE VITALS: Temp: Temp: 98.3 F (36.8 C)Temp Av.4 F (36.9 C) Min: 98.2 F (36.8 C) Max: 98.6 F (37 C) BP Systolic (24hrs), Av , Min:143 , Max:155 Diastolic (24hrs), Av, Min:86, Max:100 Pulse Pulse Av.3 Min: 100 Max: 111 Resp Resp Av.3 Min: 16 Max: 20 Pulse ox SpO2 Av % Min: 97 % Max: 97 % GENERAL: awake, alert, no distress HEENT: Left periorbital ecchymosis improving LUNGS: Equal rise and fall of chest, no distress HEART: normal rate and regular rhythm; surgical scars are present bilateral upper chest. ABDOMEN: soft, non-tender, non-distended no rebound tenderness EXTREMITY: no cyanosis, clubbing or edema Associated attestation - Taqueria Coates MD - 04/14/2022 1:43 PM EDT I personally evaluated the patient and directed the medical decision making with Resident/NAYLA after the physical/radiologic exam and laboratory values were reviewed and confirmed. Belia Coates MD Physical Therapy Facility/Department: [address] ONC/MED SURG Physical Therapy Daily treatment note Name: Anne Bullock : 1960 Date of Service: 04/09/2022 Discharge Recommendations: Patient would benefit from continued therapy after discharge PT Equipment Recommendations Equipment Needed: No (skilled assist need for ALL functional mobility, CTA) Patient Diagnosis(es): The primary encounter diagnosis was Fall, initial encounter. Diagnoses of Facial laceration, initial encounter, Endotracheally intubated, Periorbital ecchymosis of left eye, initial encounter, Intraparenchymal hematoma of brain due to trauma with loss of consciousness, unspecified laterality, initial encounter (HCC), and Hyperglycemia were also pertinent to this visit. Assessment Body Structures, Functions, Activity Limitations Requiring Skilled Therapeutic Intervention: Decreased functional mobility ;Decreased safe awareness;Decreased cognition;Decreased endurance;Decreased balance;Decreased posture Assessment: Pt amb 20 ft with B platform walker and MIN A. Limited by cognitive deficits. Recommend contiuned PT after d/c Specific Instructions for Next Treatment: balance and activity tolerance with ambulation /seated balance and transfers Therapy Prognosis: Fair Decision Making: Medium Complexity Barriers to Learning: cognition Requires PT Follow-Up: Yes Activity Tolerance Activity Tolerance: Treatment limited secondary to decreased cognition Activity Tolerance Comments: pt cooperative but impulsive and needed constant tactile cues to remain on task, increased endurance with AMB with B platform walker Plan Physcial Therapy Plan General Plan: (5-6 x week) Specific Instructions for Next Treatment: balance and activity tolerance with ambulation /seated balance and transfers Current Treatment Recommendations: Strengthening, ROM, Balance training, Functional mobility training, Transfer training, Endurance training, Gait training, Stair training, Neuromuscular re-education, Cognitive reorientation, Safety education & training, Positioning, Therapeutic activities, Patient/Caregiver education & training, Equipment evaluation, education, & procurement Safety Devices Type of Devices: Call light within reach, Gait belt, Telesitter in use, Nurse notified, Patient at risk for falls, Left in chair, Chair alarm in place Restraints Restraints Initially in Place: No Restraints: x4 bed rails with bed buddies Restrictions Restrictions/Precautions Restrictions/Precautions: Weight Bearing, Cardiac, Fall Risk, General Precautions, Up as Tolerated Required Braces or Orthoses?: No Upper Extremity Weight Bearing Restrictions Right Upper Extremity Weight Bearing: Platform Left Upper Extremity Weight Bearing: Platform Other: 5 lb lifting, pushing, pulling restriction to B UE, okay to weight bear through elbows with platform walker Position Activity Restriction Other position/activity restrictions: B clavicle fx, hx stroke 3 months ago with L side deficits per chart Subjective General Chart Reviewed: Yes Patient assessed for rehabilitation services?: Yes Response To Previous Treatment: Patient with no complaints from previous session. Family / Caregiver Present: No Follows Commands: Impaired Other (Comment): pt follows ~50% of verbal cueing provided with increased time to process General Comment Comments: Pt retired to bed, given callight, bed alarm set with sitter at beside Subjective Subjective: Pt seated in recliner chair upon arrival, agreeable to PT, confused/disoriented throughout Cognition Orientation Overall Orientation Status: Impaired Orientation Level: Oriented to person;Disoriented to situation;Disoriented to time;Disoriented to place Cognition Overall Cognitive Status: Exceptions Arousal/Alertness: Appropriate responses to stimuli Following Commands: Inconsistently follows commands;Follows one step commands with repetition;Follows one step commands with increased time Attention Span: Attends with cues to redirect;Difficulty dividing attention Memory: Decreased recall of biographical Information;Decreased recall of precautions;Decreased recall of recent events Safety Judgement: Decreased awareness of need for assistance;Decreased awareness of need for safety Problem Solving: Decreased awareness of errors;Assistance required to identify errors made;Assistance required to correct errors made Insights: Decreased awareness of deficits Initiation: Requires cues for all Sequencing: Requires cues for all Cognition Comment: soft spoken, mumbles to self under breath Bed mobility Scooting: Contact guard assistance Bed Mobility Comments: increased time to complete due to difficulty with processing Transfers Sit to Stand: Moderate Assistance Stand to Sit: Moderate Assistance Comment: sit to stand MOD A with cues to for sequencing and maintain B UE WB status, poor carryover Ambulation WB Status: PWB BUEs Ambulation Surface: Level tile Device: Platform Walker right;Platform Walker left Assistance: Minimal assistance Quality of Gait: extremely slow vivek, decreased WB through L LE, narrow AVE with scissoring, occasional post lean with up to MIN A to correct Distance: 20 ft Comments: significant increased time to complete due to difficulty with sequencing and following cues More Ambulation?: No Stairs/Curb Stairs?: No Balance Posture: Poor Sitting - Static: Fair Sitting - Dynamic: Fair Standing - Static: Fair;- Standing - Dynamic: Poor;+ Comments: standing balance assessed with bilateral UE platform walker Exercise Treatment: Pt unable to follow commands for ther ex, therpist PROM LEs all planes as able x10 AM-PAC Score AM-PAC Inpatient Mobility Raw Score : 13 (04/09/221558) AM-PAC Inpatient T-Scale Score : 36.74 (04/09/221558) Mobility Inpatient CMS 0-100% Score: 64.91 (04/09/221558) Mobility Inpatient CMS G-Code Modifier : CL (04/09/221558) Goals Short Term Goals Time Frame for Short Term Goals: 20 visits Short Term Goal 1: bed mobility with CG+1 Short Term Goal 2: transfers with CG+1 Short Term Goal 3: gait with appropriate device x 50' with min A+1 Short Term Goal 4: stair ambulation x 4 steps with BHRs and min A+1 Patient Goals Patient Goals : pt didn't verbalize any goals Education Patient Education Education Given To: Patient Education Provided: Role of Therapy;Plan of Care;Transfer Training;Fall Prevention Strategies;Home Exercise Program Education Provided Comments: verbal and tactile cues given t/o entire session Education Method: Verbal Barriers to Learning: Cognition Education Outcome: Continued education needed Therapy Time Individual Concurrent Group Co-treatment Time In 1516 Time Out 1539 Minutes 23 Timed Code Treatment Minutes: 23 Minutes Aliya Ornelas PTA Speech Language Pathology Speech Language Pathology [facility] Cognitive and Language Treatment Note Date: 04/09/2022 Patient s Name: Anne Bullock Diagnosis: Patient Active Problem List Diagnosis Code Intraparenchymal hemorrhage of brain (HCC) I61.9 Cortex (cerebral) contusion, with loss of consciousness (HCC) S06.2X9A Cerebral edema (HCC) G93.6 Fall W19.XXXA Closed displaced fracture of shaft of left clavicle S42.022A Closed displaced fracture of shaft of right clavicle S42.021A Closed fracture of left proximal humerus S42.202A Closed fracture of left zygomaticomaxillary complex (HCC) S02.40FA, S02.32XA, S02.40DA, S02.82XA Acute delirium R41.0 Closed fracture of left malar bone (HCC) S02.40BA ETOH abuse F10.10 Polysubstance abuse (HCC) F19.10 Moderate episode of recurrent major depressive disorder ([facility]) F33.1 Moderate protein-calorie malnutrition (HCC) E44.0 Pain: 0/10 Cognitive Treatment Treatment time: 7276-3290 Subjective: [x] Alert [x] Cooperative [] Confused [] Agitated [] Lethargic Objective/Assessment: Orientation: Pt oriented to self and year, disoriented to month and location. Recall: Delayed recall of orientation with senior environmental engineer: 3/3 referring to aid independently, 3/3 with min visual cue to utilize aid Organization: Generative naming concrete: 1 increased to 2 with mod-max verbal cues, 0 increased to 3 with mod-max verbal cues Problem Solving/Reasoning: Functional problem solving questions: 2/6 increased to 6/6 with min-mod verbal cues Expressive language: answering what questions: 2/6 increased to 6/6 with mod verbal and phonemic cues. Speech: Pt. Seen for O/M treatment program for dysarthria. Pt. Completed O/M exercises X 1-5 X 1 sets with mod-max verbal and visual cues. Education provided re: compensatory strategies to increase speech intelligibility/clarity. Note pt speaks with decreased volume, targeted increasing breath support/loudness this date with max verbal cues and models. Pt. Verbalized understanding. Exercise program left at bedside. Plan: [x] Continue ST services [] Discharge from ST: Discharge recommendations: [] Further therapy recommended at discharge.The patient should be able to tolerate at least 3 hours of therapy per day over 5 days or 15 hours over 7 days. [x] Further therapy recommended at discharge. [] No therapy recommended at discharge. Treatment completed by: Louise Garner TILE HELPER, M.S. [facility]-TILE HELPER Comprehensive Nutrition Assessment Type and Reason for Visit: Reassess Nutrition Recommendations/Plan: Continue diet and ONS as ordered Monitor weight, labs and intake Malnutrition Assessment: Malnutrition Status: Insufficient data (03/31/22 1209) Context: Acute Illness Findings of the 6 clinical characteristics of malnutrition: Energy Intake: Mild decrease in energy intake (Comment) Weight Loss: Unable to assess Body Fat Loss: Unable to assess Orbital Muscle Mass Loss: Moderate muscle mass loss Thigh (quadraceps), Calf (gastrocnemius) Fluid Accumulation: No significant fluid accumulation Minister Of Religion Strength: Not Performed Nutrition Assessment: Chart reviewed. Diet upgraded to minced and moist. Patient reports a good intake. She states that she likes both the ensure and the magic cups. Per EMR, intake is 76-100% of meals. Last BM 04/08. Nutrition Related Findings: Labs/meds reviewed Wound Type: Multiple, Surgical Incision Current Nutrition Intake & Therapies: Average Meal Intake: 76-100% Average Supplements Intake: 76-100% ADULT ORAL NUTRITION SUPPLEMENT; Breakfast, Lunch, Dinner; Frozen Oral Supplement ADULT ORAL NUTRITION SUPPLEMENT; Breakfast, Lunch, Dinner; Standard High Calorie/High Protein Oral Supplement ADULT DIET; Dysphagia - Minced and Moist Anthropometric Measures: Height: 5' 9 (175.3 cm) [place] Body Weight (IBW): 145 lbs (66 kg) Admission Body Weight: 132 lb 4.4 oz (60 kg) Current Body Weight: 119 lb 0.8 oz (54 kg), 82.3 % IBW. Weight Source: Bed Scale Current BMI (kg/m2): 17.6 Usual Body Weight: (UTO) BMI Categories: Underweight (BMI less than 18.5) Estimated Daily Nutrient Needs: Energy Requirements Based On: Kcal/kg Weight Used for Energy Requirements: Current Energy (kcal/day): 6883-0053 kcals/day Weight Used for Protein Requirements: Current Protein (g/day): 80 gm pro/day Method Used for Fluid Requirements: Other (Comment) Fluid (ml/day): per MD Nutrition Diagnosis: No nutrition diagnosis at this time Nutrition Interventions: Food and/or Nutrient Delivery: Continue Current Diet, Continue Oral Nutrition Supplement Nutrition Education/Counseling: No recommendation at this time Coordination of Nutrition Care: Continue to monitor while inpatient Plan of Care discussed with: Patient Goals: Previous Goal Met: Goal(s) Achieved Goals: Meet at least 75% of estimated needs Nutrition Monitoring and Evaluation: Behavioral-Environmental Outcomes: None Identified Food/Nutrient Intake Outcomes: Food and Nutrient Intake, Supplement Intake Physical Signs/Symptoms Outcomes: Biochemical Data, Nutrition Focused Physical Findings, Skin, Weight, Chewing or Swallowing, Meal Time Behavior Discharge Planning: Continue Oral Nutrition Supplement Silvia Sheldon RD Contact: [phone] Images from the original note were not included. [facility] Office: [phone] Torrey Ayala DO, Williams Barros DO, Attila Avelar DO, Thony Jefferson DO, Ralf Benitez MD, Juli Schafer MD, Maria Fernanda Raphael MD, Opal Hedrick MD, Elgin Soriano MD, Nino Hernandez MD, Miguel Iraheta DO, Justin Vieira MD, Rosangela Castillo DO, Lexus Eid MD, Timi Delgado MD, Raimundo Ayala DO, Lizette Marvin MD, Di Tipton MD, Richa Burns MD, Jeanette Thomas MD, Martita Brooks MD, Christine Pedro MD, Dontae Rodriguez DO, Kendra Frost MD, Wei Dotson MD, Melissa Campos CNP, Candy Sprague CNP, Lita Pelayo CNP, Leo Saunders, SHANK BURNISHER, Brandee Guy, ALFREDO, Kimberly Ritchie, SHANK BURNISHER, Filomena Reyna, SHANK BURNISHER, Kirsten Tan SHANK BURNISHER, Margaret Lay CNP, May Walden CNP, Cholo Rivera PA-C, Nidhi Payton, COMPLETIONS ENGINEER, Regla Salmeron, DNP, Paige Garcia, SHANK BURNISHER, Marylou Miller, SHANK BURNISHER, Karol Arce, SHANK BURNISHER [facility] IN-PATIENT SERVICE [facility] Progress Note 04/09/2022 8:21 AM Name: Anne Bullock Acct: [id number] Room: [address] [place] [address]- IP Day: 24 Admit Date: 03/16/2022 9:19 PM PCP: No primary care provider on file. Code Status: Full Code Subjective: C/C: No chief complaint on file. fall Interval History Status: improved. Patietn seen and examined. Mentation much better. Knows she is in the hospital and that she had changed rooms. Is sstill confused about the state but does accept [place] when redirected. Brief History: This is a 62-year-old female past medical history of alcohol abuse, polysubstance abuse originally presented to the ER after trauma alert from [facility] patient fell 10 feet with GCS around 3 patient was intubated by EMS due to head injury. Patient was put on propofol drip and was given Versed and LifeFlight. Orthopedic surgery was consulted recommended bilateral slings when out of restraints patient was also found to have intraparenchymal hemorrhage left frontal region as well as subarachnoid hemorrhage with bilateral occipital lobes and left maxillary sinus fracture. Patient was also evaluated by neurology with no acute intervention at time was noted to have a severe contusion of the left orbit with fracture of left anterior and lateral orbital wall. Patient was also seen by neurosurgery and was cleared cervical collar as well as okay for DVT prophylaxis. Patient underwent left clavicle open reduction internal fixation, right clavicle open reduction internal fixation and closed treatment of proximal humerus on 03/18/2022 with orthopedic surgery. Patient also failed extubation on 03/18/2017 and required reintubation and was later extubated on 03/21/2022. Patient was also given Augmentin for maxillary sinus fractures psychiatry was consulted on 03/25/2022 due to delirium and agitation and lack of cooperation. Was started on Zyprexa 2.5 mg twice daily. Patient underwent ORIF of malar complex fracture on 03/29/2022 with plastic surgery. Surgery was reconsulted started on Depakote 250 mg 3 times daily and Zyprexa was increased to 5 mg twice daily. patient's mentation improved with increased zyprexa and no longer needing bed side sitter. Review of Systems: Review of Systems Constitutional: Negative for activity change, appetite change, chills, fatigue and fever. HENT: Negative for congestion, ear pain, facial swelling and mouth sores. Eyes: Negative for discharge and itching. Respiratory: Negative for apnea and chest tightness. Cardiovascular: Negative for chest pain and leg swelling. Gastrointestinal: Negative for abdominal distention, abdominal pain, constipation and diarrhea. Endocrine: Negative for cold intolerance, polyphagia and polyuria. Genitourinary: Negative for difficulty urinating, dysuria and flank pain. Musculoskeletal: Negative for arthralgias, back pain and joint swelling. Skin: Negative for color change and wound. Neurological: Negative for dizziness, seizures, weakness, light-headedness and headaches. Psychiatric/Behavioral: Negative for agitation, behavioral problems, decreased concentration and self-injury. Medications: Allergies: No Known Allergies Current Meds: Scheduled Meds: sodium chloride 500 mL IntraVENous Once metFORMIN 500 mg Oral BID WC insulin lispro 0-4 Units SubCUTAneous TID WC insulin lispro 0-4 Units SubCUTAneous Nightly cloNIDine 0.1 mg Oral BID OLANZapine zydis 7.5 mg Oral BID divalproex 250 mg Oral 3 times per day enoxaparin 30 mg SubCUTAneous BID amLODIPine 5 mg Oral Daily folic acid 1 mg Oral Daily polyethylene glycol 17 g Oral Daily Continuous Infusions: dextrose PRN Meds: glucose, dextrose bolus OR dextrose bolus, glucagon (rDNA), dextrose, acetaminophen, ipratropium-albuterol, sodium chloride flush Data: Past Medical History: has a past medical history of Depression. Social History: Family History: History reviewed. No pertinent family history. Vitals: BP (!) 155/87 Pulse 100 Temp 98.3 F (36.8 C) (Oral) Resp 16 Ht 5' 9 (1.753 m) Wt 119 lb 0.8 oz (54 kg) SpO2 97% BMI 17.58 kg/m Temp (24hrs), Av.3 F (36.8 C), Min:98.2 F (36.8 C), Max:98.6 F (37 C) Recent Labs 04/08/22192204/08/22205504/09/22 0557 04/09/22 0727 POCGLU 241* 192* 213* 186* I/O (24Hr): Intake/Output Summary (Last 24 hours) at 04/09/2022 0821 Last data filed at 04/09/2022 0600 Gross per 24 hour Intake 1300 ml Output -- Net 1300 ml Labs: Hematology: Recent Labs 04/07/22 0806 04/09/22 0736 WBC 7.3 8.8 RBC 3.34* 3.99 HGB 10.9* 12.9 HCT 32.2* 38.6 MCV 96.4 96.7 MCH 32.6 32.3 MCHC 33.9 33.4 RDW 12.3 12.1 PLT 187 160 MPV 12.8 12.5 Chemistry: Recent Labs 04/07/22 0806 04/09/22 0736 NA 138 139 K 4.1 4.0 CL 102 102 CO2 27 25 GLUCOSE 166* 194* BUN 17 18 CREATININE 0.49* 0.51 ANIONGAP 9 12 LABGLOM >60 >60 CALCIUM 8.7 9.4 Recent Labs 04/07/22 0806 04/07/22 1248 04/08/22 1207 04/08/22 1656 04/08/22 1923 04/08/22 2056 04/09/22 0557 04/09/22 0727 LABA1C 6.8* -- -- -- -- -- -- -- POCGLU -- < > 160* 205* 241* 192* 213* 186* < > = values in this interval not displayed. ABG: Lab Results Component Value Date/Time POCPH 7.413 03/21/2022 05:50 AM POCPCO2 40.7 03/21/2022 05:50 AM POCPO2 102.2 03/21/2022 05:50 AM POCHCO3 26.0 03/21/2022 05:50 AM NBEA 4 03/18/2022 12:07 PM PBEA 1 03/21/2022 05:50 AM OMBA3DYU 98 03/21/2022 05:50 AM FIO2 30.0 03/21/2022 05:50 AM No results found for: SPECIAL No results found for: CULTURE Radiology: XR CLAVICLE LEFT Result Date: 04/01/2022 Unchanged findings related to internal fixation of the bilateral clavicles with no evident complication. XR CLAVICLE RIGHT Result Date: 04/01/2022 Unchanged findings related to internal fixation of the bilateral clavicles with no evident complication. XR SHOULDER LEFT (MIN 2 VIEWS) Result Date: 04/02/2022 1. Longitudinally oriented lucency extending through the proximal humerus which is not as conspicuous as the previous shoulder radiographs and may represent a nondisplaced fracture. There appears to be a corresponding lucency in a similar region on prior chest CT. 2. Intact hardware traversing a minimally to nondisplaced left midclavicular fracture. Physical Examination: Physical Exam Constitutional: General: She is not in acute distress. Appearance: She is ill-appearing. She is not diaphoretic. HENT: Head: Normocephalic. Right Ear: External ear normal. Left Ear: External ear normal. Nose: Nose normal. Mouth/Throat: Mouth: Mucous membranes are moist. Eyes: Pupils: Pupils are equal, round, and reactive to light. Cardiovascular: Rate and Rhythm: Normal rate and regular rhythm. Pulses: Normal pulses. Heart sounds: No murmur heard. Pulmonary: Breath sounds: No wheezing or rales. Chest: Comments: Bilateral well healing clavicular incisions Abdominal: General: Bowel sounds are normal. There is no distension. Palpations: Abdomen is soft. Musculoskeletal: Cervical back: Neck supple. Right lower leg: No edema. Left lower leg: No edema. Skin: General: Skin is warm and dry. Capillary Refill: Capillary refill takes less than 2 seconds. Coloration: Skin is pale. Neurological: Mental Status: She is alert and oriented to person, place, and time. Motor: Weakness present. Psychiatric: Mood and Affect: Mood normal. Behavior: Behavior normal. Assessment: Hospital Problems Last Modified POA Intraparenchymal hemorrhage of brain (HCC) 03/17/2022 Yes Cortex (cerebral) contusion, with loss of consciousness (HCC) 03/17/2022 Yes Cerebral edema (HCC) 03/17/2022 Yes Fall 03/18/2022 Yes Closed displaced fracture of shaft of left clavicle 03/18/2022 Yes Closed displaced fracture of shaft of right clavicle 03/18/2022 Yes Closed fracture of left proximal humerus 03/18/2022 Yes Closed fracture of left zygomaticomaxillary complex (HCC) 03/23/2022 Yes Acute delirium 04/07/2022 Yes Closed fracture of left malar bone (HCC) 04/07/2022 Yes ETOH abuse 04/07/2022 Yes Polysubstance abuse (HCC) 04/07/2022 Yes Moderate episode of recurrent major depressive disorder (HCC) 04/07/2022 Yes Moderate protein-calorie malnutrition (HCC) 04/07/2022 Yes Plan: Continue metformin and ISS, hypoglycemia protocol Continue zyprexa and keppra. Mentation improving Minced moist diet, continue speech therapy HTN controlled with norvasc and clonidine No objection to discharge from internal medicine perspective. Will sign off. feel free to contact us at anytime. Justin Vieira MD 04/09/2022 8:21 AM Physical Therapy Facility/Department: [address] ONC/MED SURG Physical Therapy daily treatment note Name: Anne Bullock : 1960 Date of Service: 04/08/2022 Discharge Recommendations: Patient would benefit from continued therapy after discharge PT Equipment Recommendations Equipment Needed: No Patient Diagnosis(es): The primary encounter diagnosis was Fall, initial encounter. Diagnoses of Facial laceration, initial encounter, Endotracheally intubated, Periorbital ecchymosis of left eye, initial encounter, Intraparenchymal hematoma of brain due to trauma with loss of consciousness, unspecified laterality, initial encounter ([facility]), and Hyperglycemia were also pertinent to this visit. Past Medical History: has a past medical history of Depression. Past Surgical History: has a past surgical history that includes Clavicle surgery (Bilateral, 03/18/2022); Open reduction malar fracture (Left, 03/29/2022); and Facial Fracture Surgery (Left, 03/29/2022). Assessment Body Structures, Functions, Activity Limitations Requiring Skilled Therapeutic Intervention: Decreased functional mobility ;Decreased safe awareness;Decreased cognition;Decreased endurance;Decreased balance;Decreased posture Assessment: Pt amb 20 ft with B platform walker and MIN A. Limited by cognitive deficits. Recommend contiuned PT after d/c Therapy Prognosis: Fair Activity Tolerance Activity Tolerance: Treatment limited secondary to decreased cognition Plan Physcial Therapy Plan General Plan: (5-6x) Specific Instructions for Next Treatment: balance and activity tolerance with ambulation /seated balance and transfers Current Treatment Recommendations: Strengthening, ROM, Balance training, Functional mobility training, Transfer training, Endurance training, Gait training, Stair training, Neuromuscular re-education, Cognitive reorientation, Safety education & training, Positioning, Therapeutic activities, Patient/Caregiver education & training, Equipment evaluation, education, & procurement Safety Devices Type of Devices: Call light within reach, Gait belt, Telesitter in use, Nurse notified, Patient at risk for falls, Left in chair, Chair alarm in place Restraints Restraints Initially in Place: No Restraints: x4 bed rails with bed buddies Restrictions Restrictions/Precautions Restrictions/Precautions: Weight Bearing, Cardiac, Fall Risk, General Precautions, Up as Tolerated Required Braces or Orthoses?: No Upper Extremity Weight Bearing Restrictions Right Upper Extremity Weight Bearing: Platform Left Upper Extremity Weight Bearing: Platform Other: 5 lb lifting, pushing, pulling restriction to B UE, okay to weight bear through elbows with platform walker Position Activity Restriction Other position/activity restrictions: B clavicle fx, hx stroke 3 months ago with L side deficits per chart Subjective General Patient assessed for rehabilitation services?: Yes Response To Previous Treatment: Patient with no complaints from previous session. Family / Caregiver Present: No Follows Commands: Impaired Other (Comment): pt follows ~50% of verbal cueing provided with increased time to process Subjective Subjective: Pt resting in bed upon arrival, agreeable to PT, confused/disoriented throughout Cognition Orientation Overall Orientation Status: Impaired Orientation Level: Oriented to person;Disoriented to situation;Disoriented to time;Disoriented to place Objective Bed mobility Rolling to Left: Minimal assistance Supine to Sit: Minimal assistance Scooting: Minimal assistance Bed Mobility Comments: increased time to complete due to difficulty with processing Transfers Sit to Stand: Moderate Assistance Stand to Sit: Moderate Assistance Bed to Chair: Minimal assistance Comment: sit to stand MOD A with cues to for sequencing and maintain B UE WB status, poor carryover Ambulation WB Status: PWB BUEs Ambulation Surface: Level tile Device: Platform Walker right;Platform Walker left Assistance: Minimal assistance Quality of Gait: extremely slow vivek, decreased WB through L LE, narrow AVE with scissoring, occasional post lean with up to MIN A to correct Distance: 20 ft Comments: significant increased time to complete due to difficulty with sequencing and following cues More Ambulation?: No Balance Posture: Poor Sitting - Static: Fair Sitting - Dynamic: Fair Standing - Static: Fair;- Standing - Dynamic: Poor;+ Comments: standing balance assessed with bilateral UE platform walker AM-PAC Score AM-PAC Inpatient Mobility Raw Score : 13 (04/08/22 144) AM-PAC Inpatient T-Scale Score : 36.74 (04/08/221439) Mobility Inpatient CMS 0-100% Score: 64.91 (04/08/22 144) Mobility Inpatient CMS G-Code Modifier : CL (04/08/221439) Goals Short Term Goals Time Frame for Short Term Goals: 20 visits Short Term Goal 1: bed mobility with CG+1 Short Term Goal 2: transfers with CG+1 Short Term Goal 3: gait with appropriate device x 50' with min A+1 Short Term Goal 4: stair ambulation x 4 steps with BHRs and min A+1 Patient Goals Patient Goals : pt didn't verbalize any goals Therapy Time Individual Concurrent Group Co-treatment Time In 1402 Time Out 1428 Minutes 26 Timed Code Treatment Minutes: 26 Minutes Melinda Najera PTA Speech Language Pathology Facility/Department: [address] ONC/MED SURG CLINICAL BEDSIDE SWALLOW EVALUATION NAME: Anne Bullcok : 1960 ADMISSION DATE: 03/16/2022 ADMITTING DIAGNOSIS: has Intraparenchymal hemorrhage of brain (HCC); Cortex (cerebral) contusion, with loss of consciousness (HCC); Cerebral edema (HCC); Fall; Closed displaced fracture of shaft of left clavicle; Closed displaced fracture of shaft of right clavicle; Closed fracture of left proximal humerus; Closed fracture of left zygomaticomaxillary complex (HCC); Acute delirium; Closed fracture of left malar bone (HCC); ETOH abuse; Polysubstance abuse (HCC); Moderate episode of recurrent major depressive disorder (HCC); and Moderate protein-calorie malnutrition (HCC) on their problem list. Date of Eval: 04/08/2022 Evaluating Therapist: Louise Garner TILE HELPER Current Diet level: Current Diet : Pureed, thin Primary Complaint female that presented to the Emergency Department following fall from height of 10 feet. History was obtained by EMS. Patient was not responsive at the site. Patient was intubated, cervical collar was placed, backboarded, given morphine and 20 mg of Versed during transportation, patient was GCS 3-15 for the EMS personnel. Pain: Pain Assessment Pain Assessment: None - Denies Pain Pain Level: 0 Soriano-Medina Pain Rating: No hurt Patient's Stated Pain Goal: 0 - No pain Pain Location: Face Pain Orientation: Right, Left Pain Descriptors: Sharp Functional Pain Assessment: Activities are not prevented Non-Pharmaceutical Pain Intervention(s): Rest Faces, Legs, Activity, Cry, and Consolability (FLACC) Face (F): no particular expression or smile Legs (L): normal position or relaxed Activity (A): lying quietly, normal position, moves easily Cry (C): no cry (awake or asleep) Consolability (C): content, relaxed FLACC Score : 0 Reason for Referral Anne Bullock was referred for a bedside swallow evaluation to assess the efficiency of her swallow function, identify signs and symptoms of aspiration and make recommendations regarding safe dietary consistencies, effective compensatory strategies, and safe eating environment. Impression Patient presents with probable safe swallow for Dysphagia Minced and Moist (Dysphagia II) diet with thin liquids as evidenced by no overt s/s of aspiration noted with these consistencies when tested. Decreased bolus awareness and bolus control, prolonged/perseverative mastication of solids. Pt expectorated soft solid bolus with cues. Recommend small sips and bites, only feed when alert and awake and upright at 90 degrees for all PO intake. Recommend close monitoring for overt/clinical s/s of aspiration and D/C PO intake and complete Modified Barium Swallow Study should they occur. Results and recommendations reported to RN. Dysphagia Diagnosis: Moderate oral stage dysphagia Dysphagia Outcome Severity Scale: Level 3: Moderate dysphagia- Total assisstance, supervision or strategies. Two or more diet consistencies restricted Treatment Plan Requires TILE HELPER Intervention: Yes D/C Recommendations: Ongoing speech therapy is recommended during this hospitalization;Ongoing speech therapy is recommended at next level of care Recommended Diet and Intervention Solids: Dysphagia Minced and Moist (Dysphagia II) Liquids: Thin Recommended Form of Meds: PO Therapeutic Interventions: Diet tolerance monitoring;Oral care;Patient/Family education;Therapeutic PO trials with TILE HELPER Compensatory Swallowing Strategies Compensatory Swallowing Strategies : Alternate solids and liquids;Eat/Feed slowly;Upright as possible for all oral intake;Small bites/sips Treatment/Goals Dysphagia Goals: The patient will tolerate recommended diet without observed clinical signs of aspiration;The patient/caregiver will demonstrate understanding of compensatory strategies for improved swallowing safety. General Chart Reviewed: Yes Behavior/Cognition: Cooperative;Confused Follows Directions: Simple Dentition: Adequate Patient Positioning: Upright in bed Baseline Vocal Quality: Normal Consistencies Administered: All Vision/Hearing Vision Vision: Within Functional Limits Hearing Hearing: Within functional limits Oral Motor Deficits Left weakness Note drooling prior to oral trials Oral Phase Dysfunction Oral Phase Oral Phase: Exceptions Oral Phase Oral Phase - Comment: Note pt with drooling prior to oral trials. Pt takes large bites when self feeding. Pt with prolonged, nonfunctional/perseverative mastication of soft and regular solids. Note decreased bolus awareness, temporarily stopping mastication and speaking/distracted by environment. Pt with pocketing on left side, unable to fully clear. Pt eventually expectorates soft solid when cued. Indicators of Pharyngeal Phase Dysfunction Pharyngeal Phase Pharyngeal Phase: No overt s/s of aspiration with puree, thin liquid, regular solid. +cough during mastication of soft solid Prognosis Individuals consulted Consulted and agree with results and recommendations: Patient;RN Education Patient Education: yes Patient Education Response: Verbalizes understanding;Needs reinforcement Therapy Time [id number] ZULEMA Morales 04/08/2022 2:30 PM Bedside sitter discontinued. Telesitter remains in place. Speech Language Pathology Speech Language Pathology [facility] Speech Language Treatment Note Date: 04/08/2022 Patient s Name: Anne Bullock Diagnosis: Patient Active Problem List Diagnosis Code Intraparenchymal hemorrhage of brain ([facility]) I61.9 Cortex (cerebral) contusion, with loss of consciousness ([facility]) S06.2X9A Cerebral edema ([facility]) G93.6 Fall W19.XXXA Closed displaced fracture of shaft of left clavicle S42.022A Closed displaced fracture of shaft of right clavicle S42.021A Closed fracture of left proximal humerus S42.202A Closed fracture of left zygomaticomaxillary complex (HCC) S02.40FA, S02.32XA, S02.40DA, S02.82XA Acute delirium R41.0 Closed fracture of left malar bone (HCC) S02.40BA ETOH abuse F10.10 Polysubstance abuse (HCC) F19.10 Moderate episode of recurrent major depressive disorder (HCC) F33.1 Moderate protein-calorie malnutrition (HCC) E44.0 Pain: 0/10 Speech and Language Treatment Treatment time: 4471-3323 Subjective: [x] Alert [x] Cooperative [] Confused [] Agitated [] Lethargic Objective/Assessment: Auditory Comprehension: 1 Step Commands: 4/4 independently 2 Step Commands: 2/4 not increased with visual cues 3 Step Commands: 0/2 not increased with visual cues Object Identification: 3/4 independently Y/N Questions (Sentence Comprehension): 2/6 independently Paragraph Comprehension: /10 independently Verbal Expression: Completing Sentences: 3/5 independently Word Repetition: 3/3 independently Sentence Repetition: 5/5 independently Confrontational Namin/5 independently Responsive Namin/6 independently Divergent Namin animals/30 seconds independently Goals: Pt. Will follow 2 step commands with 90% accuracy. Pt. Will answer y/n questions with 90% accuracy. Pt. Will generate 4 units in a category with 90% accuracy. Pt. Will complete sentence completion tasks with 90% accuracy. Pt. Will answer WH questions with 90% accuracy. Plan: [x] Continue ST services [] Discharge from ST: Discharge recommendations: [] Further therapy recommended at discharge.The patient should be able to tolerate at least 3 hours of therapy per day over 5 days or 15 hours over 7 days. [x] Further therapy recommended at discharge. [] No therapy recommended at discharge. Completed by: Jessika Morrow Hardener Helper Clinician Cosigned By: Brandy Varma M.S.CCC/TILE HELPER Images from the original note were not included. [facility] Office: [phone] Torrey Ayala DO, Williams Barros DO, Attila Avelar DO, Thony Jefferson DO, Ralf Benitez MD, Juli Schafer MD, Maria Fernanda Raphael MD, Opal Hedrick MD, Elgin Soriano MD, Nino Hernandez MD, Miguel Iraheta DO, Justin Vieira MD, Rosangela Castillo DO, Lexus Eid MD, Timi Delgado MD, Raimundo Ayala DO, Lizette Marvin MD, Di Tipton MD, Richa Burns MD, Jeanette Thomas MD, Martita Brooks MD, Christine Pedro MD, Dontae Rodriguez DO, Kendra Frost MD, Wei Dotson MD, Melissa Campos, SHANK BURNISHER, Candy Sprague SHANK BURNISHER, Lita Pelayo, SHANK BURNISHER, Leo Saunders, SHANK BURNISHER, Brandee Guy, DNP, Kimberly Ritchie, SHANK BURNISHER, Filomena Reyna, SHANK BURNISHER, Kirsten Tan, SHANK BURNISHER, Margaret Lay, SHANK BURNISHER, May Walden, SHANK BURNISHER, LILIAN Dobbs-C, Nidhi Payton, COMPLETIONS ENGINEER, Regla Salmeron, DNP, Paige Garcia, SHANK BURNISHER, Marylou Miller, SHANK BURNISHER, Karol Arce, SHANK BURNISHER [facility] IN-PATIENT SERVICE [facility] Progress Note 04/08/2022 8:32 AM Name: Anne Bullock Acct: [id number] Room: [facility] Day: 23 Admit Date: 03/16/2022 9:19 PM PCP: No primary care provider on file. Code Status: Full Code Subjective: C/C: No chief complaint on file. fall Interval History Status: improved. Patietn seen and examined. Alert to person, knows she is in a hospital when given prompts. Doesn't know date. Can recollect that she must have had a fall but doesn't remember how but does remember it was probably in detention. Pleasant in conversation and BP stable, glucose slightly high but no episodes of hypoglycemia Brief History: This is a 62-year-old female past medical history of alcohol abuse, polysubstance abuse originally presented to the ER after trauma alert from [facility] patient fell 10 feet with GCS around 3 patient was intubated by EMS due to head injury. Patient was put on propofol drip and was given Versed and LifeFlight. Orthopedic surgery was consulted recommended bilateral slings when out of restraints patient was also found to have intraparenchymal hemorrhage left frontal region as well as subarachnoid hemorrhage with bilateral occipital lobes and left maxillary sinus fracture. Patient was also evaluated by neurology with no acute intervention at time was noted to have a severe contusion of the left orbit with fracture of left anterior and lateral orbital wall. Patient was also seen by neurosurgery and was cleared cervical collar as well as okay for DVT prophylaxis. Patient underwent left clavicle open reduction internal fixation, right clavicle open reduction internal fixation and closed treatment of proximal humerus on 03/18/2022 with orthopedic surgery. Patient also failed extubation on 03/18/2017 and required reintubation and was later extubated on 03/21/2022. Patient was also given Augmentin for maxillary sinus fractures psychiatry was consulted on 03/25/2022 due to delirium and agitation and lack of cooperation. Was started on Zyprexa 2.5 mg twice daily. Patient underwent ORIF of malar complex fracture on 03/29/2022 with plastic surgery. Surgery was reconsulted started on Depakote 250 mg 3 times daily and Zyprexa was increased to 5 mg twice daily. Fortunately due to lack of cooperation and agitation still requires bedside sitter. Review of Systems: Review of Systems Constitutional: Positive for fatigue. Negative for activity change, appetite change, chills and fever. HENT: Negative for congestion, ear pain, facial swelling and mouth sores. Eyes: Negative for discharge and itching. Respiratory: Negative for apnea and chest tightness. Cardiovascular: Negative for chest pain and leg swelling. Gastrointestinal: Negative for abdominal distention, abdominal pain, constipation and diarrhea. Endocrine: Negative for cold intolerance, polyphagia and polyuria. Genitourinary: Negative for difficulty urinating, dysuria and flank pain. Musculoskeletal: Negative for arthralgias, back pain and joint swelling. Skin: Negative for color change and wound. Neurological: Positive for weakness. Negative for dizziness, seizures, light-headedness and headaches. Psychiatric/Behavioral: Positive for decreased concentration. Negative for agitation, behavioral problems and self-injury. Medications: Allergies: No Known Allergies Current Meds: Scheduled Meds: metFORMIN 500 mg Oral BID WC insulin lispro 0-4 Units SubCUTAneous TID insulin lispro 0-4 Units SubCUTAneous Nightly cloNIDine 0.1 mg Oral BID OLANZapine zydis 7.5 mg Oral BID divalproex 250 mg Oral 3 times per day enoxaparin 30 mg SubCUTAneous BID amLODIPine 5 mg Oral Daily folic acid 1 mg Oral Daily polyethylene glycol 17 g Oral Daily Continuous Infusions: dextrose PRN Meds: glucose, dextrose bolus OR dextrose bolus, glucagon (rDNA), dextrose, acetaminophen, ipratropium-albuterol, sodium chloride flush Data: Past Medical History: has a past medical history of Depression. Social History: Family History: History reviewed. No pertinent family history. Vitals: BP (!) 162/93 Pulse (!) 102 Temp 99.5 F (37.5 C) (Oral) Resp 19 Ht 5' 9 (1.753 m) Wt 119 lb 0.8 oz (54 kg) SpO2 98% BMI 17.58 kg/m Temp (24hrs), Av F (37.2 C), Min:98.4 F (36.9 C), Max:99.5 F (37.5 C) Recent Labs 04/07/22 1248 04/07/228 04/07/22214904/08/22 0803 POCGLU 175* 204* 256* 166* I/O (24Hr): Intake/Output Summary (Last 24 hours) at 04/08/2022 0832 Last data filed at 04/07/2022 1815 Gross per 24 hour Intake 600 ml Output -- Net 600 ml Labs: Hematology: Recent Labs 04/07/22 0806 WBC 7.3 RBC 3.34* HGB 10.9* HCT 32.2* MCV 96.4 MCH 32.6 MCHC 33.9 RDW 12.3 PLT 187 MPV 12.8 Chemistry: Recent Labs 04/07/22 0806 NA 138 K 4.1 CL 102 CO2 27 GLUCOSE 166* BUN 17 CREATININE 0.49* ANIONGAP 9 LABGLOM >60 CALCIUM 8.7 Recent Labs 04/07/22 0539 04/07/22 0751 04/07/22 1248 04/07/22 1718 04/07/22214904/08/22 0803 POCGLU 167* 160* 175* 204* 256* 166* ABG: Lab Results Component Value Date/Time POCPH 7.413 03/21/2022 05:50 AM POCPCO2 40.7 03/21/2022 05:50 AM POCPO2 102.2 03/21/2022 05:50 AM POCHCO3 26.0 03/21/2022 05:50 AM NBEA 4 03/18/2022 12:07 PM PBEA 1 03/21/2022 05:50 AM EOWY1BCQ 98 03/21/2022 05:50 AM FIO2 30.0 03/21/2022 05:50 AM No results found for: SPECIAL No results found for: CULTURE Radiology: XR CLAVICLE LEFT Result Date: 04/01/2022 Unchanged findings related to internal fixation of the bilateral clavicles with no evident complication. XR CLAVICLE RIGHT Result Date: 04/01/2022 Unchanged findings related to internal fixation of the bilateral clavicles with no evident complication. XR SHOULDER LEFT (MIN 2 VIEWS) Result Date: 04/02/2022 1. Longitudinally oriented lucency extending through the proximal humerus which is not as conspicuous as the previous shoulder radiographs and may represent a nondisplaced fracture. There appears to be a corresponding lucency in a similar region on prior chest CT. 2. Intact hardware traversing a minimally to nondisplaced left midclavicular fracture. Physical Examination: Physical Exam Constitutional: General: She is not in acute distress. Appearance: She is ill-appearing. She is not diaphoretic. HENT: Head: Normocephalic. Right Ear: External ear normal. Left Ear: External ear normal. Nose: Nose normal. Mouth/Throat: Mouth: Mucous membranes are moist. Eyes: Pupils: Pupils are equal, round, and reactive to light. Cardiovascular: Rate and Rhythm: Normal rate and regular rhythm. Pulses: Normal pulses. Heart sounds: No murmur heard. Pulmonary: Breath sounds: No wheezing or rales. Chest: Comments: Bilateral well healing clavicular incisions Abdominal: General: Bowel sounds are normal. There is no distension. Palpations: Abdomen is soft. Musculoskeletal: Cervical back: Neck supple. Right lower leg: No edema. Left lower leg: No edema. Skin: General: Skin is warm and dry. Capillary Refill: Capillary refill takes less than 2 seconds. Coloration: Skin is pale. Neurological: Mental Status: She is alert. She is disoriented. Motor: Weakness present. Psychiatric: Mood and Affect: Mood normal. Behavior: Behavior normal. Assessment: Hospital Problems Last Modified POA Intraparenchymal hemorrhage of brain (HCC) 03/17/2022 Yes Cortex (cerebral) contusion, with loss of consciousness (HCC) 03/17/2022 Yes Cerebral edema (HCC) 03/17/2022 Yes Fall 03/18/2022 Yes Closed displaced fracture of shaft of left clavicle 03/18/2022 Yes Closed displaced fracture of shaft of right clavicle 03/18/2022 Yes Closed fracture of left proximal humerus 03/18/2022 Yes Closed fracture of left zygomaticomaxillary complex (HCC) 03/23/2022 Yes Acute delirium 04/07/2022 Yes Closed fracture of left malar bone (HCC) 04/07/2022 Yes ETOH abuse 04/07/2022 Yes Polysubstance abuse (HCC) 04/07/2022 Yes Moderate episode of recurrent major depressive disorder (HCC) 04/07/2022 Yes Moderate protein-calorie malnutrition (HCC) 04/07/2022 Yes Plan: Continue metformin and ISS, hypoglycemia protocol Patient seems to be toleratign zyprexa incresed dose, continue keppra Discussed with trauma resident, will try bed side swallow, consult to dietitician, fortified frozen supplements added HTN controlled with norvasc and clonidine Will continue to follow, no opposition for discharge from internal medicine standpoint. Discussed with nurse and trauma team Justin Vieira MD 04/08/2022 8:32 AM Images from the original note were not included. PROGRESS [facility]: 04/08/2022 PRIMARY CARE PHYSICIAN: No primary care provider on file. HD: # 23 ASSESSMENT Patient Active Problem List Diagnosis Intraparenchymal hemorrhage of brain (HCC) Cortex (cerebral) contusion, with loss of consciousness (HCC) Cerebral edema (HCC) Fall Closed displaced fracture of shaft of left clavicle Closed displaced fracture of shaft of right clavicle Closed fracture of left proximal humerus Closed fracture of left zygomaticomaxillary complex (HCC) Acute delirium Closed fracture of left malar bone (HCC) ETOH abuse Polysubstance abuse (HCC) Moderate episode of recurrent major depressive disorder (HCC) Moderate protein-calorie malnutrition (HCC) MEDICAL DECISION MAKING AND PLAN IPH C7 tp fracture NS consulted-signed off Maxillary sinus fracture L orbit fracture L zygomatic arch fracture L pterygoid plate fracture Augmentin completed Plastics ORIF Thursday 03/29 Stitches removed Clavicle fractures Ortho consulted Slings for comfort Hypertension Continue Norvasc and clonidine GI Continue diet with supplements Hyperglycemia Appreciate medicine assitance DVT proph Continue Lovenox PT/OT, OOB, ambulating Psych: Zyprexa 5mg Depakote 250 mg TID DISPO: -Pending SSN -DC bedside sitter SUBJECTIVE Patient seen this morning at bedside, no acute events overnight. NO pain. Tolerating PO, voiding and having bowel function. OBJECTIVE VITALS: Temp: Temp: 98.2 F (36.8 C)Temp Av.7 F (37.1 C) Min: 98.2 F (36.8 C) Max: 99.5 F (37.5 C) BP Systolic (24hrs), Av , Min:142 , Max:162 Diastolic (24hrs), Av, Min:78, Max:93 Pulse Pulse Av.7 Min: 84 Max: 110 Resp Resp Av.3 Min: 16 Max: 20 Pulse ox SpO2 Av.3 % Min: 97 % Max: 98 % GENERAL: awake, alert, no distress HEENT: Left periorbital ecchymosis improving LUNGS: unlabored, room air HEART: normal rate and regular rhythm; surgical scars are present bilateral upper chest. ABDOMEN: soft, non-tender, non-distended EXTREMITY: no cyanosis, clubbing or edema Associated attestation - Bob Modi MD - 04/09/2022 9:34 AM EDT I personally evaluated the patient and directed the medical decision making with Resident/NAYLA after the physical/radiologic exam and laboratory values were reviewed and confirmed. Bob Modi MD Occupational Therapy Facility/Department: [address] ONC/MED SURG Occupational Therapy Daily Treatment Note Name: Anne Bullock : 1960 Date of Service: 04/07/2022 Discharge Recommendations: Patient would benefit from continued therapy after discharge in order to increase pt balance, strength and independence Assessment Performance deficits / Impairments: Decreased functional mobility ;Decreased safe awareness;Decreased balance;Decreased cognition;Decreased ADL status;Decreased endurance;Decreased high-level IADLs;Decreased strength Prognosis: Fair REQUIRES OT FOLLOW-UP: Yes Activity Tolerance Activity Tolerance: Patient Tolerated treatment well;Treatment limited secondary to decreased cognition;Patient limited by fatigue Plan Occupational Therapy Plan Times Per Week: 3-4x/wk Restrictions Restrictions/Precautions Restrictions/Precautions: Weight Bearing, Cardiac, Fall Risk, General Precautions, Up as Tolerated Required Braces or Orthoses?: No Upper Extremity Weight Bearing Restrictions Right Upper Extremity Weight Bearing: Platform (Bilateral Upper extremities: No pushing, pulling, or lifting more than 5 lbs. Okay to weight bear through elbows when ambulating with platform walker bilaterally.) Left Upper Extremity Weight Bearing: Platform (Bilateral Upper extremities: No pushing, pulling, or lifting more than 5 lbs. Okay to weight bear through elbows when ambulating with platform walker bilaterally.) Other: 5 lb lifting, pushing, pulling restriction to B UE, okay to weight bear through elbows with platform walker Position Activity Restriction Other position/activity restrictions: B clavicle fx, hx stroke 3 months ago with L side deficits per chart Subjective General Chart Reviewed: Yes Family / Caregiver Present: No General Comment Comments: Pt and RN agreeable to therapy this day. Pt supine in bed at start of session and retired to supine in bed at session end with call light in reach, bed alarm on, bed buddies, sitter and telesitter. Pt denied pain with no facial grimacing or groaning noted Objective Safety Devices Type of Devices: Call light within reach;Gait belt;Left in bed;Sitter present;Telesitter in use;Nurse notified;Patient at risk for falls;Bed alarm in place Restraints Restraints Initially in Place: Yes Restraints: x4 bed rails with bed buddies Balance Sitting: With support (Pt tolerated approx 20 min static/dynamic sitting req CGA wtih intermitent Min A d/t post lean demo P WB adherence) Standing: With support (Mod A static standing at toilet utilizing platform walker tolerating approx 6 min total) Gait Overall Level of Assistance: Moderate assistance (EOB><bathroom utilizing platform walker req increased assist for walker management and balance) ADL Grooming: Contact guard assistance;Setup;Verbal cueing Grooming Skilled Clinical Factors: face washing and hair combing facilitated seated at EOB req CGA for balance maintaince UE Bathing: Setup;Verbal cueing;Increased time to complete;Moderate assistance UE Bathing Skilled Clinical Factors: Pt able to wash chest and part of abdomen req assist for thoroughness and for BUE, Facilitated seated at EOB LE Bathing: Moderate assistance;Setup;Verbal cueing;Increased time to complete LE Bathing Skilled Clinical Factors: seated at EOB pt able to wash from thighs to ankles with assist for thoroughness req assist for B feet and dayna/post UE Dressing: Minimal assistance;Setup;Verbal cueing;Increased time to complete UE Dressing Skilled Clinical Factors: To doff/don gown seated at EOB req MIN A for threading LE Dressing: Maximum assistance;Verbal cueing;Setup;Increased time to complete LE Dressing Skilled Clinical Factors: To doff/don socks supine in bed and for brief seated/standing Toileting: Maximum assistance;Setup;Increased time to complete Toileting Skilled Clinical Factors: Max A for toilet transfer d/t WB status and low toilet height with platform walker. Max A for brief management and Mod A for personal hygiene seated/standing pt able to assist with 1-2 wipes seated Additional Comments: Throughout session pt limited per fatigue and decreased cognition req increased time and redirection to attend to task/directions Activity Tolerance Activity Tolerance: Treatment limited secondary to decreased cognition;Patient limited by fatigue;Patient limited by endurance;Patient limited by pain Bed mobility Supine to Sit: Minimal assistance (req assist with trunk) Sit to Supine: Moderate assistance (req assist with BLE) Scooting: Moderate assistance Bed Mobility Comments: HOB Elevated req max verbal/tactile cues to maintain WB Transfers Sit to stand: Moderate assistance Stand to sit: Moderate assistance Transfer Comments: utilizing platform walker req increased assist for hand placement demo P WB adherence Cognition Overall Cognitive Status: Exceptions Arousal/Alertness: Appropriate responses to stimuli Following Commands: Inconsistently follows commands;Follows one step commands with repetition;Follows one step commands with increased time Attention Span: Attends with cues to redirect;Difficulty dividing attention Safety Judgement: Decreased awareness of need for assistance;Decreased awareness of need for safety Problem Solving: Decreased awareness of errors;Assistance required to identify errors made;Assistance required to correct errors made Insights: Decreased awareness of deficits Initiation: Requires cues for all Sequencing: Requires cues for all Cognition Comment: soft spoken, mumbles to self under breath Orientation Overall Orientation Status: Impaired Orientation Level: Oriented to person;Disoriented to situation;Disoriented to time;Disoriented to place Education Given To: Patient Education Provided: Role of Therapy;Transfer Training;ADL Adaptive Strategies;Precautions Education Provided Comments: proper hand and foot placement; walker management; balance maintaince; WB precautions- P/F carry over Education Method: Demonstration;Verbal Education Outcome: Continued education needed -[facility] Score -[facility] Inpatient Daily Activity Raw Score: 15 (04/07/221611) [facility] Inpatient ADL T-Scale Score : 34.69 (04/07/221611) ADL Inpatient CMS 0-100% Score: 56.46 (04/07/221611) ADL Inpatient [facility] G-Code Modifier : CK (04/07/221611) Goals Short Term Goals Time Frame for Short Term Goals: pt will, by discharge Short Term Goal 1: complete LB ADLs with mod A, set up and AE, as needed Short Term Goal 2: complete UB ADLs with mod A and modified tech Short Term Goal 3: maintain UE restrictions during functional tasks Short Term Goal 4: dem min A during bed mobility in order to increase independence Short Term Goal 5: dem ~8 minutes dynamic/static sitting balance on eOB with min A in order to complete functional tasks Short Term Goal 6: follow 90% of simple commands with 2-3 verbal cue s for initiation, sequencing and redirection Short Term Goal 7: demo functional transfers at Min A to engage in ADL tasks (updated by Silvia HOUSER/Blake on 03/31/22) Therapy Time Individual Concurrent Group Co-treatment Time In 1221 Time Out 1301 Minutes 40 Timed Code Treatment Minutes: 40 Minutes LAZARO Reilly/Blake Physical Therapy Facility/Department: [address] ONC/MED SURG Daily treatment note Name: Anne Bullock : 1960 Date of Service: 04/07/2022 Discharge Recommendations: Patient would benefit from continued therapy after discharge PT Equipment Recommendations Equipment Needed: No Patient Diagnosis(es): The primary encounter diagnosis was Fall, initial encounter. Diagnoses of Facial laceration, initial encounter, Endotracheally intubated, Periorbital ecchymosis of left eye, initial encounter, Intraparenchymal hematoma of brain due to trauma with loss of consciousness, unspecified laterality, initial encounter (HCC), and Hyperglycemia were also pertinent to this visit. Past Medical History: has a past medical history of Depression. Past Surgical History: has a past surgical history that includes Clavicle surgery (Bilateral, 03/18/2022); Open reduction malar fracture (Left, 03/29/2022); and Facial Fracture Surgery (Left, 03/29/2022). Assessment Body Structures, Functions, Activity Limitations Requiring Skilled Therapeutic Intervention: Decreased functional mobility ;Decreased safe awareness;Decreased cognition;Decreased endurance;Decreased balance;Decreased posture Assessment: Pt ambulates a 80ft with bilateral platform walker min-modA. Pt is a high fall risk due to confusion and level of assistance required. Recommending continued skilled physical therapy to address gait, balance and functional mobility deficits to maximzie baseline functional mobility. Therapy Prognosis: Fair Decision Making: Medium Complexity Barriers to Learning: cognition Requires PT Follow-Up: Yes Activity Tolerance Activity Tolerance: Treatment limited secondary to decreased cognition;Patient limited by fatigue;Patient limited by endurance;Patient limited by pain Plan Physcial Therapy Plan General Plan: (5-6x/week) Specific Instructions for Next Treatment: balance and activity tolerance with ambulation /seated balance and transfers Current Treatment Recommendations: Strengthening, ROM, Balance training, Functional mobility training, Transfer training, Endurance training, Gait training, Stair training, Neuromuscular re-education, Cognitive reorientation, Safety education & training, Positioning, Therapeutic activities, Patient/Caregiver education & training, Equipment evaluation, education, & procurement Safety Devices Type of Devices: Call light within reach, Gait belt, Left in bed, Sitter present, Nurse notified, Telesitter in use, All fall risk precautions in place, Bed alarm in place Restraints Restraints Initially in Place: No Restraints: no restraints this date Restrictions Restrictions/Precautions Restrictions/Precautions: Weight Bearing, Cardiac, Fall Risk, General Precautions, Up as Tolerated Required Braces or Orthoses?: No Upper Extremity Weight Bearing Restrictions Right Upper Extremity Weight Bearing: Platform (Bilateral Upper extremities: No pushing, pulling, or lifting more than 5 lbs. Okay to weight bear through elbows when ambulating with platform walker bilaterally.) Left Upper Extremity Weight Bearing: Platform (Bilateral Upper extremities: No pushing, pulling, or lifting more than 5 lbs. Okay to weight bear through elbows when ambulating with platform walker bilaterally.) Other: 5 lb lifting, pushing, pulling restriction to B UE, okay to weight bear through elbows with platform walker Position Activity Restriction Other position/activity restrictions: B clavicle fx, hx stroke 3 months ago with L side deficits per chart Subjective General Patient assessed for rehabilitation services?: Yes Response To Previous Treatment: Patient with no complaints from previous session. Family / Caregiver Present: No (sitter at bedside) Follows Commands: Impaired Other (Comment): pt follows ~50% of verbal cueing provided Subjective Subjective: RN and pt in agreement for PT treatment. Pt supine in bed upon PT arrival, eager to move, however, demonstrates disorientation throughout session. Cognition Orientation Overall Orientation Status: Impaired Orientation Level: Oriented to person;Disoriented to situation;Disoriented to time;Disoriented to place Cognition Overall Cognitive Status: Exceptions Arousal/Alertness: Appropriate responses to stimuli Following Commands: Inconsistently follows commands;Follows one step commands with repetition;Follows one step commands with increased time Attention Span: Attends with cues to redirect;Difficulty dividing attention Safety Judgement: Decreased awareness of need for assistance;Decreased awareness of need for safety Problem Solving: Decreased awareness of errors;Assistance required to identify errors made;Assistance required to correct errors made Insights: Decreased awareness of deficits Initiation: Requires cues for all Sequencing: Requires cues for all Cognition Comment: soft spoken, mumbles to self under breath Bed mobility Supine to Sit: Moderate assistance (req assist with trunk) Sit to Supine: Moderate assistance (req assist with BLE) Scooting: Moderate assistance Bed Mobility Comments: HOB Elevated req max verbal/tactile cues to maintain WB Transfers Sit to Stand: Minimal Assistance Stand to Sit: Minimal Assistance Comment: STS performed; pt required max verbal cueing to maintain bilateral UE precautions throughout session with poor return demo. Ambulation Surface: Level tile Device: Platform Walker right;Platform Walker left Assistance: Minimal assistance;Moderate assistance Gait Deviations: Slow Vivek;Decreased step length;Decreased step height;Shuffles (Wandering gait) Distance: 80ft Comments: Pt demonstrates bilateral LE tremors due to weakness with ambulation. Frequent verbal and tactile cueing required due to difficulty with progressing RW around hallway and objects within room. Pt at times ambulates in tandem stance, maximal verbal/tactile cues to correct with fair return. Grossly unsteady, requiring cues to keep head upright t/o. Chair follow for safety. Cues and assist for turning with AD, Cues and assist to avoid obstacles on L x2. More Ambulation?: No Stairs/Curb Stairs?: No Balance Posture: Poor (forward head, downward gaze) Sitting - Static: Fair Sitting - Dynamic: Fair Standing - Static: Fair;- Standing - Dynamic: Poor;+ Comments: standing balance assessed with bilateral UE platform walker Seated LE exercise program: Long Arc Quads, heel raises, and marches. Reps: 10x AROM BLE AM-PAC Score AM-PAC Inpatient Mobility Raw Score : 14 (04/07/221555) AM-PAC Inpatient T-Scale Score : 38.1 (04/07/221555) Mobility Inpatient CMS 0-100% Score: 61.29 (04/07/221555) Mobility Inpatient [facility] G-Code Modifier : CL (04/07/221555) Goals Short Term Goals Time Frame for Short Term Goals: 20 visits Short Term Goal 1: bed mobility with CG+1 Short Term Goal 2: transfers with CG+1 Short Term Goal 3: gait with appropriate device x 50' with min A+1 Short Term Goal 4: stair ambulation x 4 steps with BHRs and min A+1 Patient Goals Patient Goals : pt didn't verbalize any goals Education Patient Education Education Given To: Patient Education Provided: Role of Therapy;Plan of Care;Transfer Training;Fall Prevention Strategies;Home Exercise Program Education Provided Comments: verbal and tactile cues given t/o entire session Education Method: Verbal Barriers to Learning: Cognition Education Outcome: Continued education needed;Demonstrated understanding Therapy Time Individual Concurrent Group Co-treatment Time In 1517 Time Out 1540 Minutes 23 Timed Code Treatment Minutes: 23 Minutes Lucie Sanon PT Speech Language Pathology Speech Language Pathology [facility] Cognitive Treatment Note Date: 04/07/2022 Patient s Name: Anne Bullock Diagnosis: Patient Active Problem List Diagnosis Code Intraparenchymal hemorrhage of brain ([facility]) I61.9 Cortex (cerebral) contusion, with loss of consciousness ([facility]) S06.2X9A Cerebral edema (HCC) G93.6 Fall W19.XXXA Closed displaced fracture of shaft of left clavicle S42.022A Closed displaced fracture of shaft of right clavicle S42.021A Closed fracture of left proximal humerus S42.202A Closed fracture of left zygomaticomaxillary complex (HCC) S02.40FA, S02.32XA, S02.40DA, S02.82XA Pain: 0/10 Cognitive Treatment Treatment time: 13:14-13:34 Subjective: [x] Alert [x] Cooperative [] Confused [] Agitated [] Lethargic Objective/Assessment: Problem Solving/Reasoning: Similarities/Differences: 6/10 increased to 8/10 with repetition and max verbal cues Missing Equipment: 2/5 increased to 4/5 with mod-max verbal cues Sentence Incongruities: 0/3 increased to 2/3 with max verbal cues Other: Pt vocal quality was significantly improved compared to the previous session. Pt was audible throughout entire session. During session, pt was given medication in pudding from nurse. Pt was observed to take large bites that spilled from oral cavity due to weak lip closure. ST prompted pt to take smaller bites and recommended pt take smaller bites when eating. Pt verbalized understanding. Pt presented with expressive and receptive language deficits during ST session, including difficulties following 2-step commands, object naming, and word finding when informally assessed. Further evaluation of receptive and expressive language is recommended. Plan: [x] Continue ST services [] Discharge from ST: Discharge recommendations: [] Further therapy recommended at discharge.The patient should be able to tolerate at least 3 hours of therapy per day over 5 days or 15 hours over 7 days. [x] Further therapy recommended at discharge. [] No therapy recommended at discharge. Completed by: Rashida Burns Hardener Helper Clinician Cosigned By: Brandy Varma M.S.CCC/TILE HELPER Images from the original note were not included. PROGRESS NOTE PATIENT NAME: Anne Bullock DATE: 04/07/2022 PRIMARY CARE PHYSICIAN: No primary care provider on file. HD: # 22 ASSESSMENT Patient Active Problem List Diagnosis Intraparenchymal hemorrhage of brain (HCC) Cortex (cerebral) contusion, with loss of consciousness (HCC) Cerebral edema (HCC) Fall Closed displaced fracture of shaft of left clavicle Closed displaced fracture of shaft of right clavicle Closed fracture of left proximal humerus Closed fracture of left zygomaticomaxillary complex (HCC) MEDICAL DECISION MAKING AND PLAN IPH C7 tp fracture NS consulted-signed off Maxillary sinus fracture L orbit fracture L zygomatic arch fracture L pterygoid plate fracture Augmentin completed Plastics ORIF Thursday 03/29 Stitches removed Clavicle fractures Ortho consulted Slings for comfort Hypertension Continue Norvasc and clonidine GI Continue diet with supplements Hyperglycemia Continue HISS Had an episode of hypoglycemia overnight DVT proph Continue Lovenox PT/OT, OOB, ambulating Psych: Zyprexa 5mg Depakote 250 mg TID DISPO: -Pending SSN -Will require being without a sitter SUBJECTIVE Patient seen this morning at bedside, overnight had an episode of hypoglycemia to 69. This morning she is awake, cooperative. Tolerating a diet, denies nausea or emesis. OBJECTIVE VITALS: Temp: Temp: 98.4 F (36.9 C)Temp Av.3 F (36.8 C) Min: 97.3 F (36.3 C) Max: 99.7 F (37.6 C) BP Systolic (24hrs), Av , Min:79 , Max:151 Diastolic (24hrs), Av, Min:48, Max:83 Pulse Pulse Av.9 Min: 79 Max: 106 Resp Resp Av Min: 15 Max: 22 Pulse ox SpO2 Av.3 % Min: 95 % Max: 99 % GENERAL: awake, alert, no distress HEENT: Left periorbital ecchymosis improving LUNGS: unlabored, room air HEART: normal rate and regular rhythm; surgical scars are present bilateral upper chest. ABDOMEN: soft, non-tender, non-distended EXTREMITY: no cyanosis, clubbing or edema Trauma Attending Attestation I have reviewed the above GCS note(s) and confirmed the ventura elements of the medical history and physical exam. I have seen and examined the pt. I have discussed the findings, established the care plan and recommendations with Resident. Daniel Ulloa DO 04/08/2022 6:01 PM Blood glucose = 69, Dr. Kenney notified. Will continue to monitor. BP = 79/48, Dr. Kenney notified. Will continue to monitor. Images from the original note were not included. PROGRESS NOTE PATIENT NAME: Anne [facility] DATE: 04/06/2022 PRIMARY CARE PHYSICIAN: No primary care provider on file. HD: # 21 ASSESSMENT Patient Active Problem List Diagnosis Intraparenchymal hemorrhage of brain (HCC) Cortex (cerebral) contusion, with loss of consciousness (HCC) Cerebral edema (HCC) Fall Closed displaced fracture of shaft of left clavicle Closed displaced fracture of shaft of right clavicle Closed fracture of left proximal humerus Closed fracture of left zygomaticomaxillary complex (HCC) MEDICAL DECISION MAKING AND PLAN IPH C7 tp fracture NS consulted-signed off Maxillary sinus fracture L orbit fracture L zygomatic arch fracture L pterygoid plate fracture Augmentin completed Plastics ORIF Thursday 03/29 Stitches removed Clavicle fractures Ortho consulted Slings for comfort Hypertension Continue Norvasc and clonidine GI Continue diet with supplements Hyperglycemia Continue HISS DVT proph Continue Lovenox Pain management/ Sedation Continue tylenol, valium, neurontin, ibuprofen Psych: Zyprexa 5mg Depakote 250 mg TID DISPO: -[facility] if unrestrained >72h SUBJECTIVE Patient seen this morning at bedside, no acute events overnight. Awake, cooperative. Tolerating a diet, no nausea or emesis. Having bowel function. OBJECTIVE VITALS: Temp: Temp: 98.2 F (36.8 C)Temp Av.5 F (36.9 C) Min: 98.2 F (36.8 C) Max: 99 F (37.2 C) BP Systolic (24hrs), Av , Min:101 , Max:151 Diastolic (24hrs), Av, Min:50, Max:83 Pulse Pulse Av Min: 87 Max: 96 Resp Resp Av.5 Min: 16 Max: 18 Pulse ox SpO2 Av % Min: 97 % Max: 99 % GENERAL: awake, alert, no distress HEENT: Left periorbital ecchymosis improving LUNGS: unlabored, room air HEART: normal rate and regular rhythm; surgical scars are present bilateral upper chest. ABDOMEN: soft, non-tender, non-distended EXTREMITY: no cyanosis, clubbing or edema Trauma Attending Attestation I have reviewed the above GCS note(s) and confirmed the ventura elements of the medical history and physical exam. I have seen and examined the pt. I have discussed the findings, established the care plan and recommendations with Resident. Pt with sitter, has been up with PT/ot Pt was cooperative RN / PT team to get pt to chair today Working for placement Daniel Ulloa DO 04/06/2022 4:30 PM Occupational Therapy Facility/Department: [address] ONC/MED SURG Daily Treatment Note NAME: Anne Kobe : 1960 Date of Service: 04/05/2022 Discharge Recommendations: Patient would benefit from continued therapy after discharge, 24 hour supervision or assist Patient Diagnosis(es): The primary encounter diagnosis was Fall, initial encounter. Diagnoses of Facial laceration, initial encounter, Endotracheally intubated, Periorbital ecchymosis of left eye, initial encounter, and Intraparenchymal hematoma of brain due to trauma with loss of consciousness, unspecified laterality, initial encounter ([facility]) were also pertinent to this visit. Assessment Activity Tolerance: Treatment limited secondary to decreased cognition;Patient limited by fatigue;Patient limited by endurance;Patient limited by pain Discharge Recommendations: Patient would benefit from continued therapy after discharge;24 hour supervision or assist Plan Occupational Therapy Plan Times Per Week: 3-4x/wk Restrictions Restrictions/Precautions Restrictions/Precautions: Weight Bearing;Cardiac;Fall Risk;General Precautions;Up as Tolerated Required Braces or Orthoses?: No Upper Extremity Weight Bearing Restrictions Right Upper Extremity Weight Bearing: Platform (Bilateral Upper extremities: No pushing, pulling, or lifting more than 5 lbs. Okay to weight bear through elbows when ambulating with platform walker bilaterally.) Left Upper Extremity Weight Bearing: Platform (Bilateral Upper extremities: No pushing, pulling, or lifting more than 5 lbs. Okay to weight bear through elbows when ambulating with platform walker bilaterally.) Position Activity Restriction Other position/activity restrictions: B clavicle fx, hx stroke 3 months ago with L side deficits per chart Subjective Subjective Subjective: RN approved Pt to be seen for OT treatment session. Pt had sitter present. She was agreeable to participate with coaxing / encouragement d/t fatigue. Orientation Overall Orientation Status: Impaired Orientation Level: Oriented to person;Disoriented to situation;Disoriented to time;Oriented to place Cognition Overall Cognitive Status: Exceptions Arousal/Alertness: Delayed responses to stimuli Following Commands: Follows one step commands with increased time;Follows one step commands with repetition Attention Span: Attends with cues to redirect Memory: Decreased recall of biographical Information;Decreased recall of precautions;Decreased recall of recent events Safety Judgement: Decreased awareness of need for assistance;Decreased awareness of need for safety Problem Solving: Assistance required to correct errors made;Assistance required to generate solutions Insights: Decreased awareness of deficits Initiation: Requires cues for all Sequencing: Requires cues for all Objective Bed Mobility Training Bed Mobility Training: Yes Overall Level of Assistance: Minimum assistance;Additional time;Adaptive equipment (HOB elevated, increased time by Pt. Min assist.) Interventions: Verbal cues;Visual cues;Safety awareness training (Mod Cues for safety / technique /maintenance of NWB precautions) Supine to Sit: Minimum assistance;Additional time;Adaptive equipment Sit to Supine: Minimum assistance;Additional time;Adaptive equipment Scooting: Minimum assistance;Additional time;Adaptive equipment Balance Sitting: With support Standing: With support Transfer Training Transfer Training: Yes Overall Level of Assistance: Minimum assistance;Additional time (Min Assist, Increased time / effort. No use of AD / DME.) Interventions: Visual cues;Verbal cues;Safety awareness training (Mod Cues for safety / technique /maintenance of NWB precautions) Sit to Stand: Minimum assistance;Additional time Stand to Sit: Minimum assistance;Additional time Toilet Transfer: (Pt declined. Was agreeable to participate in toilet (for hygiene and brief management in standing at EOB).) Gait Overall Level of Assistance: (Pt declined d/t fatigue after having participated in PT earlier.) ADL Feeding: Setup;Stand by assistance;Increased time to complete;Beverage management;Verbal cueing Feeding Skilled Clinical Factors: Sitting upright in bed, S/U and SBA for drinking from cup only. UE Dressing: Minimal assistance;Setup;Verbal cueing;Increased time to complete UE Dressing Skilled Clinical Factors: Sitting at EOB to doff / don gown like a robe. Increased time / effort / cues for maintenance of NWB precautions. Toileting Skilled Clinical Factors: Pt and Therapist maintained dynamic standing balance (with Min Assist, without DME) while CONTACT CENTER ASSOCIATE assisted with TD toilet hygiene and and brief management. Pt maintained static standing x4 trials (each <45 sec), which required 4 trials to complete toileting / brief management. Safety Devices Type of Devices: Call light within reach;Gait belt;Left in bed;Sitter present;Nurse notified;Telesitter in use;All fall risk precautions in place Restraints Restraints Initially in Place: No Patient Education Education Given To: Patient Education Provided: ADL Adaptive Strategies;Transfer Training;Role of Therapy;Orientation Education Provided Comments: UE restrictions, safety, body mechanics Education Method: Verbal;Demonstration Barriers to Learning: Cognition Education Outcome: Continued education needed Goals Short Term Goals Time Frame for Short Term Goals: pt will, by discharge Short Term Goal 1: complete LB ADLs with mod A, set up and AE, as needed Short Term Goal 2: complete UB ADLs with mod A and modified tech Short Term Goal 3: maintain UE restrictions during functional tasks Short Term Goal 4: dem min A during bed mobility in order to increase independence Short Term Goal 5: dem ~8 minutes dynamic/static sitting balance on eOB with min A in order to complete functional tasks Short Term Goal 6: follow 90% of simple commands with 2-3 verbal cue s for initiation, sequencing and redirection Short Term Goal 7: demo functional transfers at Min A to engage in ADL tasks (updated by Silvia Singh OTR/Blake on 03/31/22) Therapy Time Individual Concurrent Group Co-treatment Time In 1446 Time Out 1502 Minutes 16 Timed Code Treatment Minutes: 8 Minutes (ADL) TENZIN Collins OTR/Blake Speech Language Pathology Speech Language Pathology [facility] Cognitive Treatment Note Date: 04/05/2022 Patient s Name: Anne Bullock Diagnosis: Patient Active Problem List Diagnosis Code Intraparenchymal hemorrhage of brain (HCC) I61.9 Cortex (cerebral) contusion, with loss of consciousness (HCC) S06.2X9A Cerebral edema (HCC) G93.6 Fall W19.XXXA Closed displaced fracture of shaft of left clavicle S42.022A Closed displaced fracture of shaft of right clavicle S42.021A Closed fracture of left proximal humerus S42.202A Closed fracture of left zygomaticomaxillary complex (HCC) S02.40FA, S02.32XA, S02.40DA, S02.82XA Pain: 0/10 Cognitive Treatment Treatment time: 14:25-14:39 Subjective: [x] Alert [x] Cooperative [] Confused [] Agitated [] Lethargic Objective/Assessment: Problem Solving/Reasoning: Completing Sentence Analogies: 4/10 increased to 8/10 with min-max verbal cues Multiple Uses for Objects: 3/6 increased to 5/6 with max verbal cues Pairing Items: 6/12 increased to 9/12 with min verbal cues and repetitions Other: Pt observed to have improved vocal quality at the beginning of the session. Vocal quality reduced throughout the session. Pt was observed to perseverate on her medical gown. Plan: [x] Continue ST services [] Discharge from ST: Discharge recommendations: [] Further therapy recommended at discharge.The patient should be able to tolerate at least 3 hours of therapy per day over 5 days or 15 hours over 7 days. [x] Further therapy recommended at discharge. [] No therapy recommended at discharge. Completed by: Rashida Burns Hardener Helper Clinician Cosigned By: Margaret Butler M.A. CCC/TILE HELPER Comprehensive Nutrition Assessment Type and Reason for Visit: Reassess Nutrition Recommendations/Plan: Continue current diet. Start high calorie, high protein supplement Continue to monitor weight, labs and intake. Malnutrition Assessment: Malnutrition Status: Insufficient data (03/31/22 1209) Context: Acute Illness Findings of the 6 clinical characteristics of malnutrition: Energy Intake: Mild decrease in energy intake (Comment) Weight Loss: Unable to assess Body Fat Loss: Unable to assess Orbital Muscle Mass Loss: Moderate muscle mass loss Thigh (quadraceps), Calf (gastrocnemius) Fluid Accumulation: No significant fluid accumulation Minister Of Religion Strength: Not Performed Nutrition Assessment: Chart reviewed. Diet is puree texture. Per patient and sitter, patient is eating well. Per EMR, intake is 76-100% of meals. Ca 8.3, K 3.6, glucose 93-271. Nutrition Related Findings: labs/meds reviewed. last BM 03/28. Wound Type: Multiple, Surgical Incision Current Nutrition Intake & Therapies: Average Meal Intake: 76-100% Average Supplements Intake: Unable to assess (New order) ADULT DIET; Dysphagia - Pureed ADULT ORAL NUTRITION SUPPLEMENT; Breakfast, Lunch, Dinner; Standard High Calorie/High Protein Oral Supplement Anthropometric Measures: Height: 5' 9 (175.3 cm) [place] Body Weight (IBW): 145 lbs (66 kg) Admission Body Weight: 132 lb 4.4 oz (60 kg) Current Body Weight: 119 lb 0.8 oz (54 kg), 82.3 % IBW. Weight Source: Bed Scale Current BMI (kg/m2): 17.6 Usual Body Weight: (UTO) BMI Categories: Underweight (BMI less than 18.5) Estimated Daily Nutrient Needs: Energy Requirements Based On: Kcal/kg Weight Used for Energy Requirements: Current Energy (kcal/day): 9118-3114 kcals/day Weight Used for Protein Requirements: Current Protein (g/day): 80 gm pro/day Method Used for Fluid Requirements: Other (Comment) Fluid (ml/day): per MD Nutrition Diagnosis: Inadequate oral intake related to increase demand for energy/nutrients as evidenced by (multiple fractures) Nutrition Interventions: Food and/or Nutrient Delivery: Continue Current Diet, Start Oral Nutrition Supplement Nutrition Education/Counseling: No recommendation at this time Coordination of Nutrition Care: Continue to monitor while inpatient Plan of Care discussed with: Sitter Goals: Previous Goal Met: Progressing toward Goal(s) Goals: Meet at least 75% of estimated needs Nutrition Monitoring and Evaluation: Behavioral-Environmental Outcomes: None Identified Food/Nutrient Intake Outcomes: Food and Nutrient Intake, Supplement Intake Physical Signs/Symptoms Outcomes: Biochemical Data, Nutrition Focused Physical Findings, Skin, Weight, Chewing or Swallowing, Meal Time Behavior Discharge Planning: Too soon to determine Silvia Sheldon RD Contact: [phone] Physical Therapy Facility/Department: [address] ONC/MED SURG Physical Therapy Daily Treatment Note Name: Anne Bullock : 1960 Date of Service: 04/05/2022 Discharge Recommendations: Patient would benefit from continued therapy after discharge PT Equipment Recommendations Equipment Needed: No Patient Diagnosis(es): The primary encounter diagnosis was Fall, initial encounter. Diagnoses of Facial laceration, initial encounter, Endotracheally intubated, Periorbital ecchymosis of left eye, initial encounter, and Intraparenchymal hematoma of brain due to trauma with loss of consciousness, unspecified laterality, initial encounter ([facility]) were also pertinent to this visit. Past Medical History: has a past medical history of Depression. Past Surgical History: has a past surgical history that includes Clavicle surgery (Bilateral, 03/18/2022); Open reduction malar fracture (Left, 03/29/2022); and Facial Fracture Surgery (Left, 03/29/2022). Assessment Body Structures, Functions, Activity Limitations Requiring Skilled Therapeutic Intervention: Decreased functional mobility ;Decreased safe awareness;Decreased cognition;Decreased endurance;Decreased balance;Decreased posture Assessment: Pt demonstrates increased gait distance this date, ambulating a total of 80ft with bilateral platform walker min-modA. Pt is a high fall risk due to confusion and level of assistance required. Recommending continued skilled physical therapy to address gait, balance and functional mobility deficits to maximzie baseline functional mobility. Therapy Prognosis: Fair Decision Making: Medium Complexity Barriers to Learning: cognition Requires PT Follow-Up: Yes Activity Tolerance Activity Tolerance: Treatment limited secondary to decreased cognition;Patient limited by fatigue;Patient limited by endurance;Patient limited by pain Plan Physcial Therapy Plan General Plan: (5-6x/week) Specific Instructions for Next Treatment: balance and activity tolerance with ambulation /seated balance and transfers Current Treatment Recommendations: Strengthening, ROM, Balance training, Functional mobility training, Transfer training, Endurance training, Gait training, Stair training, Neuromuscular re-education, Cognitive reorientation, Safety education & training, Positioning, Therapeutic activities, Patient/Caregiver education & training, Equipment evaluation, education, & procurement Safety Devices Type of Devices: Call light within reach, Gait belt, Left in bed, Sitter present, Nurse notified, Telesitter in use, All fall risk precautions in place Restraints Restraints Initially in Place: No Restraints: no restraints this date Restrictions Restrictions/Precautions Restrictions/Precautions: Weight Bearing, Cardiac, Fall Risk, General Precautions, Up as Tolerated Required Braces or Orthoses?: No Upper Extremity Weight Bearing Restrictions Right Upper Extremity Weight Bearing: Platform (Bilateral Upper extremities: No pushing, pulling, or lifting more than 5 lbs. Okay to weight bear through elbows when ambulating with platform walker bilaterally.) Left Upper Extremity Weight Bearing: Platform (Bilateral Upper extremities: No pushing, pulling, or lifting more than 5 lbs. Okay to weight bear through elbows when ambulating with platform walker bilaterally.) Other: 5 lb lifting, pushing, pulling restriction to B UE, okay to weight bear through elbows with platform walker Position Activity Restriction Other position/activity restrictions: B clavicle fx, hx stroke 3 months ago with L side deficits per chart Subjective General Chart Reviewed: Yes Patient assessed for rehabilitation services?: Yes Response To Previous Treatment: Patient with no complaints from previous session. Family / Caregiver Present: No (sitter at bedside) Follows Commands: Impaired Other (Comment): pt follows ~50% of verbal cueing provided per patient Subjective Subjective: RN and pt in agreement for PT treatment. Pt supine in bed upon PT arrival, eager to move, however, demonstrates disorientation throughout session Cognition Orientation Overall Orientation Status: Impaired Orientation Level: Oriented to person;Disoriented to situation;Disoriented to time;Oriented to place Cognition Overall Cognitive Status: Exceptions Arousal/Alertness: Delayed responses to stimuli Following Commands: Follows one step commands with increased time;Follows one step commands with repetition Attention Span: Attends with cues to redirect Memory: Decreased recall of biographical Information;Decreased recall of precautions;Decreased recall of recent events Safety Judgement: Decreased awareness of need for assistance;Decreased awareness of need for safety Problem Solving: Assistance required to correct errors made;Assistance required to generate solutions Insights: Decreased awareness of deficits Initiation: Requires cues for all Sequencing: Requires cues for all Objective Gross Assessment Sensation: Intact Bed mobility Supine to Sit: Moderate assistance (Max verbal cueing required to maintain proper weightbearing status of bilateral UE with poor return demo) Sit to Supine: (Pt retired seated EOB with sitter upon singer songwriter's exit) Scooting: Minimal assistance Transfers Sit to Stand: Minimal Assistance Stand to Sit: Minimal Assistance Comment: STS performed x3; pt required max verbal cueing to maintain bilateral UE precautions throughout session with poor return demo. Ambulation Surface: Level tile Device: Platform Walker right;Platform Walker left Assistance: Minimal assistance;Moderate assistance Gait Deviations: Slow Vivek;Decreased step length;Decreased step height;Shuffles (Wandering gait) Distance: 30ft, 50ft Comments: Pt ambulated 30ft w/ bilateral platform walker, following seated rest break and ambulated another 50ft. Pt demonstrates bilateral LE tremors due to weakness with ambulation. Frequent verbal and tactile cueing required due to difficulty with progressing RW around hallway and objects within room. More Ambulation?: No Stairs/Curb Stairs?: No Balance Posture: Poor (forward head, downward gaze) Sitting - Static: Fair;+ Sitting - Dynamic: Fair;- Standing - Static: Fair;- Standing - Dynamic: Poor;+ Comments: standing balance assessed with bilateral UE platform walker Bilateral ankle pumps, bilateral LAQs x10 AM-PAC Score AM-[facility] Inpatient Mobility Raw Score : 12 (04/05/22 1402) AM-PAC Inpatient T-Scale Score : 35.33 (04/05/221401) Mobility Inpatient CMS 0-100% Score: 68.66 (04/05/221401) Mobility Inpatient CMS G-Code Modifier : CL (04/05/221401) Goals Short Term Goals Time Frame for Short Term Goals: 20 visits Short Term Goal 1: bed mobility with CG+1 Short Term Goal 2: transfers with CG+1 Short Term Goal 3: gait with appropriate device x 50' with min A+1 Short Term Goal 4: stair ambulation x 4 steps with BHRs and min A+1 Patient Goals Patient Goals : pt didn't verbalize any goals Education Patient Education Education Given To: Patient Education Provided: Role of Therapy;Plan of Care;Transfer Training;Fall Prevention Strategies;Home Exercise Program Education Provided Comments: verbal and tactile cues given t/o entire session Education Method: Verbal Barriers to Learning: Cognition Education Outcome: Continued education needed;Demonstrated understanding Therapy Time Individual Concurrent Group Co-treatment Time In 1010 Time Out 1049 Minutes 39 Timed Code Treatment Minutes: 38 Minutes Myla Larson PT Images from the original note were not included. PROGRESS NOTE PATIENT NAME: Anne Bullock DATE: 04/05/2022 PRIMARY CARE PHYSICIAN: No primary care provider on file. HD: # 20 ASSESSMENT Patient Active Problem List Diagnosis Intraparenchymal hemorrhage of brain (HCC) Cortex (cerebral) contusion, with loss of consciousness (HCC) Cerebral edema (HCC) Fall Closed displaced fracture of shaft of left clavicle Closed displaced fracture of shaft of right clavicle Closed fracture of left proximal humerus Closed fracture of left zygomaticomaxillary complex (HCC) MEDICAL DECISION MAKING AND PLAN IPH C7 tp fracture NS consulted-signed off Maxillary sinus fracture L orbit fracture L zygomatic arch fracture L pterygoid plate fracture Augmentin completed Plastics ORIF Thursday 03/29 Stitches removed Clavicle fractures Ortho consulted [facility] for comfort Hypertension Continue Norvasc and clonidine GI Continue diet with supplements Hyperglycemia Continue HISS DVT proph Continue Lovenox Pain management/ Sedation Continue tylenol, valium, neurontin, ibuprofen Psych: Zyprexa 5mg Depakote 250 mg TID DISPO: -[facility] if unrestrained >72h SUBJECTIVE Patient seen this morning at bedside, no acute events overnight. Would not respond to questions this morning. Voiding adequately. OBJECTIVE VITALS: Temp: Temp: 97.5 F (36.4 C)Temp Av.9 F (36.6 C) Min: 97.5 F (36.4 C) Max: 98.6 F (37 C) BP Systolic (24hrs), Av , Min:114 , Max:124 Diastolic (24hrs), Av, Min:58, Max:81 Pulse Pulse Av.3 Min: 74 Max: 98 Resp Resp Av Min: 16 Max: 18 Pulse ox SpO2 Av % Min: 95 % Max: 98 % GENERAL: awake, alert, no distress HEENT: Left periorbital ecchymosis is present, improving LUNGS: unlabored, room air HEART: normal rate and regular rhythm; surgical scars are present bilateral upper chest. Clean dry intact. ABDOMEN: soft, non-tender, non-distended EXTREMITY: no cyanosis, clubbing or edema Associated attestation - Bob Modi MD - 04/05/2022 1:37 PM EDT I personally evaluated the patient and directed the medical decision making with Resident/NAYLA after the physical/radiologic exam and laboratory values were reviewed and confirmed. Bob Modi MD Images from the original note were not included. PROGRESS NOTE [facility] DATE: 04/04/2022 SURGEON: amber PRIMARY CARE PHYSICIAN: No primary care provider on file. HD: # 19 ASSESSMENT Patient Active Problem List Diagnosis Intraparenchymal hemorrhage of brain (HCC) Cortex (cerebral) contusion, with loss of consciousness (HCC) Cerebral edema (HCC) Fall Closed displaced fracture of shaft of left clavicle Closed displaced fracture of shaft of right clavicle Closed fracture of left proximal humerus Closed fracture of left zygomaticomaxillary complex (HCC) MEDICAL DECISION MAKING AND PLAN IPH C7 tp fracture NS consulted-signed off, injury non surgical Maxillary sinus fracture L orbit fracture L zygomatic arch fracture L pterygoid plate fracture Augmentin completed Plastics ORIF Thursday 03/29 Stitches removed Clavicle fractures Ortho consulted [facility] for comfort F/u 04/01 Hypertension Continue Norvasc and clonidine GI Continue diet with supplements Hyperglycemia Continue HISS Leukocytosis (resolved) DVT proph Continue Lovenox Pain management/ Sedation Continue tylenol, valium, neurontin, ibuprofen Psych: Zyprexa 5mg Depakote 250 mg TID Haldol 1x yesterday CONSULTS -Neurosurgery, ortho, plastics, ophthalmology , psych DISPO: -[facility] if unrestrained >72h SUBJECTIVE Patient seen 1x haldol yesterday, flatus, BM, denies current complaints. OBJECTIVE VITALS: Temp: Temp: 97.4 F (36.3 C)Temp Av.7 F (36.5 C) Min: 97.3 F (36.3 C) Max: 98.6 F (37 C) BP Systolic (24hrs), Av , Min:89 , Max:130 Diastolic (24hrs), Av, Min:25, Max:95 Pulse Pulse Av.7 Min: 71 Max: 99 Resp Resp Av.4 Min: 14 Max: 17 Pulse ox SpO2 Av.3 % Min: 95 % Max: 100 % GENERAL: awake, alert, no distress HEENT: Left periorbital ecchymosis is present, improving LUNGS: unlabored, room air HEART: normal rate and regular rhythm; surgical scars are present bilateral upper chest. Clean dry intact. ABDOMEN: soft, non-tender, non-distended EXTREMITY: no cyanosis, clubbing or edema Attending Note I have reviewed the above TECSS note(s) and I either performed the ventura elements of the medical history and physical exam or was present with the resident when the ventura elements of the medical history and physical exam were performed. I have discussed the findings, established the care plan and recommendations with Resident. Alexa Buchanan MD 04/04/2022 1:38 PM Physical Therapy Facility/Department: [address] ONC/MED SURG Daily Treatment Note NAME: Anne Bullock : 1960 Date of Service: 04/03/2022 Discharge Recommendations: Patient would benefit from continued therapy after discharge PT Equipment Recommendations Equipment Needed: No Patient Diagnosis(es): The primary encounter diagnosis was Fall, initial encounter. Diagnoses of Facial laceration, initial encounter, Endotracheally intubated, Periorbital ecchymosis of left eye, initial encounter, and Intraparenchymal hematoma of brain due to trauma with loss of consciousness, unspecified laterality, initial encounter (HCC) were also pertinent to this visit. Assessment Assessment: Pt completed gait trial 2X 30 ft using PW requiring modA for safety cues and improving quallity of pt's ataxic gait pattern. Pt will benefit from continued PT after d/c facilitating improved strength/functional mobility Activity Tolerance: Treatment limited secondary to decreased cognition;Patient limited by fatigue;Patient limited by endurance;Patient limited by pain Equipment Needed: No Plan Physcial Therapy Plan General Plan: 6-7 times per week Specific Instructions for Next Treatment: balance and activity tolerance with ambulation /seated balance and transfers Current Treatment Recommendations: Strengthening;ROM;Balance training;Functional mobility training;Transfer training;Endurance training;Gait training;Stair training;Neuromuscular re-education;Cognitive reorientation;Safety education & training;Positioning;Therapeutic activities;Patient/Caregiver education & training;Equipment evaluation, education, & procurement PT Plan of Care: Daily Restrictions Restrictions/Precautions Restrictions/Precautions: Weight Bearing, Cardiac, Fall Risk, General Precautions, Up as Tolerated Required Braces or Orthoses?: No Upper Extremity Weight Bearing Restrictions Right Upper Extremity Weight Bearing: (Order is for partial weight bearing) Left Upper Extremity Weight Bearing: (Order is for partial weight bearing) Other: 5 lb lifting, pushing, pulling restriction to B UE, okay to weight bear through elbows with platform walker Position Activity Restriction Other position/activity restrictions: B clavicle fx, hx stroke 3 months ago with L side deficits per chart Subjective Subjective: Pt in supine when therapist arrived. She is accompanied by sitter and telesitter, 4 rails and B safety pillows. Pain: no pain Orientation Overall Orientation Status: Impaired Orientation Level: Oriented to time;Oriented to person;Disoriented to place;Disoriented to situation Cognition Overall Cognitive Status: Exceptions Arousal/Alertness: Delayed responses to stimuli Following Commands: Follows one step commands with increased time;Follows one step commands with repetition Attention Span: Attends with cues to redirect Memory: Decreased recall of biographical Information;Decreased recall of precautions;Decreased recall of recent events Safety Judgement: Decreased awareness of need for assistance;Decreased awareness of need for safety Problem Solving: Assistance required to correct errors made;Assistance required to generate solutions Insights: Decreased awareness of deficits Initiation: Requires cues for all Sequencing: Requires cues for all Cognition Comment: Pt with very soft spoken volume, when cued to speak up she states she lost her voice. Objective Bed Mobility Training Bed Mobility Training: Yes Overall Level of Assistance: Moderate assistance;Additional time Interventions: Safety awareness training;Tactile cues;Verbal cues Supine to Sit: Moderate assistance;Additional time Sit to Supine: Moderate assistance;Additional time Scooting: Moderate assistance Balance Sitting: With support (BUE) Standing: With support (platform walker) Transfer Training Transfer Training: Yes Overall Level of Assistance: Moderate assistance;Minimum assistance Interventions: Safety awareness training;Tactile cues;Verbal cues Sit to Stand: Minimum assistance;Additional time (elevated EOB) Stand to Sit: Minimum assistance;Additional time Gait Training Gait Training: Yes Gait Overall Level of Assistance: Moderate assistance Interventions: Safety awareness training;Tactile cues;Verbal cues Base of Support: Narrowed Speed/Vivek: Slow;Shuffled Gait Abnormalities: Ataxic (Pt ambulates with slow, shuffled pace, relies on PF w/B elbow support to stabilize, ataxic, good functional mobility technique pivoting w/PW.) Distance (ft): 30 Feet (ft X2) Assistive Device: Other (comment) (PW) Wheelchair Management Wheelchair Management: No Neuromuscular Education Neuromuscular Education: No Weight Bearing Weight Bearing Technique: No PT Exercises Exercise Treatment: Pt participated in functional mobility exercises including gait trials 2X 30 ft w/modA using PW. Pt is cooperative although confused. Safety Devices Type of Devices: Call light within reach;Gait belt;Left in bed;Sitter present;Nurse notified;Telesitter in use;All fall risk precautions in place Restraints Restraints Initially in Place: No Restraints: no restraints this date Goals Short Term Goals Time Frame for Short Term Goals: 12 visits Short Term Goal 1: bed mobility with CG+1 Short Term Goal 2: transfers with CG+1 Short Term Goal 3: gait with appropriate device x 50' with min A+1 Short Term Goal 4: stair ambulation x 4 steps with BHRs and min A+1 Patient Goals Patient Goals : pt didn't verbalize any goals Education Patient Education Education Given To: Patient Education Provided: Role of Therapy;Plan of Care;Transfer Training;Fall Prevention Strategies;Home Exercise Program Education Provided Comments: verbal and tactile cues given t/o entire session Education Method: Verbal Barriers to Learning: Cognition Education Outcome: Continued education needed;Demonstrated understanding Therapy Time Individual Concurrent Group Co-treatment Time In 1500 Time Out 1530 Minutes 30 ALLISON DANIEL PTA Images from the original note were not included. PROGRESS NOTE PATIENT NAME: Anne Bullock DATE: 04/03/2022 SURGEON: amber PRIMARY CARE PHYSICIAN: No primary care provider on file. HD: # 18 ASSESSMENT Patient Active Problem List Diagnosis Intraparenchymal hemorrhage of brain (HCC) Cortex (cerebral) contusion, with loss of consciousness (HCC) Cerebral edema (HCC) Fall Closed displaced fracture of shaft of left clavicle Closed displaced fracture of shaft of right clavicle Closed fracture of left proximal humerus Closed fracture of left zygomaticomaxillary complex (HCC) MEDICAL DECISION MAKING AND PLAN IPH C7 tp fracture NS consulted-signed off, injury non surgical Maxillary sinus fracture L orbit fracture L zygomatic arch fracture L pterygoid plate fracture Augmentin completed Plastics ORIF Thursday 03/29 Stitches removed Clavicle fractures Ortho consulted [facility] for comfort F/u 04/01 Hypertension Continue Norvasc and clonidine GI Continue diet with supplements Hyperglycemia Continue HISS Leukocytosis (resolved) DVT proph Continue Lovenox Pain management/ Sedation Continue tylenol, valium, neurontin, ibuprofen DC PRN sandoval Continue seroquel Psych: Zyprexa 5mg Depakote 250 mg TID Haldol 6gh PRN CONSULTS -Neurosurgery, ortho, plastics, ophthalmology , psych DISPO: -[facility] if unrestrained >72h SUBJECTIVE Patient seen in bed today. Reports she feels well. Denies complaints OBJECTIVE VITALS: Temp: Temp: 97.3 F (36.3 C)Temp Av.4 F (36.9 C) Min: 97.3 F (36.3 C) Max: 99.5 F (37.5 C) BP Systolic (24hrs), Av , Min:110 , Max:130 Diastolic (24hrs), Av, Min:61, Max:75 Pulse Pulse Av Min: 79 Max: 97 Resp Resp Av.6 Min: 16 Max: 18 Pulse ox SpO2 Av.5 % Min: 91 % Max: 99 % GENERAL: awake, alert, no distress HEENT: Left periorbital ecchymosis is present, improving LUNGS: unlabored, room air HEART: normal rate and regular rhythm; surgical scars are present bilateral upper chest. Clean dry intact. ABDOMEN: soft, non-tender, non-distended EXTREMITY: no cyanosis, clubbing or edema Brandee Moore MD 04/03/2022 8:44 AM Attending Note No Haldol required last 24 hours I have reviewed the above TECSS note(s) and I either performed the ventura elements of the medical history and physical exam or was present with the resident when the ventura elements of the medical history and physical exam were performed. I have discussed the findings, established the care plan and recommendations with Resident, TOM RN. Alexa Buchanan MD 04/03/2022 7:47 PM Physical Therapy Facility/Department: [address] ONC/MED SURG Physical Therapy Name: Anne Bullock : 1960 Date of Service: 04/02/2022 Discharge Recommendations: Patient would benefit from continued therapy after discharge Patient Diagnosis(es): The primary encounter diagnosis was Fall, initial encounter. Diagnoses of Facial laceration, initial encounter, Endotracheally intubated, Periorbital ecchymosis of left eye, initial encounter, and Intraparenchymal hematoma of brain due to trauma with loss of consciousness, unspecified laterality, initial encounter ([facility]) were also pertinent to this visit. Past Medical History: has a past medical history of Depression. Past Surgical History: has a past surgical history that includes Clavicle surgery (Bilateral, 03/18/2022); Open reduction malar fracture (Left, 03/29/2022); and Facial Fracture Surgery (Left, 03/29/2022). Assessment Body Structures, Functions, Activity Limitations Requiring Skilled Therapeutic Intervention: Decreased functional mobility ;Decreased safe awareness;Decreased cognition;Decreased endurance;Decreased balance;Decreased posture Assessment: Patient more lethargic today. Able to ambulate just to door and back, 18', unsteady, left knee alaina and needs assist to extend knee for weight acceptance. Denies pain. Is partially oriented. Still speaking in a whisper. Patient will need further PT to regain functional independence. Requires PT Follow-Up: Yes Activity Tolerance Activity Tolerance: Treatment limited secondary to decreased cognition;Patient limited by fatigue;Patient limited by endurance;Patient limited by pain Plan Physcial Therapy Plan General Plan: (5-6 x week) Specific Instructions for Next Treatment: balance and activity tolerance with ambulation /seated balance and transfers Current Treatment Recommendations: Strengthening, ROM, Balance training, Functional mobility training, Transfer training, Endurance training, Gait training, Stair training, Neuromuscular re-education, Cognitive reorientation, Safety education & training, Positioning, Therapeutic activities, Patient/Caregiver education & training, Equipment evaluation, education, & procurement Safety Devices Type of Devices: Call light within reach, Gait belt, Left in bed, Sitter present, Nurse notified, Telesitter in use, All fall risk precautions in place Restraints Restraints Initially in Place: No Restraints: no restraints this date Restrictions Restrictions/Precautions Restrictions/Precautions: Weight Bearing, Fall Risk, General Precautions, Up as Tolerated Upper Extremity Weight Bearing Restrictions Right Upper Extremity Weight Bearing: (Order is for partial weight bearing) Left Upper Extremity Weight Bearing: (Order is for partial weight bearing) Other: 5 lb lifting, pushing, pulling restriction to B UE, okay to weight bear through elbows with platform walker Position Activity Restriction Other position/activity restrictions: B clavicle fx, hx stroke 3 months ago with L side deficits per chart Subjective General Chart Reviewed: Yes Patient assessed for rehabilitation services?: Yes Family / Caregiver Present: (sitter) Other (Comment): Patient needs repetition or manual assist for many cues. She was able to follow some cues with verbal-only instructions. Subjective Subjective: Pt supine in bed agreeable to PT. RN and pt agreeable to PT. Pt speaks in a whisper. Pt pleasant and cooperative t/o. Pt denied pain Social/Functional History Social/Functional History Lives With: Other (comment) Type of Home: Homeless Home Equipment: Cane ADL Assistance: Independent Ambulation Assistance: Independent Transfer Assistance: Independent Additional Comments: above information obtained from chart d/t pt inability to answer social information. per chart, pt is homeless-came from detention. pt also had a stroke 3 months ago and was utilizing a cane Cognition Orientation Orientation Level: Oriented to time;Oriented to person;Disoriented to place;Disoriented to situation (Said her first name, 2021. Disoriented to place. Said [place]) Cognition Overall Cognitive Status: Exceptions Arousal/Alertness: Delayed responses to stimuli Following Commands: Follows one step commands with increased time;Follows one step commands with repetition Objective Heart Rate: 94 Heart Rate Source: Monitor BP: 116/66 BP Location: Right upper arm BP Method: Automatic Patient Position: Semi fowlers MAP (Calculated): 82.67 Resp: 16 SpO2: 99 % Observation/Palpation Observation: Has a telesitter and sitter. In bed, eyes open upon therapist's arrival. Bed mobility Rolling to Right: Minimal assistance Supine to Sit: Minimal assistance Sit to Supine: Minimal assistance Transfers Sit to Stand: Minimal Assistance Stand to Sit: Minimal Assistance Ambulation Surface: Level tile Assistance: Minimal assistance Quality of Gait: min assist to block left knee, prevent her from lifting locking mechanism on walker which folds walker. At edge of bed, appears confused as to when she can sit down. She was given a min assist for weight shifting in order to cue each leg to step back when it was unloaded. Gait Deviations: Slow Vivek;Decreased step length;Decreased step height;Shuffles Distance: 16' Balance Standing - Static: Poor;+ Standing - Dynamic: Poor Comments: In standing, she needs UE support and min assist to prevent a fall. A/AROM Exercises: AAROM ankle pumps, heel slides x8-10 reps AM-PAC Score AM-[facility] Inpatient Mobility Raw Score : 14 (04/02/22 1618) AM-PAC Inpatient T-Scale Score : 38.1 (04/02/221617) Mobility Inpatient CMS 0-100% Score: 61.29 (04/02/221617) Mobility Inpatient CMS G-Code Modifier : CL (04/02/221617) Goals Short Term Goals Time Frame for Short Term Goals: 12 visits Short Term Goal 1: bed mobility with CG+1 Short Term Goal 2: transfers with CG+1 Short Term Goal 3: gait with appropriate device x 50' with min A+1 Short Term Goal 4: stair ambulation x 4 steps with BHRs and min A+1 Patient Goals Patient Goals : pt didn't verbalize any goals Education Patient Education Education Given To: Patient Education Provided: Role of Therapy;Plan of Care;Transfer Training;Fall Prevention Strategies;Home Exercise Program Education Provided Comments: verbal and tactile cues given t/o entire session Education Method: Verbal Barriers to Learning: Cognition Education Outcome: Continued education needed;Demonstrated understanding Therapy Time Individual Concurrent Group Co-treatment Time In 358pm Time Out 425pm Minutes 27 Treatment time 27 minutes [place] [facility] PT Images from the original note were not included. Physical Therapy Physical Therapy Cancel Note DATE: 04/02/2022 NAME: Anne Bullock : 1960 Patient not seen this date for Physical Therapy due to: Other: Pt resting this am, will CB as time allows, or resume 04/03 Images from the original note were not included. PROGRESS NOTE PATIENT NAME: Anne Bullock DATE: 04/02/2022 SURGEON: abmer PRIMARY CARE PHYSICIAN: No primary care provider on file. HD: # 17 ASSESSMENT Patient Active Problem List Diagnosis Intraparenchymal hemorrhage of brain (HCC) Cortex (cerebral) contusion, with loss of consciousness (HCC) Cerebral edema (HCC) Fall Closed displaced fracture of shaft of left clavicle Closed displaced fracture of shaft of right clavicle Closed fracture of left proximal humerus Closed fracture of left zygomaticomaxillary complex (HCC) MEDICAL DECISION MAKING AND PLAN IPH C7 tp fracture NS consulted-signed off, injury non surgical Maxillary sinus fracture L orbit fracture L zygomatic arch fracture L pterygoid plate fracture Augmentin completed Plastics ORIF Thursday 03/29 Stitches removed Clavicle fractures Ortho consulted [facility] for comfort F/u 04/01 Hypertension Continue Norvasc and clonidine GI Continue diet with supplements Hyperglycemia Continue HISS Leukocytosis (resolved) DVT proph Continue Lovenox Pain management/ Sedation Continue tylenol, valium, neurontin, ibuprofen DC PRN sandoval Continue seroquel Psych: Zyprexa 5mg Depakote 250 mg TID Haldol 6gh PRN CONSULTS -Neurosurgery, ortho, plastics, ophthalmology , psych DISPO: -[facility] if unrestrained >72h SUBJECTIVE Patient seen in bed today. NAEON. Dispo planning OBJECTIVE VITALS: Temp: Temp: 97.7 F (36.5 C)Temp Av.1 F (36.7 C) Min: 97.7 F (36.5 C) Max: 98.4 F (36.9 C) BP Systolic (24hrs), Av , Min:106 , Max:141 Diastolic (24hrs), Av, Min:66, Max:82 Pulse Pulse Av Min: 73 Max: 94 Resp Resp Av Min: 14 Max: 18 Pulse ox SpO2 Av % Min: 97 % Max: 97 % GENERAL: alert, no distress HEENT: Left periorbital ecchymosis is present. Repairs are CDI LUNGS: clear to ausculation, without wheezes, rales or rhonci HEART: normal rate and regular rhythm; surgical scars are present bilateral upper chest. Clean dry intact. ABDOMEN: soft, non-tender, non-distended, and no guarding or peritoneal signs present EXTREMITY: no cyanosis, clubbing or edema No intake/output data recorded. Drain/tube output: No intake/output data recorded. LAB: CBC: Recent Labs 04/01/22 0956 WBC 9.7 HGB 12.5 HCT 36.0* MCV 95.7 PLT 288 BMP: No results for input(s): NA, K, CL, CO2, BUN, CREATININE, GLUCOSE in the last 72 hours. COAGS: No results for input(s): APTT, PROT, INR in the last 72 hours. RADIOLOGY: CXR: XR CLAVICLE LEFT Result Date: 04/01/2022 EXAMINATION: TWO XRAY VIEWS OF THE LEFT CLAVICLE; TWO XRAY VIEWS OF THE RIGHT CLAVICLE 04/01/2022 7:16 pm COMPARISON: Right clavicle radiograph 03/18/2022, left clavicle radiograph 03/18/2022 HISTORY: ORDERING SYSTEM PROVIDED HISTORY: post-op TECHNOLOGIST PROVIDED HISTORY: post-op FINDINGS: RIGHT CLAVICLE: Unchanged findings of internal fixation of the clavicle with no evident complication. No acute fracture. Joints maintain anatomic alignment. No obvious acute soft tissue abnormality. LEFT CLAVICLE: Unchanged findings of internal fixation of the clavicle with no evident complication. No acute fracture. Joints maintain anatomic alignment. Unchanged findings related to internal fixation of the bilateral clavicles with no evident complication. XR CLAVICLE RIGHT Result Date: 04/01/2022 EXAMINATION: TWO XRAY VIEWS OF THE LEFT CLAVICLE; TWO XRAY VIEWS OF THE RIGHT CLAVICLE 04/01/2022 7:16 pm COMPARISON: Right clavicle radiograph 03/18/2022, left clavicle radiograph 03/18/2022 HISTORY: ORDERING SYSTEM PROVIDED HISTORY: post-op TECHNOLOGIST PROVIDED HISTORY: post-op FINDINGS: RIGHT CLAVICLE: Unchanged findings of internal fixation of the clavicle with no evident complication. No acute fracture. Joints maintain anatomic alignment. No obvious acute soft tissue abnormality. LEFT CLAVICLE: Unchanged findings of internal fixation of the clavicle with no evident complication. No acute fracture. Joints maintain anatomic alignment. Unchanged findings related to internal fixation of the bilateral clavicles with no evident complication. Ariel Vargas MD 04/02/2022 8:11 AM Associated attestation - Niranjan Pelayo MD - 04/09/2022 4:35 PM EDT I personally evaluated the patient and directed the medical decision making with Resident/NAYLA after the physical/radiologic exam and laboratory values were reviewed and confirmed. ANM Orthopedic Progress Note Patient: Anne Bullock Date of : 1960 62 y.o. female Subjective: Patient seen and examined at bedside this morning. Patient not responding to questions this morning. Patient sitter in room who states that patient has been pretty out of it all night since she received her meds yesterday evening. Per nursing, no complaints or concerns and no acute events overnight. Objective: Vitals: 04/01/227 BP: (!) 141/82 Pulse: 94 Resp: 18 Temp: 98.4 F (36.9 C) SpO2: 97% Gen: NAD, cooperative Cardiovascular: Regular rate Respiratory: no audible wheezing, symmetrical chest expansion MSK: Bilateral upper extremities: Incisions over clavicles which are well approximated with surgical glue over top of incisions. No surrounding erythema or swelling. Radial pulse 2+. Unable to obtain sensorimotor exam secondary to patient cognition this AM. Recent Labs 04/01/22 0956 WBC 9.7 HGB 12.5 HCT 36.0* PLT 288 Meds: Lovenox See rec for complete list Impression: 62 y.o. female being seen for two week post op evaluation from B/L Clavicle ORIF and Closed Treatment of Left Proximal Humerus Plan: -Incision approximated. OK to leave open to air. -Will follow up x-rays for two week post op films -OK for weightbearing through elbows for a modified walker. Otherwise, non-weightbearing heavier than 5lbs.. OK for gentle range of motion. WB -Pain control: Per primary team discretion -Ice (20 min, 1 hour off) for edema/pain control -Encourage deep breathing and IS -DVT ppx: EPC. OK for chemical anticoagulation from ortho perspective -PT/OT -Please page Ortho community integration specialist with any questions or concerns Catherine Piper DO PGY-3 Orthopedic Surgery 5:06 AM 04/02/2022 Associated attestation - Elpidio Jim DO - 04/02/2022 11:06 AM EDT I reviewed with the resident the medical history and the resident's findings on the physical examination. I discussed with the resident the patient's diagnosis and concur with the plan. I independently performed a history and physical exam on the patient and agree with documentation as above. Patient seen and examined. Patient resting during examination. Sitter at bedside states that earlier patient was very active, however patient is very tired, and not easily arousable. Bilateral upper extremities: Incisions over clavicles which are well approximated with surgical glue over top of incisions. No surrounding erythema signs of infection. Patient non-participatory on neuro exam. Hands warm and well-perfused. 62 y.o. female being seen for two week post op evaluation from B/L Clavicle ORIF and Closed Treatment of Left Proximal Humerus (DOS 03/18/22) Range of motion as tolerated bilateral upper extremities. 5 pound weight restriction bilateral upper extremities. PT/OT. We will plan on seeing patient in my office in 1 month or sooner if any acute issues arise. Elpidio Jim DO Physical Therapy Facility/Department: [address] ONC/MED SURG Physical Therapy Daily treatment note Name: Anne HicksCorinnaRory : 1960 Date of Service: 04/01/2022 Discharge Recommendations: Patient would benefit from continued therapy after discharge PT Equipment Recommendations Equipment Needed: No (CTA- Pt requires assist with all aspects of functional mobility) Patient Diagnosis(es): The primary encounter diagnosis was Fall, initial encounter. Diagnoses of Facial laceration, initial encounter, Endotracheally intubated, Periorbital ecchymosis of left eye, initial encounter, and Intraparenchymal hematoma of brain due to trauma with loss of consciousness, unspecified laterality, initial encounter ([facility]) were also pertinent to this visit. Assessment Body Structures, Functions, Activity Limitations Requiring Skilled Therapeutic Intervention: Decreased functional mobility ;Decreased safe awareness;Decreased cognition;Decreased endurance;Decreased balance;Decreased posture Assessment: Pt ambulated 40 ft x2 with B UE platform RW with up to Adelfo x 2 with dependent to turn RW d/t WB precautions. Pt requiredMOD a x1 and CGA for sit<->stand transfers with verbal cues t/o to maintain proper WB through B UEs. Pt able to maintain sitting EOB x 15 minutes with CGA/Adelfo d/t occasional posterior lean, and L sided lean. Pt limited by fatigue and weakness, and decreased endurance, and decreased cognition. Pt would continue to benefit from more PT to address deficits, and decrease fall risk Specific Instructions for Next Treatment: balance and activity tolerance with ambulation /seated balance and transfers Therapy Prognosis: Good Decision Making: High Complexity Barriers to Learning: cognition Requires PT Follow-Up: Yes Activity Tolerance Activity Tolerance: Treatment limited secondary to decreased cognition;Patient limited by fatigue;Patient limited by endurance;Patient limited by pain Activity Tolerance Comments: pt cooperative but impulsive and needed constant tactile cues to remain on task, increased endurance with AMB with B platform walker Plan Plan Plan: (5-6 x week) Specific Instructions for Next Treatment: balance and activity tolerance with ambulation /seated balance and transfers Current Treatment Recommendations: Strengthening, ROM, Balance training, Functional mobility training, Transfer training, Endurance training, Gait training, Stair training, Neuromuscular re-education, Cognitive reorientation, Safety education & training, Positioning, Therapeutic activities Safety Devices Type of Devices: Call light within reach, Gait belt, Patient at risk for falls, Left in bed, Sitter present, Nurse notified Restraints Restraints Initially in Place: No Restraints: no restraints this date Restrictions Restrictions/Precautions Restrictions/Precautions: Weight Bearing, Cardiac, Fall Risk, General Precautions, Up as Tolerated Required Braces or Orthoses?: No Upper Extremity Weight Bearing Restrictions Right Upper Extremity Weight Bearing: Non Weight Bearing Left Upper Extremity Weight Bearing: Non Weight Bearing Other: 5 lb lifting, pushing, pulling restriction to B UE, okay to use platform walker Position Activity Restriction Other position/activity restrictions: B clavicle fx, hx stroke 3 months ago with L side deficits per chart Subjective Pain: no pain General Chart Reviewed: Yes Patient assessed for rehabilitation services?: Yes Response To Previous Treatment: Patient with no complaints from previous session. Family / Caregiver Present: Yes (sitter) Follows Commands: Impaired General Comment Comments: Pt retired to bed supine, given callight, bed alarm set with sitter at beside Subjective Subjective: Pt supine in bed agreeable to PT. RN and pt agreeable to PT. Pt speaks in a whisper. Pt pleasant and cooperative t/o. Pt denied pain Cognition Orientation Overall Orientation Status: Impaired Orientation Level: Disoriented to time;Disoriented to situation;Disoriented to place;Oriented to person Cognition Overall Cognitive Status: Exceptions Arousal/Alertness: Delayed responses to stimuli Following Commands: Follows one step commands with increased time;Follows one step commands with repetition Memory: Decreased recall of biographical Information;Decreased recall of precautions;Decreased recall of recent events Safety Judgement: Decreased awareness of need for assistance;Decreased awareness of need for safety Problem Solving: Assistance required to correct errors made;Assistance required to generate solutions Insights: Decreased awareness of deficits Initiation: Requires cues for all Sequencing: Requires cues for all Cognition Comment: Pt with very soft spoken volume Observation/Palpation Posture: (leans either to R or L in sitting--has a greater tendency to lean toward her L in sitting and standing) Bed mobility Rolling to Left: Minimal assistance;2 Person assistance (MIN 1-2 for hygiene and repostioning) Rolling to Right: Minimal assistance;2 Person assistance Supine to Sit: 2 Person assistance;Minimal assistance Sit to Supine: Minimal assistance;2 Person assistance Scooting: Moderate assistance Bed Mobility Comments: Assessed with HOB elevated; verbal cues for Partial weight bearing BUE. CGA/Adelfo to maintain sitting EOB, several r<>l rolls for hygiene 1-2 assist Transfers Sit to Stand: Moderate Assistance;Contact guard assistance;2 Person Assistance Stand to sit: Minimal Assistance;2 Person Assistance Bed to Chair: Unable to assess Comment: Pt performed STS transfers with RW, constant verbal and tactile cues t/o for PWB precautions through B UEs Ambulation WB Status: PWB BUEs Ambulation Surface: level tile Device: Platform Walker right;Platform Walker left Other Apparatus: (RA) Assistance: Minimal assistance;2 Person assistance;Contact guard assistance (MIN A x1, and occasional CGA by 2nd staff, increased assist when turning) Quality of Gait: fwd flexed posture; downward head posture Gait Deviations: Slow Vivek;Decreased step length;Decreased step height;Shuffles Distance: 40 ft x2 Comments: maxA for B UEs placement on platform RW; dependent with walker turning d/t WB precautions; verbal cues t/o for forward gaze More Ambulation?: No Stairs/Curb Stairs?: No Balance Posture: Fair (forward head, downward gaze) Sitting - Static: Fair Sitting - Dynamic: Fair;- Standing - Static: Fair;- Standing - Dynamic: Poor Comments: Assessed sitting EOB and standing at platform RW Exercise Treatment: Pt demo improvement with tolerance this date continue to requiring cueing for proper technique, easily distracted by clothing Seated LE exercise program: Long Arc Quads, hip abduction/adduction, heel/toe raises, and marches. Reps: x5 Static Sitting Balance Exercises: 10 mins at EOB with CGA/MIN for sitting balance Dynamic Sitting Balance Exercises: pt sat EOB x 15 minutes with CGA/Adelfo d/t posterior lean; constant verbal cues given t/o for neck/head posture with poor return; Pt performed B LAQ , marches, and hip ABD x 5 reps with verbal cues, ankle pumps x10 Static Standing Balance Exercises: Pt able to maintain static standing with CGA with platform RW AM-PAC Score AM-PAC Inpatient Mobility Raw Score : 11 (04/01/221539) AM-PAC Inpatient T-Scale Score : 33.86 (04/01/221539) Mobility Inpatient CMS 0-100% Score: 72.57 (04/01/221539) Mobility Inpatient CMS G-Code Modifier : CL (04/01/221539) Goals Short Term Goals Time Frame for Short term goals: 12 visits Short term goal 1: bed mobility with CG+1 Short term goal 2: transfers with CG+1 Short term goal 3: gait with appropriate device x 50' with min A+1 Short term goal 4: stair ambulation x 4 steps with BHRs and min A+1 Patient Goals Patient goals : pt didn't verbalize any goals Education Patient Education Education Given To: Patient Education Provided: Role of Therapy;Plan of Care;Transfer Training;Fall Prevention Strategies;Home Exercise Program Education Provided Comments: verbal and tactile cues given t/o entire session Education Method: Verbal Barriers to Learning: Cognition Education Outcome: Continued education needed Therapy Time Individual Concurrent Group Co-treatment Time In 1500 Time Out 1553 Minutes 53 Timed Code Treatment Minutes: 53 Minutes Aliya Ornelas PTA Images from the original note were not included. PROGRESS NOTE PATIENT NAME: Anne HicksRory DATE: 04/01/2022 SURGEON: shila PRIMARY CARE PHYSICIAN: No primary care provider on file. HD: # 16 ASSESSMENT Patient Active Problem List Diagnosis Intraparenchymal hemorrhage of brain (HCC) Cortex (cerebral) contusion, with loss of consciousness (HCC) Cerebral edema (HCC) Fall Closed displaced fracture of shaft of left clavicle Closed displaced fracture of shaft of right clavicle Closed fracture of left proximal humerus Closed fracture of left zygomaticomaxillary complex (HCC) New diagnoses: none PLAN 1. Continue discharge planning Leukocytosis resolved SUBJECTIVE Patient is doing well. She remains agitated at night, requiring Haldol. Sitter at bedside. Psychiatry altered doses of home medications. Pain is controlled. she is tolerating a ADULT DIET; Dysphagia - Soft and Bite Sized ADULT ORAL NUTRITION SUPPLEMENT; Breakfast, Lunch, Dinner; Standard High Calorie/High Protein Oral Supplement diet. Patient is tolerating up with assistance. Patient is passing flatus and has had a bowel movement. Patient denies nausea or vomiting. OBJECTIVE VITALS Patient Vitals for the past 24 hrs: BP Temp Temp src Pulse Resp SpO2 04/01/22 0900 106/66 -- -- 73 -- 97 % 04/01/22 0820 120/78 98.1 F (36.7 C) Oral 87 14 97 % 04/01/22 0411 (!) 134/91 98.4 F (36.9 C) Oral (!) 103 18 97 % 03/31/22 2300 -- -- -- 84 -- -- 03/31/22 1935 129/82 -- -- -- -- -- 03/31/22 1933 129/82 98.5 F (36.9 C) Oral (!) 104 16 96 % GENERAL: no distress NEUROLOGIC: neurological exam unchanged from prior LUNGS: clear to auscultation bilaterally- no wheezes, rales or rhonchi, normal air movement, no respiratory distress HEART: normal rate ABDOMEN: soft, non-tender, non-distended, normal bowel sounds, no masses or organomegaly WOUNDS: healing well EXTREMITY: no cyanosis and no clubbing 24 HR INTAKE/OUTPUT: No intake or output data in the 24 hours ending 04/01/22 1138 Chest X-Ray: See radiology report LABS: CBC: Recent Labs 03/29/22 1855 03/30/22 0807 04/01/22 0956 WBC 23.9* 17.4* 9.7 HGB 12.7 12.4 12.5 HCT 35.9* 36.5 36.0* MCV 93.7 95.1 95.7 PLT 371 338 288 BMP: LABRCNT@NA:3,K:3,CL:3,CO2:3,BUN:3,C REATININE:3,GLUCOSE:3)@ COAGS: No results for input(s): APTT, PROT, INR in the last 72 hours. PANCREAS: No results for input(s): LIPASE, AMYLASE in the last 72 hours. LIVER: No results for input(s): AST, ALT, BILIDIR, BILITOT, ALKPHOS in the last 72 hours. CBC: Lab Results Component Value Date/Time WBC 9.7 04/01/2022 09:56 AM RBC 3.76 04/01/2022 09:56 AM HGB 12.5 04/01/2022 09:56 AM HCT 36.0 04/01/2022 09:56 AM MCV 95.7 04/01/2022 09:56 AM MCH 33.2 04/01/2022 09:56 AM MCHC 34.7 04/01/2022 09:56 AM RDW 12.1 04/01/2022 09:56 AM PLT 288 04/01/2022 09:56 AM MPV 11.5 04/01/2022 09:56 AM BMP: Lab Results Component Value Date/Time NA 138 03/29/2022 06:55 PM K 4.5 03/29/2022 06:55 PM CL 101 03/29/2022 06:55 PM CO2 25 03/29/2022 06:55 PM BUN 22 03/29/2022 06:55 PM LABALBU 3.6 03/18/2022 11:52 AM CREATININE 0.81 03/29/2022 06:55 PM CALCIUM 9.2 03/29/2022 06:55 PM GFRAA >60 03/29/2022 06:55 PM LABGLOM >60 03/29/2022 06:55 PM GLUCOSE 226 03/29/2022 06:55 PM Alexa Buchanan MD 04/01/22, 11:38 AM Speech Language Pathology Speech Language Pathology [facility] Cognitive Treatment Note Date: 03/31/2022 Patient s Name: Anne Bullock Diagnosis: Patient Active Problem List Diagnosis Code Intraparenchymal hemorrhage of brain (HCC) I61.9 Cortex (cerebral) contusion, with loss of consciousness (HCC) S06.2X9A Cerebral edema (HCC) G93.6 Fall W19.XXXA Closed displaced fracture of shaft of left clavicle S42.022A Closed displaced fracture of shaft of right clavicle S42.021A Closed fracture of left proximal humerus S42.202A Closed fracture of left zygomaticomaxillary complex (HCC) S02.40FA, S02.32XA, S02.40DA, S02.82XA Pain: 0/10 Cognitive Treatment Treatment time: 2758-6940 Subjective: [x] Alert [x] Cooperative [] Confused [] Agitated [] Lethargic Objective/Assessment: Orientation: Pt oriented to name, age, , and month. Oriented to year with choice of 2. Not oriented to place Recall: Word list retention: 4/7 increased to 5/7 with max verbal cues and repetition Problem Solving/Reasoning: Missing equipment: 1/5 increased to 3/5 with max verbal cues Inconsistencies in sentences: 2/4 increased to 4/4 with max verbal cues Multiple uses for objects: 3/5 no increase with max verbal cues Plan: [x] Continue ST services [] Discharge from ST: Discharge recommendations: [] Further therapy recommended at discharge.The patient should be able to tolerate at least 3 hours of therapy per day over 5 days or 15 hours over 7 days. [x] Further therapy recommended at discharge. [] No therapy recommended at discharge. Completed by Pebbles Loya Hardener Helper Clinician Co-signed by Brandy Varma M.S. CCC/TILE HELPER Images from the original note were not included. Physical Therapy Physical Therapy Cancel Note DATE: 03/31/2022 NAME: Anne Bullock : 1960 Patient not seen this date for Physical Therapy due to: RN cx pt combative, medicated. Therapy will resume 04/01 as able Comprehensive Nutrition Assessment Type and Reason for Visit: Reassess Nutrition Recommendations/Plan: Continue Soft and Bite Sized diet, remove carb restriction Start High Ch[place]/High Pro ONS Encourage/monitor PO intake Monitor labs, wt, plan of care Malnutrition Assessment: Malnutrition Status: Insufficient data (03/31/22 1209) Context: Acute Illness Findings of the 6 clinical characteristics of malnutrition: Energy Intake: Mild decrease in energy intake (Comment) Weight Loss: Unable to assess Body Fat Loss: Unable to assess Orbital Muscle Mass Loss: Moderate muscle mass loss Thigh (quadraceps), Calf (gastrocnemius) Fluid Accumulation: No significant fluid accumulation Minister Of Religion Strength: Not Performed Nutrition Assessment: Chart reviewed. S/p ORIF of malar complex fracture 03/29. Sitter at bed side, pt not communicating. Sitter reports pt ate yogurt, eggs, and 1/2 OJ for breakfast. Will resume ONS and liberalize diet to support meeting pts estimated needs. Nutrition Related Findings: labs/meds reviewed. last BM 03/28. Wound Type: Multiple, Surgical Incision Current Nutrition Intake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 to reduce the radiation dose to as low as reasonably achievable. Noncontrast CT of the head with reconstructed 2-D images are also provided for review. COMPARISON: None. HISTORY: ORDERING SYSTEM PROVIDED HISTORY: trauma TECHNOLOGIST PROVIDED HISTORY: trauma Decision Support Exception - unselect if not a suspected or confirmed emergency medical condition->Emergency Medical Condition ([place]); ORDERING SYSTEM PROVIDED HISTORY: trauma TECHNOLOGIST PROVIDED HISTORY: trauma Decision Support Exception - unselect if not a suspected or confirmed emergency medical condition->Emergency Medical Condition ([place]); ORDERING SYSTEM PROVIDED HISTORY: trauma TECHNOLOGIST PROVIDED HISTORY: trauma Decision Support Exception - unselect if not a suspected or confirmed emergency medical condition->Emergency Medical Condition ([place]) FINDINGS: Head CT: There are foci of intraparenchymal hemorrhage consistent with hemorrhagic contusion within left superior frontal gyrus, anterior aspect bilateral frontal lobes, bilateral anterior temporal poles and the right occipital lobe. The lesions are associated with surrounding vasogenic edema. The largest focus of intraparenchymal hemorrhage within left superior frontal gyrus measures 2.8 x 1.8 cm. There are also scattered areas of subarachnoid hemorrhage within the bilateral occipital lobes. Moderate chronic microangiopathic ischemic disease. Mild generalized volume loss. Multiple chronic lacunar infarction involving left davis radiata right davis radiata and bilateral lentiform nucleus and right thalamus. . The brain parenchyma is normal. The cerebellar tonsils are in normal position. The ventricles, sulci, and cisterns are within normal limits in size and configuration. The globes and orbits are within normal limits. The visualized extracranial structures including paranasal sinuses and mastoid air cells are unremarkable. No fracture is identified. CTA NECK: AORTIC ARCH/ARCH VESSELS: No dissection or arterial injury. Mild stenosis at the origin left subclavian artery. No significant stenosis of the brachiocephalic or subclavian arteries. CAROTID ARTERIES: No dissection, arterial injury. There is moderate atherosclerotic calcification of bilateral carotid bulbs extending into the origin of internal carotid arteries resulting in moderate 60% stenosis at the origin of right cervical ICA. VERTEBRAL ARTERIES: No dissection, arterial injury, or significant stenosis. SOFT TISSUES: The lung apices are clear. No cervical or superior mediastinal lymphadenopathy. The larynx and pharynx are unremarkable. No acute abnormality of the salivary and thyroid glands. BONES: No acute osseous abnormality. CTA HEAD: ANTERIOR CIRCULATION: No significant stenosis of the intracranial internal carotid, anterior cerebral, or middle cerebral arteries. No aneurysm. POSTERIOR CIRCULATION: No significant stenosis of the vertebral, basilar, or posterior cerebral arteries. No aneurysm. OTHER: No dural venous sinus thrombosis on this non-dedicated study. CT face: Nasal bones and nasal cavity: The nasal bone are intact. Paranasal sinuses: There are comminuted and displaced fractures involving the anterior, inferior and posterolateral wall of the left maxillary sinus which demonstrate complete opacification. There is associated collapse of anterior and posterolateral wall of left maxillary sinus.. Orbits: Comminuted fracture involving the lateral wall of left maxillary sinus with significant displacement comminuted fracture of inferior wall of left orbit with 5 mm depression into the maxillary sinus wall. The fracture fragments impinge on left inferior and left lateral rectus muscle. The lamina papyracea are intact bilaterally. The perpendicular plate of the ethmoid bone demonstrates normal central positioning and no evidence of fracture. Mandible: No concerning lytic or sclerotic lesion is noted. No periapical hypodensity is noted surrounding the mandibular teeth. Temporomandibular joints appear unremarkable. Temporal bones: Mastoid air cells appear normally-developed and clear of fluid. The temporal bones appear intact. The middle ear cavities are clear with appropriate positioning of the ossicles. The remainder of the osseous structures of the face: Mildly displaced fracture the left zygomatic arch. Nondisplaced fracture left pterygoid plate. The pterygoid process and plates of the sphenoid bone appear intact without displaced fracture. The superior alveolar process of the maxilla is normal. Extensive amount of soft tissue swelling in the left malar and left preseptal region. Cervical: BONES/ALIGNMENT: Acute nondisplaced fracture of left transverse process C7 vertebral body. [place] images made.. DEGENERATIVE CHANGES: Mild multilevel disc and facet degenerative disease most pronounced at C4-C5. Grade 1 retrolisthesis at C4-C5. SOFT TISSUES: There is no prevertebral soft tissue swelling. Head CT: There are foci of intraparenchymal hemorrhage consistent with hemorrhagic contusion within left superior frontal gyrus, anterior aspect bilateral frontal lobes, bilateral anterior temporal poles and the right occipital lobe. The lesions are associated with surrounding vasogenic edema. The largest focus of intraparenchymal hemorrhage within left superior frontal gyrus measures 2.8 x 1.8 cm. There are also scattered areas of subarachnoid hemorrhage within the bilateral occipital lobes. Send strain changes in the brain and multiple foci of chronic lacunar infarctions as described. CTA head and neck: No intimal injury. No dissection. Moderate 65% stenosis at the origin of right cervical ICA. Mild stenosis at the origin of left subclavian artery. CT face: There are comminuted and displaced fractures involving the anterior, inferior and posterolateral wall of the left maxillary sinus which demonstrate complete opacification. There is associated collapse of anterior and posterolateral wall of left maxillary sinus.. Comminuted fracture involving the lateral wall of left maxillary sinus with significant displacement comminuted fracture of inferior wall of left orbit with 5 mm depression into the maxillary sinus wall. The fracture fragments impinge on left inferior and left lateral rectus muscle. Mildly displaced fracture of left zygomatic arch. Nondisplaced fracture left pterygoid plate. Extensive amount of soft tissue swelling in the left malar and left preseptal region. Cervical CT: Subtle nondisplaced fracture involving the left transverse process of C7 vertebral body.. Critical results were called by Dr. Lakisha Venegas MD to on 03/16/2022 at 22:35. CAROTID STENOSIS REFERENCE: The [place] Symptomatic Carotid Endarterectomy Trial (NASCET) is a method of quantifying internal carotid artery stenosis. Distal internal carotid artery diameter as the denominator for stenosis measurement: MILD = <50% stenosis. MODERATE = 50-69% stenosis. SEVERE = 70-89% stenosis. HAIRLINE/CRITICAL = 90-99% stenosis. OCCLUDED = 100% stenosis. RECOMMENDATIONS: Unavailable CT FACIAL BONES WO CONTRAST Result Date: 03/16/2022 EXAMINATION: CT OF THE HEAD WITHOUT CONTRAST; CT OF THE FACE WITHOUT CONTRAST; CTA OF THE HEAD AND NECK WITH CONTRAST; CT OF THE CERVICAL SPINE WITHOUT CONTRAST 03/16/2022 9:39 pm; 03/16/2022 9:55 pm; 03/16/2022 9:54 pm: TECHNIQUE: CT of the head was performed without the administration of intravenous contrast. Automated exposure control, iterative reconstruction, and/or weight based adjustment of the mA/kV was utilized to reduce the radiation dose to as low as reasonably achievable.; CT of the face was performed without the administration of intravenous contrast. Multiplanar reformatted images are provided for review. Automated exposure control, iterative reconstruction, and/or weight based adjustment of the mA/kV was utilized to reduce the radiation dose to as low as reasonably achievable.; CTA of the head and neck was performed with the administration of intravenous contrast. Multiplanar reformatted images are provided for review. MIP images are provided for review. Stenosis of the internal carotid arteries measured using NASCET criteria. Automated exposure control, iterative reconstruction, and/or weight based adjustment of the mA/kV was utilized to reduce the radiation dose to as low as reasonably achievable.; CT of the cervical spine was performed without the administration of intravenous contrast. Multiplanar reformatted images are provided for review. Automated exposure control, iterative reconstruction, and/or weight based adjustment of the mA/kV was utilized to reduce the radiation dose to as low as reasonably achievable. Noncontrast CT of the head with reconstructed 2-D images are also provided for review. COMPARISON: None. HISTORY: ORDERING SYSTEM PROVIDED HISTORY: trauma TECHNOLOGIST PROVIDED HISTORY: trauma Decision Support Exception - unselect if not a suspected or confirmed emergency medical condition->Emergency Medical Condition ([place]); ORDERING SYSTEM PROVIDED HISTORY: trauma TECHNOLOGIST PROVIDED HISTORY: trauma Decision Support Exception - unselect if not a suspected or confirmed emergency medical condition->Emergency Medical Condition ([place]); ORDERING SYSTEM PROVIDED HISTORY: trauma TECHNOLOGIST PROVIDED HISTORY: trauma Decision Support Exception - unselect if not a suspected or confirmed emergency medical condition->Emergency Medical Condition ([place]) FINDINGS: Head CT: There are foci of intraparenchymal hemorrhage consistent with hemorrhagic contusion within left superior frontal gyrus, anterior aspect bilateral frontal lobes, bilateral anterior temporal poles and the right occipital lobe. The lesions are associated with surrounding vasogenic edema. The largest focus of intraparenchymal hemorrhage within left superior frontal gyrus measures 2.8 x 1.8 cm. There are also scattered areas of subarachnoid hemorrhage within the bilateral occipital lobes. Moderate chronic microangiopathic ischemic disease. Mild generalized volume loss. Multiple chronic lacunar infarction involving left davis radiata right davis radiata and bilateral lentiform nucleus and right thalamus. . The brain parenchyma is normal. The cerebellar tonsils are in normal position. The ventricles, sulci, and cisterns are within normal limits in size and configuration. The globes and orbits are within normal limits. The visualized extracranial structures including paranasal sinuses and mastoid air cells are unremarkable. No fracture is identified. CTA NECK: AORTIC ARCH/ARCH VESSELS: No dissection or arterial injury. Mild stenosis at the origin left subclavian artery. No significant stenosis of the brachiocephalic or subclavian arteries. CAROTID ARTERIES: No dissection, arterial injury. There is moderate atherosclerotic calcification of bilateral carotid bulbs extending into the origin of internal carotid arteries resulting in moderate 60% stenosis at the origin of right cervical ICA. VERTEBRAL ARTERIES: No dissection, arterial injury, or significant stenosis. SOFT TISSUES: The lung apices are clear. No cervical or superior mediastinal lymphadenopathy. The larynx and pharynx are unremarkable. No acute abnormality of the salivary and thyroid glands. BONES: No acute osseous abnormality. CTA HEAD: ANTERIOR CIRCULATION: No significant stenosis of the intracranial internal carotid, anterior cerebral, or middle cerebral arteries. No aneurysm. POSTERIOR CIRCULATION: No significant stenosis of the vertebral, basilar, or posterior cerebral arteries. No aneurysm. OTHER: No dural venous sinus thrombosis on this non-dedicated study. CT face: Nasal bones and nasal cavity: The nasal bone are intact. Paranasal sinuses: There are comminuted and displaced fractures involving the anterior, inferior and posterolateral wall of the left maxillary sinus which demonstrate complete opacification. There is associated collapse of anterior and posterolateral wall of left maxillary sinus.. Orbits: Comminuted fracture involving the lateral wall of left maxillary sinus with significant displacement comminuted fracture of inferior wall of left orbit with 5 mm depression into the maxillary sinus wall. The fracture fragments impinge on left inferior and left lateral rectus muscle. The lamina papyracea are intact bilaterally. The perpendicular plate of the ethmoid bone demonstrates normal central positioning and no evidence of fracture. Mandible: No concerning lytic or sclerotic lesion is noted. No periapical hypodensity is noted surrounding the mandibular teeth. Temporomandibular joints appear unremarkable. Temporal bones: Mastoid air cells appear normally-developed and clear of fluid. The temporal bones appear intact. The middle ear cavities are clear with appropriate positioning of the ossicles. The remainder of the osseous structures of the face: Mildly displaced fracture the left zygomatic arch. Nondisplaced fracture left pterygoid plate. The pterygoid process and plates of the sphenoid bone appear intact without displaced fracture. The superior alveolar process of the maxilla is normal. Extensive amount of soft tissue swelling in the left malar and left preseptal region. Cervical: BONES/ALIGNMENT: Acute nondisplaced fracture of left transverse process C7 vertebral body. [place] images made.. DEGENERATIVE CHANGES: Mild multilevel disc and facet degenerative disease most pronounced at C4-C5. Grade 1 retrolisthesis at C4-C5. SOFT TISSUES: There is no prevertebral soft tissue swelling. Head CT: There are foci of intraparenchymal hemorrhage consistent with hemorrhagic contusion within left superior frontal gyrus, anterior aspect bilateral frontal lobes, bilateral anterior temporal poles and the right occipital lobe. The lesions are associated with surrounding vasogenic edema. The largest focus of intraparenchymal hemorrhage within left superior frontal gyrus measures 2.8 x 1.8 cm. There are also scattered areas of subarachnoid hemorrhage within the bilateral occipital lobes. Send strain changes in the brain and multiple foci of chronic lacunar infarctions as described. CTA head and neck: No intimal injury. No dissection. Moderate 65% stenosis at the origin of right cervical ICA. Mild stenosis at the origin of left subclavian artery. CT face: There are comminuted and displaced fractures involving the anterior, inferior and posterolateral wall of the left maxillary sinus which demonstrate complete opacification. There is associated collapse of anterior and posterolateral wall of left maxillary sinus.. Comminuted fracture involving the lateral wall of left maxillary sinus with significant displacement comminuted fracture of inferior wall of left orbit with 5 mm depression into the maxillary sinus wall. The fracture fragments impinge on left inferior and left lateral rectus muscle. Mildly displaced fracture of left zygomatic arch. Nondisplaced fracture left pterygoid plate. Extensive amount of soft tissue swelling in the left malar and left preseptal region. Cervical CT: Subtle nondisplaced fracture involving the left transverse process of C7 vertebral body.. Critical results were called by Dr. Lakisha Venegas MD to on 03/16/2022 at 22:35. CAROTID STENOSIS REFERENCE: The [place] Symptomatic Carotid Endarterectomy Trial (NASCET) is a method of quantifying internal carotid artery stenosis. Distal internal carotid artery diameter as the denominator for stenosis measurement: MILD = <50% stenosis. MODERATE = 50-69% stenosis. SEVERE = 70-89% stenosis. HAIRLINE/CRITICAL = 90-99% stenosis. OCCLUDED = 100% stenosis. RECOMMENDATIONS: Unavailable CT CERVICAL SPINE WO CONTRAST Result Date: 03/16/2022 EXAMINATION: CT OF THE HEAD WITHOUT CONTRAST; CT OF THE FACE WITHOUT CONTRAST; CTA OF THE HEAD AND NECK WITH CONTRAST; CT OF THE CERVICAL SPINE WITHOUT CONTRAST 03/16/2022 9:39 pm; 03/16/2022 9:55 pm; 03/16/2022 9:54 pm: TECHNIQUE: CT of the head was performed without the administration of intravenous contrast. Automated exposure control, iterative reconstruction, and/or weight based adjustment of the mA/kV was utilized to reduce the radiation dose to as low as reasonably achievable.; CT of the face was performed without the administration of intravenous contrast. Multiplanar reformatted images are provided for review. Automated exposure control, iterative reconstruction, and/or weight based adjustment of the mA/kV was utilized to reduce the radiation dose to as low as reasonably achievable.; CTA of the head and neck was performed with the administration of intravenous contrast. Multiplanar reformatted images are provided for review. MIP images are provided for review. Stenosis of the internal carotid arteries measured using NASCET criteria. Automated exposure control, iterative reconstruction, and/or weight based adjustment of the mA/kV was utilized to reduce the radiation dose to as low as reasonably achievable.; CT of the cervical spine was performed without the administration of intravenous contrast. Multiplanar reformatted images are provided for review. Automated exposure control, iterative reconstruction, and/or weight based adjustment of the mA/kV was utilized to reduce the radiation dose to as low as reasonably achievable. Noncontrast CT of the head with reconstructed 2-D images are also provided for review. COMPARISON: None. HISTORY: ORDERING SYSTEM PROVIDED HISTORY: trauma TECHNOLOGIST PROVIDED HISTORY: trauma Decision Support Exception - unselect if not a suspected or confirmed emergency medical condition->Emergency Medical Condition (MA); ORDERING SYSTEM PROVIDED HISTORY: trauma TECHNOLOGIST PROVIDED HISTORY: trauma Decision Support Exception - unselect if not a suspected or confirmed emergency medical condition->Emergency Medical Condition (MA); ORDERING SYSTEM PROVIDED HISTORY: trauma TECHNOLOGIST PROVIDED HISTORY: trauma Decision Support Exception - unselect if not a suspected or confirmed emergency medical condition->Emergency Medical Condition (MA) FINDINGS: Head CT: There are foci of intraparenchymal hemorrhage consistent with hemorrhagic contusion within left superior frontal gyrus, anterior aspect bilateral frontal lobes, bilateral anterior temporal poles and the right occipital lobe. The lesions are associated with surrounding vasogenic edema. The largest focus of intraparenchymal hemorrhage within left superior frontal gyrus measures 2.8 x 1.8 cm. There are also scattered areas of subarachnoid hemorrhage within the bilateral occipital lobes. Moderate chronic microangiopathic ischemic disease. Mild generalized volume loss. Multiple chronic lacunar infarction involving left davis radiata right davis radiata and bilateral lentiform nucleus and right thalamus. . The brain parenchyma is normal. The cerebellar tonsils are in normal position. The ventricles, sulci, and cisterns are within normal limits in size and configuration. The globes and orbits are within normal limits. The visualized extracranial structures including paranasal sinuses and mastoid air cells are unremarkable. No fracture is identified. CTA NECK: AORTIC ARCH/ARCH VESSELS: No dissection or arterial injury. Mild stenosis at the origin left subclavian artery. No significant stenosis of the brachiocephalic or subclavian arteries. CAROTID ARTERIES: No dissection, arterial injury. There is moderate atherosclerotic calcification of bilateral carotid bulbs extending into the origin of internal carotid arteries resulting in moderate 60% stenosis at the origin of right cervical ICA. VERTEBRAL ARTERIES: No dissection, arterial injury, or significant stenosis. SOFT TISSUES: The lung apices are clear. No cervical or superior mediastinal lymphadenopathy. The larynx and pharynx are unremarkable. No acute abnormality of the salivary and thyroid glands. BONES: No acute osseous abnormality. CTA HEAD: ANTERIOR CIRCULATION: No significant stenosis of the intracranial internal carotid, anterior cerebral, or middle cerebral arteries. No aneurysm. POSTERIOR CIRCULATION: No significant stenosis of the vertebral, basilar, or posterior cerebral arteries. No aneurysm. OTHER: No dural venous sinus thrombosis on this non-dedicated study. CT face: Nasal bones and nasal cavity: The nasal bone are intact. Paranasal sinuses: There are comminuted and displaced fractures involving the anterior, inferior and posterolateral wall of the left maxillary sinus which demonstrate complete opacification. There is associated collapse of anterior and posterolateral wall of left maxillary sinus.. Orbits: Comminuted fracture involving the lateral wall of left maxillary sinus with significant displacement comminuted fracture of inferior wall of left orbit with 5 mm depression into the maxillary sinus wall. The fracture fragments impinge on left inferior and left lateral rectus muscle. The lamina papyracea are intact bilaterally. The perpendicular plate of the ethmoid bone demonstrates normal central positioning and no evidence of fracture. Mandible: No concerning lytic or sclerotic lesion is noted. No periapical hypodensity is noted surrounding the mandibular teeth. Temporomandibular joints appear unremarkable. Temporal bones: Mastoid air cells appear normally-developed and clear of fluid. The temporal bones appear intact. The middle ear cavities are clear with appropriate positioning of the ossicles. The remainder of the osseous structures of the face: Mildly displaced fracture the left zygomatic arch. Nondisplaced fracture left pterygoid plate. The pterygoid process and plates of the sphenoid bone appear intact without displaced fracture. The superior alveolar process of the maxilla is normal. Extensive amount of soft tissue swelling in the left malar and left preseptal region. Cervical: BONES/ALIGNMENT: Acute nondisplaced fracture of left transverse process C7 vertebral body. [place]ura images made.. DEGENERATIVE CHANGES: Mild multilevel disc and facet degenerative disease most pronounced at C4-C5. Grade 1 retrolisthesis at C4-C5. SOFT TISSUES: There is no prevertebral soft tissue swelling. Head CT: There are foci of intraparenchymal hemorrhage consistent with hemorrhagic contusion within left superior frontal gyrus, anterior aspect bilateral frontal lobes, bilateral anterior temporal poles and the right occipital lobe. The lesions are associated with surrounding vasogenic edema. The largest focus of intraparenchymal hemorrhage within left superior frontal gyrus measures 2.8 x 1.8 cm. There are also scattered areas of subarachnoid hemorrhage within the bilateral occipital lobes. Send strain changes in the brain and multiple foci of chronic lacunar infarctions as described. CTA head and neck: No intimal injury. No dissection. Moderate 65% stenosis at the origin of right cervical ICA. Mild stenosis at the origin of left subclavian artery. CT face: There are comminuted and displaced fractures involving the anterior, inferior and posterolateral wall of the left maxillary sinus which demonstrate complete opacification. There is associated collapse of anterior and posterolateral wall of left maxillary sinus.. Comminuted fracture involving the lateral wall of left maxillary sinus with significant displacement comminuted fracture of inferior wall of left orbit with 5 mm depression into the maxillary sinus wall. The fracture fragments impinge on left inferior and left lateral rectus muscle. Mildly displaced fracture of left zygomatic arch. Nondisplaced fracture left pterygoid plate. Extensive amount of soft tissue swelling in the left malar and left preseptal region. Cervical CT: Subtle nondisplaced fracture involving the left transverse process of C7 vertebral body.. Critical results were called by Dr. Lakisha Venegas MD to on 03/16/2022 at 22:35. CAROTID STENOSIS REFERENCE: The [place] Symptomatic Carotid Endarterectomy Trial (NASCET) is a method of quantifying internal carotid artery stenosis. Distal internal carotid artery diameter as the denominator for stenosis measurement: MILD = <50% stenosis. MODERATE = 50-69% stenosis. SEVERE = 70-89% stenosis. HAIRLINE/CRITICAL = 90-99% stenosis. OCCLUDED = 100% stenosis. RECOMMENDATIONS: Unavailable XR SHOULDER LEFT (MIN 2 VIEWS) Result Date: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
--- NOTE | 2023-09-24 13:25 | XR_ITS ---
The [address] [address] Patient Name: ELIAS CONTEH MRN: [id number] date: 1960 Sex: F Assigned Patient Location: ER Current Patient Location: ER Accession/Order Number: [id number] Exam Date: 09/24/2023 13:55 Report Date: 09/24/2023 14:42 At the request of: KULDIP GONZALES Procedure: XR abdomen 1V EXAM: XR abdomen 1V HISTORY: ng tube placement COMPARISON: 09/21/2023. TECHNIQUE: Supine KUB FINDINGS: NG tube noted in the left flank within the abdomen. Tip seen at the level of L3 in the area of the distal body the stomach. Sidehole also felt to be present in the stomach. Has been advanced since previous. Mildly prominent small bowel gas left flank without distention. XR/XR abdomen 1V IMPRESSION: NG tube positioned within the abdomen and left flank. Electronically authenticated by: SHUKRI GUEVARA Date: 09/24/2023 14:42
--- NOTE | 2023-09-24 13:26 | ED_ITS ---
HPI - Medical Clearance General Chief complaint: Medical Clearance Stated complaint: N G Time Seen by Provider: 09/24/23 13:08 Source: caregiver Mode of arrival: ambulance Limitations: altered mental status Limitations comment: dementia History of Present Illness HPI Narrative: Patient allegedly pulled out her NG tube at the [place]. She was sent by [facility] to our ED to get replacement NG tube. Patient has no complaints. Related Information Allergies Allergy/AdvReac Type Severity Reaction Status Date / Time Sulfa (Sulfonamide Allergy Unknown Verified 09/21/23 13:03 Antibiotics) Exam Narrative Exam Narrative: Nurses notes and vital signs reviewed and patient is not hypoxic. Afebrile General: Well-appearing and in no apparent distress. Skin: Warm, dry, no pallor noted. Eye: Pupils are equal, round and EOMI. No scleral icterus. Ears, Nose, Mouth, and Throat: Oral mucosa is moist Cardiovascular: Tachycardia. Respiratory: No accessory muscle use or respiratory distress. Lungs are clear to auscultation, no wheezing, rales or rhonchi GI: Abdomen is soft, non-distended. Normal bowel sounds. No tenderness to palpation. No rebound, guarding, or rigidity noted. Neurological: A&O x4. No cranial nerve dysfunction observed. No truncal ataxia. Moves all extremities. Sensation intact. Psychiatric: Cooperative and interactive. Normal mood and affect. Constitutional Vital Signs, click to edit/add: Last Vital Signs Temp 97.9 F 09/24/23 13:17 Pulse 99 H 09/24/23 13:03 Resp 18 09/24/23 13:03 BP 130/82 09/24/23 13:03 Pulse Ox 97 09/24/23 13:03 O2 Del Method Room Air 09/24/23 13:03 Course Vital Signs Vital signs: Vital Signs Pulse Rate 99 H 09/24/23 13:03 Respiratory Rate 18 09/24/23 13:03 Blood Pressure 130/82 09/24/23 13:03 Pulse Oximetry 97 09/24/23 13:03 Oxygen Delivery Method Room Air 09/24/23 13:03 Temperature 97.9 F 09/24/23 13:17 Pulse Rate 99 H 09/24/23 13:03 Respiratory Rate 18 09/24/23 13:03 Blood Pressure 130/82 09/24/23 13:03 Pulse Oximetry 97 09/24/23 13:03 Oxygen Delivery Method Room Air 09/24/23 13:03 MDM - Medical Clearance MDM Narrative Medical decision making narrative: The patient allegedly pulled out her NG tube. Emergency department nurse placed a new NG tube. X-ray of the abdomen obtained to confirm placement and tube pulled back 5cm - 55 at the lips - and image obtained to confirm. Patient discharged back to [place] Discharge Plan Discharge Stand Alone Forms: Portal Instructions Chief Complaint: Medical Clearance Clinical Impression: Encounter for nasogastric (NG) tube placement Patient Disposition: Home, Self-Care Time of Disposition Decision: 13:30 Print Language: Syrian Instructions: Nasogastric Tube (DC) Referrals: JOSÉ YOUNGBLOOD [Primary Care Provider] - 1 week
[2023-09-24 14:59] VITALS: BP 129/86; PULSE 104; RESP 16; O2SAT 97
== END 2023-09-24 15:43 | disposition home or self-care (01) ==
PROVIDERS: Emergency Provider Emergency Medicine; PCP Family Medicine
DX: Z46.59 Encounter for fitting and adjustment of other gastrointestinal appliance and device (principal)
CPT/HCPCS: 74018; 99284

== ENCOUNTER 2023-09-26 11:16 | Outpatient (OUT) | payer MEDICARE, SELFPAY | END 2023-09-26 11:17 | disposition home or self-care (01) | LOC: PST 11:17 | PROVIDERS: PCP Family Medicine; Visit Provider Surgery | DX: Z01.818 Encounter for other preprocedural examination (principal); R13.10 Dysphagia, unspecified ==

== ENCOUNTER 2023-09-29 19:16 | Emergency (ER) | payer MEDICAID, SELFPAY ==
[2023-09-29 19:19] VITALS: BP 111/72; PULSE 87; TEMP 37.2; O2SAT 95; BMI 17.9
--- NOTE | 2023-09-29 19:26 | XR_ITS ---
The [address] [address] Patient Name: ELIAS CONTEH MRN: [facility]:[id number] date: 1960 Sex: F Assigned Patient Location: ED.MAIN Current Patient Location: ED.MAIN Accession/Order Number: [id number] Exam Date: 09/29/2023 19:33 Report Date: 09/29/2023 20:32 At the request of: JIM MARKER Procedure: XR abdomen 1V XR abdomen 1V 09/29/2023 7:33 PM EDT CLINICAL INDICATION: Nasogastric tube position COMPARISON: 09/24/2023 TECHNIQUE: Portable semiupright AP view of the chest. FINDINGS: Enteric tube tip seen in the proximal stomach with side port likely in the fundus. Prior cholecystectomy. No dilated small or large bowel loops. Possible hepatomegaly. XR/XR abdomen 1V IMPRESSION: Enteric tube tip seen in the proximal stomach with side port likely in the fundus. Nonobstructive bowel gas pattern. Possible hepatomegaly. Electronically authenticated by: TOD FIGUEROA Date: 09/29/2023 20:32
--- NOTE | 2023-09-29 19:29 | ED.GENADUL1 ---
HPI HPI - General Adult General Chief complaint: Medical Clearance Stated complaint: PULLED NG TUBE OUT Time Seen by Provider: 09/29/23 19:18 Source: other Source information: Paperwork from [facility] Mode of arrival: ambulance Limitations: no limitations History of Present Illness HPI narrative: 43-year-old female who is a resident at [facility] and has a history of a traumatic brain injury who has an NG tube for feeding because she has swallowed several swallow exams and is supposed to have a feeding tube placed in her abdomen but is not medically cleared by cardiology for this surgery is transferred for evaluation after she pulled out her NG tube. The patient states she pulled out the NG tube yesterday. She has no pain complaints. She denies any chest pain or shortness of breath. She is alert and oriented unlikely at her baseline with a history of vascular dementia and cognitive communication deficit. Related Data Home Medications ?Medication ?Instructions ?Recorded ?Confirmed Zoloft 50 mg NG tube DAILY 09/26/23 09/26/23 acetaminophen 325 mg capsule 1,000 mg PO Q8H PRN fever or pain 09/26/23 09/26/23 (Tylenol) amlodipine benzoate 1 mg/mL oral 10 mg PO DAILY 09/26/23 09/26/23 suspension atorvastatin 20 mg/5 mL (4 mg/mL) 10 mg PO DAILY 09/26/23 09/26/23 oral suspension lactose-reduced food-fiber 0.07 240 ea feeding tube .6x times daily 09/26/23 09/26/23 gram-1.5 kcal/mL liquid for tube feed (Isosource 1.5 Chinedu) loperamide 2 mg capsule 2 mg PO Q6H PRN loose stool 09/26/23 09/26/23 metformin 1,000 mg tablet 1,000 mg PO BID 09/26/23 09/26/23 polyethylene glycol 3350 17 17 g PO DAILY 09/26/23 09/26/23 gram/dose oral powder (Miralax) valproate 250 mg NG tube BID 09/26/23 09/26/23 Allergies Allergy/AdvReac Type Severity Reaction Status Date / Time Sulfa (Sulfonamide Allergy Unknown Verified 09/29/23 19:18 Antibiotics) Opioid HPI Opioid Management Most Recent Opioid Data: No Data to Display Review of Systems ROS Status of ROS 10 or more systems reviewed and unremarkable except as noted in history and below PFSH PFSH Medical History (Updated 09/29/23 @ 19:53 by Jolene Garcia MD) Anemia ?D64.9 - Anemia, unspecified (ICD-10) Traumatic brain injury ?S06.9XAA - Unspecified intracranial injury with loss of consciousness status unknown, initial encounter (ICD-10) Alcohol abuse ?F10.10 - Alcohol abuse, uncomplicated (ICD-10) COVID-19 ?U07.1 - COVID-19 (ICD-10) Traumatic fracture of bone ?T14.8XXA - Other injury of unspecified body region, initial encounter (ICD-10) Intracerebral hemorrhage ?I61.9 - Nontraumatic intracerebral hemorrhage, unspecified (ICD-10) TIA (transient ischemic attack) ?G45.9 - Transient cerebral ischemic attack, unspecified (ICD-10) Social History (Updated 09/26/23 @ 11:10 by Pam Estes) Within the past year, how often did you have a drink containing alcohol: never Score interpretation: A score less than 3 is consistent with normal alcohol consumption. Smoking status: Former smoker Non-prescribed substance use: denies use Previous occupational history: disabled Exam Narrative Exam Narrative: Nurses note and vital signs reviewed and patient is not hypoxic. General: Nontoxic female resting maurizio the stretcher, she is conversant, no respiratory distress Skin: Warm, dry, no pallor noted. There is no rash noted. Head: Normocephalic, atraumatic Eye: Normal conjunctiva, no drainage, EOMI. PERRL Ears, Nose, Mouth, and Throat: oral mucosa is moist. Nares patent. Mouth without vesicles. Ear canals patent. Tm's without Erythema Cardiovascular: Regular Rate and Rhythm Respiratory: Patient is in no distress, no accessory muscle use, lungs are clear to auscultation, no wheezing, rales or rhonchi Back: non-tender, no CVA tenderness bilaterally to percussion. GI: Normal bowel sounds, no tenderness to palpation, no masses appreciated. No rebound, guarding, or rigidity noted. Musculoskeletal: The patient has no evidence of calf tenderness, no pitting edema, symmetrical pulses noted bilaterally Neurological: A&O x4, normal speech, No gross focal deficits Psychiatric: Cooperative Constitutional Vital Signs, click to edit/add: Last Vital Signs Temp 99 F 09/29/23 19:19 Pulse 87 03/28/24 19:19 Resp 14 09/29/23 19:19 BP 111/72 09/29/23 19:19 Pulse Ox 95 09/29/23 19:19 O2 Del Method Room Air 09/29/23 19:19 Course Vital Signs Vital signs: Vital Signs Temperature 99 F 09/29/23 19:19 Pulse Rate 87 09/29/23 19:19 Respiratory Rate 14 09/29/23 19:19 Blood Pressure 111/72 09/29/23 19:19 Pulse Oximetry 95 09/29/23 19:19 Oxygen Delivery Method Room Air 09/29/23 19:19 Temperature 99 F 09/29/23 19:19 Pulse Rate 87 09/29/23 19:19 Respiratory Rate 14 09/29/23 19:19 Blood Pressure 111/72 09/29/23 19:19 Pulse Oximetry 95 09/29/23 19:19 Oxygen Delivery Method Room Air 09/29/23 19:19 Medical Decision Making MDM Narrative Medical decision making narrative: This 63-year-old female was transferred from the extended care facility that she currently resides in after she pulled out her NG tube yesterday. Apparently they were unable or any quick to place the NG tube at the residential. NG tube was replaced any emergency department by the nursing staff, follow-up KUB shows the tube in place. She will be returned to the extended care facility at this time. Discharge Plan Discharge Chief Complaint: Medical Clearance Clinical Impression: Encounter for nasogastric (NG) tube placement Patient Disposition: Hospice - Medical Facility Time of Disposition Decision: 19:35 Discharge Location: [facility] Condition: Good Prescriptions / Home Meds: No Action acetaminophen [Tylenol] 325 mg capsule 1,000 mg PO Q8H PRN (Reason: fever or pain) amlodipine benzoate 1 mg/mL suspension 10 mg PO DAILY atorvastatin 20 mg/5 mL (4 mg/mL) suspension 10 mg PO DAILY Rx Instructions: administer on an empty stomach, at least 1 hour before or 2 hours after food/meal(s) Isosource 1.5 Chinedu 0.07 gram-1.5 kcal/mL liquid 240 ea feeding tube .6x times daily loperamide 2 mg capsule 2 mg PO Q6H PRN (Reason: loose stool) metformin 1,000 mg tablet 1,000 mg PO BID polyethylene glycol 3350 [Miralax] 17 gram/dose powder 17 g PO DAILY valproate 250 mg NG tube BID Zoloft 50 mg NG tube DAILY Print Language: Turkmen Referrals: JOSÉ YOUNGBLOOD [Primary Care Provider] - 1 week
--- OUTSIDE RECORDS SUMMARY | 2023-09-29 19:38 | XMS_ITS | CCD ---
Author Organization [facility] Care Team Providers Care Light Out Examiner Name Role Phone Unavailable Primary Care Provider [...] Discontinued docusate sodium 50 mg / sennosides, care home 8.6 mg oral tablet (1 source) Start: [...] 0954, Pain Severe (7-10) polyethylene glycol 3350 90801 mg powder for oral solution (2 sources) [...] For Analgosedation Dosing is based off of [place] Body Weight. 0.2 mg/kg/hr 59.4 kg (5.94 [...] Kennedy Espinal DO 06/24/22 Final result Normal [facility] XR CLAVICLE RIGHTon 06-24-20 22 XR [...] Kennedy Espinal DO 06/24/22 Final result Normal [facility] XR CLAVICLE LEFTon XR CLAVICLE LEFT [...] Elpidio Jim DO 05/16/22 Final result Normal [facility] XR CLAVICLE RIGHTon 05-16-20 22 XR [...] Elpidio Jim DO 05/16/22 Final result Normal [facility] XR SHOULDER LEFT (MIN 2 VIEW [...] Elpidio Jim DO 05/16/22 Final result Normal [facility] Basic Metab w/rfx MGon 04-23 Anion gap [Moles/Vol] 15 mmol/L Normal 9-17 [facility] Comment on above: Performed By: #### M G, LIVP, BMPX, VD25, NAMRATA, IOCAL, CDP #### [address] [address] [place]: Dominik Muñiz MD Calcium [Mass/Vol] 9.4 mg/dL Normal 8.6-10.4 [facility] Comment on above: Performed By: #### M G, LIVP, BMPX, VD25, NAMRATA, IOCAL, CDP #### [address] [address] [place]: Dominik Muñiz MD Chloride [Moles/Vol] 98 mmol/L Normal 98-107 [facility] Comment on above: Performed By: #### M G, LIVP, BMPX, VD25, NAMRATA, IOCAL, CDP #### [address] [address] [place]: Dominik Muñiz MD CO2 [Moles/Vol] 26 mmol/L Normal 20-31 [facility] Comment on above: Performed By: #### M G, LIVP, BMPX, VD25, NAMRATA, IOCAL, CDP #### [facility] [address] [place] [address] [place]: Dominik Muñiz MD Creatinine [Mass/Vol] 0.45 mg/dL Low 0.50-0.90 [facility] Comment on above: Performed By: #### M G, LIVP, BMPX, VD25, NAMRATA, IOCAL, CDP #### [address] [address] [place]: Dominik Muñiz MD GFR/1.73 sq M.predicted among non-blacks MDRD (S/P/Bld) [Vol rate/Area] mL/min/{1.73_m2} Normal >60 [facility] Comment on above: Result Comment: Effective [...] LIVP, BMPX, VD25, NAMRATA, IOCAL, CDP #### [address] [address] [place]: Dominik Muñzi MD Glucose [Mass/Vol] 163 mg/dL High 70-99 [facility] Comment on above: Performed By: #### M G, LIVP, BMPX, VD25, NAMRATA, IOCAL, CDP #### [facility] [address] [place] [address] [place]: Dominik Muñiz MD Potassium [Moles/Vol] 3.9 mmol/L Normal 3.7-5.3 [facility] Comment on above: Performed By: #### M G, LIVP, BMPX, VD25, NAMRATA, IOCAL, CDP #### [facility] [address] [place] [address] [place]: Dominik Muñiz MD Sodium [Moles/Vol] 139 mmol/L Normal 135-144 [facility] Comment on above: Performed By: #### M G, LIVP, BMPX, VD25, NAMRATA, IOCAL, CDP #### [facility] [address] [place] [address] [place]: Dominik Muñiz MD Urea nitrogen [Mass/Vol] 15 mg/dL Normal 8-23 [facility] Comment on above: Performed By: #### M G, LIVP, BMPX, VD25, NAMRATA, IOCAL, CDP #### [facility] [address] [place] [address] [place]: Dominik Muñiz MD Basic Metabolic Panel w/ Ref jessica to MGon 04-23-2022 Anion gap [Moles/Vol] 15 mmol/L 9 - 17 mmol/L [facility] Calcium [Mass/Vol] 9.4 mg/dL 8.6 - 10. 4 mg/dL [facility] Chloride [Moles/Vol] 98 mmol/L 98 - 10 7 mmol/L [facility] CO2 [Moles/Vol] 26 mmol/L 20 - 31 mmol/L [facility] Creatinine [Mass/Vol] 0.45 mg/dL Low 0.50 - 0.90 mg/dL [facility] GFR/1.73 sq M.predicted MDRD (S/P/Bld) [Vol rate/Area] - PINF [facility] Glucose [Mass/Vol] 163 mg/dL High 70 - 99 mg/dL [facility] Interpretation and review of laboratory results Abnormal [facility] Potassium [Moles/Vol] 3.9 mmol/L 3.7 - 5.3 mmol/L [facility] Sodium [Moles/Vol] 139 mmol/L 135 - 144 mmol/L [facility] Urea nitrogen (BldV) [Mass/Vol] 15 mg/dL 8 - 23 mg/dL [facility] CBC with Auto Differentialon 04-23-2022 Absolute Eos # 0.06 [facility] Absolute Immature Granulocyte 0.03 [facility] Absolute Lymph # 1.50 [facility] Absolute Sebastian # 0.54 [facility] Basophils (Bld) [#/Vol] 0.04 10*3/uL [facility] Basophils/100 WBC (Bld) 1 % 0 - 2 % [facility] Eosinophils/100 WBC (Bld) 1 % 1 - 4 % [facility] Hematocrit (Bld) [Volume fraction] 38.6 % 36.3 - 47.1 % [facility] Hemoglobin (Bld) [Mass/Vol] 13.1 g/dL 11.9 - 15.1 g/dL [facility] Immature granulocytes/100 WBC (Bld) 0 % 0 [facility] Interpretation and review of laboratory results Abnormal [facility] Lymphocytes/100 WBC (Bld) 19 % Low 24 - 43 % [facility] MCH (RBC) [Entitic mass] 32.2 pg 25.2 - 33.5 pg [facility] MCHC (RBC) [Mass/Vol] 33.9 g/dL 28.4 - 34.8 g/dL [facility] MCV (RBC) [Entitic vol] 94.8 fL 82.6 - 102.9 fL [facility] Monocytes/100 WBC (Bld) 7 % 3 - 12 % [facility] NRBC Automated 0.0 0.0 per 100 WBC [facility] Platelet distribution width (Bld) [Ratio] 12.1 % 11.8 - 14.4 % [facility] Platelets (Bld) [#/Vol] See Reflexed IPF Result [facility] RBC (Bld) [#/Vol] 4.07 10*6/uL 3.95 - 5.1 1 m/uL [facility] Seg Neutrophils 72 % High 36 - 65 % [facility] Segs Absolute 5.69 [facility] WBC (Bld) [#/Vol] 7.9 10*3/uL [facility] CBC with Diffon 04-23-2022 Abs. Basophil 0.04 k/uL Normal 0.00-0.20 [facility] Comment on above: Performed By: #### M G, LIVP, BMPX, VD25, NAMRATA, IOCAL, CDP #### [facility] [employer] [facility] [place] [address] [place]: Dominik Muñiz MD Abs.Imm.Granulocyte 0.03 k/uL Normal 0.00-0.30 [facility] Comment on above: Performed By: #### M G, LIVP, BMPX, VD25, NAMRATA, IOCAL, CDP #### [address] [address] [place]: Dominik Muñiz MD Abs.Neutrophil (Seg) 5.69 k/uL Normal 1.50-8.10 [facility] Comment on above: Performed By: #### M G, LIVP, BMPX, VD25, NAMRATA, IOCAL, CDP #### [address] [address] [place]: Dominik Muñiz MD Basophils/100 WBC (Bld) 1 % Normal 0-2 [facility] Comment on above: Performed By: #### M G, LIVP, BMPX, VD25, NAMRATA, IOCAL, CDP #### [address] [address] [place]: Dominik Muñiz MD Eosinophils (Bld) [#/Vol] 0.06 10*3/uL Normal 0.00-0.44 [facility] Comment on above: Performed By: #### M G, LIVP, BMPX, VD25, NAMRATA, IOCAL, CDP #### [place] [address] [place]: Dominik Muñiz MD Eosinophils/100 WBC (Bld) 1 % Normal 1-4 [facility] Comment on above: Performed By: #### M G, LIVP, BMPX, VD25, NAMRATA, IOCAL, CDP #### [address] [address] [place]: Dominik Muñiz MD Erythrocyte distribution width (RBC) [Ratio] 12.1 % Normal 11.8-14.4 [facility] Comment on above: Performed By: #### M G, LIVP, BMPX, VD25, NAMRATA, IOCAL, CDP #### [address] [address] [place]: Dominik Muñiz MD Hematocrit (Bld) [Volume fraction] 38.6 % Normal 36.3-47.1 [facility] Comment on above: Performed By: #### M G, LIVP, BMPX, VD25, NAMRATA, IOCAL, CDP #### [facility] [address] [place] [address] [place]: Dominik Muñiz MD Hemoglobin (Bld) [Mass/Vol] 13.1 g/dL Normal 11.9-15.1 [facility] Comment on above: Performed By: #### M G, LIVP, BMPX, VD25, NAMRATA, IOCAL, CDP #### [facility] [address] [place] [address] [place]: Dominik Muñiz MD Immature granulocytes/100 WBC (Bld) 0 % Normal 0 [facility] Comment on above: Performed By: #### Juan G, LIVP, BMPX, VD25, NAMRATA, IOCAL, CDP #### [facility] [address] [place] [address] [place]: Dominik Muñiz MD Lymphocytes (Bld) [#/Vol] 1.50 10*3/uL Normal 1.10-3.70 [facility] Comment on above: Performed By: #### Juan G, LIVP, BMPX, VD25, NAMRATA, IOCAL, CDP #### [facility] [address] [place] [address] [place]: Dominik Muñiz MD Lymphocytes/100 WBC (Bld) 19 % Low 24-43 [facility] Comment on above: Performed By: #### M G, LIVP, BMPX, VD25, NAMRATA, IOCAL, CDP #### [facility] [address] [place] [address] [place]: Dominik Muñiz MD MCH (RBC) [Entitic mass] 32.2 pg Normal 25.2-33.5 [facility] Comment on above: Performed By: #### M G, LIVP, BMPX, VD25, NAMRATA, IOCAL, CDP #### [address] [address] [place]: Dominik Muñiz MD MCHC (RBC) [Mass/Vol] 33.9 g/dL Normal 28.4-34.8 [facility] Comment on above: Performed By: #### M G, LIVP, BMPX, VD25, NAMRATA, IOCAL, CDP #### [address] [address] [place]: Dominik Muñiz MD MCV (RBC) [Entitic vol] 94.8 fL Normal 82.6-102.9 [facility] Comment on above: Performed By: #### M G, LIVP, BMPX, VD25, NAMRATA, IOCAL, CDP #### [address] [address] [place]: Dominik Muñiz MD Monocytes (Bld) [#/Vol] 0.54 10*3/uL Normal 0.10-1.20 [facility] Comment on above: Performed By: #### M G, LIVP, BMPX, VD25, NAMRATA, IOCAL, CDP #### [address] [address] [place]: Dominik Muñiz MD Monocytes/100 WBC (Bld) 7 % Normal 3-12 [facility] Comment on above: Performed By: #### M G, LIVP, BMPX, VD25, NAMRATA, IOCAL, CDP #### [address] [address] [place]: Dominik Muñiz MD Neutrophil (Seg) 72 % High 36-65 [facility] Comment on above: Performed By: #### M G, LIVP, BMPX, VD25, NAMRATA, IOCAL, CDP #### [address] [id number] [place]: Dominik Muñiz MD NRBC Automated 0.0 per 100 WBC Normal 0.0 [facility] Comment on above: Performed By: #### M G, LIVP, BMPX, VD25, NAMRATA, IOCAL, CDP #### [employer] [address] [place] [address] [place]: Dominik Muñiz MD Platelet Count See Reflexed IPF Result Normal 138-453 [facility] Comment on above: Performed By: #### M G, LIVP, BMPX, VD25, NAMRATA, IOCAL, CDP #### [facility] [address] [place] [address] [place]: Dominik Muñiz MD RBC (Bld) [#/Vol] 4.07 10*6/uL Normal 3.95-5.11 [facility] Comment on above: Performed By: #### M G, LIVP, BMPX, VD25, NAMRATA, IOCAL, CDP #### [facility] [address] [place] [address] [place]: Dominik Muñiz MD WBC (Bld) [#/Vol] 7.9 10*3/uL Normal 3.5-11.3 [facility] Comment on above: Performed By: #### M G, LIVP, BMPX, VD25, NAMRATA, IOCAL, CDP #### [facility] [address] [place] [address] [place]: Dominik Muñiz MD Immature Platelet Fractionon 04-23-2022 Platelet, Fluorescence 152 [employer] [facility]otd Platelet, Immature Fraction 10.1 % 1.1 - 10.3 % [employer] PLT, Immature Fract.on 04-23 Platelet, Fluoresc. 152 k/uL Normal 138-453 [facility] Comment on above: Result Comment: ORDE RED BY LAB Performed By: #### M G, LIVP, BMPX, VD25, NAMRATA, IOCAL, CDP #### [facility] [address] [place] [address] [place]: Dominik Muñiz MD PLT, Immature Fract. 10.1 % Normal 1.1-10.3 [facility] Comment on above: Result Comment: ORDE RED BY LAB Performed By: #### M G, LIVP, BMPX, VD25, NAMRATA, IOCAL, CDP #### [facility] [address] [place], [place] [id number] [place]: Dominik Muñiz MD POC Glucose Fingerstickon Glucose [Mass/Vol] 106 mg/dL High 65 - 105 mg/dL [facility] Interpretation and review of laboratory results Abnormal [facility] Glucose [Mass/Vol] 140 mg/dL High 65 - 105 mg/dL [facility] Interpretation and review of laboratory results Abnormal [facility] POC Glucose Fingerstickon Glucose [Mass/Vol] 129 mg/dL High 65 - 105 mg/dL [facility] Interpretation and review of laboratory results Abnormal [facility] Basic Metabolic Panelon 04-03 Anion gap [Moles/Vol] 10 mmol/L 9 - 17 mmol/L [facility] Calcium [Mass/Vol] 8.9 mg/dL 8.6 - 10. 4 mg/dL [facility] Chloride [Moles/Vol] 101 mmol/L 98 - 10 7 mmol/L [facility] CO2 [Moles/Vol] 28 mmol/L 20 - 31 mmol/L [facility] Creatinine [Mass/Vol] 0.44 mg/dL Low 0.50 - 0.90 mg/dL [facility] GFR/1.73 sq M.predicted MDRD (S/P/Bld) [Vol rate/Area] - PINF [facility] Glucose [Mass/Vol] 128 mg/dL High 70 - 99 mg/dL [facility] Interpretation and review of laboratory results Abnormal [facility] Potassium [Moles/Vol] 3.8 mmol/L 3.7 - 5.3 mmol/L [facility] Sodium [Moles/Vol] 139 mmol/L 135 - 144 mmol/L [facility] Urea nitrogen (BldV) [Mass/Vol] 20 mg/dL 8 - 23 mg/dL [facility] Basic Metabolic Profon 04-16 Anion gap [Moles/Vol] 10 mmol/L Normal 9-17 [facility] Comment on above: Performed By: #### C DP #### [address] [address] [place]: Dominik Muñiz MD Calcium [Mass/Vol] 8.9 mg/dL Normal 8.6-10.4 [facility] Comment on above: Performed By: #### C DP #### [place] [address] [place]: Dominik Muñiz MD Chloride [Moles/Vol] 101 mmol/L Normal 98-107 [facility] Comment on above: Performed By: #### C DP #### [address] [address] [place]: Dominik Muñiz MD CO2 [Moles/Vol] 28 mmol/L Normal 20-31 [facility] Comment on above: Performed By: #### C DP #### [address] [address] [place]: Dominik Muñiz MD Creatinine [Mass/Vol] 0.44 mg/dL Low 0.50-0.90 [facility] Comment on above: Performed By: #### C DP #### [address] [address] [place]: Dominik Muñiz MD GFR/1.73 sq M.predicted among non-blacks MDRD (S/P/Bld) [Vol rate/Area] mL/min/{1.73_m2} Normal >60 [facility] Comment on above: Result Comment: Effective [...] secretion. Performed By: #### C DP #### [address] [address] [place]: Dominik Muñiz MD Glucose [Mass/Vol] 128 mg/dL High 70-99 [facility] Comment on above: Performed By: #### C DP #### [address] [address] [place]: Dominik Muñiz MD Potassium [Moles/Vol] 3.8 mmol/L Normal 3.7-5.3 [facility] Comment on above: Performed By: #### C DP #### [address] [address] [place]: Dominik Muñiz MD Sodium [Moles/Vol] 139 mmol/L Normal 135-144 [facility] Comment on above: Performed By: #### C DP #### [address] [address] [place]: Dominik Muñiz MD Urea nitrogen [Mass/Vol] 20 mg/dL Normal 8-23 [facility] Comment on above: Performed By: #### C DP #### [address] [address] [place]: Dominik Muñiz MD POC Glucose Fingerstickon Glucose [Mass/Vol] 204 mg/dL High 65 - 105 mg/dL [facility] Interpretation and review of laboratory results Abnormal [facility]ITALNoiseToysRIV[facility] Glucose [Mass/Vol] 138 mg/dL High 65 - 105 mg/dL [facility] Interpretation and review of laboratory results Abnormal [facility] Glucose [Mass/Vol] 141 mg/dL High 65 - 105 mg/dL [facility] Interpretation and review of laboratory results Abnormal [facility] Basic Metabolic Panelon 04-03 Anion gap [Moles/Vol] 12 mmol/L 9 - 17 mmol/L [facility] Calcium [Mass/Vol] 8.7 mg/dL 8.6 - 10. 4 mg/dL [facility] Chloride [Moles/Vol] 101 mmol/L 98 - 10 7 mmol/L [facility] CO2 [Moles/Vol] 25 mmol/L 20 - 31 mmol/L [facility] Creatinine [Mass/Vol] 0.47 mg/dL Low 0.50 - 0.90 mg/dL [facility] GFR/1.73 sq M.predicted MDRD (S/P/Bld) [Vol rate/Area] - PINF [facility] Glucose [Mass/Vol] 132 mg/dL High 70 - 99 mg/dL [facility] Interpretation and review of laboratory results Abnormal [facility] Potassium [Moles/Vol] 3.9 mmol/L 3.7 - 5.3 mmol/L [facility] Sodium [Moles/Vol] 138 mmol/L 135 - 144 mmol/L [facility] Urea nitrogen (BldV) [Mass/Vol] 19 mg/dL 8 - 23 mg/dL [facility] Basic Metabolic Profon 04-14 Anion gap [Moles/Vol] 12 mmol/L Normal 9-17 [facility] Comment on above: Performed By: #### C DP #### [facility] [employer] [facility] [place] [address] [place]: Dominik Muñiz MD Calcium [Mass/Vol] 8.7 mg/dL Normal 8.6-10.4 [facility] Comment on above: Performed By: #### C DP #### [address] [address] [place]: Dominik Muñiz MD Chloride [Moles/Vol] 101 mmol/L Normal 98-107 [facility] Comment on above: Performed By: #### C DP #### [address] [address] [place]: Dominik Muñiz MD CO2 [Moles/Vol] 25 mmol/L Normal 20-31 [facility] Comment on above: Performed By: #### C DP #### [address] [address] [place]: Dominik Muñiz MD Creatinine [Mass/Vol] 0.47 mg/dL Low 0.50-0.90 [facility] Comment on above: Performed By: #### C DP #### [place] [address] [place]: Dominik Muñiz MD GFR/1.73 sq M.predicted among non-blacks MDRD (S/P/Bld) [Vol rate/Area] mL/min/{1.73_m2} Normal >60 [facility] Comment on above: Result Comment: Effective [...] secretion. Performed By: #### C DP #### [address] [address] [place]: Dominik Muñiz MD Glucose [Mass/Vol] 132 mg/dL High 70-99 [facility] Comment on above: Performed By: #### C DP #### [address] [id number] [place]: Dominik Muñiz MD Potassium [Moles/Vol] 3.9 mmol/L Normal 3.7-5.3 [facility] Comment on above: Performed By: #### C DP #### [facility] [address] [place], [place] [id number] [place]: Dominik Muñiz MD Sodium [Moles/Vol] 138 mmol/L Normal 135-144 [facility] Comment on above: Performed By: #### C DP #### [facility] [address] [place], [place] [id number] [place]: Dominik Muñiz MD Urea nitrogen [Mass/Vol] 19 mg/dL Normal 8-23 [facility] Comment on above: Performed By: #### C DP #### [facility] [address] [place] [address] [place]: Dominik Muñiz MD POC Glucose Fingerstickon Glucose [Mass/Vol] 158 mg/dL High 65 - 105 mg/dL [facility] Interpretation and review of laboratory results Abnormal [facility] Glucose [Mass/Vol] 153 mg/dL High 65 - 105 mg/dL [facility] Interpretation and review of laboratory results Abnormal [facility] POC Glucose Fingerstickon Glucose [Mass/Vol] 168 mg/dL High 65 - 105 mg/dL [facility] Interpretation and review of laboratory results Abnormal [facility]ITALWebRadar [facility] Glucose [Mass/Vol] 155 mg/dL High 65 - 105 mg/dL [facility] Interpretation and review of laboratory results Abnormal [facility] Glucose [Mass/Vol] 195 mg/dL High 65 - 105 mg/dL [facility] Interpretation and review of laboratory results Abnormal [facility] Glucose [Mass/Vol] 165 mg/dL High 65 - 105 mg/dL [facility] Interpretation and review of laboratory results Abnormal [facility] Glucose Fingerstickon Glucose [Mass/Vol] 218 mg/dL High 65 - 105 mg/dL [facility] Interpretation and review of laboratory results Abnormal [facility] Glucose [Mass/Vol] 188 mg/dL High 65 - 105 mg/dL [facility] Interpretation and review of laboratory results Abnormal [facility] Glucose [Mass/Vol] 267 mg/dL High 65 - 105 mg/dL [facility] Interpretation and review of laboratory results Abnormal [facility] Glucose [Mass/Vol] 135 mg/dL High 65 - 105 mg/dL [facility] Interpretation and review of laboratory results Abnormal [facility] Glucose [Mass/Vol] 151 mg/dL High 65 - 105 mg/dL [facility] Interpretation and review of laboratory results Abnormal [facility] POC Glucose Fingerstickon Glucose [Mass/Vol] 285 mg/dL High 65 - 105 mg/dL [facility] Interpretation and review of laboratory results Abnormal [facility] Glucose [Mass/Vol] 248 mg/dL High 65 - 105 mg/dL [facility] Interpretation and review of laboratory results Abnormal [facility] Glucose [Mass/Vol] 232 mg/dL High 65 - 105 mg/dL [facility] Interpretation and review of laboratory results Abnormal [facility] Glucose [Mass/Vol] 177 mg/dL High 65 - 105 mg/dL [facility] Interpretation and review of laboratory results Abnormal [facility] Glucose [Mass/Vol] 151 mg/dL High 65 - 105 mg/dL [facility] Interpretation and review [facility] laboratory results Abnormal [facility] Glucose Fingerstickon Glucose [Mass/Vol] 277 mg/dL High 65 - 105 mg/dL [facility] Interpretation and review of laboratory results Abnormal [facility] Glucose [Mass/Vol] 193 mg/dL High 65 - 105 mg/dL [facility] Interpretation and review of laboratory results Abnormal [facility] Glucose [Mass/Vol] 230 mg/dL High 65 - 105 mg/dL [facility] Interpretation and review of laboratory results Abnormal [facility] Glucose [Mass/Vol] 153 mg/dL High 65 - 105 mg/dL [facility] Interpretation and review of laboratory results Abnormal [facility] Basic Metab w/rfx MGon 04-09 Anion gap [Moles/Vol] 12 mmol/L Normal 9-17 [facility] Comment on above: Performed By: #### C DP #### [place] [address] [place]: Dominik Muñiz MD Calcium [Mass/Vol] 9.4 mg/dL Normal 8.6-10.4 [facility] Comment on above: Performed By: #### C DP #### [place] [address] [place]: Dominik Muñiz MD Chloride [Moles/Vol] 102 mmol/L Normal 98-107 [facility] Comment on above: Performed By: #### C DP #### [address] [id number] [place]: Dominik Muñiz MD CO2 [Moles/Vol] 25 mmol/L Normal 20-31 [facility] Comment on above: Performed By: #### C DP #### [place] [address] [place]: Dominik Muñiz MD Creatinine [Mass/Vol] 0.51 mg/dL Normal 0.50-0.90 [facility] Comment on above: Performed By: #### C DP #### [facility] [address] [place] [address] [place]: Dominik Muñiz MD GFR/1.73 sq M.predicted among non-blacks MDRD (S/P/Bld) [Vol rate/Area] mL/min/{1.73_m2} Normal >60 [facility] Comment on above: Result Comment: Effective [...] secretion. Performed By: #### C DP #### [address] [address] [place]: Dominik Muñiz MD Glucose [Mass/Vol] 194 mg/dL High 70-99 [facility] Comment on above: Performed By: #### C DP #### [address] [address] [place]: Dominik Muñiz MD Potassium [Moles/Vol] 4.0 mmol/L Normal 3.7-5.3 [facility] Comment on above: Performed By: #### C DP #### [address] [address] [place]: Dominik Muñiz MD Sodium [Moles/Vol] 139 mmol/L Normal 135-144 [facility] Comment on above: Performed By: #### C DP #### [facility] [address] [place] [address] [place]: Dominik Muñiz MD Urea nitrogen [Mass/Vol] 18 mg/dL Normal 8-23 [facility] Comment on above: Performed By: #### C DP #### [address] [address] [place]: Dominik Muñiz MD Basic Metabolic Panel w/ Ref jessica to MGon 04-09-2022 Anion gap [Moles/Vol] 12 mmol/L 9 - 17 mmol/L [facility] Calcium [Mass/Vol] 9.4 mg/dL 8.6 - 10. 4 mg/dL [facility] Chloride [Moles/Vol] 102 mmol/L 98 - 10 7 mmol/L [facility] CO2 [Moles/Vol] 25 mmol/L 20 - 31 mmol/L [facility] Creatinine [Mass/Vol] 0.51 mg/dL 0.50 - 0.90 mg/dL [facility] GFR/1.73 sq M.predicted MDRD (S/P/Bld) [Vol rate/Area] - PINF [facility] Glucose [Mass/Vol] 194 mg/dL High 70 - 99 mg/dL [facility] Interpretation and review of laboratory results Abnormal [facility] Potassium [Moles/Vol] 4.0 mmol/L 3.7 - 5.3 mmol/L [facility] Sodium [Moles/Vol] 139 mmol/L 135 - 144 mmol/L [facility] Urea nitrogen (BldV) [Mass/Vol] 18 mg/dL 8 - 23 mg/dL [facility] CBC with Auto Differentialon 04-09-2022 Absolute Eos # 0.07 [facility] Absolute Immature Granulocyte [facility] Absolute Lymph # 2.09 [facility] Absolute Sebastian # 0.72 [facility] Basophils (Bld) [#/Vol] 0.03 10*3/uL [facility] Basophils/100 WBC (Bld) 0 % 0 - 2 % [facility] Eosinophils/100 WBC (Bld) 1 % 1 - 4 % [facility] Hematocrit (Bld) [Volume fraction] 38.6 % 36.3 - 47.1 % [facility] Hemoglobin (Bld) [Mass/Vol] 12.9 g/dL 11.9 - 15.1 g/dL [facility] Immature granulocytes/100 WBC (Bld) 0 % 0 [facility] Interpretation and review of laboratory results Abnormal [facility] Lymphocytes/100 WBC (Bld) 24 % 24 - 43 % [facility] MCH (RBC) [Entitic mass] 32.3 pg 25.2 - 33.5 pg [facility] MCHC (RBC) [Mass/Vol] 33.4 g/dL 28.4 - 34.8 g/dL [facility] MCV (RBC) [Entitic vol] 96.7 fL 82.6 - 102.9 fL [facility] Monocytes/100 WBC (Bld) 8 % 3 - 12 % [facility] NRBC Automated 0.0 0.0 per 100 WBC [facility] Platelet distribution width (Bld) [Ratio] 12.1 % 11.8 - 14.4 % [facility] Platelet mean volume (Bld) [Entitic vol] 12.5 fL 8.1 - 13.5 fL [facility] Platelets (Bld) [#/Vol] 160 10*3/uL [facility] RBC (Bld) [#/Vol] 3.99 10*6/uL 3.95 - 5.1 1 m/uL [facility] Seg Neutrophils 67 % High 36 - 65 % [facility] Segs Absolute 5.89 [facility] WBC (Bld) [#/Vol] 8.8 10*3/uL [facility] CBC with Diffon 04-09-2022 Abs. Basophil 0.03 k/uL Normal 0.00-0.20 [facility] Comment on above: Performed By: #### C DP #### [facility] [address] [place] [address] [place]: Dominik Muñiz MD Abs.Imm.Granulocyte <0.03 Normal 0.00-0.30 [facility] Comment on above: Performed By: #### C DP #### [facility] [address] [place] [address] M[place]: Dominik Muñiz MD Abs.Neutrophil (Seg) 5.89 k/uL Normal 1.50-8.10 [facility] Comment on above: Performed By: #### C DP #### [address] [address] [place]: Dominik Muñiz MD Basophils/100 WBC (Bld) 0 % Normal 0-2 [facility] Comment on above: Performed By: #### C DP #### [place] [address] M[place]: Dominik Muñiz MD Eosinophils (Bld) [#/Vol] 0.07 10*3/uL Normal 0.00-0.44 [facility] Comment on above: Performed By: #### C DP #### [place] [address] [place]: Dominik Muñiz MD Eosinophils/100 WBC (Bld) 1 % Normal 1-4 [facility] Comment on above: Performed By: #### C DP #### [place] [address] M[place]: Dominik Muñiz MD Erythrocyte distribution width (RBC) [Ratio] 12.1 % Normal 11.8-14.4 [facility] Comment on above: Performed By: #### C DP #### [place] [address] [place]: Dominik Muñiz MD Hematocrit (Bld) [Volume fraction] 38.6 % Normal 36.3-47.1 [facility] Comment on above: Performed By: #### C DP #### [place] [address] [place]: Dominik Muñzi MD Hemoglobin (Bld) [Mass/Vol] 12.9 g/dL Normal 11.9-15.1 [facility] Comment on above: Performed By: #### C DP #### [address] [address] [place]: Dominik Muñiz MD Immature granulocytes/100 WBC (Bld) 0 % Normal 0 [facility] Comment on above: Performed By: #### C DP #### [address] [address] [place]: Dominik Muñiz MD Lymphocytes (Bld) [#/Vol] 2.09 10*3/uL Normal 1.10-3.70 [facility] Comment on above: Performed By: #### C DP #### [address] [address] [place]: Dominik Muñiz MD Lymphocytes/100 WBC (Bld) 24 % Normal 24-43 [facility] Comment on above: Performed By: #### C DP #### [address] [address] [place]: Dominik Muñiz MD MCH (RBC) [Entitic mass] 32.3 pg Normal 25.2-33.5 [facility] Comment on above: Performed By: #### C DP #### [address] [address] [place]: Dominik Muñiz MD MCHC (RBC) [Mass/Vol] 33.4 g/dL Normal 28.4-34.8 [facility] Comment on above: Performed By: #### C DP #### [address] [address] [place]: Dominik Muñiz MD MCV (RBC) [Entitic vol] 96.7 fL Normal 82.6-102.9 [facility] Comment on above: Performed By: #### C DP #### [address] [address] [place]: Dominik Muñiz MD Monocytes (Bld) [#/Vol] 0.72 10*3/uL Normal 0.10-1.20 [facility] Comment on above: Performed By: #### C DP #### [address] [address] [place]: Dominik Muñiz MD Monocytes/100 WBC (Bld) 8 % Normal 3-12 [facility] Comment on above: Performed By: #### C DP #### [address] [address] [place]: Dominik Muñiz MD Neutrophil (Seg) 67 % High 36-65 [facility] Comment on above: Performed By: #### C DP #### [address] [address] [place]: Dominik Muñiz MD NRBC Automated 0.0 per 100 WBC Normal 0.0 [facility] Comment on above: Performed By: #### C DP #### [address] [address] [place]: Dominik Muñiz MD Platelet mean volume (Bld) [Entitic vol] 12.5 fL Normal 8.1-13.5 [facility] Comment on above: Performed By: #### C DP #### [address] [address] [place]: Dominik Muñiz MD Platelets (Bld) [#/Vol] 160 10*3/uL Normal 138-453 [facility] Comment on above: Performed By: #### C DP #### [address] [address] [place]: Dominik Muñiz MD RBC (Bld) [#/Vol] 3.99 10*6/uL Normal 3.95-5.11 [facility] Comment on above: Performed By: #### C DP #### [facility] [address] [place] [address] [place]: Dominik Muñiz MD WBC (Bld) [#/Vol] 8.8 10*3/uL Normal 3.5-11.3 [facility] Comment on above: Performed By: #### C DP #### [facility] [address] [place] [address] [place]: Dominik Muñiz MD POC Glucose Fingerstickon Glucose [Mass/Vol] 248 mg/dL High 65 - 105 mg/dL [facility] Interpretation and review of laboratory results Abnormal [facility] Glucose [Mass/Vol] 357 mg/dL High 65 - 105 mg/dL [facility] Interpretation and review of laboratory results Abnormal [facility] Glucose [Mass/Vol] 186 mg/dL High 65 - 105 mg/dL [facility] Interpretation and review of laboratory results Abnormal [facility] Glucose [Mass/Vol] 213 mg/dL High 65 - 105 mg/dL [facility] Interpretation and review of laboratory results Abnormal [facility] Hemoglobin A1Con 04-08-2022 Glucose [Mass/Vol] 148 mg/dL Normal [facility] Comment on above: Result Comment: The ADA and AACC recommend providing the estimated average glucose result to permit better patient understanding of their HBA1c result. Performed By: #### M G, LIVP, BMPX, VD25, NAMRATA, IOCAL, CDP #### [facility] [employer] [address] [place] [address] [place]: Dominik Muñiz MD HbA1c (Bld) [Mass fraction] 6.8 % High 4.0-6.0 [facility] Comment on above: Performed By: #### M G, LIVP, BMPX, VD25, NAMRATA, IOCAL, CDP #### [facility] [place] [address] [place]: Dominik Muñiz MD Glucose [Mass/Vol] 148 mg/dL [facility] HbA1c (Bld) [Mass fraction] 6.8 % High 4.0 - 6.0 % [facility] Interpretation and review of laboratory results Abnormal [facility] POC Glucose Fingerstickon Glucose [Mass/Vol] 192 mg/dL High 65 - 105 mg/dL [facility] Interpretation and review of laboratory results Abnormal [facility] Glucose [Mass/Vol] 241 mg/dL High 65 - 105 mg/dL [facility] Interpretation and review of laboratory results Abnormal [facility] Glucose [Mass/Vol] 205 mg/dL High 65 - 105 mg/dL [facility] Interpretation and review of laboratory results Abnormal [facility] Glucose [Mass/Vol] 160 mg/dL High 65 - 105 mg/dL [facility] Interpretation and review of laboratory results Abnormal [facility] Glucose [Mass/Vol] 166 mg/dL High 65 - 105 mg/dL [facility] Interpretation and review of laboratory results Abnormal [facility] Basic Metab w/rfx MGon 04-07 Anion gap [Moles/Vol] 9 mmol/L Normal 9-17 [facility] Comment on above: Performed By: #### M G, LIVP, BMPX, VD25, NAMRATA, IOCAL, CDP #### [facility] [address] [place] [id number] [place]: Dominik Muñiz MD Calcium [Mass/Vol] 8.7 mg/dL Normal 8.6-10.4 [facility] Comment on above: Performed By: #### M G, LIVP, BMPX, VD25, NAMRATA, IOCAL, CDP #### [facility] [address] [place] [id number] [place]: Dominik Muñiz MD Chloride [Moles/Vol] 102 mmol/L Normal 98-107 [facility] Comment on above: Performed By: #### M G, LIVP, BMPX, VD25, NAMRATA, IOCAL, CDP #### [address] [id number] [place]: Dominik Muñiz MD CO2 [Moles/Vol] 27 mmol/L Normal 20-31 [facility] Comment on above: Performed By: #### M G, LIVP, BMPX, VD25, NAMRATA, IOCAL, CDP #### [address] [address] [place]: Dominik Muñiz MD Creatinine [Mass/Vol] 0.49 mg/dL Low 0.50-0.90 [facility] Comment on above: Performed By: #### M G, LIVP, BMPX, VD25, NAMRATA, IOCAL, CDP #### [place] [address] [place]: Dominik Muñiz MD GFR/1.73 sq M.predicted among non-blacks MDRD (S/P/Bld) [Vol rate/Area] mL/min/{1.73_m2} Normal >60 [facility] Comment on above: Result Comment: Effective [...] LIVP, BMPX, VD25, NAMRATA, IOCAL, CDP #### [address] [id number] [place]: Dominik Muñiz MD Glucose [Mass/Vol] 166 mg/dL High 70-99 [facility] Comment on above: Performed By: #### M G, LIVP, BMPX, VD25, NAMRATA, IOCAL, CDP #### [facility] [address] [place], [place] [id number] [place]: Dominik Muñiz MD Potassium [Moles/Vol] 4.1 mmol/L Normal 3.7-5.3 [facility] Comment on above: Performed By: #### M G, LIVP, BMPX, VD25, NAMRATA, IOCAL, CDP #### [facility] [address] [place], [place] [id number] [place]: Dominik Muñiz MD Sodium [Moles/Vol] 138 mmol/L Normal 135-144 [facility] Comment on above: Performed By: #### M G, LIVP, BMPX, VD25, NAMRATA, IOCAL, CDP #### [facility] [address] [place] [phone] [place]: Dominik Muiñz MD Urea nitrogen [Mass/Vol] 17 mg/dL Normal 8-23 [facility] Comment on above: Performed By: #### M G, LIVP, BMPX, VD25, NAMRATA, IOCAL, CDP #### [facility] [address] [place] [phone] [place]: Dominik Muñiz MD Basic Metabolic Panel w/ Ref jessica to MGon 04-07-2022 Anion gap [Moles/Vol] 9 mmol/L 9 - 17 mmol/L [facility] Calcium [Mass/Vol] 8.7 mg/dL 8.6 - 10. 4 mg/dL [facility] Chloride [Moles/Vol] 102 mmol/L 98 - 10 7 mmol/L [facility] [address] [facility] CO2 [Moles/Vol] 27 mmol/L 20 - 31 mmol/L [facility] Creatinine [Mass/Vol] 0.49 mg/dL Low 0.50 - 0.90 mg/dL [facility] [address] [facility] GFR/1.73 sq M.predicted MDRD (S/P/Bld) [Vol rate/Area] - PINF [facility] Glucose [Mass/Vol] 166 mg/dL High 70 - 99 mg/dL [facility] Interpretation and review of laboratory results Abnormal [facility] Potassium [Moles/Vol] 4.1 mmol/L 3.7 - 5.3 mmol/L [facility] Sodium [Moles/Vol] 138 mmol/L 135 - 144 mmol/L [facility] Urea nitrogen (BldV) [Mass/Vol] 17 mg/dL 8 - 23 mg/dL [facility] CBC with Auto Differentialon 04-07-2022 Absolute Eos # 0.05 [facility] Absolute Immature Granulocyte [facility] Absolute Lymph # 2.01 [facility] Absolute Sebastian # 0.52 [facility] Basophils (Bld) [#/Vol] 0.03 10*3/uL [facility] Basophils/100 WBC (Bld) 0 % 0 - 2 % [facility] Eosinophils/100 WBC (Bld) 1 % 1 - 4 % [facility] Hematocrit (Bld) [Volume fraction] 32.2 % Low 36.3 - 47.1 % [facility] Hemoglobin (Bld) [Mass/Vol] 10.9 g/dL Low 11.9 - 15.1 g/dL [facility] Immature granulocytes/100 WBC (Bld) 0 % 0 [facility] Interpretation and review of laboratory results Abnormal [facility] Lymphocytes/100 WBC (Bld) 28 % 24 - 43 % [facility] MCH (RBC) [Entitic mass] 32.6 pg 25.2 - 33.5 pg [facility] MCHC (RBC) [Mass/Vol] 33.9 g/dL 28.4 - 34.8 g/dL [facility] MCV (RBC) [Entitic vol] 96.4 fL 82.6 - 102.9 fL [facility] Monocytes/100 WBC (Bld) 7 % 3 - 12 % [facility] NRBC Automated 0.0 0.0 per 100 WBC [facility] Platelet distribution width (Bld) [Ratio] 12.3 % 11.8 - 14.4 % [facility] Platelet mean volume (Bld) [Entitic vol] 12.8 fL 8.1 - 13.5 fL [facility] Platelets (Bld) [#/Vol] 187 10*3/uL [facility] RBC (Bld) [#/Vol] 3.34 10*6/uL Low 3.95 - 5.1 1 m/uL [facility] Seg Neutrophils 64 % 36 - 65 % [facility] Segs Absolute 4.66 [facility] WBC (Bld) [#/Vol] 7.3 10*3/uL [facility] CBC with Diffon 04-07-2022 Abs. Basophil 0.03 k/uL Normal 0.00-0.20 [facility] Comment on above: Performed By: #### M G, LIVP, BMPX, VD25, NAMRATA, IOCAL, CDP #### [facility] [address] [place] [address] [place]: Dominik Muñiz MD Abs.Imm.Granulocyte <0.03 Normal 0.00-0.30 [facility] Comment on above: Performed By: #### M G, LIVP, BMPX, VD25, NAMRATA, IOCAL, CDP #### [facility] [address] [place] [address] [place]: Dominik Muñiz MD Abs.Neutrophil (Seg) 4.66 k/uL Normal 1.50-8.10 [facility] Comment on above: Performed By: #### M G, LIVP, BMPX, VD25, NAMRATA, IOCAL, CDP #### [facility] [address] [place] [address] [place]: Dominik Muñiz MD Basophils/100 WBC (Bld) 0 % Normal 0-2 [facility] Comment on above: Performed By: #### M G, LIVP, BMPX, VD25, NAMRATA, IOCAL, CDP #### [facility] [address] [place]: Dominik Muñiz MD Eosinophils (Bld) [#/Vol] 0.05 10*3/uL Normal 0.00-0.44 [facility] Comment on above: Performed By: #### M G, LIVP, BMPX, VD25, NAMRATA, IOCAL, CDP #### [address] [address] [place]: Dominik Muñiz MD Eosinophils/100 WBC (Bld) 1 % Normal 1-4 [facility] Comment on above: Performed By: #### M G, LIVP, BMPX, VD25, NAMRATA, IOCAL, CDP #### [place] [address] [place]: Dominik Muñiz MD Erythrocyte distribution width (RBC) [Ratio] 12.3 % Normal 11.8-14.4 [facility] Comment on above: Performed By: #### M G, LIVP, BMPX, VD25, NAMRATA, IOCAL, CDP #### [address] [address] [place]: Dominik Muñiz MD Hematocrit (Bld) [Volume fraction] 32.2 % Low 36.3-47.1 [facility] Comment on above: Performed By: #### M G, LIVP, BMPX, VD25, NAMRATA, IOCAL, CDP #### [address] [address] [place]: Dominik Muñiz MD Hemoglobin (Bld) [Mass/Vol] 10.9 g/dL Low 11.9-15.1 [facility] Comment on above: Performed By: #### M G, LIVP, BMPX, VD25, NAMRATA, IOCAL, CDP #### [address] [address] [place]: Dominik Muñiz MD Immature granulocytes/100 WBC (Bld) 0 % Normal 0 [facility] Comment on above: Performed By: #### M G, LIVP, BMPX, VD25, NAMRATA, IOCAL, CDP #### [address] [address] [place]: Dominik Muñiz MD Lymphocytes (Bld) [#/Vol] 2.01 10*3/uL Normal 1.10-3.70 [facility] Comment on above: Performed By: #### M G, LIVP, BMPX, VD25, NAMRATA, IOCAL, CDP #### [address] [address] [place]: Dominik Muñiz MD Lymphocytes/100 WBC (Bld) 28 % Normal 24-43 [facility] Comment on above: Performed By: #### M G, LIVP, BMPX, VD25, NAMRATA, IOCAL, CDP #### [place] [address] [place]: Dominik Muñiz MD MCH (RBC) [Entitic mass] 32.6 pg Normal 25.2-33.5 [facility] Comment on above: Performed By: #### M G, LIVP, BMPX, VD25, NAMRATA, IOCAL, CDP #### [address] [address] [place]: Dominik Muñiz MD MCHC (RBC) [Mass/Vol] 33.9 g/dL Normal 28.4-34.8 [facility] Comment on above: Performed By: #### M G, LIVP, BMPX, VD25, NAMRATA, IOCAL, CDP #### [facility] [address] [place] [address] [place]: Dominik Muñiz MD MCV (RBC) [Entitic vol] 96.4 fL Normal 82.6-102.9 [facility] Comment on above: Performed By: #### M G, LIVP, BMPX, VD25, NAMRATA, IOCAL, CDP #### [address] [address] [place]: Dominik Muñiz MD Monocytes (Bld) [#/Vol] 0.52 10*3/uL Normal 0.10-1.20 [facility] Comment on above: Performed By: #### M G, LIVP, BMPX, VD25, NAMRATA, IOCAL, CDP #### [address] [address] [place]: Dominik Muñiz MD Monocytes/100 WBC (Bld) 7 % Normal 3-12 [facility] Comment on above: Performed By: #### M G, LIVP, BMPX, VD25, NAMRATA, IOCAL, CDP #### [address] [address] [place]: Dominik Muñiz MD Neutrophil (Seg) 64 % Normal 36-65 [facility] Comment on above: Performed By: #### M G, LIVP, BMPX, VD25, NAMRATA, IOCAL, CDP #### [address] [address] [place]: Dominik Muñiz MD NRBC Automated 0.0 per 100 WBC Normal 0.0 [facility] Comment on above: Performed By: #### M G, LIVP, BMPX, VD25, NAMRATA, IOCAL, CDP #### [address] [address] [place]: Dominik Muñiz MD Platelet mean volume (Bld) [Entitic vol] 12.8 fL Normal 8.1-13.5 [facility] Comment on above: Performed By: #### M G, LIVP, BMPX, VD25, NAMRATA, IOCAL, CDP #### [address] [address] [place]: Dominik Muñiz MD Platelets (Bld) [#/Vol] 187 10*3/uL Normal 138-453 [facility] Comment on above: Performed By: #### M G, LIVP, BMPX, VD25, NAMRATA, IOCAL, CDP #### [facility] [address] [place], [place] [id number] [place]: Dominik Muñiz MD RBC (Bld) [#/Vol] 3.34 10*6/uL Low 3.95-5.11 [facility] Comment on above: Performed By: #### M G, LIVP, BMPX, VD25, NAMRATA, IOCAL, CDP #### [facility] [address] [place], [place] [id number] [place]: Dominik Muñiz MD WBC (Bld) [#/Vol] 7.3 10*3/uL Normal 3.5-11.3 [facility] Comment on above: Performed By: #### M G, LIVP, BMPX, VD25, NAMRATA, IOCAL, CDP #### [facility] [address], [place] [id number] Mucker [place]ffer[place]: Dominik Muñiz MD POC Glucose Fingerstickon Glucose [Mass/Vol] 256 mg/dL High 65 - 105 mg/dL [facility] Interpretation and review of laboratory results Abnormal [facility] Glucose [Mass/Vol] 204 mg/dL High 65 - 105 mg/dL [facility] Interpretation and review of laboratory results Abnormal [facility] Glucose [Mass/Vol] 175 mg/dL High 65 - 105 mg/dL [facility] Interpretation and review of laboratory results Abnormal [facility] Glucose [Mass/Vol] 160 mg/dL High 65 - 105 mg/dL [facility] Interpretation and review of laboratory results Abnormal [facility] Glucose [Mass/Vol] 167 mg/dL High 65 - 105 mg/dL [facility] Interpretation and review of laboratory results Abnormal [facility] Glucose [Mass/Vol] 141 mg/dL High 65 - 105 mg/dL [facility] Interpretation and review of laboratory results Abnormal [facility] Glucose [Mass/Vol] 190 mg/dL High 65 - 105 mg/dL [facility] Interpretation and review of laboratory results Abnormal [facility] Glucose [Mass/Vol] 69 mg/dL 65 - 105 mg/dL [facility] Glucose Fingerstickon Glucose [Mass/Vol] 311 mg/dL High 65 - 105 mg/dL [facility] Interpretation and review of laboratory results Abnormal [facility] Glucose [Mass/Vol] 135 mg/dL High 65 - 105 mg/dL [facility] Interpretation and review of laboratory results Abnormal [facility] Glucose [Mass/Vol] 201 mg/dL High 65 - 105 mg/dL [facility] Interpretation and review of laboratory results Abnormal [facility] Glucose [Mass/Vol] 177 mg/dL High 65 - 105 mg/dL [facility] Interpretation and review of laboratory results Abnormal [facility] Basic Metab w/rfx MGon 04-05 (cont.) Normal [facility] Comment on above: Result Comment: Aver age GFR for 60-69 years old: 85 mL/min/1.73sq m Chronic Kidney Disease: <60 mL/min/1.73sq m Kidney failure: <15 mL/min/1.73sq m eGFR calculated using average adult body mass. Additional eGFR calculator available at: http://[email or web address] Boot/multiple_crcl_2012.htm Performed By: #### M G, LIVP, BMPX, VD25, NAMRATA, IOCAL, CDP #### [facility] [address] [place] [address] [place]: Dominik Muñiz MD Anion gap [Moles/Vol] 12 mmol/L Normal 9-17 [facility] Comment on above: Performed By: #### M G, LIVP, BMPX, VD25, NAMRATA, IOCAL, CDP #### [facility] [address] [place] [address] [place]: Dominik Muñiz MD Calcium [Mass/Vol] 8.5 mg/dL Low 8.6-10.4 [facility] Comment on above: Performed By: #### M G, LIVP, BMPX, VD25, NAMRATA, IOCAL, CDP #### [facility] [address] [place] [address] [place]: Dominik Muñiz MD Chloride [Moles/Vol] 104 mmol/L Normal 98-107 [facility] Comment on above: Performed By: #### M G, LIVP, BMPX, VD25, NAMRATA, IOCAL, CDP #### [facility] [address] [place] [address] [place]: Dominik Muñiz MD CO2 [Moles/Vol] 25 mmol/L Normal 20-31 [facility] Comment on above: Performed By: #### M G, LIVP, BMPX, VD25, NAMRATA, IOCAL, CDP #### [facility] [address] [place] [address] [place]: Dominik Muñiz MD Creatinine [Mass/Vol] 0.45 mg/dL Low 0.50-0.90 [facility] Comment on above: Performed By: #### M G, LIVP, BMPX, VD25, NAMRATA, IOCAL, CDP #### [facility] [address] [place] [address] [place]: Dominik Muñiz MD GFR, Amer >60 Normal >60 [facility] Comment on above: Performed By: #### M G, LIVP, BMPX, VD25, NAMRATA, IOCAL, CDP #### [address] [address] [place]: Dominik Muñiz MD GFR,non Amer >60 Normal >60 [facility] Comment on above: Performed By: #### M G, LIVP, BMPX, VD25, NAMRATA, IOCAL, CDP #### [address] [address] [place]: Dominik Muñiz MD Glucose [Mass/Vol] 93 mg/dL Normal 70-99 [facility] Comment on above: Performed By: #### M G, LIVP, BMPX, VD25, NAMRATA, IOCAL, CDP #### [address] [address] [place]: Dominik Muñiz MD Potassium [Moles/Vol] 3.6 mmol/L Low 3.7-5.3 [facility] Comment on above: Performed By: #### M G, LIVP, BMPX, VD25, NAMRATA, IOCAL, CDP #### [address] [address] [place]: Dominik Muñiz MD Sodium [Moles/Vol] 141 mmol/L Normal 135-144 [facility] Comment on above: Performed By: #### M G, LIVP, BMPX, VD25, NAMRATA, IOCAL, CDP #### [address] [address] [place]: Dominik Muñiz MD Urea nitrogen [Mass/Vol] 16 mg/dL Normal 8-23 [facility] Comment on above: Performed By: #### M G, LIVP, BMPX, VD25, NAMRATA, IOCAL, CDP #### [address] [address] [place]: Dominik Muñiz MD Basic Metabolic Panel w/ Ref jessica to MGon 04-05-2022 Anion gap [Moles/Vol] 12 mmol/L 9 - 17 mmol/L [facility] Calcium [Mass/Vol] 8.5 mg/dL Low 8.6 - 10. 4 mg/dL [facility] Chloride [Moles/Vol] 104 mmol/L 98 - 10 7 mmol/L [facility] CO2 [Moles/Vol] 25 mmol/L 20 - 31 mmol/L [facility] Creatinine [Mass/Vol] 0.45 mg/dL Low 0.50 - 0.90 mg/dL [facility] GFR >60 60 - PI NF mL/min [facility] GFR Non- >60 60 - PINF mL/min [facility] GFR/1.73 sq M.predicted MDRD (S/P/Bld) [Vol rate/Area] [facility] Glucose [Mass/Vol] 93 mg/dL 70 - 99 mg/dL [facility] Interpretation and review of laboratory results Abnormal [facility] Potassium [Moles/Vol] 3.6 mmol/L Low 3.7 - 5.3 mmol/L [facility] Sodium [Moles/Vol] 141 mmol/L 135 - 144 mmol/L [facility] Urea nitrogen (BldV) [Mass/Vol] 16 mg/dL 8 - 23 mg/dL [facility] CBC with Auto Differentialon 04-05-2022 Absolute Eos # 0.05 [facility] Absolute Immature Granulocyte 0.03 [facility] Absolute Lymph # 2.33 [facility] Absolute Sebastian # 0.52 [facility] Basophils Absolute [facility] Interpretation and review of laboratory results Abnormal [facility] NRBC Automated 0.0 0.0 per 100 WBC [facility] Platelet distribution width (Bld) [Ratio] 12.3 % 11.8 - 14.4 % [facility] Seg Neutrophils 62 % 36 - 65 % [facility] Segs Absolute 4.80 [facility] CBC with Diffon 04-05-2022 Abs. Basophil <0.03 Normal 0.00-0.20 [facility] Comment on above: Performed By: #### M G, LIVP, BMPX, VD25, NAMRATA, IOCAL, CDP #### [address] [address] [place]: Dominik Muñiz MD Abs.Imm.Granulocyte 0.03 k/uL Normal 0.00-0.30 [facility] Comment on above: Performed By: #### M G, LIVP, BMPX, VD25, NAMRATA, IOCAL, CDP #### [address] [address] [place]: Dominik Muñiz MD Abs.Neutrophil (Seg) 4.80 k/uL Normal 1.50-8.10 [facility] Comment on above: Performed By: #### M G, LIVP, BMPX, VD25, NAMRATA, IOCAL, CDP #### [place] [address] [place]: Dominik Muñiz MD Eosinophils (Bld) [#/Vol] 0.05 10*3/uL Normal 0.00-0.44 [facility] Comment on above: Performed By: #### M G, LIVP, BMPX, VD25, NAMRATA, IOCAL, CDP #### [address] [address] [place]: Dominik Muñiz MD Erythrocyte distribution width (RBC) [Ratio] 12.3 % Normal 11.8-14.4 [facility] Comment on above: Performed By: #### M G, LIVP, BMPX, VD25, NAMRATA, IOCAL, CDP #### [facility] [address] [place] [address] [place]: Dominik Muñiz MD Lymphocytes (Bld) [#/Vol] 2.33 10*3/uL Normal 1.10-3.70 [facility] Comment on above: Performed By: #### M G, LIVP, BMPX, VD25, NAMRATA, IOCAL, CDP #### [facility] [address] [place] [address] [place]: Dominik Muñiz MD Monocytes (Bld) [#/Vol] 0.52 10*3/uL Normal 0.10-1.20 [facility] Comment on above: Performed By: #### M G, LIVP, BMPX, VD25, NAMRATA, IOCAL, CDP #### [facility] [address] [place] [address] [place]: Dominik Muñiz MD Neutrophil (Seg) 62 % Normal 36-65 [facility] Comment on above: Performed By: #### M G, LIVP, BMPX, VD25, NAMRATA, IOCAL, CDP #### [facility] [address] [place] [address] [place]: Dominik Muñiz MD NRBC Automated 0.0 per 100 WBC Normal 0.0 [facility] Comment on above: Performed By: #### M G, LIVP, BMPX, VD25, NAMRATA, IOCAL, CDP #### [facility] [address] [place] [address] [place]: Dominik Muñiz MD Basophils/100 WBC (Bld) 0 % Normal 0-2 [facility] Comment on above: Performed By: #### M G, LIVP, BMPX, VD25, NAMRATA, IOCAL, CDP #### [facility] [address] [place] [address] [place]: Dominik Muñiz MD Eosinophils/100 WBC (Bld) 1 % Normal 1-4 [facility] Comment on above: Performed By: #### M G, LIVP, BMPX, VD25, NAMRATA, IOCAL, CDP #### [facility] [address] [place] [address] [place]: Dominik Muñiz MD Hematocrit (Bld) [Volume fraction] 31.9 % Low 36.3-47.1 [facility] Comment on above: Performed By: #### M G, LIVP, BMPX, VD25, NAMRATA, IOCAL, CDP #### [facility] [address] [place] [address] [place]: Dominik Muñiz MD Hemoglobin (Bld) [Mass/Vol] 10.8 g/dL Low 11.9-15.1 [facility] Comment on above: Performed By: #### M G, LIVP, BMPX, VD25, NAMRATA, IOCAL, CDP #### [facility] [address] [place] [address] [place]: Dominik Muñiz MD Immature granulocytes/100 WBC (Bld) 0 % Normal 0 [facility] Comment on above: Performed By: #### M G, LIVP, BMPX, VD25, NAMRATA, IOCAL, CDP #### [facility] [address] [place] [address] [place]: Dominik Muñiz MD Lymphocytes/100 WBC (Bld) 30 % Normal 24-43 [facility] Comment on above: Performed By: #### M G, LIVP, BMPX, VD25, NAMRATA, IOCAL, CDP #### [facility] [address] [place] [address] [place]: Dominik Muñiz MD MCH (RBC) [Entitic mass] 32.1 pg Normal 25.2-33.5 [facility] Comment on above: Performed By: #### M G, LIVP, BMPX, VD25, NAMRATA, IOCAL, CDP #### [facility] [address] [place] [address] [place]: Dominik Muñiz MD MCHC (RBC) [Mass/Vol] 33.9 g/dL Normal 28.4-34.8 [facility] Comment on above: Performed By: #### M G, LIVP, BMPX, VD25, NAMRATA, IOCAL, CDP #### [facility] [address] [place] [address] [place]: Dominik Muñiz MD MCV (RBC) [Entitic vol] 94.9 fL Normal 82.6-102.9 [facility] Comment on above: Performed By: #### M G, LIVP, BMPX, VD25, NAMRATA, IOCAL, CDP #### [facility] [address] [place] [address] [place]: Dominik Muñiz MD Monocytes/100 WBC (Bld) 7 % Normal 3-12 [facility] Comment on above: Performed By: #### M G, LIVP, BMPX, VD25, NAMRATA, IOCAL, CDP #### [facility] [address] [place] [address] [place]: Dominik Muñiz MD Platelet mean volume (Bld) [Entitic vol] 11.5 fL Normal 8.1-13.5 [facility] Comment on above: Performed By: #### M G, LIVP, BMPX, VD25, NAMRATA, IOCAL, CDP #### [employer] [address] [place] [address] [place]: Dominik Muñiz MD Platelets (Bld) [#/Vol] 220 10*3/uL Normal 138-453 [facility] Comment on above: Performed By: #### M G, LIVP, BMPX, VD25, NAMRATA, IOCAL, CDP #### [employer] [address] [place] [address] [place]: Dominik Muñiz MD RBC (Bld) [#/Vol] 3.36 10*6/uL Low 3.95-5.11 [facility] Comment on above: Performed By: #### M G, LIVP, BMPX, VD25, NAMRATA, IOCAL, CDP #### [facility] [address] [place] [address] [place]: Dominik Muñiz MD WBC (Bld) [#/Vol] 7.8 10*3/uL Normal 3.5-11.3 [facility] [employer] Comment on above: Performed By: #### M G, LIVP, BMPX, VD25, NAMRATA, IOCAL, CDP #### [facility] [address] [place] [address] [place]: Dominik Muñiz MD EKG 12 LeadOrdered By: Oziel Nunez on 04-05-2022 Atrial Rate 100 BPM [facility] [employer] Work Phone: P [place] 69 degrees [facility] Work Phone: P-R Interval 122 ms [facility] [employer] Work Phone: Q-T Interval 354 [address] [facility] Work Phone: QRS Duration 86 ms [facility] Work Phone: QTc Calculation (Bazett) 456 ms [employer] Work Phone: R [place] 59 degrees [facility] Work Phone: T [place] 78 degrees [employer] Work Phone: Ventricular Rate 100 BPM [facility] [employer] Work Phone: The [address] [facility] Work Phone: EKG 12 Leadon 04-05-2022 MHPN STV MUSE [facility] Work Phone: POC Glucose Fingerstickon Glucose [Mass/Vol] 315 mg/dL High 65 - 105 mg/dL [facility] Interpretation and review of laboratory results Abnormal [facility] Glucose [Mass/Vol] 123 mg/dL High 65 - 105 mg/dL [facility] Interpretation and review of laboratory results Abnormal [facility] [employer] Glucose [Mass/Vol] 149 mg/dL High 65 - 105 mg/dL [facility] Interpretation and review of laboratory results Abnormal [facility]ITAL[facility] [employer] Glucose [Mass/Vol] 339 mg/dL High 65 - 105 mg/dL [facility] Interpretation and review of laboratory results Abnormal [facility] Glucose Fingerstickon Glucose [Mass/Vol] 271 mg/dL High 65 - 105 mg/dL [facility] Interpretation and review of laboratory results Abnormal [facility] Glucose [Mass/Vol] 149 mg/dL High 65 - 105 mg/dL [facility] Interpretation and review of laboratory results Abnormal [facility] Glucose [Mass/Vol] 136 mg/dL High 65 - 105 mg/dL [facility] Interpretation and review of laboratory results Abnormal [facility] Glucose [Mass/Vol] 193 mg/dL High 65 - 105 mg/dL [facility] Interpretation and review of laboratory results Abnormal [facility] Glucose Fingerstickon Glucose [Mass/Vol] 247 mg/dL High 65 - 105 mg/dL [facility] Interpretation and review of laboratory results Abnormal [facility] Glucose [Mass/Vol] 167 mg/dL High 65 - 105 mg/dL [facility] Interpretation and review of laboratory results Abnormal [facility] Glucose [Mass/Vol] 134 mg/dL High 65 - 105 mg/dL [facility] Interpretation and review of laboratory results Abnormal [facility] Glucose [Mass/Vol] 180 mg/dL High 65 - 105 mg/dL [facility] Interpretation and review of laboratory results Abnormal [facility] Glucose [Mass/Vol] 117 mg/dL High 65 - 105 mg/dL [facility] Interpretation and review of laboratory results Abnormal [facility] Glucose [Mass/Vol] 131 mg/dL High 65 - 105 mg/dL [facility] Interpretation and review of laboratory results Abnormal [facility] Glucose Fingerstickon Glucose [Mass/Vol] 129 mg/dL High 65 - 105 mg/dL [facility] Interpretation and review of laboratory results Abnormal [facility] Glucose [Mass/Vol] 177 mg/dL High 65 - 105 mg/dL [facility] Interpretation and review of laboratory results Abnormal [facility] Glucose [Mass/Vol] 171 mg/dL High 65 - 105 mg/dL [facility] Interpretation and review of laboratory results Abnormal [facility] Glucose [Mass/Vol] 127 mg/dL High 65 - 105 mg/dL [facility] Interpretation and review of laboratory results Abnormal [facility] XR SHOULDER LEFT (MIN 2 VIEW S)on [...] Raimundo Blake MD 04/02/22 Final result Normal [facility] MHPN RIS CONSOLIDATED MHPN RIS CONSOLIDATED [facility] Work Phone: Radiology Study observation (narrative) [facility] Work Phone: XR SHOULDER LEFT (MIN 2 VIEW S)Ordered By: Raimundo Blake on 04-02-2022 NAHUM GOODSON [facility] [employer] Work Phone: CBCon 04-01-2022 Erythrocyte distribution width (RBC) [Ratio] 12.1 % Normal 11.8-14.4 [facility] Comment on above: Performed By: #### C BC #### [address] [address] [place]: Dominik Muñiz MD Hematocrit (Bld) [Volume fraction] 36.0 % Low 36.3-47.1 [facility] Comment on above: Performed By: #### C BC #### [address] [address] [place]: Dominik Muñiz MD Hemoglobin (Bld) [Mass/Vol] 12.5 g/dL Normal 11.9-15.1 [facility] Comment on above: Performed By: #### C BC #### [address] [address] [place]: Dominik Muñiz MD MCH (RBC) [Entitic mass] 33.2 pg Normal 25.2-33.5 [facility] Comment on above: Performed By: #### C BC #### [address] [address] [place]: Dominik Muñiz MD MCHC (RBC) [Mass/Vol] 34.7 g/dL Normal 28.4-34.8 [facility] Comment on above: Performed By: #### C BC #### [address] [address] [place]: Dominik Muñiz MD MCV (RBC) [Entitic vol] 95.7 fL Normal 82.6-102.9 [facility] Comment on above: Performed By: #### C BC #### [address] [address] [place]: Dominik Muñiz MD NRBC Automated 0.0 per 100 WBC Normal 0.0 [facility] Comment on above: Performed By: #### C BC #### [address] [address] [place]: Dominik Muñiz MD Platelet mean volume (Bld) [Entitic vol] 11.5 fL Normal 8.1-13.5 [facility] Comment on above: Performed By: #### C BC #### [address] [address] [place]: Dominik Muñiz MD Platelets (Bld) [#/Vol] 288 10*3/uL Normal 138-453 [facility] Comment on above: Performed By: #### C BC #### [address] [address] [place]: Dominik Muñiz MD RBC (Bld) [#/Vol] 3.76 10*6/uL Low 3.95-5.11 [facility] Comment on above: Performed By: #### C BC #### [address] [address] [place]: Dominik Muñiz MD WBC (Bld) [#/Vol] 9.7 10*3/uL Normal 3.5-11.3 [facility] Comment on above: Performed By: #### C BC #### [address] [address] [place]: Dominik Muñiz MD Hematocrit (Bld) [Volume fraction] 36.0 % Low 36.3 - 47.1 % [facility] Hemoglobin (Bld) [Mass/Vol] 12.5 g/dL 11.9 - 15.1 g/dL [facility] Interpretation and review of laboratory results Abnormal [facility] MCH (RBC) [Entitic mass] 33.2 pg 25.2 - 33.5 pg [facility] MCHC (RBC) [Mass/Vol] 34.7 g/dL 28.4 - 34.8 g/dL [facility] MCV (RBC) [Entitic vol] 95.7 fL 82.6 - 102.9 fL [facility] [employer] NRBC Automated 0.0 0.0 per 100 WBC [facility] Platelet distribution width (Bld) [Ratio] 12.1 % 11.8 - 14.4 % [facility] Platelet mean volume (Bld) [Entitic vol] 11.5 fL 8.1 - 13.5 fL [facility] Platelets (Bld) [#/Vol] 288 10*3/uL [facility] RBC (Bld) [#/Vol] 3.76 10*6/uL Low 3.95 - 5.1 1 m/uL [facility] WBC (Bld) [#/Vol] 9.7 10*3/uL [facility] [employer] [facility] [employer] No Panel Informationon 04-01 MHPN RIS CONSOLIDATED PN RIS CONSOLIDATED [facility] [employer] Work Phone: Radiology Study observation (narrative) [facility] [employer] Work Phone: No Panel InformationOrdered By: Raimundo Norwood on 04-01-2022 [facility] [employer] Work Phone: POC Glucose Fingerstickon Glucose [Mass/Vol] 192 mg/dL High 65 - 105 mg/dL [facility] Interpretation and review of laboratory results Abnormal [...] Interpretation and review of laboratory results Abnormal [facility] Glucose [Mass/Vol] 148 mg/dL High 65 - 105 mg/dL [facility] Interpretation and review of laboratory results Abnormal [facility] Glucose [Mass/Vol] 132 mg/dL High 65 - 105 mg/dL [facility] Interpretation and review of laboratory results Abnormal [facility] Glucose [Mass/Vol] 121 mg/dL High 65 - 105 mg/dL [facility] Interpretation and review of laboratory results Abnormal [facility] XR CLAVICLE LEFTon XR CLAVICLE LEFT EXAMINATION: [...] Raimundo Norwood MD 04/01/22 Final result Normal [facility] XR CLAVICLE RIGHTon 04-01-20 22 XR [...] Raimundo Norwood MD 04/01/22 Final result Normal [facility] POC Glucose Fingerstickon Glucose [Mass/Vol] 143 mg/dL High 65 - 105 mg/dL [facility] Interpretation and review of laboratory results Abnormal [facility] Glucose [Mass/Vol] 136 mg/dL High 65 - 105 mg/dL [facility] Interpretation and review of laboratory results Abnormal [facility] Glucose [Mass/Vol] 129 mg/dL High 65 - 105 mg/dL [facility] Interpretation and review of laboratory results Abnormal [facility] Glucose [Mass/Vol] 129 mg/dL High 65 - 105 mg/dL [facility] Interpretation and review of laboratory results Abnormal [facility] CBC with Auto Differentialon 03-30-2022 Absolute Eos # [facility] Absolute Immature Granulocyte 0.07 [facility] Absolute Lymph # 2.15 [facility] Absolute Sebastian # 1.26 High [facility] Basophils (Bld) [#/Vol] 0.05 10*3/uL [facility] Basophils/100 WBC (Bld) 0 % 0 - 2 % [facility] Eosinophils/100 WBC (Bld) 0 % Low 1 - 4 % [facility] Hematocrit (Bld) [Volume fraction] 36.5 % 36.3 - 47.1 % [facility] Hemoglobin (Bld) [Mass/Vol] 12.4 g/dL 11.9 - 15.1 g/dL [facility] Immature granulocytes/100 WBC (Bld) 0 % 0 [facility] Interpretation and review of laboratory results Abnormal [facility] Lymphocytes/100 WBC (Bld) 12 % Low 24 - 43 % [facility] MCH (RBC) [Entitic mass] 32.3 pg 25.2 - 33.5 pg [facility] MCHC (RBC) [Mass/Vol] 34.0 g/dL 28.4 - 34.8 g/dL [facility] MCV (RBC) [Entitic vol] 95.1 fL 82.6 - 102.9 fL [facility] Monocytes/100 WBC (Bld) 7 % 3 - 12 % [facility] NRBC Automated 0.0 0.0 per 100 WBC [facility] Platelet distribution width (Bld) [Ratio] 12.6 % 11.8 - 14.4 % [facility] Platelet mean volume (Bld) [Entitic vol] 11.1 fL 8.1 - 13.5 fL [facility] Platelets (Bld) [#/Vol] 338 10*3/uL [facility] RBC (Bld) [#/Vol] 3.84 10*6/uL Low 3.95 - 5.1 1 m/uL [facility] Seg Neutrophils 81 % High 36 - 65 % [facility] Segs Absolute 13.84 High [facility] WBC (Bld) [#/Vol] 17.4 10*3/uL High [facility] CBC with Diffon 03-30-2022 Abs. Basophil 0.05 k/uL Normal 0.00-0.20 [facility] Comment on above: Performed By: #### C DP #### [facility] [employer] [address] [place] [address] [place]: Dominik Muñiz MD Abs. Eosinophil <0.03 Normal 0.00-0.44 [facility] Comment on above: Performed By: #### C DP #### [facility] [employer] [address] [place], [place] [id number] [place]: Dominik Muñiz MD Abs.Imm.Granulocyte 0.07 k/uL Normal 0.00-0.30 [facility] Comment on above: Performed By: #### C DP #### [facility] [address] [place] [address] [place]: Dominik Muñiz MD Abs.Neutrophil (Seg) 13.84 k/uL High 1.50-8.10 [facility] Comment on above: Performed By: #### C DP #### [address] [address] [place]: Dominik Muñiz MD Basophils/100 WBC (Bld) 0 % Normal 0-2 [facility] Comment on above: Performed By: #### C DP #### [address] [address] [place]: Dominik Muñiz MD Eosinophils/100 WBC (Bld) 0 % Low 1-4 [facility] Comment on above: Performed By: #### C DP #### [address] [address] [place]: Dominik Muñiz MD Erythrocyte distribution width (RBC) [Ratio] 12.6 % Normal 11.8-14.4 [facility] Comment on above: Performed By: #### C DP #### [address] [address] [place]: Dominik Muñiz MD Hematocrit (Bld) [Volume fraction] 36.5 % Normal 36.3-47.1 [facility] Comment on above: Performed By: #### C DP #### [address] [address] [place]: Dominik Muñiz MD Hemoglobin (Bld) [Mass/Vol] 12.4 g/dL Normal 11.9-15.1 [facility] Comment on above: Performed By: #### C DP #### [address] [address] [place]: Dominik Muñiz MD Immature granulocytes/100 WBC (Bld) 0 % Normal 0 [facility] Comment on above: Performed By: #### C DP #### [address] [address] [place]: Dominik Muñiz MD Lymphocytes (Bld) [#/Vol] 2.15 10*3/uL Normal 1.10-3.70 [facility] Comment on above: Performed By: #### C DP #### [place] [address] [place]: Dominik Muñiz MD Lymphocytes/100 WBC (Bld) 12 % Low 24-43 [facility] Comment on above: Performed By: #### C DP #### [place] [address] [place]: Dominik Muñiz MD MCH (RBC) [Entitic mass] 32.3 pg Normal 25.2-33.5 [facility] Comment on above: Performed By: #### C DP #### [place] [address] [place]: Dominik Muñiz MD MCHC (RBC) [Mass/Vol] 34.0 g/dL Normal 28.4-34.8 [facility] Comment on above: Performed By: #### C DP #### [place] [address] [place]: Dominik Muñiz MD MCV (RBC) [Entitic vol] 95.1 fL Normal 82.6-102.9 [facility] Comment on above: Performed By: #### C DP #### [place] [address] [place]: Dominik Muñiz MD Monocytes (Bld) [#/Vol] 1.26 10*3/uL High 0.10-1.20 [facility] Comment on above: Performed By: #### C DP #### [place] [address] [place]: Dominik Muñiz MD Monocytes/100 WBC (Bld) 7 % Normal 3-12 [facility] Comment on above: Performed By: #### C DP #### [address] [address] [place]: Dominik Muñiz MD Neutrophil (Seg) 81 % High 36-65 [facility] Comment on above: Performed By: #### C DP #### [address] [address] [place]: Dominik Muñiz MD NRBC Automated 0.0 per 100 WBC Normal 0.0 [facility] Comment on above: Performed By: #### C DP #### [address] [address] [place]: Dominik Muñiz MD Platelet mean volume (Bld) [Entitic vol] 11.1 fL Normal 8.1-13.5 [facility] Comment on above: Performed By: #### C DP #### [address] [address] [place]: Dominik Muñiz MD Platelets (Bld) [#/Vol] 338 10*3/uL Normal 138-453 [facility] Comment on above: Performed By: #### C DP #### [address] [address] [place]: Dominik Muñiz MD RBC (Bld) [#/Vol] 3.84 10*6/uL Low 3.95-5.11 [facility] Comment on above: Performed By: #### C DP #### [address] [address] [place]: Dominik Muñiz MD WBC (Bld) [#/Vol] 17.4 10*3/uL High 3.5-11.3 [facility] Comment on above: Performed By: #### C DP #### [address] [address] [place]: Dominik Muñiz MD OPERATIVE REPORTon 2 OPERATIVE REPORT [address] [place] [address] OPERATIVE REPORT PATIENT NAME: ANNE BULLOCK : 1960 MED REC NO: [id number] ROOM: 0437 ACCOUNT NO: [id number] ADMIT DATE: 03/16/2022 PROVIDER: Kay Novak DATE [...] in stable condition. KAY NOVAK [id number] Doc#: [id number] CC: Normal [facility] POC Glucose Fingerstickon Glucose [Mass/Vol] 176 mg/dL High 65 - 105 mg/dL [facility] Interpretation and review of laboratory results Abnormal [facility] Glucose [Mass/Vol] 149 mg/dL High 65 - 105 mg/dL [facility] Interpretation and review of laboratory results Abnormal [facility] Glucose [Mass/Vol] 163 mg/dL High 65 - 105 mg/dL [facility] Interpretation and review of laboratory results Abnormal [facility] Glucose [Mass/Vol] 139 mg/dL High 65 - 105 mg/dL [facility] Interpretation and review of laboratory results Abnormal [facility] Basic Metabolic Panelon - Anion gap [Moles/Vol] 12 mmol/L 9 - 17 mmol/L [facility] Calcium [Mass/Vol] 9.2 mg/dL 8.6 - 10. 4 mg/dL [facility] Chloride [Moles/Vol] 101 mmol/L 98 - 10 7 mmol/L [facility] CO2 [Moles/Vol] 25 mmol/L 20 - 31 mmol/L [facility] Creatinine [Mass/Vol] 0.81 mg/dL 0.50 - 0.90 mg/dL [facility] GFR >60 60 - PI NF mL/min [facility] GFR Non- >60 60 - PINF mL/min [facility] GFR/1.73 sq M.predicted MDRD (S/P/Bld) [Vol rate/Area] [facility] Glucose [Mass/Vol] 226 mg/dL High 70 - 99 mg/dL [facility] Interpretation and review of laboratory results Abnormal [facility] Potassium [Moles/Vol] 4.5 mmol/L 3.7 - 5.3 mmol/L [facility] Sodium [Moles/Vol] 138 mmol/L 135 - 144 mmol/L [facility] Urea nitrogen (BldV) [Mass/Vol] 22 mg/dL 8 - 23 mg/dL [facility] Basic Metabolic Profon 03-29 (cont.) Normal [facility] Comment on above: Result Comment: Aver age GFR for 60-69 years old: 85 mL/min/1.73sq m Chronic Kidney Disease: <60 mL/min/1.73sq m Kidney failure: <15 mL/min/1.73sq m eGFR calculated using average adult body mass. Additional eGFR calculator available at: http://www.[employer]/multiple_crcl_2012.htm Performed By: #### M G, LIVP, BMPX, VD25, NAMRATA, IOCAL, CDP #### [facility] [employer] [address] [place] [address] [place]: Dominik Muñiz MD Anion gap [Moles/Vol] 12 mmol/L Normal 9-17 [facility] Comment on above: Performed By: #### M G, LIVP, BMPX, VD25, NAMRATA, IOCAL, CDP #### [address] [address] [place]: Dominik Muñiz MD Calcium [Mass/Vol] 9.2 mg/dL Normal 8.6-10.4 [facility] Comment on above: Performed By: #### M G, LIVP, BMPX, VD25, NAMRATA, IOCAL, CDP #### [address] [address] [place]: Dominik Muñiz MD Chloride [Moles/Vol] 101 mmol/L Normal 98-107 [facility] Comment on above: Performed By: #### M G, LIVP, BMPX, VD25, NAMRATA, IOCAL, CDP #### [address] [address] [place]: Dominik Muñiz MD CO2 [Moles/Vol] 25 mmol/L Normal 20-31 [facility] Comment on above: Performed By: #### M G, LIVP, BMPX, VD25, NAMRATA, IOCAL, CDP #### [facility] [address] [place] [address] [place]: Dominik Muñiz MD Creatinine [Mass/Vol] 0.81 mg/dL Normal 0.50-0.90 [facility] Comment on above: Performed By: #### M G, LIVP, BMPX, VD25, NAMRATA, IOCAL, CDP #### [address] [address] [place]: Dominik Muñiz MD GFR, Amer >60 Normal >60 [facility] Comment on above: Performed By: #### M G, LIVP, BMPX, VD25, NAMRATA, IOCAL, CDP #### [facility] [address] [place] [address] [place]: Dominik Muñiz MD GFR,non Amer >60 Normal >60 [facility] Comment on above: Performed By: #### M G, LIVP, BMPX, VD25, NAMRATA, IOCAL, CDP #### [facility] [address] [place] [address] [place]: Dominik Muñiz MD Glucose [Mass/Vol] 226 mg/dL High 70-99 [facility] Comment on above: Performed By: #### M G, LIVP, BMPX, VD25, NAMRATA, IOCAL, CDP #### [facility] [address] [place] [address] [place]: Dominik Muñiz MD Potassium [Moles/Vol] 4.5 mmol/L Normal 3.7-5.3 [facility] Comment on above: Performed By: #### M G, LIVP, BMPX, VD25, NAMRATA, IOCAL, CDP #### [facility] [address] [place] [address] [place]: Dominik Muñiz MD Sodium [Moles/Vol] 138 mmol/L Normal 135-144 [facility] Comment on above: Performed By: #### M G, LIVP, BMPX, VD25, NAMRATA, IOCAL, CDP #### [facility] [address] [place] [address] [place]: Dominik Muñiz MD Urea nitrogen [Mass/Vol] 22 mg/dL Normal 8-23 [facility] Comment on above: Performed By: #### M G, LIVP, BMPX, VD25, NARMATA, IOCAL, CDP #### [facility] [address] [place] [address] [place]: Dominik Muñiz MD CBCon 03-29-2022 Erythrocyte distribution width (RBC) [Ratio] 12.3 % Normal 11.8-14.4 [facility] Comment on above: Performed By: #### M G, LIVP, BMPX, VD25, NAMRATA, IOCAL, CDP #### [address] [address] [place]: Dominik Muñiz MD Hematocrit (Bld) [Volume fraction] 35.9 % Low 36.3-47.1 [facility] Comment on above: Performed By: #### M G, LIVP, BMPX, VD25, NAMRATA, IOCAL, CDP #### [address] [address] [place]: Dominik Muñiz MD Hemoglobin (Bld) [Mass/Vol] 12.7 g/dL Normal 11.9-15.1 [facility] Comment on above: Performed By: #### M G, LIVP, BMPX, VD25, NAMRATA, IOCAL, CDP #### [facility] [address] [place] [address] [place]: Dominik Muñiz MD MCH (RBC) [Entitic mass] 33.2 pg Normal 25.2-33.5 [facility] Comment on above: Performed By: #### M G, LIVP, BMPX, VD25, NAMRATA, IOCAL, CDP #### [address] [address] [place]: Dominik Muñiz MD MCHC (RBC) [Mass/Vol] 35.4 g/dL High 28.4-34.8 [facility] Comment on above: Performed By: #### M G, LIVP, BMPX, VD25, NAMRATA, IOCAL, CDP #### [address] [address] [place]: Dominik Muñiz MD MCV (RBC) [Entitic vol] 93.7 fL Normal 82.6-102.9 [facility] Comment on above: Performed By: #### M G, LIVP, BMPX, VD25, NAMRATA, IOCAL, CDP #### [address] [address] [place]: Dominik Muñiz MD NRBC Automated 0.0 per 100 WBC Normal 0.0 [facility] Comment on above: Performed By: #### M G, LIVP, BMPX, VD25, NAMRATA, IOCAL, CDP #### [address] [address] [place]: Dominik Muñiz MD Platelet mean volume (Bld) [Entitic vol] 11.0 fL Normal 8.1-13.5 [facility] Comment on above: Performed By: #### M G, LIVP, BMPX, VD25, NAMRATA, IOCAL, CDP #### [place] [address] [place]: Dominik Muñiz MD Platelets (Bld) [#/Vol] 371 10*3/uL Normal 138-453 [facility] Comment on above: Performed By: #### M G, LIVP, BMPX, VD25, NAMRATA, IOCAL, CDP #### [address] [address] [place]: Dominik Muñiz MD RBC (Bld) [#/Vol] 3.83 10*6/uL Low 3.95-5.11 [facility] Comment on above: Performed By: #### M G, LIVP, BMPX, VD25, NAMRATA, IOCAL, CDP #### [address] [address] [place]: Dominik Muñiz MD WBC (Bld) [#/Vol] 23.9 10*3/uL High 3.5-11.3 [facility] Comment on above: Performed By: #### M G, LIVP, BMPX, VD25, NAMRATA, IOCAL, CDP #### [facility] [employer] [address] [place], [place] [id number] [place]: Dominik Muñiz MD Hematocrit (Bld) [Volume fraction] 35.9 % Low 36.3 - 47.1 % [facility] Hemoglobin (Bld) [Mass/Vol] 12.7 g/dL 11.9 - 15.1 g/dL [facility] Interpretation and review of laboratory results Abnormal [facility] MCH (RBC) [Entitic mass] 33.2 pg 25.2 - 33.5 pg [facility] MCHC (RBC) [Mass/Vol] 35.4 g/dL High 28.4 - 34.8 g/dL [facility] MCV (RBC) [Entitic vol] 93.7 fL 82.6 - 102.9 fL [facility] NRBC Automated 0.0 0.0 per 100 WBC [facility] Platelet distribution width (Bld) [Ratio] 12.3 % 11.8 - 14.4 % [facility] Platelet mean volume (Bld) [Entitic vol] 11.0 fL 8.1 - 13.5 fL [facility] Platelets (Bld) [#/Vol] 371 10*3/uL [facility] RBC (Bld) [#/Vol] 3.83 10*6/uL Low 3.95 - 5.1 1 m/uL [facility] WBC (Bld) [#/Vol] 23.9 10*3/uL High [facility] Magnesiumon 03-29-2022 Magnesium [Mass/Vol] 1.9 mg/dL Normal 1.6-2.6 [facility] Comment on above: Performed By: #### M G, LIVP, BMPX, VD25, NAMRATA, IOCAL, CDP #### [facility] [employer] [address] [place] [address] [place]: Dominik Muñiz MD Magnesium [Mass/Vol] 1.9 mg/dL 1.6 - 2 .6 mg/dL [facility] No Panel Informationon 03-29 [facility] POC Glucose Fingerstickon Glucose [Mass/Vol] 210 mg/dL High 65 - 105 mg/dL [facility] Interpretation and review of laboratory results Abnormal [facility] Glucose [Mass/Vol] 191 mg/dL High 65 - 105 mg/dL [facility] Interpretation and review of laboratory results Abnormal [facility] Glucose [Mass/Vol] 143 mg/dL High 65 - 105 mg/dL [facility] Interpretation and review of laboratory results Abnormal [facility] Glucose [Mass/Vol] 282 mg/dL High 65 - 105 mg/dL [facility] Interpretation and review of laboratory results Abnormal [facility] Glucose [Mass/Vol] 155 mg/dL High 65 - 105 mg/dL [facility] Interpretation and review of laboratory results Abnormal [facility] POC Glucose Fingerstickon Glucose [Mass/Vol] 141 mg/dL High 65 - 105 mg/dL [facility] Interpretation and review of laboratory results Abnormal [facility] Glucose [Mass/Vol] 151 mg/dL High 65 - 105 mg/dL [facility] Interpretation and review of laboratory results Abnormal [facility] Glucose [Mass/Vol] 153 mg/dL High 65 - 105 mg/dL [facility] Interpretation and review of laboratory results Abnormal [facility] COVID-19, Rapidon 03-27-2022 SARS-CoV-2 (COVID-19) RNA ANA MARÍA+probe Ql (Unsp spec) Not detected Not Detected [facility] Specimen Description .NASOPHARYNGEAL SWAB [facility] POC Glucose Fingerstickon Glucose [Mass/Vol] 251 mg/dL High 65 - 105 mg/dL [facility] Interpretation and review of laboratory results Abnormal [facility] Glucose [Mass/Vol] 164 mg/dL High 65 - 105 mg/dL [facility] Interpretation and review of laboratory results Abnormal [facility] Glucose [Mass/Vol] 151 mg/dL High 65 - 105 mg/dL [facility] Interpretation and review of laboratory results Abnormal [facility] [id number] 03-27-2022 SARS-CoV-2 (COVID-19) RNA ANA MARÍA+probe Ql (Unsp spec) Not detected Normal [facility] Comment on above: Result Comment: Rapid NAAT: [...] management decisions. Fact sheet for Healthcare Providers: https://www.fda.gov/media/551919/download Fact sheet for Patients: https://www.fda.gov/media/175936/download Methodology: Isothermal Nucleic Acid Amplification Performed By: #### C #### [facility] [address] [place] [id number] [place]: Dominik Muñiz MD POC Glucose Fingerstickon Glucose [Mass/Vol] 230 mg/dL High 65 - 105 mg/dL [facility] Interpretation and review of laboratory results Abnormal [facility] Glucose [Mass/Vol] 126 mg/dL High 65 - 105 mg/dL [facility] Interpretation and review of laboratory results Abnormal [facility] Glucose [Mass/Vol] 229 mg/dL High 65 - [...] 119 mg/dL High 65 - 105 mg/dL [facility] Interpretation and review of laboratory results Abnormal [facility] Glucose [Mass/Vol] 219 mg/dL High 65 - 105 mg/dL [facility] Interpretation and review of laboratory results Abnormal [facility] Glucose [Mass/Vol] 155 mg/dL High 65 - 105 mg/dL [facility] Interpretation and review of laboratory results Abnormal [facility] POC Glucose Fingerstickon Glucose [Mass/Vol] 204 mg/dL High 65 - 105 mg/dL [facility] Interpretation and review of laboratory results Abnormal [facility] Glucose [Mass/Vol] 160 mg/dL High 65 - 105 mg/dL [facility] Interpretation and review of laboratory results Abnormal [facility] Glucose [Mass/Vol] 160 mg/dL High 65 - 105 mg/dL [facility] Interpretation and review of laboratory results Abnormal [facility] Glucose [Mass/Vol] 162 mg/dL High 65 - 105 mg/dL [facility] Interpretation and review of laboratory results Abnormal [facility] No Panel Informationon 03-23 Interpretation and review of laboratory results Abnormal [facility] POC Glucose Fingerstickon Glucose [Mass/Vol] 134 mg/dL High 65 - 105 mg/dL [facility] Interpretation and review of laboratory results Abnormal [facility] Glucose [Mass/Vol] 160 mg/dL High 65 - 105 mg/dL [facility] Interpretation and review of laboratory results Abnormal [facility] Glucose [Mass/Vol] 264 mg/dL High 65 - 105 mg/dL [facility] Interpretation and review of laboratory results Abnormal [facility] Glucose [Mass/Vol] 204 mg/dL High 65 - 105 mg/dL [facility] Glucose [Mass/Vol] 185 mg/dL High 65 - 105 mg/dL [facility] Glucose [Mass/Vol] 174 mg/dL High 65 - 105 mg/dL [facility] Basic Metabolic Panelon 03-04 Anion gap [Moles/Vol] 10 mmol/L 9 - 17 mmol/L [facility] Calcium [Mass/Vol] 8.8 mg/dL 8.6 - 10. 4 mg/dL [facility] Chloride [Moles/Vol] 107 mmol/L 98 - 10 7 mmol/L [facility] CO2 [Moles/Vol] 24 mmol/L 20 - 31 mmol/L [facility] Creatinine [Mass/Vol] 0.55 mg/dL 0.50 - 0.90 mg/dL [facility] GFR >60 60 - PI NF mL/min [facility] GFR Non- >60 60 - PINF mL/min [facility] GFR/1.73 sq M.predicted MDRD (S/P/Bld) [Vol rate/Area] [facility] Glucose [Mass/Vol] 188 mg/dL High 70 - 99 mg/dL [facility] Interpretation and review of laboratory results Abnormal [facility] Potassium [Moles/Vol] 3.4 mmol/L Low 3.7 - 5.3 mmol/L [facility] Sodium [Moles/Vol] 141 mmol/L 135 - 144 mmol/L [facility] Urea nitrogen (BldV) [Mass/Vol] 11 mg/dL 8 - 23 mg/dL [facility] Basic Metabolic Profon 03-22 (cont.) Normal [facility] Comment on above: Result Comment: Aver age GFR for 60-69 years old: 85 mL/min/1.73sq m Chronic Kidney Disease: <60 mL/min/1.73sq m Kidney failure: <15 mL/min/1.73sq m eGFR calculated using average adult body mass. Additional eGFR calculator available at: http://www.[employer]/multiple_crcl_2012.htm Performed By: #### C DP #### [address] [address] [place]: Dominik Muñiz MD Anion gap [Moles/Vol] 10 mmol/L Normal 9-17 [facility] Comment on above: Performed By: #### C DP #### [address] [address] [place]: Dominik Muñiz MD Calcium [Mass/Vol] 8.8 mg/dL Normal 8.6-10.4 [facility] Comment on above: Performed By: #### C DP #### [address] [address] [place]: Dominik Muñiz MD Chloride [Moles/Vol] 107 mmol/L Normal 98-107 [facility] Comment on above: Performed By: #### C DP #### [facility] [address] [place] [id number] [place]: Dominik Muñiz MD CO2 [Moles/Vol] 24 mmol/L Normal 20-31 [facility] Comment on above: Performed By: #### C DP #### [address] [address] [place]: Dominik Mñuiz MD Creatinine [Mass/Vol] 0.55 mg/dL Normal 0.50-0.90 [facility] Comment on above: Performed By: #### C DP #### [address] [address] [place]: Dominik Muñiz MD GFR, Amer >60 Normal >60 [facility] Comment on above: Performed By: #### C DP #### [address] [address] [place]: Dominik Muñiz MD GFR,non Amer >60 Normal >60 [facility] Comment on above: Performed By: #### C DP #### [address] [address] [place]: Dominik Muñiz MD Glucose [Mass/Vol] 188 mg/dL High 70-99 [facility] Comment on above: Performed By: #### C DP #### [address] [address] [place]: Dominik Muñiz MD Potassium [Moles/Vol] 3.4 mmol/L Low 3.7-5.3 [facility] Comment on above: Performed By: #### C DP #### [address] [address] [place]: Dominik Muñiz MD Sodium [Moles/Vol] 141 mmol/L Normal 135-144 [facility] Comment on above: Performed By: #### C DP #### [address] [address] [place]: Dominik Muñiz MD Urea nitrogen [Mass/Vol] 11 mg/dL Normal 8-23 [facility] Comment on above: Performed By: #### C DP #### [address] [address] [place]: Dominik Muñiz MD CBCon 03-22-2022 Erythrocyte distribution width (RBC) [Ratio] 12.3 % Normal 11.8-14.4 [facility] Comment on above: Performed By: #### C DP #### [address] [address] [place]: Dominik Muñiz MD Hematocrit (Bld) [Volume fraction] 30.6 % Low 36.3-47.1 [facility] Comment on above: Performed By: #### C DP #### [address] [address] [place]: Dominik Muñiz MD Hemoglobin (Bld) [Mass/Vol] 10.0 g/dL Low 11.9-15.1 [facility] Comment on above: Performed By: #### C DP #### [address] [address] [place]: Dominik Muñiz MD MCH (RBC) [Entitic mass] 31.5 pg Normal 25.2-33.5 [facility] Comment on above: Performed By: #### C DP #### [address] [address] [place]: Dominik Muñiz MD MCHC (RBC) [Mass/Vol] 32.7 g/dL Normal 28.4-34.8 [facility] Comment on above: Performed By: #### C DP #### [address] [address] [place]: Dominik Muñiz MD MCV (RBC) [Entitic vol] 96.5 fL Normal 82.6-102.9 [facility] Comment on above: Performed By: #### C DP #### [address] [address] [place]: Dominik Muñiz MD NRBC Automated 0.0 per 100 WBC Normal 0.0 [facility] Comment on above: Performed By: #### C DP #### [address] [address] [place]: Dominik Muñiz MD Platelet mean volume (Bld) [Entitic vol] 11.5 fL Normal 8.1-13.5 [facility] Comment on above: Performed By: #### C DP #### [id number] [place] [address] [place]: Dominik Muñiz MD Platelets (Bld) [#/Vol] 164 10*3/uL Normal 138-453 [facility] Comment on above: Performed By: #### C DP #### [id number] [place] [address] [place]: Dominik Muñiz MD RBC (Bld) [#/Vol] 3.17 10*6/uL Low 3.95-5.11 [facility] Comment on above: Performed By: #### C DP #### [place] [address] [place]: Dominik Muñiz MD WBC (Bld) [#/Vol] 9.0 10*3/uL Normal 3.5-11.3 [facility] Comment on above: Performed By: #### C DP #### [address] [address] [place]: Dominik Muñiz MD Hematocrit (Bld) [Volume fraction] 30.6 % Low 36.3 - 47.1 % [facility] Hemoglobin (Bld) [Mass/Vol] 10.0 g/dL Low 11.9 - 15.1 g/dL [facility] Interpretation and review of laboratory results Abnormal [facility] MCH (RBC) [Entitic mass] 31.5 pg 25.2 - 33.5 pg [facility] MCHC (RBC) [Mass/Vol] 32.7 g/dL 28.4 - 34.8 g/dL [facility] MCV (RBC) [Entitic vol] 96.5 fL 82.6 - 102.9 fL [facility] [employer] NRBC Automated 0.0 0.0 per 100 WBC [facility] Platelet distribution width (Bld) [Ratio] 12.3 % 11.8 - 14.4 % [facility] Platelet mean volume (Bld) [Entitic vol] 11.5 fL 8.1 - 13.5 fL [facility] Platelets (Bld) [#/Vol] 164 10*3/uL [facility] RBC (Bld) [#/Vol] 3.17 10*6/uL Low 3.95 - 5.1 1 m/uL [facility] WBC (Bld) [#/Vol] 9.0 10*3/uL [facility] CT HEAD WO CONTRASTon 2021 CT [...] Lauren Arzola MD 03/22/22 Final result [facility] Work Phone: Radiology Study observation (narrative) [facility] Work Phone: CT HEAD WO CONTRASTOrdered B y: Lauren Arzola on 03-22-2022 [facility] [employer] Work Phone: Calcium, Ionicon 03-22-2022 Calcium [Moles/Vol] 1.22 mmol/L Normal 1.13-1.33 [facility] Comment on above: Performed By: #### C DP #### [employer] [address] [place] [address] [place]: Dominik Muñiz MD Calcium, Ionizedon Calcium, Ionized 1.22 mmol/L 1.13 - 1.33 mmol/L [facility] [employer] Hemoglobin A1Con 03-22-2022 Glucose [Mass/Vol] 146 mg/dL Normal [facility] Comment on above: Result Comment: The ADA and AACC recommend providing the estimated average glucose result to permit better patient understanding of their HBA1c result. Performed By: #### T YS #### [employer] [address] [place] [address] [place]: Dominik Muñiz MD HbA1c (Bld) [Mass fraction] 6.7 % High 4.0-6.0 [facility] Comment on above: Performed By: #### T YS #### [employer] [address] [place] [address] [place]: Dominik Muñiz MD Glucose [Mass/Vol] 146 mg/dL [facility] HbA1c (Bld) [Mass fraction] 6.7 % High 4.0 - 6.0 % [facility] [employer] Interpretation and review of laboratory results Abnormal [facility] [employer] Magnesiumon 03-22-2022 Magnesium [Mass/Vol] 1.9 mg/dL Normal 1.6-2.6 [facility] Comment on above: Performed By: #### T YS #### [employer] [address] [place] [address] [place]: Dominik Muñiz MD Magnesium [Mass/Vol] 1.9 mg/dL 1.6 - 2 .6 mg/dL [facility] No Panel Informationon 03-22 [facility] POC Glucose Fingerstickon Glucose [Mass/Vol] 160 mg/dL High 65 - 105 mg/dL [facility] Interpretation and review of laboratory results Abnormal [facility] Glucose [Mass/Vol] 183 mg/dL High 65 - 105 mg/dL [facility] Interpretation and review of laboratory results Abnormal [facility] Phosphoruson 03-22-2022 Phosphate [Mass/Vol] 4.1 mg/dL 2.6 - 4 .5 mg/dL [facility] Phosphorus, Inorg.on 022 Phosphorus, Inorg. 4.1 mg/dL Normal 2.6-4.5 [facility] Comment on above: Performed By: #### T YS #### [facility] [address] [place] [address] [place]: Dominik Muñiz MD Arterial Blood Gas, POCon FIO2 30.0 [facility] HCO3 (Bld) [Moles/Vol] 26.0 mmol/L 21.0 - 28.0 mmol/L [facility] O2 Device/Flow/% Adult Ventilator [facility] Oxygen saturation in Blood 98 % 94.0 - 98.0 % [facility] POC pCO2 40.7 [facility] POC pH 7.413 7.350 - 7.450 [facility] POC PO2 102.2 [facility] Positive Base Excess, Art 1 0.0 - 3.0 [facility] Sample Site Arterial Line [facility] Basic Metabolic Panelon 03-04 Anion gap [Moles/Vol] 8 mmol/L Low 9 - 17 mmol/L [facility] Calcium [Mass/Vol] 8.0 mg/dL Low 8.6 - 10. 4 mg/dL [facility] Chloride [Moles/Vol] 111 mmol/L High 98 - 10 7 mmol/L [facility] CO2 [Moles/Vol] 26 mmol/L 20 - 31 mmol/L [facility] Creatinine [Mass/Vol] 0.53 mg/dL 0.50 - 0.90 mg/dL [facility] GFR >60 60 - PI NF mL/min [facility] GFR Non- >60 60 - PINF mL/min [facility] GFR/1.73 sq M.predicted MDRD (S/P/Bld) [Vol rate/Area] [facility] Glucose [Mass/Vol] 143 mg/dL High 70 - 99 mg/dL [facility] Interpretation and review of laboratory results Abnormal [facility] Potassium [Moles/Vol] 3.9 mmol/L 3.7 - 5.3 mmol/L [facility] Sodium [Moles/Vol] 145 mmol/L High 135 - 144 mmol/L [facility] Urea nitrogen (BldV) [Mass/Vol] 12 mg/dL 8 - 23 mg/dL [facility] Basic Metabolic Profon 03-21 (cont.) Normal [facility] Comment on above: Result Comment: Aver age GFR for 60-69 years old: 85 mL/min/1.73sq m Chronic Kidney Disease: <60 mL/min/1.73sq m Kidney failure: <15 mL/min/1.73sq m eGFR calculated using average adult body mass. Additional eGFR calculator available at: http://www.Biztag.[employer]/multiple_crcl_2011.htm Performed By: #### T YS #### [employer] [address] [place] [address] [place]: Dominik Muñiz MD Anion gap [Moles/Vol] 8 mmol/L Low 9-17 [facility] Comment on above: Performed By: #### T YS #### [employer] [address] [place], [place] [id number] [place]: Dominik Muñiz MD Calcium [Mass/Vol] 8.0 mg/dL Low 8.6-10.4 [facility] Comment on above: Performed By: #### T YS #### [address] [address] [place]: Dominik Muñiz MD Chloride [Moles/Vol] 111 mmol/L High 98-107 [facility] Comment on above: Performed By: #### T YS #### [address] [address] [place]: Dominik Muñiz MD CO2 [Moles/Vol] 26 mmol/L Normal 20-31 [facility] Comment on above: Performed By: #### T YS #### [address] [address] [place]: Dominik Muñiz MD Creatinine [Mass/Vol] 0.53 mg/dL Normal 0.50-0.90 [facility] Comment on above: Performed By: #### T YS #### [address] [address] [place]: Dominik Muñiz MD GFR, Amer >60 Normal >60 [facility] Comment on above: Performed By: #### T YS #### [address] [address] [place]: Dominik Muñiz MD GFR,non Amer >60 Normal >60 [facility] Comment on above: Performed By: #### T YS #### [address] [address] [place]: Dominik Muñiz MD Glucose [Mass/Vol] 143 mg/dL High 70-99 [facility] Comment on above: Performed By: #### T YS #### [address] [address] [place]: Dominik Muñiz MD Potassium [Moles/Vol] 3.9 mmol/L Normal 3.7-5.3 [facility] Comment on above: Performed By: #### T YS #### [address] [address] [place]: Dominik Muñiz MD Sodium [Moles/Vol] 145 mmol/L High 135-144 [facility] Comment on above: Performed By: #### T YS #### [address] [address] [place]: Dominik Muñiz MD Urea nitrogen [Mass/Vol] 12 mg/dL Normal 8-23 [facility] Comment on above: Performed By: #### T YS #### [address] [address] [place]: Dominik Muñiz MD CBCon 03-21-2022 Erythrocyte distribution width (RBC) [Ratio] 12.2 % Normal 11.8-14.4 [facility] Comment on above: Performed By: #### T YS #### [address] [address] [place]: Dominik Muñiz MD Hematocrit (Bld) [Volume fraction] 25.2 % Low 36.3-47.1 [facility] Comment on above: Performed By: #### T YS #### [address] [address] [place]: Dominik Muñiz MD Hemoglobin (Bld) [Mass/Vol] 8.5 g/dL Low 11.9-15.1 [facility] Comment on above: Performed By: #### T YS #### [address] [address] [place]: Dominik Muñiz MD MCH (RBC) [Entitic mass] 33.2 pg Normal 25.2-33.5 [facility] Comment on above: Performed By: #### T YS #### [address] [address] [place]: Dominik Muñiz MD MCHC (RBC) [Mass/Vol] 33.7 g/dL Normal 28.4-34.8 [facility] Comment on above: Performed By: #### T YS #### [address] [address] [place]: Dominik Muñiz MD MCV (RBC) [Entitic vol] 98.4 fL Normal 82.6-102.9 [facility] Comment on above: Performed By: #### T YS #### [address] [address] [place]: Dominik Muñiz MD NRBC Automated 0.0 per 100 WBC Normal 0.0 [facility] Comment on above: Performed By: #### T YS #### [address] [address] [place]: Dominik Muñiz MD Platelet mean volume (Bld) [Entitic vol] 12.4 fL Normal 8.1-13.5 [facility] Comment on above: Performed By: #### T YS #### [address] [address] [place]: Dominik Muñiz MD Platelets (Bld) [#/Vol] 90 10*3/uL Low 138-453 [facility] Comment on above: Performed By: #### T YS #### [address] [address] [place]: Dominik Muñiz MD RBC (Bld) [#/Vol] 2.56 10*6/uL Low 3.95-5.11 [facility] Comment on above: Performed By: #### T YS #### [address] [address] [place]: Dominik Muñiz MD WBC (Bld) [#/Vol] 5.7 10*3/uL Normal 3.5-11.3 [facility] Comment on above: Performed By: #### T YS #### [facility] [address] [place], [place] [id number] [place]: Dominik Muñiz MD Hematocrit (Bld) [Volume fraction] 25.2 % Low 36.3 - 47.1 % [facility] Hemoglobin (Bld) [Mass/Vol] 8.5 g/dL Low 11.9 - 15.1 g/dL [facility] Interpretation and review of laboratory results Abnormal [facility] MCH (RBC) [Entitic mass] 33.2 pg 25.2 - 33.5 pg [facility] MCHC (RBC) [Mass/Vol] 33.7 g/dL 28.4 - 34.8 g/dL [facility] MCV (RBC) [Entitic vol] 98.4 fL 82.6 - 102.9 fL [facility] NRBC Automated 0.0 0.0 per 100 WBC [facility] Platelet distribution width (Bld) [Ratio] 12.2 % 11.8 - 14.4 % [facility] Platelet mean volume (Bld) [Entitic vol] 12.4 fL 8.1 - 13.5 fL [facility] Platelets (Bld) [#/Vol] 90 10*3/uL Low [facility] RBC (Bld) [#/Vol] 2.56 10*6/uL Low 3.95 - 5.1 1 m/uL [facility] WBC (Bld) [#/Vol] 5.7 10*3/uL [facility] Calcium, Ionicon 03-21-2022 Calcium [Moles/Vol] 1.10 mmol/L Low 1.13-1.33 [facility] Comment on above: Performed By: #### T YS #### [facility] [address] [place], [place] [id number] [place]: Dominik Muñiz MD Calcium, Ionizedon 2 Calcium, Ionized 1.1 mmol/L Low 1.13 - 1.33 mmol/L [facility] Interpretation and review of laboratory results Abnormal [facility] Lactic Acid, POCon 2 POC Lactic Acid 0.99 mmol/L 0.56 - 1.39 mmol/L [facility] Magnesiumon 03-21-2022 Magnesium [Mass/Vol] 1.9 mg/dL Normal 1.6-2.6 [facility] Comment on above: Performed By: #### T YS #### [employer] [id number] [place]: Dominik Muñiz MD Magnesium [Mass/Vol] 1.9 mg/dL 1.6 - 2 .6 mg/dL [facility] No Panel Informationon 03-21 [facility] POC Glucose Fingerstickon Glucose [Mass/Vol] 246 mg/dL High 65 - 105 mg/dL [facility] Interpretation and review of laboratory results Abnormal [facility] Glucose [Mass/Vol] 160 mg/dL High 65 - 105 mg/dL [facility] Interpretation and review of laboratory results Abnormal [facility] Glucose [Mass/Vol] 209 mg/dL High 65 - 105 mg/dL [facility] Interpretation and review of laboratory results Abnormal [facility] Glucose [Mass/Vol] 225 mg/dL High 65 - 105 mg/dL [facility] Interpretation and review of laboratory results Abnormal [facility] Phosphoruson 03-21-2022 Phosphate [Mass/Vol] 4.3 mg/dL 2.6 - 4 .5 mg/dL [facility] Phosphorus, Inorg.on 022 Phosphorus, Inorg. 4.3 mg/dL Normal 2.6-4.5 [facility] Comment on above: Performed By: #### T YS #### [facility] [employer] [address] [place] [address] [place]: Dominik Muñiz MD XR CHEST PORTABLEon 03-21-20 [...] Pascual Howard MD 03/21/22 Final result Normal [facility] MHPN RIS CONSOLIDATED MHPN RIS CONSOLIDATED [facility] [employer] Work Phone: Radiology Study observation (narrative) [facility] Work Phone: XR CHEST PORTABLEOrdered By: Pascual Howard on 03-21-2022 [facility] Work Phone: Arterial Blood Gas, POCon Aidan Test NOT APPLICABLE [employer] FIO2 30.0 [facility] [employer] HCO3 (Bld) [Moles/Vol] 24.8 mmol/L 21.0 - 28.0 mmol/L [facility]icker Interpretation and review of laboratory results Abnormal [facility] O2 Device/Flow/% Adult Ventilator [facility] [employer] Oxygen saturation in Blood 99 % High 94.0 - 98.0 % [facility] POC pCO2 41.6 [facility] [employer] POC pH 7.383 7.350 - 7.450 [facility] POC PO2 121.9 High [facility] Positive Base Excess, Art 0 0.0 - 3.0 [facility] [employer] Sample Site Arterial Line [facility] Basic Metabolic Panelon 03-04 Anion gap [Moles/Vol] 10 mmol/L 9 - 17 mmol/L [facility] Calcium [Mass/Vol] 8.0 mg/dL Low 8.6 - 10. 4 mg/dL [facility] Chloride [Moles/Vol] 107 mmol/L 98 - 10 7 mmol/L [facility] CO2 [Moles/Vol] 24 mmol/L 20 - 31 mmol/L [facility] Creatinine [Mass/Vol] 0.61 mg/dL 0.50 - 0.90 mg/dL [facility] [employer] GFR >60 60 - PI NF mL/min [facility] [employer] GFR Non- >60 60 - PINF mL/min [facility] [employer] GFR/1.73 sq M.predicted MDRD (S/P/Bld) [Vol rate/Area] [facility] [employer] Glucose [Mass/Vol] 211 mg/dL High 70 - 99 mg/dL [facility] Interpretation and review of laboratory results Abnormal [facility] [employer] Potassium [Moles/Vol] 4.9 mmol/L 3.7 - 5.3 mmol/L [facility] Sodium [Moles/Vol] 141 mmol/L 135 - 144 mmol/L [facility] Urea nitrogen (BldV) [Mass/Vol] 10 mg/dL 8 - 23 mg/dL [facility] Anion gap [Moles/Vol] 8 mmol/L Low 9 - 17 mmol/L [facility] Calcium [Mass/Vol] 8.0 mg/dL Low 8.6 - 10. 4 mg/dL [facility] Chloride [Moles/Vol] 109 mmol/L High 98 - 10 7 mmol/L [facility] CO2 [Moles/Vol] 23 mmol/L 20 - 31 mmol/L [facility] Creatinine [Mass/Vol] 0.74 mg/dL 0.50 - 0.90 mg/dL [facility] [employer] GFR >60 60 - PI NF mL/min [facility] [employer] GFR Non- >60 60 - PINF mL/min [facility] [employer] GFR/1.73 sq M.predicted MDRD (S/P/Bld) [Vol rate/Area] [facility] [employer] Glucose [Mass/Vol] 98 mg/dL 70 - 99 mg/dL [facility] Interpretation and review of laboratory results Abnormal [facility] Potassium [Moles/Vol] 2.9 mmol/L Critically low 3.7 - 5.3 mmol/L [facility] Sodium [Moles/Vol] 140 mmol/L 135 - 144 mmol/L [facility] Urea nitrogen (BldV) [Mass/Vol] 11 mg/dL 8 - 23 mg/dL [facility] Basic Metabolic Profon 03-20 (cont.) Normal [facility] Comment on above: Result Comment: Aver age GFR for 60-69 years old: 85 mL/min/1.73sq m Chronic Kidney Disease: <60 mL/min/1.73sq m Kidney failure: <15 mL/min/1.73sq m eGFR calculated using average adult body mass. Additional eGFR calculator available at: http://www.[employer]/multiple_crcl_2011.htm Performed By: #### M G, LIVP, BMPX, VD25, NAMRATA, IOCAL, CDP #### [employer] [address] [place] [id number] [place]: Dominik Muñiz MD Anion gap [Moles/Vol] 10 mmol/L Normal -17 [facility] Comment on above: Performed By: #### M G, LIVP, BMPX, VD25, NAMRATA, IOCAL, CDP #### [facility] [employer] [address] [place] [address] [phone] [place]: Dominik Muñiz MD Calcium [Mass/Vol] 8.0 mg/dL Low 8.6-10.4 [facility] Comment on above: Performed By: #### M G, LIVP, BMPX, VD25, NAMRATA, IOCAL, CDP #### [facility] [address] [place] [address] [phone] [place]: Dominik Muñiz MD Chloride [Moles/Vol] 107 mmol/L Normal 98-107 [facility] Comment on above: Performed By: #### M G, LIVP, BMPX, VD25, NAMRATA, IOCAL, CDP #### [address] [address] [place]: Dominik Muñiz MD CO2 [Moles/Vol] 24 mmol/L Normal 20-31 [facility] Comment on above: Performed By: #### M G, LIVP, BMPX, VD25, NAMRATA, IOCAL, CDP #### [address] [address] [place]: Dominik Muñiz MD Creatinine [Mass/Vol] 0.61 mg/dL Normal 0.50-0.90 [facility] Comment on above: Performed By: #### M G, LIVP, BMPX, VD25, NAMRATA, IOCAL, CDP #### [address] [address] [place]: Dominik Muñiz MD GFR, Amer >60 Normal >60 [facility] Comment on above: Performed By: #### M G, LIVP, BMPX, VD25, NAMRATA, IOCAL, CDP #### [address] [address] [place]: Dominik Muñiz MD GFR,non Amer >60 Normal >60 [facility] Comment on above: Performed By: #### M G, LIVP, BMPX, VD25, NAMRATA, IOCAL, CDP #### [address] [address] [place]: Dominik Muñiz MD Glucose [Mass/Vol] 211 mg/dL High 70-99 [facility] Comment on above: Performed By: #### M G, LIVP, BMPX, VD25, NAMRATA, IOCAL, CDP #### [address] [address] [place]: Dominik Muñiz MD Potassium [Moles/Vol] 4.9 mmol/L Normal 3.7-5.3 [facility] Comment on above: Performed By: #### M G, LIVP, BMPX, VD25, NAMRATA, IOCAL, CDP #### [facility] [address] [place] [phone] [place]: Dominik Muñiz MD Sodium [Moles/Vol] 141 mmol/L Normal 135-144 [facility] Comment on above: Performed By: #### M G, LIVP, BMPX, VD25, NAMRATA, IOCAL, CDP #### [facility] [employer] [address] [place] [phone] [place]: Dominik Muñiz MD Urea nitrogen [Mass/Vol] 10 mg/dL Normal 8-23 [facility] Comment on above: Performed By: #### M G, LIVP, BMPX, VD25, NAMRATA, IOCAL, CDP #### [facility] [address] [place] [phone] [place]: Dominik Muñiz MD (cont.) [facility] Comment on above: Result Comment: Aver age GFR for 60-69 years old: 85 mL/min/1.73sq m Chronic Kidney Disease: <60 mL/min/1.73sq m Kidney failure: <15 mL/min/1.73sq m eGFR calculated using average adult body mass. Additional eGFR calculator available at: http://www.Biztag.com/multiple_crcl_[email or web address] Performed By: #### M G, LIVP, BMPX, VD25, NAMRATA, IOCAL, CDP #### [facility] [address] [place] [id number] Mucker [place]ffer[place]: Dominik Muñiz MD Anion gap [Moles/Vol] 8 mmol/L Low 9-17 [facility] Comment on above: Performed By: #### M G, LIVP, BMPX, VD25, NAMRATA, IOCAL, CDP #### [facility] [address] [place] [id number] Mucker [place]ffer[place]: Dominik Muñiz MD Calcium [Mass/Vol] 8.0 mg/dL Low 8.6-10.4 [facility] Comment on above: Performed By: #### M G, LIVP, BMPX, VD25, NAMRATA, IOCAL, CDP #### [address] [id number] Mucker [place]ffer[place]: Dominik Muñiz MD Chloride [Moles/Vol] 109 mmol/L High 98-107 [facility] Comment on above: Performed By: #### M G, LIVP, BMPX, VD25, NAMRATA, IOCAL, CDP #### [address] [id number] Mucker Cofferdam: Dominik Muñiz MD CO2 [Moles/Vol] 23 mmol/L Normal 20-31 [facility] Comment on above: Performed By: #### M G, LIVP, BMPX, VD25, NAMRATA, IOCAL, CDP #### [address] [address] [place]: Dominik Muñiz MD Creatinine [Mass/Vol] 0.74 mg/dL Normal 0.50-0.90 [facility] Comment on above: Performed By: #### M G, LIVP, BMPX, VD25, NAMRATA, IOCAL, CDP #### [address] [address] [place]: Dominik Muñiz MD GFR, Amer >60 Normal >60 [facility] Comment on above: Performed By: #### M G, LIVP, BMPX, VD25, NAMRATA, IOCAL, CDP #### [address] [address] [place]: Dominik Muñiz MD GFR,non Amer >60 Normal >60 [facility] Comment on above: Performed By: #### M G, LIVP, BMPX, VD25, NAMRATA, IOCAL, CDP #### [facility] [address] [place] [address] [place]: Dominik Muñiz MD Glucose [Mass/Vol] 98 mg/dL Normal 70-99 [facility] Comment on above: Performed By: #### M G, LIVP, BMPX, VD25, NAMRATA, IOCAL, CDP #### [facility] [address] [place] [address] [place]: Dominik Muñiz MD Potassium [Moles/Vol] 2.9 mmol/L Critically low 3.7-5.3 [facility] Comment on above: Performed By: #### M G, LIVP, BMPX, VD25, NAMRATA, IOCAL, CDP #### [facility] [address] [place] [address] [place]: Dominik Muñiz MD Sodium [Moles/Vol] 140 mmol/L Normal 135-144 [facility] Comment on above: Performed By: #### M G, LIVP, BMPX, VD25, NAMRATA, IOCAL, CDP #### [facility] [address] [place] [address] [place]: Dominik Muñiz MD Urea nitrogen [Mass/Vol] 11 mg/dL Normal 8-23 [facility] Comment on above: Performed By: #### M G, LIVP, BMPX, VD25, NAMRATA, IOCAL, CDP #### [facility] [address] [place] [address] [place]: Dominik Muñiz MD CBCon 03-20-2022 Erythrocyte distribution width (RBC) [Ratio] 11.9 % Normal 11.8-14.4 [facility] Comment on above: Performed By: #### M G, LIVP, BMPX, VD25, NAMRATA, IOCAL, CDP #### [facility] [address] [place] [address] [place]: Dominik Muñiz MD Hematocrit (Bld) [Volume fraction] 29.3 % Low 36.3-47.1 [facility] Comment on above: Performed By: #### M G, LIVP, BMPX, VD25, NAMRATA, IOCAL, CDP #### [address] [address] [place]: Dominik Muñiz MD Hemoglobin (Bld) [Mass/Vol] 10.2 g/dL Low 11.9-15.1 [facility] Comment on above: Performed By: #### M G, LIVP, BMPX, VD25, NAMRATA, IOCAL, CDP #### [address] [address] [place]: Dominik Muñiz MD MCH (RBC) [Entitic mass] 32.3 pg Normal 25.2-33.5 [facility] Comment on above: Performed By: #### M G, LIVP, BMPX, VD25, NAMRATA, IOCAL, CDP #### [place] [address] [place]: Dominik Muñiz MD MCHC (RBC) [Mass/Vol] 34.8 g/dL Normal 28.4-34.8 [facility] Comment on above: Performed By: #### M G, LIVP, BMPX, VD25, NAMRATA, IOCAL, CDP #### [place] [address] [place]: Dominik Muñiz MD MCV (RBC) [Entitic vol] 92.7 fL Normal 82.6-102.9 [facility] Comment on above: Performed By: #### M G, LIVP, BMPX, VD25, NAMRATA, IOCAL, CDP #### [address] [address] [place]: Dominik Muñiz MD NRBC Automated 0.0 per 100 WBC Normal 0.0 [facility] Comment on above: Performed By: #### M G, LIVP, BMPX, VD25, NAMRATA, IOCAL, CDP #### [facility] [place] [address] [place]: Dominik Muñiz MD Platelet Count See Reflexed IPF Result Normal 138-453 [facility] Comment on above: Performed By: #### M G, LIVP, BMPX, VD25, NAMRATA, IOCAL, CDP #### [facility] [employer] [facility] [place], [place] [id number] [place]: Dominik Muñiz MD RBC (Bld) [#/Vol] 3.16 10*6/uL Low 3.95-5.11 [facility] Comment on above: Performed By: #### M G, LIVP, BMPX, VD25, NAMRATA, IOCAL, CDP #### [facility] [address] [place] [id number] [place]: Dominik Muñiz MD WBC (Bld) [#/Vol] 8.4 10*3/uL Normal 3.5-11.3 [facility] Comment on above: Performed By: #### M G, LIVP, BMPX, VD25, NAMRATA, IOCAL, CDP #### [facility] [place] [address] [place]: Dominik Muñiz MD Hematocrit (Bld) [Volume fraction] 29.3 % Low 36.3 - 47.1 % [facility] Hemoglobin (Bld) [Mass/Vol] 10.2 g/dL Low 11.9 - 15.1 g/dL [facility] Interpretation and review of laboratory results Abnormal [facility] MCH (RBC) [Entitic mass] 32.3 pg 25.2 - 33.5 pg [facility] MCHC (RBC) [Mass/Vol] 34.8 g/dL 28.4 - 34.8 g/dL [facility] MCV (RBC) [Entitic vol] 92.7 fL 82.6 - 102.9 fL [facility] NRBC Automated 0.0 0.0 per 100 WBC [facility] Platelet distribution width (Bld) [Ratio] 11.9 % 11.8 - 14.4 % [facility] Platelets (Bld) [#/Vol] See Reflexed IPF Result [facility] RBC (Bld) [#/Vol] 3.16 10*6/uL Low 3.95 - 5.1 1 m/uL [facility] WBC (Bld) [#/Vol] 8.4 10*3/uL [facility] CT HEAD WO CONTRASTon 2021 CT [...] Lauren Edouard MD 03/20/22 Final result Normal [facility] MHPN RIS CONSOLIDATED MHPN RIS CONSOLIDATED [facility] Work Phone: Radiology Study observation (narrative) [facility] [employer] Work Phone: CT HEAD WO CONTRASTOrdered B y: Lauren Edouard on 03-20-2022 [facility] Work Phone: Calcium, Ionicon 03-20-2022 Calcium [Moles/Vol] 1.12 mmol/L Low 1.13-1.33 [facility] Comment on above: Performed By: #### M G, LIVP, BMPX, VD25, NAMRATA, IOCAL, CDP #### [facility] [employer] [address] [place] [address] [place]: Dominik Muñiz MD Calcium, Ionizedon 2 Calcium, Ionized 1.12 mmol/L Low 1.13 - 1.33 mmol/L [facility] Interpretation and review of laboratory results Abnormal [facility] Immature Platelet Fractionon 03-20-2022 Interpretation and review of laboratory results Abnormal [facility] Platelet, Fluorescence 137 Low [facility] Platelet, Immature Fraction 6.8 % 1.1 - 10.3 % [facility] Lactic Acidon 03-20-2022 Lactic Acid,Whole Bl 1.2 mmol/L Normal 0.7-2.1 [facility] Comment on above: Performed By: #### T YS #### [employer] [address] [place] [address] [place]: Dominik Muñiz MD Lactic Acid, Whole Blood 1.2 mmol/L 0.7 - 2.1 mmol/L [facility] Lactic Acid, POCon POC Lactic Acid 1.25 mmol/L 0.56 - 1.39 mmol/L [facility] POC Lactic Acid 1.22 mmol/L 0.56 - 1.39 mmol/L [facility] Magnesiumon 03-20-2022 Magnesium [Mass/Vol] 2.2 mg/dL Normal 1.6-2.6 [facility] Comment on above: Performed By: #### M G, LIVP, BMPX, VD25, NAMRATA, IOCAL, CDP #### [employer] [address] [place], [place] [id number] [place]: Dominik Muñiz MD Magnesium [Mass/Vol] 2.2 mg/dL 1.6 - 2 .6 mg/dL [facility] No Panel Informationon 03-20 Interpretation and review of laboratory results Abnormal [facility] Interpretation and review of laboratory results Abnormal [facility] PLT, Immature Fract.on 03-20 Platelet, Fluoresc. 137 k/uL Low 138-453 [facility] Comment on above: Performed By: #### M G, LIVP, BMPX, VD25, NAMRATA, IOCAL, CDP #### [employer] [address] [place], [place] [phone] [place]: Dominik Muñiz MD PLT, Immature Fract. 6.8 % Normal 1.1-10.3 [facility] Comment on above: Performed By: #### M G, LIVP, BMPX, VD25, NAMRATA, IOCAL, CDP #### [employer] [address] [place], [place] [id number] [place]: Dominik Muñiz MD POC Glucose Fingerstickon Glucose [Mass/Vol] 199 mg/dL High 65 - 105 mg/dL [facility] Interpretation and review of laboratory results Abnormal [facility] Glucose [Mass/Vol] 142 mg/dL High 65 - 105 mg/dL [facility] Interpretation and review of laboratory results Abnormal [facility] Glucose [Mass/Vol] 185 mg/dL High 65 - 105 mg/dL [facility] Interpretation and review of laboratory results Abnormal [facility] Glucose [Mass/Vol] 189 mg/dL High 65 - 105 mg/dL [facility] Glucose [Mass/Vol] 160 mg/dL High 65 - 105 mg/dL [facility] Glucose [Mass/Vol] 110 mg/dL High 65 - 105 mg/dL [facility] Interpretation and review of laboratory results Abnormal [facility] POCT Glucoseon 03-20-2022 Glucose [Mass/Vol] 100 mg/dL 74 - 100 mg/dL [facility] Glucose [Mass/Vol] 284 mg/dL High 74 - 100 mg/dL [facility] Phosphoruson 03-20-2022 Interpretation and review of laboratory results Abnormal [facility] Phosphate [Mass/Vol] 2.3 mg/dL Low 2.6 - 4 .5 mg/dL [facility] Phosphorus, Inorg.on 022 Phosphorus, Inorg. 2.3 mg/dL Low 2.6-4.5 [facility] Comment on above: Performed By: #### M G, LIVP, BMPX, VD25, NAMRATA, IOCAL, CDP #### [facility] [address] [place] [address] [place]: Dominik Muñiz MD Venous Blood Gas, POCon 03-04 Aidan Test NOT APPLICABLE [facility] FIO2 30.0 [facility] HCO3 (Bld) [Moles/Vol] 23.3 mmol/L 22.0 - 29.0 mmol/L [facility] Negative Base Excess, Chavo 1 0.0 - 2.0 [facility] O2 Device/Flow/% Adult Ventilator [facility] Oxygen saturation in Blood 99 % High 60.0 - 85.0 % [facility] pCO2, Chavo 37.1 Low [facility] pH, Chavo 7.406 7.320 - 7.430 [facility] pO2, Chavo 118.9 High [facility] Sample Site Arterial Line [facility] Basic Metab w/rfx MGon 03-19 (cont.) Normal [facility] Comment on above: Result Comment: Aver age GFR for 60-69 years old: 85 mL/min/1.73sq m Chronic Kidney Disease: <60 mL/min/1.73sq m Kidney failure: <15 mL/min/1.73sq m eGFR calculated using average adult body mass. Additional eGFR calculator available at: http://www.[employer]/multiple_crcl_2012.htm Performed By: #### M G, LIVP, BMPX, VD25, NAMRATA, IOCAL, CDP #### [facility] [employer] [address] [place] [address] [place]: Dominik Muñiz MD Anion gap [Moles/Vol] 13 mmol/L Normal 9-17 [facility] Comment on above: Performed By: #### M G, LIVP, BMPX, VD25, NAMRATA, IOCAL, CDP #### [employer] [address] [place] [address] [place]: Dominik Muñiz MD Calcium [Mass/Vol] 7.8 mg/dL Low 8.6-10.4 [facility] Comment on above: Performed By: #### M G, LIVP, BMPX, VD25, NAMRATA, IOCAL, CDP #### [employer] [address] [place] [address] [place]: Dominik Muñiz MD Chloride [Moles/Vol] 105 mmol/L Normal 98-107 [facility] Comment on above: Performed By: #### M G, LIVP, BMPX, VD25, NAMRATA, IOCAL, CDP #### [employer] [address] [place] [address] [place]: Dominik Muñiz MD CO2 [Moles/Vol] 24 mmol/L Normal 20-31 [facility] Comment on above: Performed By: #### M G, LIVP, BMPX, VD25, NAMRATA, IOCAL, CDP #### [address] [address] [place]: Dominik Muñiz MD Creatinine [Mass/Vol] 0.57 mg/dL Normal 0.50-0.90 [facility] Comment on above: Performed By: #### M G, LIVP, BMPX, VD25, NAMRATA, IOCAL, CDP #### [facility] [address] [place] [address] [place]: Dominik Muñiz MD GFR, Amer >60 Normal >60 [facility] Comment on above: Performed By: #### M G, LIVP, BMPX, VD25, NAMRATA, IOCAL, CDP #### [facility] [address] [place] [address] [place]: Dominik Muñiz MD GFR,non Amer >60 Normal >60 [facility] Comment on above: Performed By: #### M G, LIVP, BMPX, VD25, NAMRATA, IOCAL, CDP #### [facility] [address] [place] [address] [place]: Dominik Muñiz MD Glucose [Mass/Vol] 151 mg/dL High 70-99 [facility] Comment on above: Performed By: #### M G, LIVP, BMPX, VD25, NAMRATA, IOCAL, CDP #### [facility] [address] [place] [address] [place]: Dominik Muñiz MD Potassium [Moles/Vol] 3.2 mmol/L Low 3.7-5.3 [facility] Comment on above: Performed By: #### M G, LIVP, BMPX, VD25, NAMRATA, IOCAL, CDP #### [facility] [address] [place], [place] [id number] [place]: Dominik Muñiz MD Sodium [Moles/Vol] 142 mmol/L Normal 135-144 [facility] Comment on above: Performed By: #### M G, LIVP, BMPX, VD25, NAMRATA, IOCAL, CDP #### [facility] [address] [place], [place] [id number] [place]: Dominik Muñiz MD Urea nitrogen [Mass/Vol] 6 mg/dL Low 8-23 [facility] Comment on above: Performed By: #### M G, LIVP, BMPX, VD25, NAMRATA, IOCAL, CDP #### [facility] [address] [place], [place] [id number] [place]: Dominik Muñiz MD Basic Metabolic Panel w/ Ref jessica to MGon 03-19-2022 Anion gap [Moles/Vol] 13 mmol/L 9 - 17 mmol/L [facility] Calcium [Mass/Vol] 7.8 mg/dL Low 8.6 - 10. 4 mg/dL [facility] Chloride [Moles/Vol] 105 mmol/L 98 - 10 7 mmol/L [facility] [address] [facility] CO2 [Moles/Vol] 24 mmol/L 20 - 31 mmol/L [facility] [address] [facility] Creatinine [Mass/Vol] 0.57 mg/dL 0.50 - 0.90 mg/dL [facility] GFR >60 60 - PI NF mL/min [facility] GFR Non- >60 60 - PINF mL/min [facility] [address] [facility] GFR/1.73 sq M.predicted MDRD (S/P/Bld) [Vol rate/Area] [facility] Glucose [Mass/Vol] 151 mg/dL High 70 - 99 mg/dL [facility] Interpretation and review of laboratory results Abnormal [facility] [employer] Potassium [Moles/Vol] 3.2 mmol/L Low 3.7 - 5.3 mmol/L [facility] Sodium [Moles/Vol] 142 mmol/L 135 - 144 mmol/L [facility] Urea nitrogen (BldV) [Mass/Vol] 6 mg/dL Low 8 - 23 mg/dL [facility] CALCIUM, IONIC (POC)on 03-19 POC Ionized Calcium 1.12 mmol/L Low 1.15 - 1 .33 mmol/L [facility] CBC with Auto Differentialon 03-19-2022 Absolute Eos # [facility] Absolute Immature Granulocyte 0.05 [facility] Absolute Lymph # 1.04 Low [facility] Absolute Sebastian # 0.76 [facility] Basophils (Bld) [#/Vol] 0.03 10*3/uL [facility] Basophils/100 WBC (Bld) 0 % 0 - 2 % [facility] Eosinophils/100 WBC (Bld) 0 % Low 1 - 4 % [facility] Hematocrit (Bld) [Volume fraction] 30.4 % Low 36.3 - 47.1 % [facility] Hemoglobin (Bld) [Mass/Vol] 10.2 g/dL Low 11.9 - 15.1 g/dL [facility] Immature granulocytes/100 WBC (Bld) 0 % 0 [facility] Interpretation and review of laboratory results Abnormal [facility] Lymphocytes/100 WBC (Bld) 9 % Low 24 - 43 % [facility] MCH (RBC) [Entitic mass] 31.9 pg 25.2 - 33.5 pg [facility] MCHC (RBC) [Mass/Vol] 33.6 g/dL 28.4 - 34.8 g/dL [facility] MCV (RBC) [Entitic vol] 95.0 fL 82.6 - 102.9 fL [facility] Monocytes/100 WBC (Bld) 7 % 3 - 12 % [facility] NRBC Automated 0.0 0.0 per 100 WBC [facility] Platelet distribution width (Bld) [Ratio] 11.8 % 11.8 - 14.4 % [facility] Platelet mean volume (Bld) [Entitic vol] 12.3 fL 8.1 - 13.5 fL [facility] Platelets (Bld) [#/Vol] 116 10*3/uL Low [facility] RBC (Bld) [#/Vol] 3.20 10*6/uL Low 3.95 - 5.1 1 m/uL [facility] Seg Neutrophils 84 % High 36 - 65 % [facility] Segs Absolute 9.55 High [facility] WBC (Bld) [#/Vol] 11.4 10*3/uL High [facility] CBC with Diffon 03-19-2022 Abs. Basophil 0.03 k/uL Normal 0.00-0.20 [facility] Comment on above: Performed By: #### M G, LIVP, BMPX, VD25, NAMRATA, IOCAL, CDP #### [facility] [address] [place] [address] [place]: Dominik Muñiz MD Abs. Eosinophil <0.03 Normal 0.00-0.44 [facility] Comment on above: Performed By: #### M G, LIVP, BMPX, VD25, NAMRATA, IOCAL, CDP #### [employer] [address] [place] [address] [place]: Dominik Muñiz MD Abs.Imm.Granulocyte 0.05 k/uL Normal 0.00-0.30 [facility] Comment on above: Performed By: #### M G, LIVP, BMPX, VD25, NAMRATA, IOCAL, CDP #### [facility] [address] [place] [address] [place]: Dominik Muñiz MD Abs.Neutrophil (Seg) 9.55 k/uL High 1.50-8.10 [facility] Comment on above: Performed By: #### M G, LIVP, BMPX, VD25, NAMRATA, IOCAL, CDP #### [address] [address] [place]: Dominik Muñiz MD Basophils/100 WBC (Bld) 0 % Normal 0-2 [facility] Comment on above: Performed By: #### M G, LIVP, BMPX, VD25, NAMRATA, IOCAL, CDP #### [address] [address] [place]: Dominik Muñiz MD Eosinophils/100 WBC (Bld) 0 % Low 1-4 [facility] Comment on above: Performed By: #### M G, LIVP, BMPX, VD25, NAMRATA, IOCAL, CDP #### [address] [address] [place]: Dominik Muñiz MD Erythrocyte distribution width (RBC) [Ratio] 11.8 % Normal 11.8-14.4 [facility] Comment on above: Performed By: #### M G, LIVP, BMPX, VD25, NAMRATA, IOCAL, CDP #### [facility] [address] [place] [address] [place]: Dominik Muñiz MD Hematocrit (Bld) [Volume fraction] 30.4 % Low 36.3-47.1 [facility] Comment on above: Performed By: #### M G, LIVP, BMPX, VD25, NAMRATA, IOCAL, CDP #### [address] [address] [place]: Dominik Muñiz MD Hemoglobin (Bld) [Mass/Vol] 10.2 g/dL Low 11.9-15.1 [facility] Comment on above: Performed By: #### M G, LIVP, BMPX, VD25, NAMRATA, IOCAL, CDP #### [facility] [address] [place] [address] [place]: Dominik Muñiz MD Immature granulocytes/100 WBC (Bld) 0 % Normal 0 [facility] Comment on above: Performed By: #### M G, LIVP, BMPX, VD25, NAMRATA, IOCAL, CDP #### [facility] [address] [place] [address] [place]: Dominik Muñiz MD Lymphocytes (Bld) [#/Vol] 1.04 10*3/uL Low 1.10-3.70 [facility] Comment on above: Performed By: #### M G, LIVP, BMPX, VD25, NAMRATA, IOCAL, CDP #### [facility] [address] [place] [address] [place]: Dominik Muñiz MD Lymphocytes/100 WBC (Bld) 9 % Low 24-43 [facility] Comment on above: Performed By: #### M G, LIVP, BMPX, VD25, NAMRATA, IOCAL, CDP #### [facility] [address] [place] [address] [place]: Dominik Muñiz MD MCH (RBC) [Entitic mass] 31.9 pg Normal 25.2-33.5 [facility] Comment on above: Performed By: #### M G, LIVP, BMPX, VD25, NAMRATA, IOCAL, CDP #### [facility] [address] [place] [address] [place]: Dominik Muñiz MD MCHC (RBC) [Mass/Vol] 33.6 g/dL Normal 28.4-34.8 [facility] Comment on above: Performed By: #### M G, LIVP, BMPX, VD25, NAMRATA, IOCAL, CDP #### [facility] [address] [place] [address] [place]: Dominik Muñiz MD MCV (RBC) [Entitic vol] 95.0 fL Normal 82.6-102.9 [facility] Comment on above: Performed By: #### M G, LIVP, BMPX, VD25, NAMRATA, IOCAL, CDP #### [address] [address] [place]: Dominik Muñiz MD Monocytes (Bld) [#/Vol] 0.76 10*3/uL Normal 0.10-1.20 [facility] Comment on above: Performed By: #### M G, LIVP, BMPX, VD25, NAMRATA, IOCAL, CDP #### [address] [address] [place]: Dominik Muñiz MD Monocytes/100 WBC (Bld) 7 % Normal 3-12 [facility] Comment on above: Performed By: #### M G, LIVP, BMPX, VD25, NAMRATA, IOCAL, CDP #### [address] [address] [place]: Dominik Muñiz MD Neutrophil (Seg) 84 % High 36-65 [facility] Comment on above: Performed By: #### M G, LIVP, BMPX, VD25, NAMRATA, IOCAL, CDP #### [address] [address] [place]: Dominik Muñiz MD NRBC Automated 0.0 per 100 WBC Normal 0.0 [facility] Comment on above: Performed By: #### M G, LIVP, BMPX, VD25, NAMRATA, IOCAL, CDP #### [address] [address] [place]: Dominik Muñiz MD Platelet mean volume (Bld) [Entitic vol] 12.3 fL Normal 8.1-13.5 [facility] Comment on above: Performed By: #### M G, LIVP, BMPX, VD25, NAMRATA, IOCAL, CDP #### [address] [address] [place]: Dominik Muñiz MD Platelets (Bld) [#/Vol] 116 10*3/uL Low 138-453 [facility] Comment on above: Performed By: #### M G, LIVP, BMPX, VD25, NAMRATA, IOCAL, CDP #### [facility] [address] [place], [place] [id number] [place]: Dominik Muñiz MD RBC (Bld) [#/Vol] 3.20 10*6/uL Low 3.95-5.11 [facility] Comment on above: Performed By: #### M G, LIVP, BMPX, VD25, NAMRATA, IOCAL, CDP #### [facility] [address], [place] [id number] [place]ucker [place]: Dominik Muñiz MD WBC (Bld) [#/Vol] 11.4 10*3/uL High 3.5-11.3 [facility] Comment on above: Performed By: #### M G, LIVP, BMPX, VD25, NAMRATA, IOCAL, CDP #### [facility] [address] [place] [address] M[place]: Dominik Muñiz MD Creatinine W/GFR Point of Ca reon 03-19-2022 Creatinine [Mass/Vol] 0.73 mg/dL 0.51 - 1.19 mg/dL [facility] Non- >60 60 - PINF mL/min [facility] GFR/1.73 sq M.predicted MDRD (S/P/Bld) [Vol rate/Area] mL/min 60 - PINF mL/min [facility] GFR/1.73 sq M.predicted MDRD (S/P/Bld) [Vol rate/Area] [facility] ELECTROLYTES PLUSon 03-19-20 22 Anion gap [Moles/Vol] 8 mmol/L 7 - 16 mmol/L [facility] Chloride [Moles/Vol] 106 mmol/L 98 - 10 7 mmol/L [facility] CO2 [Moles/Vol] 28 mmol/L 22 - 30 mmol/L [facility] Potassium [Moles/Vol] 4.8 mmol/L High 3.5 - 4.5 mmol/L [facility] Sodium [Moles/Vol] 141 mmol/L 138 - 146 mmol/L [facility] Hemoglobin and hematocrit, b loodon 03-19-2022 Hematocrit (Bld) [Volume fraction] 34 % Low 36 - 46 % [facility] Hemoglobin (Bld) [Mass/Vol] 11.6 g/dL Low 12.0 - 16.0 g/dL [facility] Lactic Acid, POCon POC Lactic Acid 0.80 mmol/L 0.56 - 1.39 mmol/L [facility] POC Lactic Acid 0.98 mmol/L 0.56 - 1.39 mmol/L [facility] [facility] Magnesiumon 03-19-2022 Magnesium [Mass/Vol] 1.6 mg/dL Normal 1.6-2.6 [facility] Comment on above: Performed By: #### M G, LIVP, BMPX, VD25, NAMRATA, IOCAL, CDP #### [facility] [address] [id number] [place]: Dominik Muñiz MD Magnesium [Mass/Vol] 1.6 mg/dL 1.6 - 2 .6 mg/dL [facility] No Panel Informationon 03-19 [facility] Interpretation and review of laboratory results Abnormal [facility] Interpretation and review of laboratory results Abnormal [facility] POC Glucose Fingerstickon Glucose [Mass/Vol] 139 mg/dL High 65 - 105 mg/dL [facility] Glucose [Mass/Vol] 157 mg/dL High 65 - 105 mg/dL [facility] POCT Glucoseon 03-19-2022 Glucose [Mass/Vol] 173 mg/dL High 74 - 100 mg/dL [facility] POCT urea (BUN)on 03-19-2022 Urea nitrogen [Mass/Vol] 7 mg/dL Low 8 - 26 mg/dL [facility] Venous Blood Gas, POCon 03-04 Aidan Test NOT APPLICABLE [facility] FIO2 50.0 [facility] HCO3 (Bld) [Moles/Vol] 27.3 mmol/L 22.0 - 29.0 mmol/L [facility] Interpretation and review of laboratory results Abnormal [facility] Mode PRVC [facility] O2 Device/Flow/% Adult Ventilator [facility] Oxygen saturation in Blood 100 % High 60.0 - 85.0 % [facility] pCO2, Chavo 38.2 Low [facility] pH, Chavo 7.462 High 7.320 - 7.430 [facility] pO2, Chavo 224.4 High [facility] Positive Base Excess, Chavo 3 0.0 - 3.0 [facility] Sample Site Arterial Line [facility] HCO3 (Bld) [Moles/Vol] 28.1 mmol/L 22.0 - 29.0 mmol/L [facility] Oxygen saturation in Blood 39 % Low 60.0 - 85.0 % [facility] pCO2, Chavo 43.3 [facility] pH, Chavo 7.420 7.320 - 7.430 [facility] pO2, Chavo 22.2 Low [facility] Positive Base Excess, Chavo 3 0.0 - 3.0 [facility] XR ABDOMEN FOR NG/OG/NE TUBE PLACEMENTon 03-19-2022 [...] Williams Lozano MD 03/19/22 Final result Normal [facility] R[facility]ATED [facility] R[facility] CONSOLIDATED [facility] [employer] Phone: Radiology Study observation (narrative) [facility] [employer] Phone: XR ABDOMEN FOR NG/OG/NE TUBE PLACEMENTOrdered By: Williams Lozano on 03-19-2022 [facility] [employer] Phone: XR CHEST PORTABLEon 03-19-20 XR CHEST [...] Chaz Lopez MD 03/19/22 Final result Normal [facility]: [facility] [employer] Phone: Radiology Study observation (narrative) [facility] Phone: Basic Metab w/rfx MGon 03-18 Anion gap [Moles/Vol] 10 mmol/L Normal 9-17 [facility] Comment on above: Performed By: #### C DP #### [facility] [address] [place], [place] [id number] [place]: Dominik Muñiz MD Sodium [Moles/Vol] 137 mmol/L Normal 135-144 [facility] Comment on above: Performed By: #### C DP #### [facility] [address] [place] [address] [place]: Dominik Muñiz MD (cont.) Normal [facility] Comment on above: Result Comment: Aver age GFR for 60-69 years old: 85 mL/min/1.73sq m Chronic Kidney Disease: <60 mL/min/1.73sq m Kidney failure: <15 mL/min/1.73sq m eGFR calculated using average adult body mass. Additional eGFR calculator available at: http://www.[employer]/multiple_crcl_2012.htm Performed By: #### C DP #### [address] [address] [place]: Dominik Muñiz MD Calcium [Mass/Vol] 7.8 mg/dL Low 8.6-10.4 [facility] Comment on above: Performed By: #### C DP #### [address] [address] [place]: Dominik Muñiz MD Chloride [Moles/Vol] 108 mmol/L High 98-107 [facility] Comment on above: Performed By: #### C DP #### [address] [address] [place]: Dominik Muñiz MD CO2 [Moles/Vol] 19 mmol/L Low 20-31 [facility] Comment on above: Performed By: #### C DP #### [address] [address] [place]: Dominik Muñiz MD Creatinine [Mass/Vol] 0.56 mg/dL Normal 0.50-0.90 [facility] Comment on above: Performed By: #### C DP #### [address] [address] [place]: Dominik Muñiz MD GFR, Amer >60 Normal >60 [facility] Comment on above: Performed By: #### C DP #### [address] [address] [place]: Dominik Muñiz MD GFR,non Amer >60 Normal >60 [facility] Comment on above: Performed By: #### C DP #### [address] [address] [place]: Dominik Muñiz MD Glucose [Mass/Vol] 164 mg/dL High 70-99 [facility] Comment on above: Performed By: #### C DP #### [address] [address] [place]: Dominik Muñiz MD Potassium [Moles/Vol] 4.2 mmol/L Normal 3.7-5.3 [facility] Comment on above: Performed By: #### C DP #### [address] [address] [place]: Dominik Muñiz MD Urea nitrogen [Mass/Vol] 15 mg/dL Normal 8-23 [facility] Comment on above: Performed By: #### C DP #### [address] [address] [place]: Dominik Muñiz MD CBCon 03-18-2022 Erythrocyte distribution width (RBC) [Ratio] 12.2 % Normal 11.8-14.4 [facility] Comment on above: Performed By: #### M G, LIVP, BMPX, VD25, NAMRATA, IOCAL, CDP #### [address] [address] [place]: Dominik Muñiz MD Hematocrit (Bld) [Volume fraction] 39.8 % Normal 36.3-47.1 [facility] Comment on above: Performed By: #### M G, LIVP, BMPX, VD25, NAMRATA, IOCAL, CDP #### [address] [address] [place]: Dominik Muñiz MD Hemoglobin (Bld) [Mass/Vol] 12.7 g/dL Normal 11.9-15.1 [facility] Comment on above: Performed By: #### M G, LIVP, BMPX, VD25, NAMRATA, IOCAL, CDP #### [address] [id number] [place]: Dominik Muñiz MD MCH (RBC) [Entitic mass] 31.4 pg Normal 25.2-33.5 [facility] Comment on above: Performed By: #### M G, LIVP, BMPX, VD25, NAMRATA, IOCAL, CDP #### [address] [address] [place]: Dominik Muñiz MD MCHC (RBC) [Mass/Vol] 31.9 g/dL Normal 28.4-34.8 [facility] Comment on above: Performed By: #### M G, LIVP, BMPX, VD25, NAMRATA, IOCAL, CDP #### [address] [address] [place]: Dominik Muñiz MD MCV (RBC) [Entitic vol] 98.3 fL Normal 82.6-102.9 [facility] Comment on above: Performed By: #### M G, LIVP, BMPX, VD25, NAMRATA, IOCAL, CDP #### [address] [address] [place]: Dominik Muñiz MD NRBC Automated 0.0 per 100 WBC Normal 0.0 [facility] Comment on above: Performed By: #### M G, LIVP, BMPX, VD25, NAMRATA, IOCAL, CDP #### [address] [address] [place]: Dominik Muñiz MD Platelet mean volume (Bld) [Entitic vol] 12.1 fL Normal 8.1-13.5 [facility] Comment on above: Performed By: #### M G, LIVP, BMPX, VD25, NAMRATA, IOCAL, CDP #### [facility] [place] [address] [place]: Dominik Muñiz MD Platelets (Bld) [#/Vol] 119 10*3/uL Low 138-453 [facility] Comment on above: Performed By: #### M G, LIVP, BMPX, VD25, NAMRATA, IOCAL, CDP #### [facility] [place], [place] [id number] [place]: Dominik Muñiz MD RBC (Bld) [#/Vol] 4.05 10*6/uL Normal 3.95-5.11 [facility] Comment on above: Performed By: #### M G, LIVP, BMPX, VD25, NAMRATA, IOCAL, CDP #### [facility] [address] [place] [id number] [place]: Dominik Muñiz MD WBC (Bld) [#/Vol] 12.5 10*3/uL High 3.5-11.3 [facility] Comment on above: Performed By: #### M G, LIVP, BMPX, VD25, NAMRATA, IOCAL, CDP #### [facility] [place] [address] [place]: Dominik Muñiz MD Hematocrit (Bld) [Volume fraction] 39.8 % 36.3 - 47.1 % [facility] Hemoglobin (Bld) [Mass/Vol] 12.7 g/dL 11.9 - 15.1 g/dL [facility] Interpretation and review of laboratory results Abnormal [facility] MCH (RBC) [Entitic mass] 31.4 pg 25.2 - 33.5 pg [facility] MCHC (RBC) [Mass/Vol] 31.9 g/dL 28.4 - 34.8 g/dL [facility] MCV (RBC) [Entitic vol] 98.3 fL 82.6 - 102.9 fL [facility] NRBC Automated 0.0 0.0 per 100 WBC [facility] Platelet distribution width (Bld) [Ratio] 12.2 % 11.8 - 14.4 % [facility] Platelet mean volume (Bld) [Entitic vol] 12.1 fL 8.1 - 13.5 fL [facility] Platelets (Bld) [#/Vol] 119 10*3/uL Low [facility] RBC (Bld) [#/Vol] 4.05 10*6/uL 3.95 - 5.1 1 m/uL [facility] WBC (Bld) [#/Vol] 12.5 10*3/uL High [facility] CBC with Diffon 03-18-2022 Abs. Basophil 0.05 k/uL Normal 0.00-0.20 [facility] Comment on above: Performed By: #### C DP #### [place] [address] [place]: Dominik Muñiz MD Abs. Eosinophil <0.03 Normal 0.00-0.44 [facility] Comment on above: Performed By: #### C DP #### [facility] [address] [place] [address] [place]: Dominik Muñiz MD Abs.Imm.Granulocyte <0.03 Normal 0.00-0.30 [facility] Comment on above: Performed By: #### C DP #### [facility] [address] [place] [address] [place]: Dominik Muñiz MD Abs.Neutrophil (Seg) 5.31 k/uL Normal 1.50-8.10 [facility] Comment on above: Performed By: #### C DP #### [facility] [address] [place] [address] [place]: Dominik Muñiz MD Basophils/100 WBC (Bld) 1 % Normal 0-2 [facility] Comment on above: Performed By: #### C DP #### [address] [address] [place]: Dominik Muñiz MD Eosinophils/100 WBC (Bld) 0 % Low 1-4 [facility] Comment on above: Performed By: #### C DP #### [address] [address] [place]: Dominik Muñiz MD Erythrocyte distribution width (RBC) [Ratio] 12.2 % Normal 11.8-14.4 [facility] Comment on above: Performed By: #### C DP #### [address] [address] [place]: Dominik Muñiz MD Hematocrit (Bld) [Volume fraction] 30.0 % Low 36.3-47.1 [facility] Comment on above: Performed By: #### C DP #### [address] [address] [place]: Dominik Muñiz MD Hemoglobin (Bld) [Mass/Vol] 10.3 g/dL Low 11.9-15.1 [facility] Comment on above: Performed By: #### C DP #### [address] [address] [place]: Dominik Muñiz MD Immature granulocytes/100 WBC (Bld) 0 % Normal 0 [facility] Comment on above: Performed By: #### C DP #### [address] [address] [place]: Dominik Muñiz MD Lymphocytes (Bld) [#/Vol] 1.59 10*3/uL Normal 1.10-3.70 [facility] Comment on above: Performed By: #### C DP #### [address] [address] [place]: Dominik Muñiz MD Lymphocytes/100 WBC (Bld) 21 % Low 24-43 [facility] Comment on above: Performed By: #### C DP #### [address] [address] [place]: Dominik Muñiz MD MCH (RBC) [Entitic mass] 32.5 pg Normal 25.2-33.5 [facility] Comment on above: Performed By: #### C DP #### [place] [address] [place]: Dominik Muñiz MD MCHC (RBC) [Mass/Vol] 34.3 g/dL Normal 28.4-34.8 [facility] Comment on above: Performed By: #### C DP #### [place] [address] [place]: Dominik Muñiz MD MCV (RBC) [Entitic vol] 94.6 fL Normal 82.6-102.9 [facility] Comment on above: Performed By: #### C DP #### [address] [address] [place]: Dominik Muñiz MD Monocytes (Bld) [#/Vol] 0.59 10*3/uL Normal 0.10-1.20 [facility] Comment on above: Performed By: #### C DP #### [place] [address] [place]: Dominik Muñiz MD Monocytes/100 WBC (Bld) 8 % Normal 3-12 [facility] Comment on above: Performed By: #### C DP #### [address] [address] [place]: Dominik Muñiz MD Neutrophil (Seg) 70 % High 36-65 [facility] Comment on above: Performed By: #### C DP #### [address] [place] [address] [place]: Dominik Muñiz MD NRBC Automated 0.0 per 100 WBC Normal 0.0 [facility] Comment on above: Performed By: #### C DP #### [address] [address] [place]: Dominik Muñiz MD Platelet mean volume (Bld) [Entitic vol] 12.1 fL Normal 8.1-13.5 [facility] Comment on above: Performed By: #### C DP #### [address] [address] [place]: Dominik Muñiz MD Platelets (Bld) [#/Vol] 100 10*3/uL Low 138-453 [facility] Comment on above: Performed By: #### C DP #### [address] [address] [place]: Dominik Muñiz MD RBC (Bld) [#/Vol] 3.17 10*6/uL Low 3.95-5.11 [facility] Comment on above: Performed By: #### C DP #### [address] [address] [place]: Dominik Muñiz MD WBC (Bld) [#/Vol] 7.6 10*3/uL Normal 3.5-11.3 [facility] Comment on above: Performed By: #### C DP #### [address] [address] [place]: Dominik Muñiz MD Comp Metabolic Profon 2021 (cont.) Normal [facility] Comment on above: Result Comment: Aver age GFR for 60-69 years old: 85 mL/min/1.73sq m Chronic Kidney Disease: <60 mL/min/1.73sq m Kidney failure: <15 mL/min/1.73sq m eGFR calculated using average adult body mass. Additional eGFR calculator available at: http://www.[employer].com/multiple_crcl_2012.htm Performed By: #### M G, LIVP, BMPX, VD25, NAMRATA, IOCAL, CDP #### [facility] [address] [place] [address] [place]: Dominik Muñiz MD Albumin [Mass/Vol] 3.6 g/dL Normal 3.5-5.2 [facility] Comment on above: Performed By: #### M G, LIVP, BMPX, VD25, NAMRATA, IOCAL, CDP #### [address] [address] [place]: Dominik Muñiz MD Albumin/Glob Ratio 1.5 Normal 1.0-2.5 [facility] Comment on above: Performed By: #### M G, LIVP, BMPX, VD25, NAMRATA, IOCAL, CDP #### [facility] [address] [place] [address] [place]: Dominik Muñiz MD Alkaline Phos 71 U/L Normal 35-104 [facility] Comment on above: Performed By: #### M G, LIVP, BMPX, VD25, NAMRATA, IOCAL, CDP #### [address] [address] [place]: Dominik Muñiz MD ALT [Catalytic activity/Vol] 32 U/L Normal 5-33 [facility] Comment on above: Performed By: #### M G, LIVP, BMPX, VD25, NAMRATA, IOCAL, CDP #### [address] [address] [place]: Dominik Muñiz MD Anion gap [Moles/Vol] 12 mmol/L Normal 9-17 [facility] Comment on above: Performed By: #### M G, LIVP, BMPX, VD25, NAMRATA, IOCAL, CDP #### [address] [address] [place]: Dominik Muñiz MD AST [Catalytic activity/Vol] 25 U/L Normal <32 [facility] Comment on above: Performed By: #### M G, LIVP, BMPX, VD25, NAMRATA, IOCAL, CDP #### [address] [address] [place]: Dominik Muñiz MD Bilirubin [Mass/Vol] 0.6 mg/dL Normal 0.3-1.2 [facility] Comment on above: Performed By: #### M G, LIVP, BMPX, VD25, NAMRATA, IOCAL, CDP #### [address] [address] [place]: Dominik Muñiz MD Calcium [Mass/Vol] 8.3 mg/dL Low 8.6-10.4 [facility] Comment on above: Performed By: #### M G, LIVP, BMPX, VD25, NAMRATA, IOCAL, CDP #### [address] [address] [place]: Dominik Muñiz MD Chloride [Moles/Vol] 108 mmol/L High 98-107 [facility] Comment on above: Performed By: #### M G, LIVP, BMPX, VD25, NAMRATA, IOCAL, CDP #### [address] [address] [place]: Dominik Muñiz MD CO2 [Moles/Vol] 22 mmol/L Normal 20-31 [facility] Comment on above: Performed By: #### M G, LIVP, BMPX, VD25, NAMRATA, IOCAL, CDP #### [facility] [address] [place] [address] [place]: Dominik Muñiz MD Creatinine [Mass/Vol] 0.72 mg/dL Normal 0.50-0.90 [facility] Comment on above: Performed By: #### M G, LIVP, BMPX, VD25, NAMRATA, IOCAL, CDP #### [facility] [address] [place] [address] [place]: Dominik Muñiz MD GFR, Amer >60 Normal >60 [facility] Comment on above: Performed By: #### M G, LIVP, BMPX, VD25, NAMRATA, IOCAL, CDP #### [facility] [address] [place] [address] [place]: Dominik Muñiz MD GFR,non Amer >60 Normal >60 [facility] Comment on above: Performed By: #### M G, LIVP, BMPX, VD25, NAMRATA, IOCAL, CDP #### [facility] [address] [place] [address] [place]: Dominik Muñiz MD Glucose [Mass/Vol] 158 mg/dL High 70-99 [facility] Comment on above: Performed By: #### M G, LIVP, BMPX, VD25, NAMRATA, IOCAL, CDP #### [facility] [address] [place] [address] [place]: Dominik Muñiz MD Potassium [Moles/Vol] 4.3 mmol/L Normal 3.7-5.3 [facility] Comment on above: Performed By: #### M G, LIVP, BMPX, VD25, NAMRATA, IOCAL, CDP #### [facility] [address] [place] [address] [place]: Dominik Muñiz MD Protein [Mass/Vol] 6.0 g/dL Low 6.4-8.3 [facility] Comment on above: Performed By: #### M G, LIVP, BMPX, VD25, NAMRATA, IOCAL, CDP #### [facility] [address] [place] [id number] [place]: Dominik Muñiz MD Sodium [Moles/Vol] 142 mmol/L Normal 135-144 [facility] Comment on above: Performed By: #### M G, LIVP, BMPX, VD25, NAMRATA, IOCAL, CDP #### [facility] [address] [place], [place] [id number] [place]: Dominik Muñiz MD Urea nitrogen [Mass/Vol] 14 mg/dL Normal 8-23 [facility] Comment on above: Performed By: #### M G, LIVP, BMPX, VD25, NAMRATA, IOCAL, CDP #### [facility] [address] [place], [place] [id number] [place]: Dominik Muñiz MD Comprehensive Metabolic Pane [facility] 03-18-2022 Albumin [Mass/Vol] 3.6 g/dL 3.5 - 5.2 g/dL [facility] Albumin/Globulin [Mass ratio] 1.5 {ratio} 1.0 - 2.5 [facility] ALP (Bld) [Catalytic activity/Vol] 71 U/L 35 - 104 U/L [facility] ALT [Catalytic activity/Vol] 32 U/L 5 - 33 U/L [facility] Anion gap [Moles/Vol] 12 mmol/L 9 - 17 mmol/L [facility] AST [Catalytic activity/Vol] 25 U/L NINF - 32 U/L [facility] Bilirubin [Mass/Vol] 0.6 mg/dL 0.3 - 1 .2 mg/dL [facility] Calcium [Mass/Vol] 8.3 mg/dL Low 8.6 - 10. 4 mg/dL [facility] Chloride [Moles/Vol] 108 mmol/L High 98 - 10 7 mmol/L [facility] CO2 [Moles/Vol] 22 mmol/L 20 - 31 mmol/L [facility] Creatinine [Mass/Vol] 0.72 mg/dL 0.50 - 0.90 mg/dL [facility] GFR >60 60 - PI NF mL/min [employer] GFR Non- >60 60 - PINF mL/min [facility] GFR/1.73 sq M.predicted MDRD (S/P/Bld) [Vol rate/Area] [facility] Glucose [Mass/Vol] 158 mg/dL High 70 - 99 mg/dL [facility] Interpretation and review of laboratory results Abnormal [facility] [employer] Potassium [Moles/Vol] 4.3 mmol/L 3.7 - 5.3 mmol/L [facility] [address] [facility] Protein [Mass/Vol] 6.0 g/dL Low 6.4 - 8.3 g/dL [facility] [address] [facility] Sodium [Moles/Vol] 142 mmol/L 135 - 144 mmol/L [facility] [employer] Urea nitrogen (BldV) [Mass/Vol] 14 mg/dL 8 - 23 mg/dL [facility] Creatinine W/GFR Point of Ca reon 03-18-2022 Creatinine [Mass/Vol] 0.71 mg/dL 0.51 - 1.19 mg/dL [facility] EKG 12 LeadOrdered By: Peter Dickson on 03-18-2022 Atrial Rate 64 BPM [employer] Work Phone: P [place] 78 degrees [employer] Work Phone: P-R Interval 130 ms [employer] Work Phone: Q-T Interval 436 ms [employer] Work Phone: QRS Duration 88 ms [employer] Work Phone: QTc Calculation (Bazett) 449 ms [facility] [facility] Work Phone: R [place] 70 degrees [employer] Work Phone: T [place] 67 degrees [employer] Work Phone: Ventricular Rate 64 BPM [facility] [employer] Work Phone: [facility] Work Phone: EKG 12 Leadon 09-15-2022 MHPN STV MUSE [facility] [employer] Work Phone: ELECTROLYTES PLUSon 03-18-20 Anion gap [Moles/Vol] 12 mmol/L 7 - 16 mmol/L [facility] Chloride [Moles/Vol] 109 mmol/L High 98 - 10 7 mmol/L [facility] CO2 [Moles/Vol] 22 mmol/L 22 - 30 mmol/L [facility] FLUORO FOR SURGICAL PROCEDUR ESon 03-18-2022 FLUORO FOR SURGICAL PROCEDURES Radiology exam is complete. No Radiologist dictation. Please follow up with ordering provider. Final result Normal [facility] Lactic Acidon 03-18-2022 Lactic Acid,Whole Bl 2.6 mmol/L High 0.7-2.1 [facility] Comment on above: Performed By: #### M G, LIVP, BMPX, VD25, NAMRATA, IOCAL, CDP #### [facility] [address] [place], [place] [id number] [place]: Dominik Muñiz MD Interpretation and review of laboratory results Abnormal [facility] Lactic Acid, Whole Blood 2.6 mmol/L High 0.7 - 2.1 mmol/L [facility] Magnesiumon 03-18-2022 Magnesium [Mass/Vol] 2.2 mg/dL Normal 1.6-2.6 [facility] Comment on above: Performed By: #### M G, LIVP, BMPX, VD25, NAMRATA, IOCAL, CDP #### [facility] [address] [place] [address] [place]: Dominik Muñiz MD Magnesium [Mass/Vol] 2.2 mg/dL 1.6 - 2 .6 mg/dL [facility] [employer] No Panel Informationon 03-18 MHPN RIS CONSOLIDATED MHPN RIS CONSOLIDATED [facility] [employer] Work Phone: [facility] [employer] No Panel InformationOrdered By: Chaz Lopez on 03-18-2022 [facility] [employer] Work Phone: OPERATIVE REPORTon 2 OPERATIVE REPORT [address] [address] OPERATIVE REPORT PATIENT NAME: ANNE BULLOCK : 1960 MED REC NO: [id number] ROOM: [facility] ACCOUNT NO: [id number] ADMIT DATE: 03/16/2022 PROVIDER: Elpidio Jim DATE [...] This is a 62-year-old female presented to [facility] intubated and sedated after reportedly she [...] reduction clamps (more content not included)... Normal [facility] POC Glucose Fingerstickon Glucose [Mass/Vol] 166 mg/dL High 65 - 105 mg/dL [facility] Interpretation and review of laboratory results Abnormal [facility] Phosphoruson 03-18-2022 Phosphate [Mass/Vol] 4.0 mg/dL 2.6 - 4 .5 mg/dL [facility] Phosphorus, Inorg.on 022 Phosphorus, Inorg. 4.0 mg/dL Normal 2.6-4.5 [facility] Comment on above: Performed By: #### M G, LIVP, BMPX, VD25, NAMRATA, IOCAL, CDP #### [employer] [address], [place] [id number] [place]: Dominik Muñiz MD Troponinon 03-18-2022 Troponin, High Sens 9 ng/L Normal 0-14 [facility] Comment on above: Result Comment: High Sensitivity Troponin values cannot be compared with other Troponin methodologies. Patients with high levels of Biotin oral intake (i.e >5mg/day) may have falsely decreased Troponin levels. Samples collected within 8 hours of biotin intake may require additional information for diagnosis. Performed By: #### T YS #### [facility] [address], [place] [id number] M[place]: Dominik Muñiz MD XR CHEST PORTABLEon 03-18-20 [...] Chaz Lopez MD 03/18/22 Final result Normal [facility] MHPN RIS CONSOLIDATED MHPN RIS CONSOLIDATED [facility] Work Phone: [facility] Work Phone: XR CLAVICLE LEFTon XR CLAVICLE [...] Chaz Lopez MD 03/18/22 Final result Normal [facility] XR CLAVICLE RIGHTon 03-18-20 XR CLAVICLE [...] Chaz Lopez MD 03/18/22 Final result Normal [facility] Ammoniaon 03-17-2022 Ammonia (P) [Moles/Vol] 22 umol/L Normal 11-51 [facility] Comment on above: Performed By: #### M G, LIVP, BMPX, VD25, NAMRATA, IOCAL, CDP #### [facility] [address] [place] [address] [id number] [place]: Dominik Muñiz MD Basic Metab w/rfx MGon 03-17 (cont.) Normal [facility] Comment on above: Result Comment: Aver age GFR for 60-69 years old: 85 mL/min/1.73sq m Chronic Kidney Disease: <60 mL/min/1.73sq m Kidney failure: <15 mL/min/1.73sq m eGFR calculated using average adult body mass. Additional eGFR calculator available at: http://www.[employer]/multiple_crcl_2012.htm Performed By: #### M G, LIVP, BMPX, VD25, NAMRATA, IOCAL, CDP #### [facility] [address] [place] [address] [phone] [place]: Dominik Muñiz MD Anion gap [Moles/Vol] 11 mmol/L Normal 9-17 [facility] Comment on above: Performed By: #### M G, LIVP, BMPX, VD25, NAMRATA, IOCAL, CDP #### [facility] [address] [place] [address] [phone] [place]: Dominik Muñiz MD Calcium [Mass/Vol] 7.9 mg/dL Low 8.6-10.4 [facility] Comment on above: Performed By: #### M G, LIVP, BMPX, VD25, NAMRATA, IOCAL, CDP #### [facility] [address] [place] [address] M[place]: Dominik Muñiz MD Chloride [Moles/Vol] 108 mmol/L High 98-107 [facility] Comment on above: Performed By: #### M G, LIVP, BMPX, VD25, NAMRATA, IOCAL, CDP #### [facility] [address] [place] [address] M[place]: Dominik Muñiz MD CO2 [Moles/Vol] 18 mmol/L Low 20-31 [facility] Comment on above: Performed By: #### M G, LIVP, BMPX, VD25, NAMRATA, IOCAL, CDP #### [address] [address] [place]: Dominik Muñiz MD Creatinine [Mass/Vol] 0.67 mg/dL Normal 0.50-0.90 [facility] Comment on above: Performed By: #### M G, LIVP, BMPX, VD25, NAMRATA, IOCAL, CDP #### [address] [address] [place]: Dominik Muñiz MD GFR, Amer >60 Normal >60 [facility] Comment on above: Performed By: #### M G, LIVP, BMPX, VD25, NAMRATA, IOCAL, CDP #### [address] [address] [place]: Dominik Muñiz MD GFR,non Amer >60 Normal >60 [facility] Comment on above: Performed By: #### M G, LIVP, BMPX, VD25, NAMRATA, IOCAL, CDP #### [address] [address] [place]: Dominik Muñiz MD Glucose [Mass/Vol] 179 mg/dL High 70-99 [facility] Comment on above: Performed By: #### M G, LIVP, BMPX, VD25, NAMRATA, IOCAL, CDP #### [address] [address] [place]: Dominik Muñiz MD Potassium [Moles/Vol] 3.9 mmol/L Normal 3.7-5.3 [facility] Comment on above: Performed By: #### M G, LIVP, BMPX, VD25, NAMRATA, IOCAL, CDP #### [facility] [address] [place] [address] M[place]: Dominik Muñiz MD Sodium [Moles/Vol] 137 mmol/L Normal 135-144 [facility] Comment on above: Performed By: #### M G, LIVP, BMPX, VD25, NAMRATA, IOCAL, CDP #### [facility] [address] [place] [address] M[place]: Dominik Muñiz MD Urea nitrogen [Mass/Vol] 13 mg/dL Normal 8-23 [facility] Comment on above: Performed By: #### M G, LIVP, BMPX, VD25, NAMRATA, IOCAL, CDP #### [facility] [address] [place] [address] M[place]: Dominik Muñiz MD CBC with Diffon 03-17-2022 Abs. Basophil 0.17 k/uL Normal 0.0-0.2 [facility] Comment on above: Performed By: #### M G, LIVP, BMPX, VD25, NAMRATA, IOCAL, CDP #### [facility] [address] [place] [address] Mucker [place]: Dominik Muñiz MD Abs.Imm.Granulocyte 0.17 k/uL Normal 0.00-0.30 [facility] Comment on above: Performed By: #### M G, LIVP, BMPX, VD25, NAMRATA, IOCAL, CDP #### [facility] [address] [place] [address] Mucker [place]: Dominik Muñiz MD Abs.Neutrophil (Seg) 14.02 k/uL High 1.8-7.7 [facility] Comment on above: Performed By: #### M G, LIVP, BMPX, VD25, NAMRATA, IOCAL, CDP #### [facility] [address] [place] [address] M[place]: Dominik Muñiz MD Basophils/100 WBC (Bld) 1 % Normal 0-2 [facility] Comment on above: Performed By: #### M G, LIVP, BMPX, VD25, NAMRATA, IOCAL, CDP #### [address] [address] [place]: Dominik Muñiz MD Eosinophils (Bld) [#/Vol] 0.00 10*3/uL Normal 0.0-0.4 [facility] Comment on above: Performed By: #### M G, LIVP, BMPX, VD25, NAMRATA, IOCAL, CDP #### [address] [address] [place]: Dominik Muñiz MD Eosinophils/100 WBC (Bld) 0 % Low 1-4 [facility] Comment on above: Performed By: #### M G, LIVP, BMPX, VD25, NAMRATA, IOCAL, CDP #### [address] [address] [place]: Dominik Muñiz MD Immature granulocytes/100 WBC (Bld) 1 % High 0 [facility] Comment on above: Performed By: #### M G, LIVP, BMPX, VD25, NAMRATA, IOCAL, CDP #### [address] [address] [place]: Dominik Muñiz MD Lymphocytes (Bld) [#/Vol] 2.57 10*3/uL Normal 1.0-4.8 [facility] Comment on above: Performed By: #### M G, LIVP, BMPX, VD25, NAMRATA, IOCAL, CDP #### [address] [address] [place]: Dominik Muñiz MD Lymphocytes/100 WBC (Bld) 15 % Low 24-44 [facility] Comment on above: Performed By: #### M G, LIVP, BMPX, VD25, NAMRATA, IOCAL, CDP #### [address] [address] [place]: Dominik Muñiz MD Monocytes (Bld) [#/Vol] 0.17 10*3/uL Normal 0.1-0.8 [facility] Comment on above: Performed By: #### M G, LIVP, BMPX, VD25, NAMRATA, IOCAL, CDP #### [facility] [address] [place] [address] M[place]: Dominik Muñiz MD Monocytes/100 WBC (Bld) 1 % Normal 1-7 [facility] Comment on above: Performed By: #### M G, LIVP, BMPX, VD25, NAMRATA, IOCAL, CDP #### [address] [address] [place]: Dominik Muñiz MD Morphology Delroy (Bld) [Interp] Normal Normal [facility] Comment on above: Performed By: #### M G, LIVP, BMPX, VD25, NAMRATA, IOCAL, CDP #### [address] [address] [place]: Dominik Muñiz MD Neutrophil (Seg) 82 % High 36-66 [facility] Comment on above: Performed By: #### M G, LIVP, BMPX, VD25, NAMRATA, IOCAL, CDP #### [facility] [address] [place] [address] M[place]: Dominik Muñiz MD Erythrocyte distribution width (RBC) [Ratio] 12.2 % Normal 11.8-14.4 [facility] Comment on above: Performed By: #### M G, LIVP, BMPX, VD25, NAMRATA, IOCAL, CDP #### [facility] [address] [place] [address] Mucker [place]: Dominik Muñiz MD Hematocrit (Bld) [Volume fraction] 34.4 % Low 36.3-47.1 [facility] Comment on above: Performed By: #### M G, LIVP, BMPX, VD25, NAMRATA, IOCAL, CDP #### [address] [address] [place]: Dominik Muñiz MD Hemoglobin (Bld) [Mass/Vol] 11.8 g/dL Low 11.9-15.1 [facility] Comment on above: Performed By: #### M G, LIVP, BMPX, VD25, NAMRATA, IOCAL, CDP #### [address] [address] [place]: Dominik Muñiz MD MCH (RBC) [Entitic mass] 32.7 pg Normal 25.2-33.5 [facility] Comment on above: Performed By: #### M G, LIVP, BMPX, VD25, NAMRATA, IOCAL, CDP #### [place] [address] Mucker [place]: Dominik Muñiz MD MCHC (RBC) [Mass/Vol] 34.3 g/dL Normal 28.4-34.8 [facility] Comment on above: Performed By: #### M G, LIVP, BMPX, VD25, NAMRATA, IOCAL, CDP #### [address] [address] M[place]: Dominik Muñiz MD MCV (RBC) [Entitic vol] 95.3 fL Normal 82.6-102.9 [facility] Comment on above: Performed By: #### M G, LIVP, BMPX, VD25, NAMRATA, IOCAL, CDP #### [address] [address] [place]: Dominik Muñiz MD NRBC Automated 0.0 per 100 WBC Normal 0.0 [facility] Comment on above: Performed By: #### M G, LIVP, BMPX, VD25, NAMRATA, IOCAL, CDP #### [facility] [address] [place] [address] M[place]: Dominik Muñiz MD Platelet mean volume (Bld) [Entitic vol] 12.0 fL Normal 8.1-13.5 [facility] Comment on above: Performed By: #### M G, LIVP, BMPX, VD25, NAMRATA, IOCAL, CDP #### [facility] [address] [place] [address] M[place]: Dominik Muñiz MD Platelets (Bld) [#/Vol] 126 10*3/uL Low 138-453 [facility] Comment on above: Performed By: #### M G, LIVP, BMPX, VD25, NAMRATA, IOCAL, CDP #### [facility] [address] [place] [address] M[place]: Dominik Muñiz MD RBC (Bld) [#/Vol] 3.61 10*6/uL Low 3.95-5.11 [facility] Comment on above: Performed By: #### M G, LIVP, BMPX, VD25, NAMRATA, IOCAL, CDP #### [facility] [address] [place] [address] M[place]: Dominik Muñiz MD WBC (Bld) [#/Vol] 17.1 10*3/uL High 3.5-11.3 [facility] Comment on above: Performed By: #### M G, LIVP, BMPX, VD25, NAMRATA, IOCAL, CDP #### [facility] [address] [place] [address] [place]: Dominik Muñiz MD CT CERVICAL SPINE WO [...] maxillary sinus.. (more content not included)... Normal [facility] CT CHEST ABDOMEN PELVIS W CO [...] Tobin Cisneros MD 03/17/22 Final result Normal [facility] CT FACIAL BONES WO CONTRASTo n [...] maxillary sinus.. (more content not included)... Normal [facility] CT HEAD WO CONTRASTon 2021 CT [...] Giorgi Holt MD 03/17/22 Final result Normal [facility] CT HEAD WO CONTRAST EXAMINATION: CT [...] maxillary sinus.. (more content not included)... Normal [facility] CT LUMBAR SPINE TRAUMA RECON STRUCTIONon [...] Tobin Cisneros MD 03/17/22 Final result Normal [facility] CT THORACIC SPINE TRAUMA REC ONSTRUCTIONon [...] Tobin Cisneros MD 03/17/22 Final result Normal [facility] CTA HEAD NECK W CONTRASTon 0 [...] maxillary sinus.. (more content not included)... Normal [facility] Calcium, Ionicon 03-17-2022 Calcium [Moles/Vol] 1.20 mmol/L Normal 1.13-1.33 [facility] Comment on above: Performed By: #### M G, LIVP, BMPX, VD25, NAMRATA, IOCAL, CDP #### [facility] [address], [place] [id number] [place]: Dominik Muñiz MD Liver Profileon 03-17-2022 Albumin [Mass/Vol] 3.8 g/dL Normal 3.5-5.2 [facility] Comment on above: Performed By: #### M G, LIVP, BMPX, VD25, NAMRATA, IOCAL, CDP #### [address] [address] [place]: Dominik Muñiz MD Albumin/Glob Ratio 1.8 Normal 1.0-2.5 [facility] Comment on above: Performed By: #### M G, LIVP, BMPX, VD25, NAMRATA, IOCAL, CDP #### [address] [address] [place]: Dominik Muñiz MD Alkaline Phos 74 U/L Normal 35-104 [facility] Comment on above: Performed By: #### M G, LIVP, BMPX, VD25, NAMRATA, IOCAL, CDP #### [address] [address] [place]: Dominik Muñiz MD ALT [Catalytic activity/Vol] 35 U/L High 5-33 [facility] Comment on above: Performed By: #### M G, LIVP, BMPX, VD25, NAMRATA, IOCAL, CDP #### [address] [address] [place]: Dominik Muñiz MD AST [Catalytic activity/Vol] 35 U/L High <32 [facility] Comment on above: Performed By: #### M G, LIVP, BMPX, VD25, NAMRATA, IOCAL, CDP #### [address] [address] [place]: Dominik Muñiz MD Bilirubin [Mass/Vol] 0.7 mg/dL Normal 0.3-1.2 [facility] Comment on above: Performed By: #### M G, LIVP, BMPX, VD25, NAMRATA, IOCAL, CDP #### [facility] [address] [place] [address] M[place]: Dominik Muñiz MD Bilirubin, Indirect 0.5 mg/dL Normal 0.00-1.00 [facility] Comment on above: Performed By: #### M G, LIVP, BMPX, VD25, NAMRATA, IOCAL, CDP #### [facility] [address] [place] [address] M[place]: Dominik Muñiz MD Bilirubin.indirect [Mass/Vol] 0.2 mg/dL Normal <0.31 [facility] Comment on above: Performed By: #### M G, LIVP, BMPX, VD25, NAMRATA, IOCAL, CDP #### [facility] [address] [place] [address] [place]: Dominik Muñiz MD Protein [Mass/Vol] 5.9 g/dL Low 6.4-8.3 [facility] Comment on above: Performed By: #### M G, LIVP, BMPX, VD25, NAMRATA, IOCAL, CDP #### [facility] [address] [place] [address] M[place]: Dominik Muñiz MD Albumin [Mass/Vol] 3.3 g/dL Low 3.5-5.2 [facility] Comment on above: Performed By: #### M G, LIVP, BMPX, VD25, NAMRATA, IOCAL, CDP #### [facility] [address] [place] [address] M[place]: Dominik Muñiz MD Albumin/Glob Ratio 1.7 Normal 1.0-2.5 [facility] Comment on above: Performed By: #### M G, LIVP, BMPX, VD25, NAMRATA, IOCAL, CDP #### [facility] [address] [place] [address] M[place]: Dominik Muñiz MD Alkaline Phos 71 U/L Normal 35-104 [facility] Comment on above: Performed By: #### M G, LIVP, BMPX, VD25, NAMRATA, IOCAL, CDP #### [facility] [address] [place] [address] Mucker [place]: Dominik Muñiz MD ALT [Catalytic activity/Vol] 35 U/L High 5-33 [facility] Comment on above: Performed By: #### M G, LIVP, BMPX, VD25, NAMRATA, IOCAL, CDP #### [address] [address] [place]: Dominik Muñiz MD AST [Catalytic activity/Vol] 40 U/L High <32 [facility] Comment on above: Performed By: #### M G, LIVP, BMPX, VD25, NAMRATA, IOCAL, CDP #### [facility] [address] [place] [address] Mucker [place]: Dominik Muñiz MD Bilirubin [Mass/Vol] 0.4 mg/dL Normal 0.3-1.2 [facility] Comment on above: Performed By: #### M G, LIVP, BMPX, VD25, NAMRATA, IOCAL, CDP #### [facility] [address] [place] [address] M[place]: Dominik Muñiz MD Bilirubin, Indirect 0.3 mg/dL Normal 0.00-1.00 [facility] Comment on above: Performed By: #### M G, LIVP, BMPX, VD25, NAMRATA, IOCAL, CDP #### [facility] [address] [place] [address] Mucker [place]: Dominik Muñiz MD Bilirubin.indirect [Mass/Vol] 0.1 mg/dL Normal <0.31 [facility] Comment on above: Performed By: #### M G, LIVP, BMPX, VD25, NAMRATA, IOCAL, CDP #### [facility] [address] [place] [address] M[place]: Dominik Muñiz MD Protein [Mass/Vol] 5.2 g/dL Low 6.4-8.3 [facility] Comment on above: Performed By: #### M G, LIVP, BMPX, VD25, NAMRATA, IOCAL, CDP #### [facility] [address] [place] [address] M[place]: Dominik Muñiz MD MRSA, DNA, Nasalon MRSA, DNA, Nasal Negative Normal NEG [facility] Comment on above: Result Comment: NEGA TIVE: MRSA DNA not detected by nucleic acid amplification. Results should be used as an adjunct to nosocomial control efforts to identify patients needing enhanced precautions. The test is not intended to identify patients with staphylococcal infections. Results should not be used to guide or monitor treatment for MRSA infections. Performed By: #### M RSANO #### [facility] [address] [place] [address] [place]: Dominik Muñiz MD Specimen Description .NASAL SWAB Normal [facility] Comment on above: Performed By: #### M RSANO #### [facility] [address] [place] [address] [place]: Dominik Muñiz MD Magnesiumon 03-17-2022 Magnesium [Mass/Vol] 1.9 mg/dL Normal 1.6-2.6 [facility] Comment on above: Performed By: #### M G, LIVP, BMPX, VD25, NAMRATA, IOCAL, CDP #### [facility] [address] [place] [address] [place]: Dominik Muñiz MD Phosphorus, Inorg.on 022 Phosphorus, Inorg. 4.2 mg/dL Normal 2.6-4.5 [facility] Comment on above: Performed By: #### M G, LIVP, BMPX, VD25, NAMRATA, IOCAL, CDP #### [facility] [address] [place] [address] M[place]: Dominik Muñiz MD Procalcitoninon 03-17-2022 Procalcitonin 0.35 ng/mL High <0.09 [facility] Comment on above: Result Comment: Suspected [...] entered into the Change in Procalcitonin Calculator (www.oeeita-qfs-ayljmvzfpd.[employer]) to determine the patient's Mortality Risk Prognosis In healthy neonates, plasma Procalcitonin (PCT) concentrations increase gradually after , reaching peak values at about 24 hours of age then decrease to normal values below 0.5 ng/mL by 48-72 hours of age. Performed By: #### M G, LIVP, BMPX, VD25, NAMRATA, IOCAL, CDP #### [facility] [address] [place] [address] M[place]: Dominik Muñiz MD Trauma Profileon 03-17-2022 Anion gap [Moles/Vol] 10 mmol/L Normal 9-17 [facility] Comment on above: Performed By: #### C BC #### [facility] [address] [place] [address] Mucker [place]: Dominik Muñiz MD Chloride [Moles/Vol] 105 mmol/L Normal 98-107 [facility] Comment on above: Performed By: #### C BC #### [facility] [address] [place] [address] Mucker [place]: Dominik Muñiz MD CO2 [Moles/Vol] 25 mmol/L Normal 20-31 [facility] Comment on above: Performed By: #### C BC #### [facility] [address] [place] [address] M[place]: Dominik Muñiz MD Creatinine [Mass/Vol] 0.69 mg/dL Normal 0.50-0.90 [facility] Comment on above: Performed By: #### C BC #### [address] [address] [place]: Dominik Muñiz MD Ethanol [Mass/Vol] mg/dL Normal <10 [facility] Comment on above: Performed By: #### C BC #### [address] [address] [place]: Dominik Muñiz MD Ethanol percent <0.010 Normal <0.010 [facility] Comment on above: Performed By: #### C BC #### [address] [address] [place]: Dominik Muñiz MD Glucose [Mass/Vol] 253 mg/dL High 70-99 [facility] Comment on above: Performed By: #### C BC #### [address] [address] [place]: Dominik Muñiz MD Potassium [Moles/Vol] 4.1 mmol/L Normal 3.7-5.3 [facility] Comment on above: Performed By: #### C BC #### [address] [address] [place]: Dominik Muñiz MD Sodium [Moles/Vol] 140 mmol/L Normal 135-144 [facility] Comment on above: Performed By: #### C BC #### [address] [address] [place]: Dominik Muñiz MD Urea nitrogen [Mass/Vol] 14 mg/dL Normal 8-23 [facility] Comment on above: Performed By: #### C BC #### [address] [address] M[place]: Dominik Muñiz MD aPTT Coag (Bld) [Time] 21.9 s Normal 20.5-30.5 [facility] Comment on above: Result Comment: IV Heparin Therapy Range: 48.6-77.8 Performed By: #### C BC #### [address] [address] [place]: Dominik Muñiz MD INR Coag (PPP) [Relative time] 1.0 {INR} Normal [facility] Comment on above: Result Comment: Therapeutic Range: Moderate Anticoagulant Intensity: INR = 2.0-3.0 High Anticoagulant Intensity: INR = 2.5-3.5 Performed By: #### C BC #### [address] [address] [place]: Dominik Muñiz MD PT Coag (PPP) [Time] 10.4 s Normal 9.1-12.3 [facility] Comment on above: Performed By: #### C BC #### [address] [address] [place]: Dominik Muñiz MD HCG Screen, Blood Negative Normal NEG [facility] Comment on above: Result Comment: Spec imens with hCG levels near the threshold of the test (25 mIU/mL) may give a negative or indeterminate result. In such cases, another test should be performed with a new specimen in 48-72 hours. If early is suspected clinically in this setting, correlation with quantitative serum b-hCG level is suggested. [facility] has confirmed the use of plasma for this test. This has not been cleared or approved by the U.[place]. Food and Drug Administration. The FDA has determined that such clearance is not necessary. Performed By: #### C BC #### [address] [address] [place]: Dominik Muñiz MD Type + Screenon 03-17-2022 Type + Screen Sample Expiration 03/19/2022,2359 Arm Band Number [id number] ABO/Rh(D) A POSITIVE Antibody Screen NEGATIVE Unit Number [id number] Blood Component Type Leukocyte Reduced Red Cell Unit Division 00 Status of Unit REL FROM ALLOC Transfusion Status OK TO TRANSFUSE Crossmatch Result COMPATIBLE Normal [facility] Comment on above: Performed By: #### T YS #### [address] [address] [place]: Dominik Muñiz MD Urinalysis, Routineon 2021 Bilirubin, SemiQt,Ur Negative Normal NEG [facility] Comment on above: Performed By: #### C BC #### [address] [address] M[place]: Dominik Muñiz MD Blood, Urine Negative Normal NEG [facility] Comment on above: Performed By: #### C BC #### [address] [address] M[place]: Dominik Muñiz MD Clarity (U) Clear Normal CLEAR [facility] Comment on above: Performed By: #### C BC #### [address] [address] M[place]: Dominik Muñiz MD Color (U) Yellow Normal YEL [facility] Comment on above: Performed By: #### C BC #### [address] [address] [place]: Dominik Muñiz MD Comment Microscopic exam not performed based on chemical results unless requested in Normal [facility] Comment on above: Result Comment: orig inal order. Performed By: #### C BC #### [address] [address] [place]: Dominik Muñiz MD Glucose Ql (U) Negative Normal NEG [facility] Comment on above: Performed By: #### C BC #### [address] [address] [place]: Dominik Muñiz MD Ketones Ql (U) Negative Normal NEG [facility] Comment on above: Performed By: #### C BC #### [address] [address] [place]: Dominik Muñiz MD Leukocyte esterase Test strip Ql (U) Negative Normal NEG [facility] Comment on above: Performed By: #### C BC #### [address] [address] [place]: Dominik Muñiz MD Nitrite,Ur Negative Normal NEG [facility] Comment on above: Performed By: #### C BC #### [address] [address] [place]: Dominik Muñiz MD PH,Ur 5.0 Normal 5.0-8.0 [facility] Comment on above: Performed By: #### C BC #### [address] [address] [place]: Dominik Muñiz MD Protein Ql (U) Negative Normal NEG [facility] [facility] Comment on above: Performed By: #### C BC #### [address] [address] [place]: Dominik Muñiz MD Spec. [place],Ur 1.016 Normal 1.005-1.030 [facility] Comment on above: Performed By: #### C BC #### [address] [address] [place]: Dominik Muñiz MD Urobilinogen,Ur Normal Normal NORM [facility] Comment on above: Performed By: #### C BC #### [address] [place] [address] [place]: Dominik Muñiz MD Vitamin D 25 OHon 03-17-2022 Vitamin D 25 OH 9.4 ng/mL Low >29.9 [facility] Comment on above: Result Comment: Reference Range: Vitamin D status Range Deficiency <20 ng/mL Mild Deficiency 20-30 ng/mL Sufficiency 30-100 ng/mL Toxicity >100 ng/mL Performed By: #### C BC #### [employer] [address] [place] [address] [place]: Dominik Muñiz MD XR ABDOMEN FOR NG/OG/NE [...] Yolanda Patino DO 03/17/22 Final result Normal [facility] XR CLAVICLE LEFTon XR CLAVICLE LEFT [...] Rayo Canela MD 03/17/22 Final result Normal [facility] XR CLAVICLE RIGHTon 03-17-20 XR CLAVICLE [...] Rayo Canela MD 03/17/22 Final result Normal [facility] XR HUMERUS LEFT (MIN 2 VIEWS [...] Cintia Nova MD 03/17/22 Final result Normal [facility] XR SHOULDER LEFT (MIN 2 VIEW [...] intact. Atherosclerotic calcification of the aortic knob. panel monitor leads overlie the chest. Left shoulder: Left AC and glenohumeral joints grossly unremarkable. Visualized left-sided ribs appear intact. Atherosclerotic calcification of the aortic knob. Endotracheal and enteric tubes are visualized. panel monitor leads overlie the chest. Vertically oriented linear lucency in the proximal humeral metaphysis could represent a nondisplaced fracture. IMPRESSION: Right shoulder: Acute displaced mid right clavicular fracture. Left shoulder: Equivocal vertically oriented nondisplaced fracture through the proximal humeral metaphysis. This can be further evaluated with CT. Interpreted by: Mo Gonzalez MD Signed by: Mo Gonzalez MD 03/17/22 Final result Normal [facility] XR SHOULDER RIGHT (MIN 2 VIE [...] intact. Atherosclerotic calcification of the aortic knob. panel monitor leads overlie the chest. Left shoulder: Left AC and glenohumeral joints grossly unremarkable. Visualized left-sided ribs appear intact. Atherosclerotic calcification of the aortic knob. Endotracheal and enteric tubes are visualized. panel monitor leads overlie the chest. Vertically oriented linear lucency in the proximal humeral metaphysis could represent a nondisplaced fracture. IMPRESSION: Right shoulder: Acute displaced mid right clavicular fracture. Left shoulder: Equivocal vertically oriented nondisplaced fracture through the proximal humeral metaphysis. This can be further evaluated with CT. Interpreted by: Mo Gonzalez MD Signed by: Mo Gonzalez MD 03/17/22 Final result Normal [facility] Trauma Profileon 03-16-2022 Erythrocyte distribution width (RBC) [Ratio] 12.0 % Normal 11.8-14.4 [facility] Comment on above: Performed By: #### C BC #### [address] [address] [place]: Dominik Muñiz MD Hematocrit (Bld) [Volume fraction] 44.6 % Normal 36.3-47.1 [facility] Comment on above: Performed By: #### C BC #### [address] [id number] [place]: Dominik Muñiz MD Hemoglobin (Bld) [Mass/Vol] 15.3 g/dL High 11.9-15.1 [facility] Comment on above: Performed By: #### C BC #### [facility] [address] [place] [address] [id number] [place]: Dominik Muñiz MD MCH (RBC) [Entitic mass] 32.3 pg Normal 25.2-33.5 [facility] Comment on above: Performed By: #### C BC #### [address] [address] [place]: Dominik Muñiz MD MCHC (RBC) [Mass/Vol] 34.3 g/dL Normal 28.4-34.8 [facility] Comment on above: Performed By: #### C BC #### [address] [address] [place]: Dominik Muñiz MD MCV (RBC) [Entitic vol] 94.3 fL Normal 82.6-102.9 [facility] Comment on above: Performed By: #### C BC #### [address] [address] [place]: Dominik Muñiz MD NRBC Automated 0.0 per 100 WBC Normal 0.0 [facility] Comment on above: Performed By: #### C BC #### [address] [address] [place]: Dominik Muñiz MD Platelet mean volume (Bld) [Entitic vol] 11.8 fL Normal 8.1-13.5 [facility] Comment on above: Performed By: #### C BC #### [address] [address] [place]: Dominik Muñiz MD Platelets (Bld) [#/Vol] 174 10*3/uL Normal 138-453 [facility] Comment on above: Performed By: #### C BC #### [address] [address] [place]: Dominik Muñiz MD RBC (Bld) [#/Vol] 4.73 10*6/uL Normal 3.95-5.11 [facility] Comment on above: Performed By: #### C BC #### [address] [address] [place]: Dominik Muñiz MD WBC (Bld) [#/Vol] 19.4 10*3/uL High 3.5-11.3 [facility] Comment on above: Performed By: #### C BC #### [address] [address] [place]: Dominik Muñiz MD Body Temp. 37.0 Normal [facility] Comment on above: Performed By: #### C BC #### [address] [address] [place]: Dominik Muñiz MD Carboxy Hgb 0.2 % Normal 0-5 [facility] Comment on above: Result Comment: Reference Range: Non-Smokers 0-2% Average Smoker 2-4% Heavy Smoker <10% Performed By: #### C BC #### [address] [address] [place]: Dominik Muñiz MD FIO2 INFORMATION NOT PROVIDED [facility] Comment on above: Performed By: #### C BC #### [address] [address] [place]: Dominik Muñiz MD HCO3 (Bld) [Moles/Vol] 26.7 mmol/L Normal 24-30 [facility] Comment on above: Performed By: #### C BC #### [address] [address] [place]: Dominik Muñiz MD Negative Base Excess 1.3 mmol/L Normal 0.0-2.0 [facility] Comment on above: Performed By: #### C BC #### [address] [address] [place]: Dominik Muñiz MD Oxygen (Bld) [Partial pressure] 23.7 mm[Hg] Low 30-50 [facility] Comment on above: Performed By: #### C BC #### [address] [address] [place] [address] [place]: Dominik Muñiz MD Oxygen saturation in Blood 35.7 % Low 60.0-85.0 [facility] Comment on above: Performed By: #### C BC #### [facility] [address] [place] [address] [place]: Dominik Muñiz MD pCO2 59.9 High 39-55 [facility] Comment on above: Performed By: #### C BC #### [address] [address] [place]: Dominik Muñiz MD pH (Bld) 7.271 [pH] Low 7.320-7.420 [facility] Comment on above: Performed By: #### C BC #### [address] [address] [place]: Dominik Muñiz MD Blood Bank BILL FOR SERVICES PERFORMED Normal [facility] Comment on above: Performed By: #### C BC #### [address] [address] [place]: Dominik Muñiz MD XR CHEST PORTABLEon 03-16-20 [...] Cholo Bella MD 03/16/22 Final result Normal [facility] Vital Signs Date Time Vital Sign Value Performing Clinician Huey lovelace 04-23-2022 07:27-0400 Body temperature 99 [degF] Raimundo Harris MD Work Phone: [facility] 04-23-2022 07:27-0400 Diastolic blood pressure 85 mm[Hg] Raimundo Harris MD Work Phone: [facility] 04-23-2022 07:27-0400 Heart rate 98 /min Raimundo Harris MD Work Phone: [facility] 04-23-2022 07:27-0400 Respiratory rate 16 /min Raimundo Harris MD Work Phone: [facility] 04-23-2022 07:27-0400 SaO2% (BldA) [Mass fraction] 96 % Raimundo Harris MD Work Phone: [facility] 04-23-2022 07:27-0400 Systolic blood pressure 133 mm[Hg] Raimundo Harris MD Work Phone: [facility] 04-22-2022 10:36-0400 Body height 175.3 cm Raimundo Harris MD Work Phone: [facility] 04-20-2022 23:00-0400 Body mass index (BMI) [Ratio] 19.53 kg/m2 Raimundo Harris MD Work Phone: [facility] 04-20-2022 23:00-0400 Body weight 60 kg Raimundo Harris MD Work Phone: [facility] Encounters Encounter Date Encounter Type Care Provider Facility Start: 09-21-2023 End: 09-22-2023 ambulatory GIORGI LAMAR Not Available Start: 06-23-2022 End: 06-23-2022 [facility] Start: 05-12-2022 End: 05-12-2022 ambulatory JOSÉ [facility] Start: 03-16-2022 End: 04-23-2022 Evaluation and management of inpatient MARBELLA Rodriguez [facility] Start: 03-16-2022 End: 04-23-2022 Evaluation and management of inpatient Raimunod Harris MD Work Phone: [id number] Onc/Med Surg Procedures Date Procedure Procedure Detail Performing Clinician Start: 04-23-2022 BASIC METABOLIC PANE L W/ REFLEX TO MG FOR LOW K Allison Welch SUPERVISOR [employer]UCATION - DENTIST Work Phone: Start: 04-23-2022 Blood count complete auto&auto difrntl wbc Allison Welch SUPERVISOR [employer] EDUCATION - DENTIST Work Phone: Start: 04-23-2022 IMMATURE PLATELET FRACTION Allison Welch SUPERVISOR [employer] EDUCATION - DENTIST Work Phone: Start: 04-18-2022 Glucose blood reagent [...] metabolic pane l calcium total Allison Welch SUPERVISOR [employer] EDUCATION - DENTIST Work Phone: Start: 04-14-2022 Glucose blood reagent strip Zac Ortiz MD Work Phone: Start: 04-14-2022 Glucose blood reagent strip Zac Ortiz MD Work Phone: Start: 04-14-2022 Basic metabolic pane l calcium total Allison Welch SUPERVISOR [employer] EDUCATION - DENTIST Work Phone: Start: 04-13-2022 Glucose blood reagent [...] TO MG FOR LOW K [employer] Work Phone: Start: 04-09-2022 End: 04-09-2022 Blood [...] 04-01-2022 Blood count complete automated Maryann Schafer SUPERVISOR [employer] EDUCATION - DENTIST Work Phone: Start: 04-01-2022 Glucose blood reagent [...] 03-29-2022 Basic metabolic panel calcium total Moshe Kenney DO Work Phone: Start: 03-29-2022 End: 03-29-2022 [...] Zac Ortiz MD Work Phone: Start: 03-27-2022 COVID-19, [...] Work Phone: Start: 03-19-2022 CALCIUM, IONIC (POC) Tashia Ortiz MD Work Phone: Start: 03-19-2022 CREATININE W/GFR [...] exam abdo men 1 view Margaret C Trujillo Alto DO Work Phone: Start: 03-19-2022 Assay of [...] Phone: Start: 03-18-2022 Fluoroscopy during operation Elpidio Watson Caydenpedroginger DO Work Phone: Start: 03-18-2022 End: 03-18-2022 [...] w/le ast 12 lds i&r only Chaz Newtonmanny DO Work Phone: Start: 03-18-2022 BASIC METABOLIC PANE L W/ REFLEX TO MG FOR LOW K Timi Thibodeaux DO Work Phone: Start: 03-18-2022 Blood count complete auto&auto difrntl wbc Timi Thibodeaux DO Work Phone: Start: 03-17-2022 Glucose blood reagent strip Zac Ortiz MD Work Phone: Start: 03-17-2022 Urnls dip stick/tabl et rgnt auto w/o microscopy Allison Welch SUPERVISOR [employer] EDUCATION - DENTIST Work Phone: Start: 03-17-2022 Assay of ammonia Allison Welch SUPERVISOR [employer] EDUCATION - DENTIST Work Phone: Start: 03-17-2022 Hepatic function panel Allison Welch SUPERVISOR [employer] EDUCATION - DENTIST Work Phone: Start: 03-17-2022 Ct head/brain w/o [...] K Timi Thibodeaux DO Work Phone: Start: 03-17-2022 Calcium ionized [...] cervical spine w/ o contrast material Amalia cMghee MD Work Phone: Start: 03-16-2022 Ct head/brain w/o co ntrast material Amalia Mcghee MD Work Phone: Start: 03-16-2022 Blood typing serologic abo Raimundo Harris MD Work Phone: Start: 03-16-2022 Radiologic exam ches t single view Amalia Mcghee MD Work Phone: Start: 03-16-2022 TRAUMA PANEL Raimundo Harris MD Work Phone: Plan of Treatment Date Care Activity Detail Author Start: 04-07-2023 [facility]c [facility] Start: 07-08-2022 End: 04-07-2023 Hemoglobin A1c/Hemoglobin.total in Blood [facility] Work Phone: Start: 04-27-2022 End: 04-27-2022 ambulatory [facility] Neurosurgery C enter Chang Start: 04-01-2022 End: 03-18-2023 CT HEAD WO CONTRAST [facility] Work Phone: Start: 02-01-2022 [facility] Start: 2009 Screening for malign ant neoplasm of breast [facility] Start: 2009 [facility] Start: 2004 Screening for malign ant neoplasm of colon [facility] Start: 1989 Screening for malign ant neoplasm of cervix [facility] GOODSON [employer] Start: 1980 Screening for malign ant neoplasm of cervix NAHUM GOODSON [employer] Start: 1978 NAHUM Dorsey [employer] Start: 1977 Hepatitis C screening B ON EvinceGRICELDA [employer] Start: 1977 Urine screening for protein NAHUM GOODSON [employer] Start: 1977 NAHUM Dorsey [employer] Start: 1974 HIV screening NAHUM Evince BELEN [employer] Start: 1971 [facility] ELIA Dorsey [employer] Start: 1969 Diabetic foot examination [facility] KELLEE [employer] Start: 1969 Lipid panel [facility] [employer] Start: [address] [facility] [employer] Start: 1959 [facility] [employer] EKG 12 Lead BroadlinkGRICELDA LUCAS wishkicker Work Phone: End: 03-17-2022 PREPARE RBC (CROSSMATCH), 1 Units The 5th Quarter KELLEE [employer] Work Phone: Payers Date Payer Category Payer Medicaid [id number] 1960 Unknown [id number] 1960 Unknown [id number] 1960 Unknown [id number] [id number]. [id number] 1960 Unknown [id number] Medicaid ACUTE [id number] Social History Date Type Detail Facility Start: 03-29-2022 Tobacco smoking stat [facility] Tobacco smoking consumption unknown NAHUM GOODSON [employer] Start: 1960 Sex Assigned At B ON [employer] Work Phone: Start: 03-07-2022 End: 03-18-2022 Exposure to SARS-CoV-2 (event) Unable to assess [facility] Medical Equipment Procedure Code Equipment Code Equipment Origin al Text Equipment Identifier Dates [id number] Start: 03-29-2022 [id number] Start: 03-18-2022 [id number] Start: 03-29-2022 History of Present illness Narrative 04-23-2022 Enedina Brink RN - 04/23/2022 2:06 PM EDDeclan Bermudez PT - 04/22/2022 3:15 PM EDTCbrenton Morrow - 04/22/2022 2:15 PM EDAndrei Rosas OT - 04/22/2022 11:50 AM EDT Note Date & Type Note Facility 04-23-2022 History of Present illness Narrative Called report to Esther at [facility]. Left callback number in case they have questions. Transport picked up patient at 1355. Physical Therapy Facility/Department: [address] ONC/MED SURG Physical Therapy Treatment Note [...] information. per chart, pt is homeless-came from correction. pt also had a stroke 3 months [...] pt to complete 10 reps OutComes Score AM-PAC Score AM-[facility] Inpatient Mobility Raw Score : 14 (04/07/221555) -[facility] Inpatient T-Scale Score : 38.1 (04/07/221555) Mobility Inpatient CMS 0-100% Score: 61.29 (04/07/221555) Mobility Inpatient [facility] G-Code Modifier : CL (04/07/221555) Tinneti Score [...] PT Speech Language Pathology Speech Language Pathology [facility] Cognitive Treatment Note Date: 04/22/2022 Patient [...] E44.0 Pain: 0/10 Cognitive Treatment Treatment time: [id number] Subjective: [x] Alert [x] Cooperative [] Confused [...] recommended at discharge. Completed by: Jessika Morrow Personal Lines Account Manager Clinician Cosigned By: Louise Garner M.S.CCC/AIRPORT MANAGER Occupational Therapy Facility/Department: [address] ONC/MED SURG Occupational Therapy Daily treatment [...] loss of consciousness, unspecified laterality, initial encounter ([facility]), and Hyperglycemia were also pertinent to this [...] AM-PAC Inpatient Daily Activity Raw Score: 16 (04/22/22 114) AM-PAC Inpatient ADL T-Scale Score : 35.96 (04/22/22 1147) ADL Inpatient CMS 0-100% Score: 53.32 (04/22/22 114) ADL Inpatient CMS G-Code Modifier : CK (04/22/22 1147) Goals Short Term Goals Time Frame for Short Term Goals: pt will, by discharge Short Term Goal 1: complete LB ADLs with min A, set up and AE, as needed (Goal updated by Latha Rosas OTR/Blake on 04/22/2022) Short Term Goal 2: complete [...] PROGRESS NOTE PATIENT NAME: Anne Bullock DATE: 04/22/2022 PRIMARY CARE PHYSICIAN: No primary [...] malnutrition (HCC) MEDICAL DECISION MAKING AND PLAN [facility] C7 tp fracture NS consulted-signed off Maxillary [...] not included. PROGRESS NOTE [facility] DATE: 04/21/2022 PRIMARY CARE PHYSICIAN: No primary [...] ANM Speech Language Pathology Speech Language Pathology [facility] Cognitive Treatment Note Date: 04/20/2022 Patient s Name: Anne Bullock Diagnosis: Patient Active Problem List Diagnosis Code Intraparenchymal hemorrhage of brain ([facility]) I61.9 Cortex (cerebral) contusion, with loss of [...] E44.0 Pain: 0/10 Cognitive Treatment Treatment time: [id number] Subjective: [x] Alert [x] Cooperative [] Confused [...] questions about a picture: 12/15 increased to 13/14 with mod-max verbal cues. Pt benefits from verbal and visual cues to attend to left side of page Problem Solving/Reasoning: Stating similarities: 08/10 increased to / with mod verbal cues Other: Note pt [...] discharge. Treatment completed by: ZULEMA Morales, M.S. [facility]-AIRPORT MANAGER Department of Psychiatry Behavioral Health Consult REASON [...] she was admitted to the hospital from correction after trauma with a fall from about 10 feet high. The patient hit her head and was intubated by EMS on the scene and transferred to [facility] by [facility]. The patient was found to [...] she was pulled over and taken to correction. She could not tell me anything about the charges or the duration that she spent in correction I have spoken to the patient's nurse [...] that she was born and raised in [place]. She had a good childhood. She has finished high school. She was last employed 3 years ago. She states she has 3 children. Past Medical History: Diagnosis Date Depression Past Surgical History: Procedure Laterality Date CLAVICLE SURGERY Bilateral 03/18/2022 BILATERAL CLAVICLE OPEN REDUCTION INTERNAL FIXATION performed by Elpidio Jim DO at [facility] OR FACIAL FRACTURE SURGERY Left 03/29/2022 ORIF OF MALAR COMPLEX FRACTURE performed by Kay Novak MD at [facility] OR OPEN REDUCTION MALAR FRACTURE Left 03/29/2022 [...] intact. Atherosclerotic calcification of the aortic knob. panel monitor leads overlie the chest. Left shoulder: Left AC and glenohumeral joints grossly unremarkable. Visualized left-sided ribs appear intact. Atherosclerotic calcification of the aortic knob. Endotracheal and enteric tubes are visualized. panel monitor leads overlie the chest. Vertically oriented linear [...] at 22:35. CAROTID STENOSIS REFERENCE: The [place] Symptomatic Carotid Endarterectomy Trial (NASCET) is a [...] at 22:35. CAROTID STENOSIS REFERENCE: The [place] Symptomatic Carotid Endarterectomy Trial (NASCET) is a [...] at 22:35. CAROTID STENOSIS REFERENCE: The [place] Symptomatic Carotid Endarterectomy Trial (NASCET) is a [...] intact. Atherosclerotic calcification of the aortic knob. panel monitor leads overlie the chest. Left shoulder: Left AC and glenohumeral joints grossly unremarkable. Visualized left-sided ribs appear intact. Atherosclerotic calcification of the aortic knob. Endotracheal and enteric tubes are visualized. panel monitor leads overlie the chest. Vertically oriented linear [...] at 22:35. CAROTID STENOSIS REFERENCE: The [place] Symptomatic Carotid Endarterectomy Trial (NASCET) is a [...] she may benefit from acute rehab or half-way placement Risk Management: No special precautions needed [...] visit by provider. Patient is present at [facility] and I am physically present at my office in [place], [place] --STEVE ESTRELLA MD on 04/20/2022 at [...] reviewed and confirmed. ANM Physical Therapy Facility/Department: [address] ONC/MED SURG Daily Treatment Note NAME: [...] DO 04/20/2022 4:52 PM Occupational Therapy Facility/Department: [address] ONC/MED SURG Occupational Therapy Daily Treatment [...] Method: Demonstration;Verbal Education Outcome: Continued education needed AM-[facility] Score AM-[facility] Inpatient Daily Activity Raw Score: 17 (04/18/221251) AM-[facility] Inpatient ADL T-Scale Score : 37.26 (04/18/22 125) ADL Inpatient CMS 0-100% Score: 50.11 (04/18/22 125) ADL Inpatient [facility] G-Code Modifier : CK (04/18/221251) Goals Short [...] 44 Timed Code Treatment Minutes: 44 Minutes LAZARO Reilly/Blake Images from the original note were not [...] PROGRESS NOTE PATIENT NAME: Anne Bullock DATE: 04/17/2022 PRIMARY CARE PHYSICIAN: No [...] care plan and recommendations with Resident, TOM REYNAGA. Alexa Buchanan MD 04/17/2022 12:24 PM Physical Therapy Facility/Department: [address] ONC/MED SURG Physical Therapy Daily Treatment [...] Minutes Kaylin Oakley PTA Occupational Therapy Facility/Department: [address] ONC/MED SURG Occupational Therapy Treatment Name: [...] loss of consciousness, unspecified laterality, initial encounter ([facility]), and Hyperglycemia were also pertinent to this [...] Education Outcome: Continued education needed AM-PAC Score AM-[facility] Inpatient Daily Activity Raw Score: 15 (04/16/221446) [...] (updated by Silvia Singh OTR/L on 03/31/22) Therapy Time Individual Concurrent Group [...] Anthropometric Measures: Height: 5' 9 (175.3 cm) [place] Body Weight (IBW): 145 lbs (66 kg) [...] Used for Energy Requirements: Current Energy (kcal/day): 4620-4032 kcals/day Weight Used for Protein Requirements: Current [...] Oral Nutrition Supplement Silvia Sheldon RD Contact: [phone] Images from the original note were not included. Physical Therapy Physical Therapy Cancel Note DATE: 04/16/2022 NAME: Anne JERNIGANN: [id number] : 1960 Patient not seen this date [...] reviewed and confirmed. ANM Physical Therapy Facility/Department: [address] ONC/MED SURG Physical Therapy Daily Treatment [...] loss of consciousness, unspecified laterality, initial encounter ([facility]), and Hyperglycemia were also pertinent to this [...] with bilateral UE platform walker AM-PAC Score AM-[facility] Inpatient Mobility Raw Score : 16 (04/15/221558) -[facility] Inpatient T-Scale Score : 40.78 (04/15/221558) Mobility Inpatient CMS 0-100% Score: 54.16 (04/15/221558) Mobility Inpatient [facility] G-Code Modifier : CK (04/15/221558) Goals Short [...] Minutes Kaylin Oakley PTA Occupational Therapy Facility/Department: [address] ONC/MED SURG Occupational Therapy Daily Treatment [...] static standing at toilet and chair utilizing GRANT ADMINISTRATOR) Gait Overall Level of Assistance: Moderate assistance (chair><bathroom utilizing GRANT ADMINISTRATOR unable to utilize platform walker d/t small bathroom) Toilet Transfers Toilet - Technique: Ambulating Equipment Used: Standard toilet Toilet Transfer: Moderate assistance Toilet Transfers Comments: utilizing GRANT ADMINISTRATOR demo P WB adherence ADL Grooming: Minimal [...] to sit: Moderate assistance Transfer Comments: utilizing GRANT ADMINISTRATOR instructed on WB precautions req mod tactile [...] AM-PAC Inpatient Daily Activity Raw Score: 15 (04/15/221521) AM-PAC Inpatient ADL T-Scale Score : 34.69 (04/15/221521) ADL Inpatient CMS 0-100% Score: 56.46 (04/15/221521) ADL Inpatient [facility] G-Code Modifier : CK (10/13/22 1522) Goals Short Term Goals Time Frame for [...] Reilly Speech Language Pathology Speech Language Pathology [facility] Cognitive and Language Treatment Note Date: [...] E44.0 Pain: 0/10 Cognitive Treatment Treatment time: 0612-5987 Subjective: [x] Alert [x] Cooperative [] Confused [...] discharge. Treatment completed by: ZULEMA Roldan, M.S. [facility]-AIR[facility] MANAGER Images from the original note were not included. PROGRESS NOTE PATIENT NAME: Anne Bullock DATE: 04/15/2022 PRIMARY CARE PHYSICIAN: No primary [...] confirmed. Bob Modi MD Physical Therapy Facility/Department: [address] ONC/MED SURG Physical Therapy Daily Treatment [...] loss of consciousness, unspecified laterality, initial encounter ([facility]), and Hyperglycemia were also pertinent to this [...] confirmed. Bob Modi MD Occupational Therapy Facility/Department: [address] ONC/MED SURG Occupational Therapy Treatment Name: [...] loss of consciousness, unspecified laterality, initial encounter ([facility]), and Hyperglycemia were also pertinent to this [...] Learning: Cognition Education Outcome: Continued education needed AM-[facility] Score AM-[facility] Inpatient Daily Activity Raw Score: 15 (04/13/221556) AM-[facility] Inpatient ADL T-Scale Score : 34.69 [...] 25 Minutes CORRINA Dang/Blake Physical Therapy Facility/Department: [facility] ONC/MED SURG Daily Treatment Note Name: Anne [...] for proper technique Outcome Scores AM-PAC Score AM-[facility] Inpatient Mobility Raw Score : 15 (04/13/22 7062) AM-[facility] Inpatient T-Scale Score : 39.45 (04/13/221454) Mobility [...] PTA Speech Language Pathology Speech Language Pathology [facility] Cognitive and Language Treatment Note Date: [...] E44.0 Pain: 0/10 Cognitive Treatment Treatment time: 4376-3438 Subjective: [x] Alert [x] Cooperative [] Confused [...] discharge. Treatment completed by: ZULEMA Morales, M.S. [facility] MANAGER Images from the original note were not [...] not included. PROGR[facility] DATE: 04/12/2022 PRIMARY CARE PHYSICIAN: No primary [...] not included. PROGRESS NOTE PATIENT NAME: Anne [facility] DATE: 04/09/2022 PRIMARY CARE PHYSICIAN: No [...] confirmed. Belia Coates MD Physical Therapy Facility/Department: [address] ONC/MED SURG Physical Therapy Daily treatment [...] all planes as able x10 AM-PAC Score AM-[facility] Inpatient Mobility Raw Score : 13 (04/09/221558) AM-[facility] Inpatient T-Scale Score : 36.74 (04/09/221558) Mobility [...] PTA Speech Language Pathology Speech Language Pathology [facility] Cognitive and Language Treatment Note Date: 04/09/2022 Patient s Name: Anne Bullock Diagnosis: Patient Active Problem List Diagnosis Code Intraparenchymal hemorrhage of brain ([facility]) I61.9 Cortex (cerebral) contusion, with loss of consciousness ([facility]) S06.2X9A Cerebral edema ([facility]) G93.6 Fall W19.XXXA Closed displaced fracture of shaft of left clavicle S42.022A Closed displaced fracture of shaft of right clavicle S42.021A Closed fracture of left proximal humerus S42.202A Closed fracture of left zygomaticomaxillary complex ([facility]) S02.40FA, S02.32XA, S02.40DA, S02.82XA Acute delirium R41.0 Closed fracture of left malar bone ([facility]) S02.40BA ETOH abuse F10.10 Polysubstance abuse ([facility]) F19.10 Moderate episode of recurrent major depressive disorder ([facility]) F33.1 Moderate protein-calorie malnutrition ([facility]) E44.0 Pain: 0/10 Cognitive Treatment Treatment time: 3977-0278 Subjective: [x] Alert [x] Cooperative [] Confused [] Agitated [] Lethargic Objective/Assessment: Orientation: Pt oriented to self and year, disoriented to month and location. Recall: Delayed recall of orientation with environmental engineer: 3/3 referring to aid independently, [...] at discharge. Treatment completed by: Louise Garner AIRPORT MANAGER, M.S. [facility]-AIRPORT MANAGER Comprehensive Nutrition Assessment Type and Reason for [...] (gastrocnemius) Fluid Accumulation: No significant fluid accumulation Aerospace Mechanic Strength: Not Performed Nutrition Assessment: Chart reviewed. [...] Anthropometric Measures: Height: 5' 9 (175.3 cm) [place] Body Weight (IBW): 145 lbs (66 kg) [...] Used for Energy Requirements: Current Energy (kcal/day): 8684-0736 kcals/day Weight Used for Protein Requirements: Current [...] Oral Nutrition Supplement Silvia Sheldon RD Contact: [phone] Images from the original note were not included. [facility] Office: [phone] Torrey Ayala DO, Williams Barros DO, Attila [...] Sprague CNP, Lita Pelayo CNP, Leo Saunders, DENTIST, Brandee Guy, ALFREDO, Kimberly Ritchie, DENTIST, Filomena Reyna, DENTIST, Kirsten Tan CNP, Margaret Lay CNP, May Walden CNP, Cholo Rivera PA-Shirley, Nidhi Payton, SENIOR PL SQL DEVELOPER, Regla Salmeron, DNP, Paige Garcia, DENTIST, Marylou Miller, DENTIST, Karol Arce, DENTIST [facility] IN-PATIENT SERVICE [facility] Progress Note 04/09/2022 8:21 AM Name: Anne Bullock Acct: [id number] Room: 0434/0434-01 Day: 24 Admit Date: 03/16/2022 9:19 PM [...] to the ER after trauma alert from [facility] patient fell 10 feet with GCS around [...] C), Max:98.6 F (37 C) Recent Labs 04/08/22192204/08/226 04/09/22 0557 04/09/22 0727 POCGLU 241* 192* 213* [...] 12:07 PM PBEA 1 03/21/2022 05:50 AM [id number] 98 03/21/2022 05:50 AM FIO2 30.0 03/21/2022 [...] MD 04/09/2022 8:21 AM Physical Therapy Facility/Department: [address] ONC/MED SURG Physical Therapy daily treatment [...] AM-PAC Inpatient Mobility Raw Score : 13 (04/08/221439) AM-PAC Inpatient T-Scale Score : 36.74 (04/08/221439) Mobility Inpatient CMS 0-100% Score: 64.91 (04/08/221439) Mobility Inpatient CMS G-Code Modifier : CL [...] Melinda Najera PTA Speech Language Pathology Facility/Department: [address] ONC/MED SURG CLINICAL BEDSIDE SWALLOW EVALUATION NAME: Anne Bullock : 1960 ADMISSION DATE: 03/16/2022 ADMITTING DIAGNOSIS: [...] list. Date of Eval: 04/08/2022 Evaluating Therapist: ZULEMA Morales Current Diet level: Current Diet : Pureed, [...] more diet consistencies restricted Treatment Plan Requires AIRPORT MANAGER Intervention: Yes D/C Recommendations: Ongoing speech therapy is recommended during this hospitalization;Ongoing speech therapy is recommended at next level of care Recommended Diet and Intervention Solids: Dysphagia Minced and Moist (Dysphagia II) Liquids: Thin Recommended Form of Meds: PO Therapeutic Interventions: Diet tolerance monitoring;Oral care;Patient/Family education;Therapeutic PO trials with AIRPORT MANAGER Compensatory Swallowing Strategies Compensatory Swallowing Strategies : [...] Education Response: Verbalizes understanding;Needs reinforcement Therapy Time [id number] ZULEMA Morales 04/08/2022 2:30 PM Bedside sitter discontinued. Telesitter remains in place. Speech Language Pathology Speech Language Pathology [facility] Speech Language Treatment Note Date: 04/08/2022 Patient s Name: Anne Bullock Diagnosis: Patient Active Problem List Diagnosis Code Intraparenchymal hemorrhage of brain ([facility]) I61.9 Cortex (cerebral) contusion, with loss of consciousness ([facility]) S06.2X9A Cerebral edema ([facility]) G93.6 Fall W19.XXXA Closed displaced fracture of [...] 0/10 Speech and Language Treatment Treatment time: 3745-5516 Subjective: [x] Alert [x] Cooperative [] Confused [] Agitated [] Lethargic Objective/Assessment: Auditory Comprehension: 1 Step Commands: 4/4 independently 2 Step Commands: 2/4 not increased with visual cues 3 Step Commands: 0/2 not increased with visual cues Object Identification: 3/4 independently Y/N Questions (Sentence Comprehension): 2/6 independently Paragraph Comprehension: 5/10 independently Verbal Expression: Completing Sentences: 3/5 independently [...] recommended at discharge. Completed by: Jessika Morrow Personal Lines Account Manager Clinician Cosigned By: Brandy Varma M.S.CCC/AIRPORT MANAGER Images from the original note were not included. [facility] Office: [phone] Torrey Ayala DO, Williams Barros DO, Attila [...] Martita Brooks MD, Christine Pedro MD, Dontae Rodriguez, DO, Kendra Frost MD, Wei Dotson MD, Melissa Campos, DENTIST, Candy Sprague, DENTIST, Lita Pelayo, DENTIST, Leo Saunders, DENTIST, Brandee Guy, DNP, Kimberly Ritchie, DENTIST, Filomena Reyna, DENTIST, Kirsten Tan, DENTIST, Margaret Lay, DENTIST, May Walden, DENTIST, Cholo Rivera, PA-C, Nidhi Payton, SENIOR PL SQL DEVELOPER, Regla Salmeron, DNP, Paige Garcia, DENTIST, Marylou Miller, DENTIST, Karol Arce, DENTIST [facility] IN-PATIENT SERVICE [facility] Progress Note 04/08/2022 8:32 AM Name: Anne Bullock Acct: [id number] Room: 0437/0437-01 Day: 23 Admit Date: 03/16/2022 9:19 PM PCP: No primary care provider on file. Code Status: Full Code Subjective: C/C: No chief complaint on file. fall Interval History Status: improved. Irisn seen and examined. Alert to person, knows she is in a hospital when given prompts. Doesn't know date. Can recollect that she must have had a fall but doesn't remember how but does remember it was probably in correction. Pleasant in conversation and BP stable, glucose slightly high but no episodes of hypoglycemia Brief History: This is a 62-year-old female past medical history of alcohol abuse, polysubstance abuse originally [place] the [place] [facility] [place] [facility] patient fell 10 feet with GCS around [...] F (37.5 C) Recent Labs 04/07/22 1248 04/07/22171704/07/22214904/08/22 0803 POCGLU 175* 204* 256* 166* I/O [...] 12:07 PM PBEA 1 03/21/2022 05:50 AM [id number] 98 03/21/2022 05:50 AM FIO2 30.0 03/21/2022 [...] PROGRESS NOTE PATIENT NAME: Anne HicksRory DATE: 04/08/2022 PRIMARY CARE PHYSICIAN: No primary [...] confirmed. Bob Modi MD Occupational Therapy Facility/Department: [address] ONC/MED SURG Occupational Therapy Daily Treatment [...] Method: Demonstration;Verbal Education Outcome: Continued education needed AM-[facility] Score -[facility] Inpatient Daily Activity Raw Score: 15 (04/07/221611) [facility] Inpatient ADL T-Scale Score : 34.69 (04/07/221611) ADL Inpatient CMS 0-100% Score: 56.46 (04/07/221611) ADL Inpatient [facility] G-Code Modifier : CK (04/07/221611) Goals Short [...] engage in ADL tasks (updated by Silvia HOUSER/L on 03/31/22) Therapy Time Individual Concurrent Group Co-treatment Time In 1221 Time Out 1301 Minutes 40 Timed Code Treatment Minutes: 40 Minutes LAZARO Reilly/Blake Physical Therapy Facility/Department: [address] ONC/MED SURG Daily treatment note Name: [...] loss of consciousness, unspecified laterality, initial encounter ([facility]), and Hyperglycemia were also pertinent to this [...] CMS 0-100% Score: 61.29 (04/07/221555) Mobility Inpatient CMS G-Code Modifier : CL (04/07/221555) Goals Short [...] PT Speech Language Pathology Speech Language Pathology [facility] Cognitive Treatment Note Date: 04/07/2022 Patient [...] recommended at discharge. Completed by: Rashida Burns Personal Lines Account Manager Clinician Cosigned By: Brandy Varma M.S.CCC/AIRPORT MANAGER Images from the original note were not [...] PROGRESS NOTE PATIENT NAME: Anne HicksRory DATE: 04/06/2022 PRIMARY CARE PHYSICIAN: No primary [...] Zyprexa 5mg Depakote 250 mg TID DISPO: -[facility] SN[facility] if unrestrained >72h SUBJECTIVE Patient seen [...] DO 04/06/2022 4:30 PM Occupational Therapy Facility/Department: [address] ONC/MED SURG Daily Treatment Note NAME: [...] loss of consciousness, unspecified laterality, initial encounter ([facility]) were also pertinent to this visit. Assessment [...] balance (with Min Assist, without DME) while MANAGER MARKET DEVELOPMENT assisted with TD toilet hygiene and and [...] OTR/Blake Speech Language Pathology Speech Language Pathology [facility] Cognitive Treatment Note Date: 04/05/2022 Patient [...] recommended at discharge. Completed by: Rashida Burns Personal Lines Account Manager Clinician Cosigned By: Margaret Butler M.A. CCC/AIRPORT MANAGER Comprehensive Nutrition Assessment Type and Reason for [...] (gastrocnemius) Fluid Accumulation: No significant fluid accumulation Aerospace Mechanic Strength: Not Performed Nutrition Assessment: Chart reviewed. [...] Anthropometric Measures: Height: 5' 9 (175.3 cm) [place] Body Weight (IBW): 145 lbs (66 kg) [...] Used for Energy Requirements: Current Energy (kcal/day): 0719-6331 kcals/day Weight Used for Protein Requirements: Current [...] while inpatient Plan of Care discussed with: Cruzter Goals: Previous Goal Met: Progressing toward Goal(s) Goals: Meet at least 75% of estimated needs Nutrition Monitoring and Evaluation: Behavioral-Environmental Outcomes: None Identified Food/Nutrient Intake Outcomes: Food and Nutrient Intake, Supplement Intake Physical Signs/Symptoms Outcomes: Biochemical Data, Nutrition Focused Physical Findings, Skin, Weight, Chewing or Swallowing, Meal Time Behavior Discharge Planning: Too soon to determine Silvia Sheldon RD Contact: [phone] Physical Therapy Facility/Department: [address] ONC/MED SURG Physical Therapy Daily Treatment [...] loss of consciousness, unspecified laterality, initial encounter ([facility]) were also pertinent to this visit. Past [...] (Pt retired seated EOB with sitter upon administrative underwriter's exit) Scooting: Minimal assistance Transfers Sit to [...] ankle pumps, bilateral LAQs x10 AM-PAC Score AM-PAC Inpatient Mobility Raw Score : 12 (04/05/221401) AM-PAC Inpatient T-Scale Score : 35.33 (04/05/221401) [...] Zyprexa 5mg Depakote 250 mg TID DISPO: -[facility] if unrestrained >72h SUBJECTIVE Patient seen [...] PROGRESS NOTE PATIENT NAME: Anne Bullock DATE: 04/04/2022 SURGEON: amber PRIMARY CARE PHYSICIAN: [...] -Neurosurgery, ortho, plastics, ophthalmology , psych DISPO: -[facility] SN[facility] if unrestrained >72h SUBJECTIVE Patient seen [...] MD 04/04/2022 1:38 PM Physical Therapy Facility/Department: [address] ONC/MED SURG Daily Treatment Note NAME: [...] loss of consciousness, unspecified laterality, initial encounter ([facility]) were also pertinent to this visit. Assessment [...] Time Out 1530 Minutes 30 ALLISON DANIEL SAND BOBBER Images from the original note were not [...] MD 04/03/2022 7:47 PM Physical Therapy Facility/Department: [address] ONC/MED SURG Physical Therapy Name: Anne [...] loss of consciousness, unspecified laterality, initial encounter ([facility]) were also pertinent to this visit. Past [...] information. per chart, pt is homeless-came from correction. pt also had a stroke 3 months [...] pumps, heel slides x8-10 reps AM-PAC Score AM-[facility] Inpatient Mobility Raw Score : 14 [...] PATIENT NAME: Anne Bullock DATE: 04/02/2022 SURGEON: amber PRIMARY CARE PHYSICIAN: No primary [...] -Neurosurgery, ortho, plastics, ophthalmology , psych DISPO: -[facility] SNF if unrestrained >72h SUBJECTIVE Patient seen [...] and no acute events overnight. Objective: Vitals: 04/01/221926 BP: (!) 141/82 Pulse: 94 Resp: 18 [...] from ortho perspective -PT/OT -Please page Ortho customer relations coordinator with any questions or concerns Catherine Piper DO PGY-3 Orthopedic Surgery 5:06 AM 04/02/2022 Associated attestation - Elpidio Jmi DO - 04/02/2022 11:06 AM EDT I [...] arise. Elpidio Jim DO Physical Therapy Facility/Department: [address] ONC/MED SURG Physical Therapy Daily treatment note Name: Anne Bullock : 1960 Date of Service: 04/01/2022 Discharge [...] loss of consciousness, unspecified laterality, initial encounter ([facility]) were also pertinent to this visit. Assessment [...] Arc Quads, hip abduction/adduction, heel/toe raises, and marchgold. Reps: x5 Static Sitting Balance Exercises: 10 [...] PROGRESS NOTE PATIENT NAME: Anne Bullock DATE: 04/01/2022 SURGEON: shila PRIMARY CARE PHYSICIAN: [...] AM Speech Language Pathology Speech Language Pathology [facility] Cognitive Treatment Note Date: 03/31/2022 Patient s Name: Anne Bullock Diagnosis: Patient Active Problem List Diagnosis Code Intraparenchymal hemorrhage of brain ([facility]) I61.9 Cortex (cerebral) contusion, with loss of consciousness ([facility]) S06.2X9A Cerebral edema ([facility]) G93.6 Fall W19.XXXA Closed displaced fracture of shaft of left clavicle S42.022A Closed displaced fracture of shaft of right clavicle S42.021A Closed fracture of left proximal humerus S42.202A Closed fracture of left zygomaticomaxillary complex ([facility]) S02.40FA, S02.32XA, S02.40DA, S02.82XA Pain: 0/10 Cognitive Treatment Treatment time: 7565-3459 Subjective: [x] Alert [x] Cooperative [] Confused [...] recommended at discharge. Completed by Pebbles Loya Personal Lines Account Manager Clinician Co-signed by Brandy Varma M.S., CCC/AIRPORT MANAGER Images from the original note were not [...] (gastrocnemius) Fluid Accumulation: No significant fluid accumulation Aerospace Mechanic Strength: Not Performed Nutrition Assessment: Chart reviewed. [...] Anthropometric Measures: Height: 5' 9 (175.3 cm) [place] Body Weight (IBW): 145 lbs (66 kg) [...] Used for Energy Requirements: Current Energy (kcal/day): 2240-1052 kcals/day Weight Used for Protein Requirements: Current [...] soon to determine Racheal Lujan RD Contact: [phone] Images from the original note were not [...] at bedside I have reviewed the above TECSS note(s) and I either performed the ventura elements of the medical history and physical exam or was present with the resident when the ventura elements of the medical history and physical exam were performed. I have discussed the findings, established the care plan and recommendations with Resident, TECSS RN, bedside nurse. Alexa Buchanan MD 03/31/2022 5:10 PM Department of [...] she was admitted to the hospital from correction after trauma with a fall from about 10 feet high. The patient hit her head and was intubated by EMS on the scene and transferred to [facility] by [facility]. The patient was found to [...] she was pulled over and taken to correction. She could not tell me anything about the charges or the duration that she spent in correction I have spoken to the patient's nurse [...] that she was born and raised in [place]. She had a good childhood. She has finished high school. She was last employed 3 years ago. She states she has 3 children. Past Medical History: History reviewed. No pertinent past medical history. Past Surgical History: Procedure Laterality Date CLAVICLE SURGERY Bilateral 03/18/2022 BILATERAL CLAVICLE OPEN REDUCTION INTERNAL FIXATION performed by Elpidio Jim DO at [facility] OR OPEN REDUCTION MALAR FRACTURE Left 03/29/2022 [...] Knowledge limited LABS: REVIEWED TODAY: Recent Labs 03/29/22 1855 03/30/22 0807 WBC 23.9* 17.4* HGB 12.7 12.4 PLT 371 338 Recent Labs 03/29/22 1855 NA 138 K [...] intact. Atherosclerotic calcification of the aortic knob. panel monitor leads overlie the chest. Left shoulder: Left AC and glenohumeral joints grossly unremarkable. Visualized left-sided ribs appear intact. Atherosclerotic calcification of the aortic knob. Endotracheal and enteric tubes are visualized. panel monitor leads overlie the chest. Vertically oriented linear [...] at 22:35. CAROTID STENOSIS REFERENCE: The [place] Symptomatic Carotid Endarterectomy Trial (NASCET) is a [...] body.. Critical results were called by Dr. Lakihsa Venegas MD to on 03/16/2022 at 22:35. CAROTID STENOSIS REFERENCE: The [place] Symptomatic Carotid Endarterectomy Trial (NASCET) is a [...] at 22:35. CAROTID STENOSIS REFERENCE: The [place] Symptomatic Carotid Endarterectomy Trial (NASCET) is a [...] intact. Atherosclerotic calcification of the aortic knob. panel monitor leads overlie the chest. Left shoulder: Left AC and glenohumeral joints grossly unremarkable. Visualized left-sided ribs appear intact. Atherosclerotic calcification of the aortic knob. Endotracheal and enteric tubes are visualized. panel monitor leads overlie the chest. Vertically oriented linear [...] at 22:35. CAROTID STENOSIS REFERENCE: The [place] Symptomatic Carotid Endarterectomy Trial (NASCET) is a [...] she may benefit from acute rehab or half-way placement Risk Management: 1:1 sitter Medications: Noted [...] this chart was generated using voice recognition Microt[employer] dictation software. Although every effort was made to ensure the accuracy of this automated commercial counsel, some errors in commercial counsel may have occurred. SNF likely. Profiled vitamin D. HR Occupational Therapy Facility/Department: [address] ONC/MED SURG Occupational Therapy Daily Treatment [...] loss of consciousness, unspecified laterality, initial encounter ([facility]) were also pertinent to this visit. Past [...] 5 lb lifting, pushing, pulling restriction to nehal BISHOP to use platform walker Position Activity Restriction [...] CMS 0-100% Score: 63.03 (03/30/221408) ADL Inpatient [facility] G-Code Modifier : CL (03/30/221408) Goals Short [...] 36 Timed Code Treatment Minutes: 23 Minutes LAZARO WAGGONER/Blake Physical Therapy Facility/Department: [address] ONC/MED SURG Daily Treatment Note Name: [...] (HCC) were also pertinent to this visit. Past [...] Mobility Inpatient CMS G-Code Modifier : CL (09/27/22 1208) Goals Short Term Goals Time Frame for [...] of restraints for most of the night. Development Editor was called into patient's room by sitter because patient agitated and started to pull at IV as well as attempting to hit and pinch the sitter. Development Editor told patient to stop pulling at lines [...] monitor Speech Language Pathology Speech Language Pathology [facility] Cognitive Treatment Note Date: 03/29/2022 Patient [...] repetition Problem Solving/Reasoning: Add to the Category (Amanda): 0/2 increased to 2/2 with max verbal [...] recommended at discharge. Completed by: Rashida Burns Personal Lines Account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
== END 2023-09-29 21:45 | disposition hospice, inpatient (51) ==
PROVIDERS: Emergency Provider Emergency Medicine; PCP Family Medicine
DX: Z46.59 Encounter for fitting and adjustment of other gastrointestinal appliance and device (principal); Z87.820 Personal history of traumatic brain injury; F01.50 Vascular dementia, unspecified severity, without behavioral disturbance, psychotic disturbance, mood disturbance, and anxiety; Z79.899 Other long term (current) drug therapy; Z79.84 Long term (current) use of oral hypoglycemic drugs; Z86.16 Personal history of COVID-19; Z86.73 Personal history of transient ischemic attack (TIA), and cerebral infarction without residual deficits; Z87.891 Personal history of nicotine dependence
CPT/HCPCS: 74018; 99283